=== PATIENT | male | born 1940 | race Caucasian/White ===

== ENCOUNTER → 2017-01-21 | Outpatient (CLI) | payer OTHER ==
[~2017-01-21] MED LIST: ACT15 PO; ALFU10TA30 PO; ASPEC325 PO; GLC500 PO; LOVA40TA4 PO; REPA2TAB13 PO
[2017-01-21 13:24] LABS: BASO % 0.7 %; BASO ABS # 0.06 K/uL (0-0.2); COMPLETE YES; EOS % 6.6 %; HEMATOCRIT 40.4 % (42-52); IG% 0.3 %; LYMPH % 33.2 %; LYMPH ABS # 2.85 K/uL (1.2-3.4); MEAN CELL VOLUME 91.8 fL (80-100); MEAN CORPUSCULAR HEMOGLOBIN 31.6 pg (25-34); MEAN CORPUSCULAR HGB CONC 34.4 g/dl (32-36); MEAN PLATELET VOLUME 9.7 fL (7.4-10.4); MONO % 7.9 %; NEUT % 51.3 %; PLATELET COUNT 218 K/uL (130-400); WHITE BLOOD COUNT 8.59 K/uL (4.8-10.8)
[2017-01-21 13:32] LABS: ALT/SGPT 36 U/L (12-78); AST/SGOT 30 U/L (15-37); BLOOD UREA NITROGEN 28 mg/dl (7-18); BUN/CREATININE RATIO 17.7 (10-20); CALCIUM 8.8 mg/dl (8.5-10.1); CARBON DIOXIDE 28 mmol/L (21-32); CHLORIDE 106 mmol/L (98-107); CHOLESTEROL 141 mg/dl (0-200); GLUCOSE 117 mg/dl (70-99); POTASSIUM 4.4 mmol/L (3.5-5.1); SODIUM 141 mmol/L (136-145); TRIGLYCERIDES 95 mg/dl (0-150); VERY LOW DENSITY LIPOPROT CALC 19 mg/dl
[2017-01-21 13:42] LABS: CHOLESTEROL/HDL RATIO 2.8; HDL CHOLESTEROL 51 mg/dl; LDL CHOLESTEROL CALCULATED 71 mg/dl
[2017-01-21 13:48] LABS: ESTIMATED AVERAGE GLUCOSE 163 mg/dl; HA1C FLAG Normal (Normal)
[2017-01-21 14:06] LABS: RATIO 8.7 mcg/mg (0-30.0)
== END | disposition home or self-care (01) ==
LOC: C.LABMFLN 07:59
PROVIDERS: ATTEND Family Medicine
DX: E78.00 Pure hypercholesterolemia, unspecified (principal); E03.9 Hypothyroidism, unspecified; E11.9 Type 2 diabetes mellitus without complications; E53.8 Deficiency of other specified B group vitamins

== ENCOUNTER → 2017-02-26 | Outpatient (CLI) | payer OTHER ==
[~2017-02-26] MED LIST changes: +ALFU10TA2 PO; -ALFU10TA30 PO; +REPA2TAB12 PO; -REPA2TAB13 PO
--- NOTE | 2017-02-26 15:55 | DIAGNOSTIC IMAGING REPORT ---
ADDENDUM Addendum: There is an error in the original report, as the patient was mistakenly assumed to be a female. The reported 4 cm cystic presacral lesion, is therefore not of ovarian origin. The etiology of this lesion is not known. CT scanning should be considered in follow-up. Electronically signed by: Kevin Roy M.D. 02/27/2017 10:57 AM Dictated Date/Time: 02/27/2017 10:55 AM ORIGINAL REPORT MRI LUMBAR SPINE W/O CONTRAST CLINICAL HISTORY: LUMBAR RADICULOPATHY TECHNIQUE: Sagittal and axial T1, T2 and STIR images were obtained. COMPARISON STUDY: No previous studies for comparison. OBSERVATIONS: The vertebral bodies and posterior elements appear intact. There is no abnormal bony signal present to suggest a marrow replacement process. L1-2: No disc protrusions or extrusions. No evidence of spinal canal or neural foraminal compromise. L2-3: There is a disc bulge and small broad-based central disc protrusion. There is minimal deformity anterior thecal sac. There is no significant foraminal narrowing L3-4: There is an annular fissure. There is a small right paracentral disc protrusion. There is mild spinal stenosis. There is no significant foraminal narrowing L4-5: There is an annular fissure and small central disc protrusion. There is facet joint arthropathy. There is moderate spinal stenosis. There is a minimal grade 1 spondylolisthesis of L4 on L5. L5-S1: There is an annular fissure and small central disc protrusion. There is minimal secondary deformity of thecal sac. There is no significant foraminal narrowing. The conus medullaris and cauda equina appear normal. There is a 4 cm T2 bright presacral lesion, likely cystic. This is slightly to the left of midline. This could be ovarian. Nonemergent pelvic ultrasonography is recommended in follow-up. IMPRESSION: 1. Multilevel spondylitic changes with multilevel disc protrusions. There is moderate spinal stenosis the L4-5 level. 2. 4 cm cystic presacral lesion, possibly ovarian. A nonemergent pelvic ultrasound is recommended in follow-up. Electronically signed by: Kevin Roy M.D. 02/26/2017 3:53 PM Dictated Date/Time: 02/26/2017 3:44 PM
== END | disposition home or self-care (01) ==
LOC: C.MRIBC 14:25
PROVIDERS: ATTEND Pain Medicine Interventional Pain Medicine
DX: M47.817 Spondylosis without myelopathy or radiculopathy, lumbosacral region (principal)

== ENCOUNTER → 2017-03-09 | Outpatient (CLI) | payer OTHER ==
[2017-03-09 13:37] LABS: BLOOD UREA NITROGEN 30 mg/dl (7-18)
== END | disposition home or self-care (01) ==
LOC: C.LABMFLN 08:14
PROVIDERS: ATTEND Family Medicine
DX: E03.9 Hypothyroidism, unspecified (principal)

== ENCOUNTER → 2017-03-11 | Outpatient (CLI) | payer OTHER ==
[~2017-03-11] MED LIST changes: +OPTIRAY 320 IV PRN
--- NOTE | 2017-03-11 10:02 | DIAGNOSTIC IMAGING REPORT ---
CT ABD/PELVIS IV AND ORAL CONT CLINICAL HISTORY: PRE SACRAL MASS COMPARISON STUDY: MRI the lumbar spine dated 02/26/2017 TECHNIQUE: Following the IV administration of 94 mL of Optiray-320, CT scan of the abdomen and pelvis was performed from the lung bases to the proximal femurs. Images are reviewed in the axial, sagittal, and coronal planes. IV contrast was administered without complication. CT DOSE: 365.73 mGy.cm FINDINGS: Lower chest: There are minor dependent atelectatic changes. Liver: The contrast-enhanced liver is normal in size, contour, and attenuation. There is no intrahepatic biliary ductal dilatation. The hepatic veins and portal veins are patent. Gallbladder: Unremarkable. Spleen: Normal in size and attenuation. Pancreas: Unremarkable. Adrenal glands: Unremarkable. Kidneys: There is symmetric renal cortical enhancement. The kidneys are normal in size without hydronephrosis. Bowel: There are no transition zones indicate bowel obstruction. The appendix appears normal. There is no acute diverticulitis. Peritoneum: There is no intraperitoneal free air or abdominal ascites. Vasculature: The abdominal aorta is normal in course and caliber. Adenopathy: None. Pelvic viscera: There is a 4 cm left-sided presacral low-attenuation mass located the S1 level. There are no associated bony destructive or remodeling changes. There are no surrounding inflammatory changes. Skeletal structures: No destructive osseous lesions are seen. IMPRESSION: 4 cm left-sided presacral low-attenuation mass located the S1 level. There are no associated bony destructive or remodeling changes. Likely diagnostic considerations include a developmental cyst, neurogenic tumor, or acquired lesion. If the patient is asymptomatic, surveillance may be appropriate. If surveillance is chosen, a 6 month follow-up MRI study without and with gadolinium would be recommended. Electronically signed by: Kevin Roy M.D. 03/11/2017 10:01 AM Dictated Date/Time: 03/11/2017 9:44 AM
== END | disposition home or self-care (01) ==
LOC: C.CTS 09:07
PROVIDERS: ATTEND Pain Medicine Interventional Pain Medicine
DX: R19.09 Other intra-abdominal and pelvic swelling, mass and lump (principal)

== ENCOUNTER → 2017-03-13 | Outpatient (CLI) | payer OTHER ==
[~2017-03-13] MED LIST changes: -OPTIRAY 320 IV PRN
== END | disposition home or self-care (01) ==
LOC: C.LABMFLN 11:12
PROVIDERS: ATTEND Family Medicine
DX: E11.40 Type 2 diabetes mellitus with diabetic neuropathy, unspecified (principal)

== ENCOUNTER → 2017-07-14 | Outpatient (CLI) | payer OTHER ==
[~2017-07-14] MED LIST changes: -ALFU10TA2 PO; +ALFU10TA30 PO; -REPA2TAB12 PO; +REPA2TAB13 PO
[2017-07-14 13:28] LABS: ESTIMATED AVERAGE GLUCOSE 160 mg/dl; HA1C FLAG Normal (Normal)
[2017-07-14 14:00] LABS: ALT/SGPT 39 U/L (12-78); AST/SGOT 33 U/L (15-37); BLOOD UREA NITROGEN 30 mg/dl (7-18); BUN/CREATININE RATIO 18.7 (10-20); CALCIUM 8.5 mg/dl (8.5-10.1); CARBON DIOXIDE 26 mmol/L (21-32); CHLORIDE 107 mmol/L (98-107); CHOLESTEROL 133 mg/dl (0-200); GLUCOSE 132 mg/dl (70-99); POTASSIUM 4.2 mmol/L (3.5-5.1); SODIUM 141 mmol/L (136-145)
[2017-07-14 14:11] LABS: ALB/GLOB RATIO 1.4 (0.9-2); ALKALINE PHOSPHATASE 104 U/L (45-117); HDL CHOLESTEROL 45 mg/dl; LDL CHOLESTEROL CALCULATED 65 mg/dl; THYROID STIMULATING HORMONE 0.861 uIu/ml (0.300-4.500); TRIGLYCERIDES 117 mg/dl (0-150); VERY LOW DENSITY LIPOPROT CALC 23 mg/dl
== END | disposition home or self-care (01) ==
LOC: C.LABMFLN 08:16
PROVIDERS: ATTEND Family Medicine
DX: E11.40 Type 2 diabetes mellitus with diabetic neuropathy, unspecified (principal); E78.00 Pure hypercholesterolemia, unspecified; E03.9 Hypothyroidism, unspecified

== ENCOUNTER → 2017-10-30 | Outpatient (CLI) | payer OTHER ==
[~2017-10-30] MED LIST changes: +ALFU10TA2 PO; -ALFU10TA30 PO; +REPA2TAB12 PO; -REPA2TAB13 PO
[2017-10-30 13:11] LABS: ESTIMATED AVERAGE GLUCOSE 140 mg/dl; HA1C FLAG Normal (Normal)
[2017-10-30 13:20] LABS: BLOOD UREA NITROGEN 33 mg/dl (7-18); BUN/CREATININE RATIO 22.2 (10-20); CALCIUM 8.4 mg/dl (8.5-10.1); CARBON DIOXIDE 26 mmol/L (21-32); CHLORIDE 109 mmol/L (98-107); CREATININE 1.48 mg/dl (0.60-1.40); GLUCOSE 98 mg/dl (70-99); POTASSIUM 4.2 mmol/L (3.5-5.1); SODIUM 142 mmol/L (136-145)
== END | disposition home or self-care (01) ==
LOC: C.LABMFLN 09:00
PROVIDERS: ATTEND Family Medicine
DX: E11.40 Type 2 diabetes mellitus with diabetic neuropathy, unspecified (principal)

== ENCOUNTER → 2017-11-03 | Outpatient (CLI) | payer OTHER | END | disposition home or self-care (01) | LOC: C.LABMFLN 07:29 | PROVIDERS: ATTEND Family Medicine | DX: R20.0 Anesthesia of skin (principal) ==

== ENCOUNTER → 2018-02-24 | Outpatient (CLI) | payer OTHER ==
[2018-02-24 14:04] LABS: ALBUMIN 3.9 gm/dl (3.4-5.0); ALT/SGPT 30 U/L (12-78); AST/SGOT 24 U/L (15-37); BLOOD UREA NITROGEN 27 mg/dl (7-18); CALCIUM 8.7 mg/dl (8.5-10.1); CARBON DIOXIDE 26 mmol/L (21-32); CHOLESTEROL 95 mg/dl (0-200); CREATININE 1.52 mg/dl (0.60-1.40); GLUCOSE 117 mg/dl (70-99); POTASSIUM 4.2 mmol/L (3.5-5.1); SODIUM 142 mmol/L (136-145)
[2018-02-24 14:14] LABS: ALKALINE PHOSPHATASE 90 U/L (45-117); LDL CHOLESTEROL CALCULATED 33 mg/dl; TOTAL PROTEIN 6.2 gm/dl (6.4-8.2)
[2018-02-25 06:52] LABS: HEMOGLOBIN A1C 6.8 % (4.5-5.6)
== END | disposition home or self-care (01) ==
LOC: C.LABMFLN 07:31
PROVIDERS: ATTEND Family Medicine
DX: E11.40 Type 2 diabetes mellitus with diabetic neuropathy, unspecified (principal); E78.00 Pure hypercholesterolemia, unspecified; E03.9 Hypothyroidism, unspecified; N18.9 Chronic kidney disease, unspecified; G47.33 Obstructive sleep apnea (adult) (pediatric)

== ENCOUNTER → 2018-03-09 | Outpatient (CLI) | payer OTHER ==
[~2018-03-09] MED LIST changes: +GADAVIST IV PRN
--- NOTE | 2018-03-09 10:19 | DIAGNOSTIC IMAGING REPORT ---
PELVIC COMBO CLINICAL HISTORY: 77 years-old Male presenting with PELVIC MASS IN MALE F/U SACRAL LESION, low back pain 1 year. TECHNIQUE: Multisequence, multiplanar MR imaging of the pelvis was performed before and after the administration of intravenous contrast. IV contrast: 8.5 mL of Gadavist. COMPARISON: 09/09/2017. FINDINGS: Localizer images: Unremarkable. Evidence of prostatic enlargement with benign prostatic hyperplasia. Circumferential bladder wall thickening likely indicates chronic bladder outlet obstruction. Redemonstration of the T1 hypointense, T2 hyperintense lesion anterior to the S1 vertebral body. This is mildly complex on T2-weighted imaging. No associated osseous changes or erosion. This appears to be located in the presacral space. No invasion of the mesorectal fat. This demonstrates heterogeneous enhancement on postcontrast imaging. This mass measures 3.6 x 3.6 x 3.5 cm. Previously this mass measured 4.0 x 4.3 x 3.5 cm. This does not grossly involve the neural foramina. No lymphadenopathy. Visualized portion of the bowel within normal limits. No free intraperitoneal fluid. Abnormal signal intensity within the right femoral head is primarily subchondral in distribution along the inferior and medial aspect of the right femoral head. Trace bilateral hip joint effusions. IMPRESSION: 1. Presacral mass is stable to slightly decreased in size from prior. Overall is not significantly changed. 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 2. Prostatomegaly with chronic bladder outlet obstruction. 3. Marrow changes in the right femoral head are not significant changed from prior. This may indicate osteonecrosis or degenerative change. Electronically signed by: Dony Gamez M.D. 03/09/2018 10:18 AM Dictated Date/Time: 03/09/2018 10:08 AM
== END | disposition home or self-care (01) ==
LOC: C.MRI 08:35
PROVIDERS: ATTEND Family Medicine
DX: R19.00 Intra-abdominal and pelvic swelling, mass and lump, unspecified site (principal); N40.1 Benign prostatic hyperplasia with lower urinary tract symptoms; N13.8 Other obstructive and reflux uropathy

== ENCOUNTER → 2018-06-14 | Outpatient (CLI) | payer OTHER ==
[~2018-06-14] MED LIST changes: -GADAVIST IV PRN
== END | disposition home or self-care (01) ==
LOC: C.LABMFLN 15:55
PROVIDERS: ATTEND Family Medicine
DX: E53.8 Deficiency of other specified B group vitamins (principal); M79.1 Myalgia

== ENCOUNTER 2019-08-10 04:53 | Inpatient (IN) ==
--- NOTE | 2019-07-22 10:16 | PAT Medication Instructions ---
Medication Instructions Date of Service July 22, 2019 Home Medications Medication Instructions Recorded blood sugar diagnostic strips #10 ea 05/10/19 rivaroxaban 15 mg tablet 15 mg PO QPM #90 tab 05/10/19 flash glucose scanning reader #1 ea 07/05/19 flash glucose sensor kit #2 ea 07/07/19 Medications blood sugar diagnostic strips #10 ea 05/10/19 [Rx Confirmed 07/20/19] rivaroxaban 15 mg tablet 15 mg PO QPM #90 tab 05/10/19 [Rx Confirmed 07/20/19] flash glucose scanning reader #1 ea 07/05/19 [Rx Confirmed 07/20/19] flash glucose sensor kit #2 ea 07/07/19 [Rx Confirmed 07/20/19] alfuzosin 10 mg PO HS 07/20/19 [History Confirmed 07/20/19] coQ10 (ubiquinol) 200 mg PO BID 07/20/19 [History Confirmed 07/20/19] fexofenadine [Shereen Allergy] 180 mg PO QAM 07/20/19 [History Confirmed 07/20/19] fluticasone propionate [Flonase Allergy Relief] 1 spray INTRANASAL BID 07/20/19 [History Confirmed 07/20/19] insulin glargine [Lantus Solostar U-100 Insulin] 22 units SQ HS 07/20/19 [History Confirmed 07/20/19] insulin lispro [Humalog U-100 Insulin] 13 - 23 unit SUBCUT TID 07/20/19 [History Confirmed 07/20/19] levothyroxine 150 mcg PO QAM 07/20/19 [History Confirmed 07/20/19] magnesium oxide [MagOx] 400 mg PO QAM 07/20/19 [History Confirmed 07/20/19] metoprolol succinate 50 mg PO QAM 07/20/19 [History Confirmed 07/20/19] metronidazole 1 appln TOP QAM 07/20/19 [History Confirmed 07/20/19] vitamin B complex [B-Complex] 1 tab PO Q2D 07/20/19 [History Confirmed 07/20/19] atorvastatin 10 mg tablet 10 mg PO PM tab 07/21/19 [History Confirmed 07/21/19] Take morning of surgery With a small sip of water, OTHERWISE NOTHING TO EAT OR DRINK AFTER MIDNIGHT: Insulin Dependent Diabetic Patients * Test your blood sugar the morning of surgery * If Blood Sugar is GREATER THAN 150, take HALF of your regular dose of: * If Blood Sugar is LESS THAN 150, DO NOT TAKE ANY: Other Notes If you have any questions please call us at [phone] or [phone] or [phone] or [phone]
--- NOTE | 2019-07-22 10:23 | PAT Medication Instructions ---
Medication Instructions Date of Service July 22, 2019 Home Medications Medication Instructions Recorded blood sugar diagnostic strips #10 ea 05/10/19 rivaroxaban 15 mg tablet 15 mg PO QPM #90 tab 05/10/19 flash glucose scanning reader #1 ea 07/05/19 flash glucose sensor kit #2 ea 07/07/19 rivaroxaban 15 mg tablet 15 mg PO QPM alfuzosin 10 mg PO HS coQ10 (ubiquinol) 200 mg PO BID fexofenadine [Shereen Allergy] 180 mg PO QAM fluticasone propionate [Flonase Allergy Relief] 1 spray INTRANASAL BID insulin glargine [Lantus Solostar U-100 Insulin] 22 units SQ HS insulin lispro [Humalog U-100 Insulin] 13 - 23 unit SUBCUT TID levothyroxine 150 mcg PO QAM magnesium oxide [MagOx] 400 mg PO QAM metoprolol succinate 50 mg PO QAM metronidazole 1 appln TOP QAM vitamin B complex [B-Complex] 1 tab PO Q2D atorvastatin 10 mg tablet 10 mg PO PM ASK your prescriber and surgeon rivaroxaban 15 mg tablet 15 mg PO QPM (In order for spinal anesthesia, Rivaroxaban/Xarelto needs to be stopped 3 days/72 hours before surgery. Please check if this is okay with the doctor that prescribes this to you) STOP taking 2 weeks before surgery (or as soon as possible if surgery is within 2 weeks) coQ10 (ubiquinol) 200 mg PO BID STOP taking 24 hours before surgery metronidazole 1 appln TOP QAM DO NOT take the morning of surgery fexofenadine [Shereen Allergy] 180 mg PO QAM insulin lispro [Humalog U-100 Insulin] 13 - 23 unit SUBCUT TID magnesium oxide [MagOx] 400 mg PO QAM vitamin B complex [B-Complex] 1 tab PO Q2D Take morning of surgery With a small sip of water, OTHERWISE NOTHING TO EAT OR DRINK AFTER MIDNIGHT: fluticasone propionate [Flonase Allergy Relief] 1 spray INTRANASAL BID levothyroxine 150 mcg PO QAM metoprolol succinate 50 mg PO QAM Take evening before surgery alfuzosin 10 mg PO HS fluticasone propionate [Flonase Allergy Relief] 1 spray INTRANASAL BID insulin glargine [Lantus Solostar U-100 Insulin] 22 units SQ HS insulin lispro [Humalog U-100 Insulin] 13 - 23 unit SUBCUT TID atorvastatin 10 mg tablet 10 mg PO PM Other Notes If you have any questions please call us at [phone] or [phone] or [phone] or [phone]
--- NOTE | 2019-07-22 10:54 | Anesthesiology Consultation ---
Date of Service July 22, 2019 Assessment & Plan (1) Encounter for pre-operative examination: - Cardiology: 01/20/19: Stress ECHO ordered for evaluation of NAIR. No evidence of ischemia on exercise stress echo 02/10/19. - Check BSG AM DOS - Hx difficult intubation: per patient, he was told he was a difficult intubation with knee surgery 25+ years ago. Has subsequently had right TKA 12/28/09 at [facility] (SAB + PNB per operative report). Chart Review Chart Review: Pending: Refer to Additional Notes / Consult section (pending preop testing (labs, CXR)) and Patient seen in Pre Admission Testing Teaching & Discussion Pre-Anesthesia Teaching/Discussion Notes: Instructed NPO after midnight before surgery,except medications with 15 cc of water. Medication instructions provided according to the PAT guidelines. History Surgery Operation Date: 08/10/19 11:40 Proposed Procedures p Left Total Knee Arthroplasty - Terry Bryan MD Height/Weight Height: 6 ft 3 in Weight: 91.8 kg Allergies Allergy/AdvReac Type Severity Reaction Status Date / Time No Known Allergies Allergy Verified 07/20/19 11:28 Medications Home Medications Medication Instructions Recorded Confirmed Last Taken blood sugar diagnostic strips #10 ea 05/10/19 07/20/19 Unknown rivaroxaban 15 mg tablet 15 mg PO QPM #90 tab 05/10/19 07/20/19 Unknown flash glucose scanning reader #1 ea 07/05/19 07/20/19 Unknown flash glucose sensor kit #2 ea 07/07/19 07/20/19 Unknown alfuzosin 10 mg PO HS 07/20/19 07/20/19 Unknown coQ10 (ubiquinol) 200 mg PO BID 07/20/19 07/20/19 Unknown fexofenadine [Shereen Allergy] 180 mg PO QAM 07/20/19 07/20/19 Unknown fluticasone propionate [Flonase 1 spray INTRANASAL BID 07/20/19 07/20/19 Unknown Allergy Relief] insulin glargine [Lantus Solostar 22 units SQ HS 07/20/19 07/20/19 Unknown U-100 Insulin] insulin lispro [Humalog U-100 13 - 23 unit SUBCUT TID 07/20/19 07/20/19 Unknown Insulin] levothyroxine 150 mcg PO QAM 07/20/19 07/20/19 Unknown magnesium oxide [MagOx] 400 mg PO QAM 07/20/19 07/20/19 Unknown metoprolol succinate 50 mg PO QAM 07/20/19 07/20/19 Unknown metronidazole 1 appln TOP QA 07/20/19 07/20/19 Unknown vitamin B complex [B-Complex] 1 tab PO Q2D 07/20/19 07/20/19 Unknown atorvastatin 10 mg tablet 10 mg PO PM tab 07/21/19 07/21/19 Unknown Past Medical History Medical History Atrial flutter on Xarelto BPH (benign prostatic hyperplasia) CKD (chronic kidney disease) Chronic back pain Diabetes mellitus, type 2 IDDM Hyperlipidemia Hypertension Hypothyroidism Neuropathy BILAT FEET Osteoarthritis Sleep apnea non-compliant CPAP Exercise / Class Metabolic Activity II 4-5 Yardwork/Stairs/Walk up hill Past Family History Family History Father Family hx of colon cancer Colorectal cancer Other Cancer Past Surgical History Surgical History History of arthroscopy RIGHT History of surgery on wrist History of tonsillectomy AGE 6 History of total knee replacement RIGHT Past Anesthesia History Difficult Airway (Per patient, he was told he was a difficult intubation with knee surgery 25+ years ago; no further details) and No Family Hx of Anesthesia Complications History of PONV No Hx of PONV and No Hx of Motion Sickness Social History Smoking Status: Former smoker tobacco type: cigarettes Do You Dip or Chew Tobacco: No Smoking End Date: QUIT 40 YRS AGO Hx Alcohol Use: Yes Alcohol type: beer and hard liquor alcohol intake frequency: a few times a week Hx Substance Use: No Review of Systems Patient denies chest pain, shortness of breath, dyspnea on exertion, reflux, cough, wheezing, palpitations. Physical Exam Vital Signs VITALS BP 117/58 P 58 TEMP 97.5 SP02 99%RA RESP 18 PHYSICAL Mildly decreased cervical extension 2/2 arthritis Full TMJ range of motion. TMD 3 finger breaths Mallampati Score 4 (small oral opening) Dentition: missing side, several caps/implants "all over" Lungs: clear throughout to auscultation Cardiac: regular rate and rhythm, no murmurs noted Spine: normal Carotid arteries: negative bruit Extremities: no edema Testing Electrocardiogram Date: 12/23/18 SR at 72bpm. Echocardiogram Date: 12/16/18 EF 55-60%. No RWMA. Mild MR. Stress Test Date: 02/10/19 Type: exercise Negative exercise stress ECHO/EKG for ischemia at 90% MPHR. 7 METS. EF 60%.
--- NOTE | 2019-07-22 11:45 | XRay Report ---
TWO VIEW CHEST CLINICAL HISTORY: Preoperative examination.. FINDINGS: PA and lateral chest radiographs are compared to study dated 12/17/2009. The heart is top nor mal for projection noting atherosclerotic calcification of the thoracic aorta. Chronic interstitial t hickening is similar to previous. No airspace consolidation or pleural effusion is identified. There is no pneumothorax. The skeletal structures are osteopenic. The bony thorax appears intact. Degenerat peggy change and DISH are noted throughout the thoracic spine. IMPRESSION: No active disease in the chest. Electronically signed by: Jalil Simmons M.D. 07/22/2019 11:44 AM
[2019-07-22 12:31] LABS: Basophils # (auto) 0.03 K/uL (0-0.2); Basophils % (auto) 0.3 %; Eosinophils # (auto) 0.22 K/uL (0-0.5); Eosinophils % (auto) 2.5 %; Hemoglobin 14.9 g/dL (14.0-18.0); Immature Granulocytes # (auto) 0.03 K/uL (0.00-0.02); Immature Granulocytes % (auto) 0.3 %; Lymphocytes # (auto) 2.34 K/uL (1.2-3.4); Lymphocytes % (auto) 27.1 %; Mean Corpuscular Hemoglobin 32.5 pg (25-34); Mean Corpuscular Hgb Conc 34.7 g/dL (32-36); Mean Corpuscular Volume 93.7 fL (80-100); Mean Platelet Volume 10.2 fL (7.4-10.4); Monocytes % (auto) 10.4 %; Neutrophils # (auto) 5.13 K/uL (1.4-6.5); Neutrophils % (auto) 59.4 %; Platelet Count 192 K/uL (130-400); RDW Coefficient of Variation 12.5 % (11.5-14.5); RDW Standard Deviation 42.4 fL (36.4-46.3); Red Blood Count 4.59 M/uL (4.7-6.1); White Blood Count 8.65 K/uL (4.8-10.8)
[2019-07-22 12:45] LABS: Appearance Urine Clear (Clear); Bilirubin Urine Negative (Negative); Blood Urine Negative (Negative); Color Urine Yellow; Glucose Urine UA Negative (Negative); Ketones Urine Negative (Negative); Leukocyte Esterase Urine Negative (Negative); Nitrite Urine Negative (Negative); Protein Urine Negative (Negative); Specific Gravity Urine 1.018 (1.000-1.030); Urobilinogen Urine Negative (Negative)
[2019-07-22 12:49] LABS: Albumin Level 3.9 gm/dl (3.4-5.0); Calcium 8.6 mg/dl (8.5-10.1); Creatinine Clr Calc Pharmacy 40.4 ml/min; Est GFR (African American) 40.9; Est GFR (Non-African American) 35.3; Potassium 4.1 mmol/L (3.5-5.1)
[2019-07-22 12:51] LABS: Partial Thromboplastin Time 26.8 Seconds (21.0-31.0); Prothrombin Time 10.3 Seconds (9.0-12.0)
[2019-07-22 13:08] LABS: Estimated Average Glucose 183 mg/dl
--- NOTE | 2019-08-09 13:57 | History and Physical Report ---
DATE OF ADMISSION: 08/10/2019 CHIEF COMPLAINT: Chronic left knee pain. HISTORY OF PRESENT ILLNESS: This is a 79-year-old male patient of Dr. Bryan'amber complaining of chronic left knee pain, longstanding, now progressively getting worse. The patient has been diagnosed with end-stage osteoarthritis per clinical and radiographic exams. The patient has failed conservative treatment including intra-articular injections, Tylenol and the use of a knee sleeve. The patient has increased pain with weightbearing activities and his pain does interfere with his activities of daily living. PAST MEDICAL HISTORY: Atrial fibrillation, loud snoring with no diagnosis of sleep apnea, peripheral neuropathy, diabetes mellitus with insulin, hypothyroidism, osteoarthritis, TMJ, spine problems. SOCIAL HISTORY: Nonsmoker, 5 drink per week drinker. PAST SURGICAL HISTORY: Right total knee replacement, tonsillectomy, left wrist ganglion cyst removal. FAMILY HISTORY: Noncontributory. REVIEW OF SYSTEMS: Chronic left knee pain and instability. Otherwise, denies any shortness of breath, chest pain, nausea, vomiting or other joint complaints. MEDICATIONS: 1. Synthroid 125 mcg daily. 2. Atorvastatin 10 mg daily. 3. Metronidazole 1% topical gel to affected area daily. 4. Humalog 100 units subQ per scale. 5. Lantus 100 units per mL subQ per scale. 6. Xarelto 10 mg daily. 7. Metoprolol 25 mg daily. 8. Finasteride 5 mg daily. 9. Alfuzosin 10 mg daily. 10. Coenzyme Q10 100 mg daily. ALLERGIES: No known drug allergies. PHYSICAL EXAMINATION: GENERAL: Well-developed, well-nourished 79-year-old male in no acute distress. He is alert and oriented x3 and pleasant. HEENT: Normocephalic, atraumatic. Extraocular motions are intact. Pupils are equal and reactive to light. HEART: Regular rate and rhythm, no murmurs. LUNGS: Clear. ABDOMEN: Soft, nontender, bowel sounds present. EXTREMITIES: Left knee limited range of motion of negative 10-95 degrees. Varus deformity. Medial joint line tenderness with crepitation. 4/5 strength. Neurologically and neurovascularly he is intact in his left lower extremity. DIAGNOSES: Left knee end-stage osteoarthritis, atrial fibrillation, loud snoring with no diagnosis of sleep apnea, peripheral neuropathy, diabetes mellitus with insulin, hypothyroidism, osteoarthritis, TMJ and spine problems. PLAN: The patient was advised of his diagnosis. Indications, risks, benefits, postop course have all been reviewed. The patient wished to proceed with a left total knee arthroplasty. Necessary consent forms, preoperative testing and clearances will be obtained.
[2019-08-10] MEDS ORDERED: FAMOTIDINE 20 MG TAB PO SCH (06:00)
[2019-08-10] MEDS ORDERED: CEFAZOLIN 2000MG 2,000 MG/15 ML SYR IV SCH (06:00)
[2019-08-10] MEDS ORDERED: ACETAMINOPHEN 500 MG TAB PO SCH (06:00)
[2019-08-10] MEDS ORDERED: METOCLOPRAMIDE HCL 10 MG TABLET PO SCH (06:00)
[2019-08-10] MEDS ORDERED: LR 15ML/HR IV SCH (06:00)
[2019-08-10] MEDS ORDERED: ROPIVACAINE 0.5% HCL/PF 150 MG, BUPIVACAINE 0.5% MPF 30 ML, EPINEPHrine 30MG/30ML (OR U... INSTIL SCH (06:00)
[2019-08-10] MEDS ORDERED: GABAPENTIN 300 MG CAP PO SCH (06:00)
[2019-08-10] MEDS ORDERED: CeleBREX 200 MG CAP PO SCH (06:00)
[2019-08-10] MEDS ORDERED: BUPIVACAINE 0.5 % 5 MG/1 ML PF 10ML VIAL ONE (06:17)
[2019-08-10] MEDS ORDERED: ROPIVACAINE 0.5% 5 MG/ML 30 ML VIAL ONE (06:18)
[2019-08-10] MEDS ORDERED: EPINEPHrine INJ 1 MG/ML AMP ONE (06:18)
[2019-08-10] MEDS ORDERED: fentaNYL citrate 100 MCG/2 ML VIAL ONE (06:48)
[2019-08-10] MEDS ORDERED: MIDAZOLAM HCL 1 MG/ML 2ML VIAL ONE (06:48)
[2019-08-10] MEDS ORDERED: PROPOFOL IV EMULSION 10 MG/ML 20 ML VIAL IV ONE (06:48)
[2019-08-10] MEDS ORDERED: LIDOCAINE HCL 2% 2 ML VIAL/AMP(20MG/ML) INFIL ONE (06:48)
--- NOTE | 2019-08-10 06:58 | History & Physical Bridge Note ---
Date of Service August 10, 2019 History & Physical Bridge Note I have examined the patient, reviewed the History & Physical and in the interval since the performance of the History & Physical I have noted the following changes of clinical significance: no changes noted
[2019-08-10] MEDS ORDERED: BACITRACIN INJ 50,000 UNIT VIAL ONE (06:59)
[2019-08-10] MEDS ORDERED: ORTHO JOINT ANESTHETIC ONE (06:59)
[2019-08-10] MEDS ORDERED: ONDANSETRON INJ 2 MG/ML 2 ML VIAL IV PRN ×2 (07:40→10:35)
[2019-08-10] MEDS ORDERED: LABETALOL HCL IV 5 MG/ML 20ML IV PRN (07:40)
[2019-08-10] MEDS ORDERED: ePHEDrine sulfate 50 MG/ML AMP IV PRN (07:40)
[2019-08-10] MEDS ORDERED: fentaNYL citrate 100 MCG/2 ML VIAL IV PRN (07:40)
[2019-08-10] MEDS ORDERED: PHENYLEPHRINE 100MCG/ML 5ML SYR IV PRN (07:40)
[2019-08-10] MEDS ORDERED: HYDROmorphone INJ 1 MG/ML SYRINGE IV PRN (07:40)
[2019-08-10] MEDS ORDERED: ATROPINE SULFATE 0.1 MG/ML 10ML SYR IV PRN (07:40)
[2019-08-10] MEDS ORDERED: MEPERIDINE HCL 25 MG/ML CARP IV PRN (07:40)
[2019-08-10] MEDS ORDERED: ONDANSETRON INJ 2 MG/ML 2 ML VIAL ONE (08:13)
[2019-08-10] MEDS ORDERED: ePHEDrine sulfate 50 MG/ML AMP ONE (08:13)
--- NOTE | 2019-08-10 09:13 | Post Operative Brief Note ---
Immediate Post Op Note v1 Date of Surgery August 10, 2019 Pre & Post Diagnosis Operation Date: 08/10/19 07:15 Pre-Op Diagnosis: LEFT KNEE OSTEOARTHRITIS Post-Op Diagnosis: LEFT KNEE OSTEOARTHRITIS Procedure Operation Date: 08/10/19 07:15 Actual Procedures p Left Total Knee Arthroplasty(Left) - Terry Bryan MD Surgeon Terry Bryan MD Mower Sharpener Dominic GIORDANO Estimated Blood Loss 5 Findings Consistent with Post-Op Diagnosis Specimens Bone cuts Drains Hemovac Drain Anesthesia Type MAC Spinal Regional Complications none Disposition Accompanied Patient To Recovery: No Disposition: Recovery Room Overlapping Procedure I was immediately available: during the entire case.
--- NOTE | 2019-08-10 09:37 | Operative Report ---
Post Operative Report Pre & Post Diagnosis Operation Date: 08/10/19 07:15 Pre-Op Diagnosis: LEFT KNEE OSTEOARTHRITIS Post-Op Diagnosis: LEFT KNEE OSTEOARTHRITIS Procedure Operation Date: 08/10/19 07:15 Actual Procedures p Left Total Knee Arthroplasty(Left) - Terry Bryan MD Surgeon Terry Bryan MD Travel Agent Dominic GIORDANO Estimated Blood Loss 5 Findings Consistent with Post-Op Diagnosis Specimens Bone cuts Drains 2 Hemovac Anesthesia Type MAC Spinal Regional Complications none Disposition Accompanied Patient To Recovery: No Disposition: Recovery Room Indications 71-year-old male with progressive osteoarthritis in his left knee. She has successful right knee replacement in the past. Has had extended conservative management with injections bracing therapy. Radiographs demonstrate [id number] patellofemoral joint and has some moderate tibiofemoral osteoarthritis. Description of Procedure Patient taken to the operating room the size under spinal MAC regional anesthesia. Patient was placed supine on the operating table. A pneumatic tourniquet was placed about the left upper thigh. The left lower extremity was prepped and draped in sterile fashion. Knee exam demonstrated 15 to 20 degree flexion contracture with otherwise good flexion of the knee to at least 130 degrees. No instability. [id number] patellofemoral crepitation. The leg was elevated exsanguinated with an Esmarch bandage and pneumatic tourniquet was raised to 325 millimeters of mercury. Skin incised sharply in longitudinal fashion. Subcutaneous flaps elevated. Incision was made through the medial retinaculum extending up in the mid third of the quadriceps tendon and down to the medial tibial tubercle. Intra-articular findings demonstrated severe patellofemoral DJD [id number] with some bone wear discoloration of bone due to chronic wear and likely hemorrhage. There are grade 4 lesions on the medial lateral femoral condyles and degeneration of the ACL. The [employer] total knee arthroplasty system was used. To expose the knee the infrapatellar fat pad was resected. The meniscal remnants and cruciate ligaments were resected. The anterior fat pad over the femur in the area of the anterior flange of the femoral component was resected. Lateral synovial bands release. The femur was exposed. An intramedullary drill hole was made into the canal. A guide gera was placed. Distal femoral cutting guide was adjusted to resect a 5 degree valgus cut with 10 millimeters distal femur resected. The knee was extended and a subperiosteal peel lateral release was performed around the patella. Patella width was measured and width was reproduced using a freehand cut technique and a 39 x 11 patella component. The 3 drill holes were made and the excess lateral facet was beveled off to prevent any impingement. Attention was taken back to the femur which was exposed with retractors and the femoral sizing guide was pinned in position. The drill holes were placed in 3 of external rotation to match epicondylar axis. Femur sized for an 8 component. The 4-in-1 cutting block was placed and then the anterior posterior and chamfer cuts are made. The tibia was then subluxed. The external tibial cutting guide was just to make a perpendicular cut to the long axis of the tibia below the most deficient bone loss side. A lamina concession manager was used and the flexion extension gaps were balanced. All posterior osteophytes removed. All meniscal remnants were resected. The tibia exposed and the trial tibial component size 7 was externally rotated in line with the tibial tubercle and pinned in position. The punch for stem was used. The notch cutting device was centered appropriately and the femoral notch cut was made. The femoral trial was inserted. Trial tibial inserts were placed and size 9 posterior stabilized gave balanced ligaments through flexion and extension. Patella tracking was asses sed. The patella tracked some very slight liftoff but centered in deep flexion but I felt we should proceed with a limited lateral release which was performed leaving the synovium intact which allowed normal tracking centrally throughout full range of motion. The trial components were then removed and the orthomix anesthetic cocktail was injected per protocol. The knee was then copiously irrigated with pulsatile lavage antibiotic solution. Final components were then cemented with Simplex cement. Final components were [place] left posterior stabilized size 8 femur with fixation pegs, 7 primary tibial baseplate 7 x 9 mm posterior stabilized tibial bearing insert posterior stabilized 39 x 11 patella,. While the cement cured the Betadine soak was used per protocol. After cement cured further pulsatile lavage irrigation performed and 2 Hemovac drains were brought out laterally. The quadriceps tendon and medial retinaculum were closed with figure of 8 #1 Vicryl sutures. The knee was taken through full range of motion and the repair was secure. The subcutaneous tissues were closed with 2-0 Vicryl sutures. Skin was closed with nuvia. Sterile Silverlon dressings were applied. Patient procedure well. Dominic GIORDANO was my physician rehab care assistant who assisted in patient positioning prepping and draping,leg positioning ,soft tissue retraction and instrument management and participated in the closing and will participate in postoperative care of the patient. The patient tolerated the procedure well. I attest to the content of the Intraoperative Record and any orders documented therein. Any exceptions are noted below.
--- NOTE | 2019-08-10 09:57 | Anesthesiology Progress Note ---
Date of Service August 10, 2019 Anesthesia Post Procedure Vital Signs Vital Signs: Temp Pulse Pulse Resp BP Pulse Ox 08/10/19 09:50 37.0 C 63 16 120/62 97 08/10/19 09:40 59 L 16 127/56 L 95 08/10/19 09:30 71 16 127/56 L 98 08/10/19 09:21 36.4 C L 72 16 116/63 97 08/10/19 05:37 36.7 C 55 L 18 129/69 98 Pain Intensity Left Knee: Pain Intensity: 0 Transfer of Care Handoff Completed per policy Notes Mental Status: alert / awake / arousable Patient Amnestic to Procedure: Yes Nausea / Vomiting: adequately controlled Pain: adequately controlled Airway Patency, RR, SpO2: stable & adequate BP & HR: stable & adequate Hydration State: stable & adequate Neuraxial Anesthesia: was administered and sensory block is resolving Anesthetic Complications: no major complications apparent and Pt Satisfied with anesthetic care
--- NOTE | 2019-08-10 10:00 | XRay Report ---
XR knee LT 2V routine CLINICAL HISTORY: 79 years-old Male presenting with Surgical Post Op. TECHNIQUE: Frontal and crosstable lateral views of the left knee were obtained. COMPARISON: None. FINDINGS: Postsurgical changes of total left knee arthroplasty with patellar resurfacing. Expected intra-articu lar and soft tissue emphysema. Overlying skin nuvia. A surgical drain is in place. Surrounding soft tissue swelling. No malalignment or periprosthetic fracture. IMPRESSION: Expected postsurgical appearance status post total left knee arthroplasty with patellar resurfacing. Electronically signed by: Dony Gamez M.D. 08/10/2019 9:59 AM
[2019-08-10] MEDS ORDERED: bisacodyL 10 MG SUPP PR PRN (10:35)
[2019-08-10] MEDS ORDERED: [UNRECOGNIZED DRUG - SUPPLY] SCH (10:35)
[2019-08-10] MEDS ORDERED: NALOXONE HCL 0.4 MG/1 ML VIAL/CARP IV PRN (10:35)
[2019-08-10] MEDS ORDERED: HYDROmorphone INJ 0.5 MG/0.5 ML SYR IV PRN (10:35)
[2019-08-10] MEDS ORDERED: MAGNESIUM HYDROXIDE SUSP 30 ML UDC PO PRN (10:35)
[2019-08-10] MEDS ORDERED: PHARMACY GLYCEMIC MGMT CONSULT PRN (11:23)
[2019-08-10] MEDS ORDERED: CARBOHYDRATES FOR HYPOGLYCEMIA PO PRN (11:30)
[2019-08-10] MEDS ORDERED: GLUCOSE 10 TABS/TUBE PO PRN (11:30)
[2019-08-10] MEDS ORDERED: INSULIN GLARGINE SOLOSTAR 100 UNITS/ML 3 ML PEN SC ONE (11:30)
[2019-08-10] MEDS ORDERED: DEXTROSE 50% 50 ML SYRINGE IV PRN (11:30)
[2019-08-10] MEDS ORDERED: GLUCAGON FOR INJ 1 MG VIAL IM PRN (11:30)
[2019-08-10] MEDS ORDERED: GLUCOSE 40% GEL 15 GM TUBE PO PRN (11:30)
[2019-08-10] MEDS: SODIUM CHLORIDE 0.9% 1000ML 1,000 ML IV SCH ×2 (11:51→21:42)
[2019-08-10] MEDS: VITAMIN B COMPLEX TAB PO SCH (11:51)
--- NOTE | 2019-08-10 12:00 | Pharmacy Report ---
Glycemic Control Consultation - Date of Service August 10, 2019 - Scope Scope: Glycemic Pharmacist consulted for glycemic control and to write orders per [facility] inpatient glycemic control protocol - Objective Weight: 91.852 kg Accuchecks BSG (last 24hrs): 08/10/19 08/10/19 05:38 09:24 POC Glucose 147 H 161 H HbA1c: Hemoglobin A1c 8.0 % (4.5-5.6) H 07/22/19 11:09 - Recent Pertinent Medications Outpatient Anti-diabetic Regimen: * Lantus 22 units SQ HS * Humalog 16 units with BF, 14 units with Lunch, 24 units with Dinner * Humalog SSI per scale * Total daily insulin dose 76+ units/day Risk Factors for Insulin Resistance: * Steroids: DXM topically in ortho mix * Recent Surgery * Diet - Assessment & Plan Assessment & Plan: ASSESSMENT: * 79yo T2DM male with adequate outpatient control per recent A1c. Goal A1c based on age/comorbidities likely ~7.5-8.5% * Pt is maintained on SQ basal bolus insulin regimen as an outpatient. 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; will give half of the half dose that was not given * Pt uses fixed dose rapid acting insulin with meals- will convert to CF/CR so that insulin is only given for CHO consumed as outpatient meals may be different/larger than CHO controlled in house meals * Goal is to maintain BSGs <200 mg/dl (ideally <150 mg/dl) to prevent post op complications PLAN FOR INPATIENT GLYCEMIC CONTROL: * Basal insulin * Lantus 6 units SQ x 1 dose NOW * Lantus 22 units SQ HS {outpatient dosing} * Bolus insulin * NovoLog per scale ACHS or Q6hrs while NPO * Goal Range: Low 110 mg/dL - High 140 mg/dL * Correction Factor: 15 mg/dL/unit * Nutritional / Prandial insulin per carb ratio of 1 unit per 5 grams CHO consumed * Please note that the plan above was derived based on current level of insulin resistance and hospital stress. These recommendations are appropriate for inpatient admission only. Plan of care upon discharge will need to be reassessed to avoid potential outpatient hypo/hyperglycemia. Thank you.
[2019-08-10] MEDS: INSULIN ASPART 100 UNITS/ML 3 ML PEN SC SCH ×3 (12:18→21:04)
[2019-08-10] MEDS: ACETAMINOPHEN 500 MG TAB PO SCH ×2 (13:42→20:56)
[2019-08-10] MEDS: CEFAZOLIN 2000MG 2,000 MG/15 ML SYR IV SCH ×2 (14:20→22:15)
--- NOTE | 2019-08-10 16:45 | Hospitalist Consultation ---
Date of Consultation August 10, 2019 Assessment & Plan (1) Benign prostate hyperplasia: Stable, continue alfuzosin 10 mg p.o. nightly Present on Admission?: Yes (2) Chronic renal insufficiency: Avoid nephrotoxic agents. Continue monitoring blood pressure and keep it to be low 160/90 (3) Controlled diabetes mellitus with diabetic neuropathy: A1c pending, glycemic control per pharmacy. Continue Accu-Cheks before meals and at bedtime Present on Admission?: Yes (4) Hypercholesterolemia: Fasting lipid panel pending. Continue atorvastatin 10 mg p.o. every afternoon. (5) Hypothyroidism: TSH pending. Continue levothyroxine 150 MCG's p.o. every afternoon. Present on Admission?: Yes (6) Paroxysmal atrial flutter: Continue metoprolol succinate 50 mg p.o. every morning. Xarelto 15 mg p.o. every afternoon on hold for now since patient is status post surgery . Restart per Ortho. Present on Admission?: Yes History of Present Illness Reason for Consultation: Medical management Requesting Physician: Dominic Salmeron MD Attending Physician: Terry Bryan MD History of Present Illness Patient is a 79 years old male with past medical history of obstructive sleep apnea, paroxysmal atrial flutter, diabetes mellitus type 2, hypercholesterolemia, CKD stage III who had today left total knee arthroplasty by Dr. Bryan. Patient tolerated procedure well. He was seen status post while he was resting in the bed comfortably. Patient denies fever, chills, chest pain, headache, shortness of breath, frequency, urgency, abdominal pain, hematuria, dysuria, hemoptysis hematemesis or melena. Labs are reviewed: WBC 8.65, hemoglobin 14.9, hematocrit 43, platelets 192, chemistry pending. Blood glucose 147, 161, 160. Pending A1c, pending fasting lipid. Allergies Allergy/AdvReac Type Severity Reaction Status Date / Time No Known Allergies Allergy Verified 08/10/19 05:27 Home Medications Home Medications Medication Instructions Recorded Confirmed Type blood sugar diagnostic strips #10 ea 05/10/19 08/03/19 Rx rivaroxaban 15 mg tablet 15 mg PO QPM #90 tab 05/10/19 08/10/19 Rx flash glucose scanning reader #1 ea 07/05/19 08/03/19 Rx flash glucose sensor kit #2 ea 07/07/19 08/03/19 Rx coQ10 (ubiquinol) 200 mg PO BID 07/20/19 08/10/19 History fexofenadine [Shereen Allergy] 180 mg PO QAM 07/20/19 08/10/19 History fluticasone propionate [Flonase 1 spray INTRANASAL BID 07/20/19 08/10/19 History Allergy Relief] insulin glargine [Lantus Solostar 22 units SQ HS 07/20/19 08/10/19 History U-100 Insulin] levothyroxine 150 mcg PO QAM 07/20/19 08/10/19 History magnesium oxide [MagOx] 400 mg PO QAM 07/20/19 08/10/19 History metronidazole 1 appln TOP QAM 07/20/19 08/10/19 History vitamin B complex [B-Complex] 1 tab PO Q2D 07/20/19 08/10/19 History atorvastatin 10 mg tablet 10 mg PO PM tab 07/21/19 08/10/19 History metoprolol succinate ER 50 mg 50 mg PO QAM #90 tab 07/25/19 08/10/19 Rx tablet,extended release 24 hr alfuzosin ER 10 mg tablet,extended 10 mg PO HS #90 tab 07/27/19 08/10/19 Rx release 24 hr insulin lispro (U- 100) 100 See Rx Instructions .ROUTE .COMPLEX 07/27/19 08/10/19 History unit/mL subcutaneous pen mupirocin 2 % topical ointment 1 appln TOP BID #15 gm 08/03/19 08/10/19 Rx Patient History Medical History Atrial flutter on Xarelto BPH (benign prostatic hyperplasia) CKD (chronic kidney disease) Chronic back pain Diabetes mellitus, type 2 IDDM Hyperlipidemia Hypertension Hypothyroidism Neuropathy BILAT FEET Osteoarthritis Sleep apnea non-compliant CPAP Surgical History History of arthroscopy RIGHT History of surgery on wrist History of tonsillectomy AGE 6 History of total knee replacement RIGHT Family History Father Family hx of colon cancer Colorectal cancer Other Cancer Social History Preferred Language: Kyr[place]z Communication Ability: Effective Visual Impairment: Limited Hearing Ability: Use of Hearing Aid Eyelet Machine Operator Required: No Beliefs That Will Affect Care: None marital status: Current Living Situation: Spouse current occupational status: retired Other Information That Helps Us Care for You: No Feels Safe at Home: Yes Safety Concerns: Feels Safe At This Time Smoking Status: Former smoker Tobacco Type: cigarettes ; Age Started Using Tobacco: 18 ; Age Quit Using Tobacco: 41 ; packs per day: 1 ; Do You Dip or Chew Tobacco: No ; Smoking End Date: QUIT 40 YRS AGO ; Second Hand Exposure: Yes ; Hx Alcohol Use: Yes Alcohol type: beer and hard liquor Alcohol Intake Frequency: Weekly Hx Substance Use: No Childhood Exposure to Second-Hand Smoke: Yes caffeine: Yes (diet pepsi) Dental Care, Regularly: Yes Physical Activity Frequency: 5-6 Times per Week Seatbelt Use: always Sunscreen Use: Yes (occasionally) Do you think of yourself as: straight/heterosexual Review of Systems Review of Systems: All systems reviewed & are unremarkable except as noted in HPI & below Physical Exam Constitutional: WD/WN, vitals as above well developed Eyes: PERRL, conjunctivae normal, anicteric sclerae ENMT: external ear and nose normal, oropharynx normal Neck: trachea midline, no thyromegaly Respiratory: normal respiratory effort, lungs clear to auscultation Cardiovascular: RRR, no murmur, no edema Gastrointestinal (Abdomen): normal bowel sounds, soft, nontender, no hepatosplenomegaly Musculoskeletal: no cyanosis or clubbing, extremities motor strength 5/5 Status post left knee arthroplasty today Skin: no rashes, warm and dry Neurologic: patellar DTR's 2+ bilat, sensation intact Psychiatric: A+Ox3, euthymic affect Genitourinary: no testicular masses, no penis abnormality Lymphatic: no cervical or axillary lymphadenopathy Results & Data Vital Signs (Past 12 Hours) Vital Signs Temp Pulse Pulse Resp BP Pulse Ox 08/10/19 15:01 36.4 C L 51 L 17 97/55 L 99 08/10/19 13:20 56 L 16 123/66 98 08/10/19 12:20 57 L 16 118/68 98 08/10/19 11:15 57 L 18 123/68 100 08/10/19 10:48 58 L 18 114/65 97 10/02/19 10:20 36.4 C L 63 20 120/65 96 08/10/19 10:00 37.0 C 64 16 116/56 L 96 08/10/19 09:50 37.0 C 63 16 120/62 97 08/10/19 09:40 59 L 16 127/56 L 95 08/10/19 09:30 71 16 127/56 L 98 08/10/19 09:21 36.4 C L 72 16 116/63 97 08/10/19 05:37 36.7 C 55 L 18 129/69 98 PG Care Time/CCT Total # of Minutes Spent Total Time Spent with Patient: Total time spent is greater than 50% in coordination of care (as documented) at patient's floor/unit and/or counseling patient:
[2019-08-10] MEDS: RIVAROXABAN 15 MG TAB PO SCH (18:02)
[2019-08-10] MEDS: ALFUZOSIN HCL 10 MG TAB PO SCH (18:02)
[2019-08-10] MEDS: FLUTICASONE PROPIONATE NA SPR 16 GM BTL SCH (20:54)
[2019-08-10] MEDS: MUPIROCIN 2% OINT 22 GM TUBE EXT SCH (20:55)
[2019-08-10] MEDS: SENNA 8.6 MG TAB PO SCH (20:56)
[2019-08-10] MEDS: DOCUSATE SODIUM 100 MG CAP PO SCH (20:56)
[2019-08-10] MEDS: ATORVASTATIN 10 MG TAB PO SCH (20:56)
[2019-08-10] MEDS ORDERED: INSULIN GLARGINE SOLOSTAR 100 UNITS/ML 3 ML PEN SC SCH (21:00)
[2019-08-10] MEDS: OXYCODONE HCL IR 5 MG TAB (IMMEDIATE RELEASE) PO PRN (21:01)
[2019-08-11] MEDS: OXYCODONE HCL IR 5 MG TAB (IMMEDIATE RELEASE) PO PRN ×4 (05:30→21:02)
[2019-08-11] MEDS: LEVOTHYROXINE SODIUM 150 MCG TABLET PO SCH (05:30)
[2019-08-11] MEDS: ACETAMINOPHEN 500 MG TAB PO SCH ×3 (05:30→21:03)
[2019-08-11 05:46] LABS: Basophils # (auto) 0.02 K/uL (0-0.2); Basophils % (auto) 0.2 %; Eosinophils # (auto) 0.12 K/uL (0-0.5); Eosinophils % (auto) 1.4 %; Hematocrit (blood only) 31.8 % (42-52); Hemoglobin 10.5 g/dL (14.0-18.0); Immature Granulocytes # (auto) 0.01 K/uL (0.00-0.02); Immature Granulocytes % (auto) 0.1 %; Lymphocytes # (auto) 1.29 K/uL (1.2-3.4); Lymphocytes % (auto) 14.7 %; Mean Corpuscular Hemoglobin 31.3 pg (25-34); Mean Corpuscular Volume 94.6 fL (80-100); Mean Platelet Volume 9.7 fL (7.4-10.4); Monocytes # (auto) 1.01 K/uL (0.11-0.59); Monocytes % (auto) 11.5 %; Neutrophils % (auto) 72.1 %; Platelet Count 149 K/uL (130-400); RDW Coefficient of Variation 12.6 % (11.5-14.5); Red Blood Count 3.36 M/uL (4.7-6.1); White Blood Count 8.75 K/uL (4.8-10.8)
[2019-08-11 06:01] LABS: Estimated Average Glucose 169 mg/dl; Hemoglobin A1C 7.5 % (4.5-5.6)
[2019-08-11 06:16] LABS: BUN Creatinine Ratio 13.6 (10-20); Calcium 7.9 mg/dl (8.5-10.1); Creatinine Clr Calc Pharmacy 34.5 ml/min; Est GFR (African American) 33.7; Est GFR (Non-African American) 29.1; Potassium 4.9 mmol/L (3.5-5.1)
[2019-08-11 06:27] LABS: Albumin Globulin Ratio 1.4 (0.9-2); Bilirubin,Total 1.5 mg/dl (0.2-1); Globulin 2.2 gm/dl (2.5-4.0); Thyroid Stimulating Hormone 0.382 uIu/ml (0.300-4.500); Total Protein 5.2 gm/dl (6.4-8.2)
--- NOTE | 2019-08-11 08:45 | Anesthesiology Progress Note ---
Date of Service August 11, 2019 Anesthesia Post Procedure Vital Signs Vital Signs: Temp Pulse Pulse Resp BP Pulse Ox 08/11/19 08:00 36.4 C L 68 16 97/59 L 97 08/11/19 03:21 36.5 C 70 16 103/57 L 97 08/10/19 22:49 36.5 C 57 L 16 121/67 98 08/10/19 19:44 36.4 C L 56 L 16 101/58 L 97 08/10/19 15:01 36.4 C L 51 L 17 97/55 L 99 08/10/19 13:20 56 L 16 123/66 98 08/10/19 12:20 57 L 16 118/68 98 08/10/19 11:15 57 L 18 123/68 100 08/10/19 10:48 58 L 18 114/65 97 08/10/19 10:20 36.4 C L 63 20 120/65 96 08/10/19 10:00 37.0 C 64 16 116/56 L 96 08/10/19 09:50 37.0 C 63 16 120/62 97 08/10/19 09:40 59 L 16 127/56 L 95 08/10/19 09:30 71 16 127/56 L 98 08/10/19 09:21 36.4 C L 72 16 116/63 97 Pain Intensity Left Knee: Pain Intensity: 0 Notes Mental Status: alert / awake / arousable and participated in evaluation Patient Amnestic to Procedure: Yes Nausea / Vomiting: adequately controlled Pain: adequately controlled Airway Patency, RR, SpO2: stable & adequate BP & HR: stable & adequate Hydration State: stable & adequate Neuraxial Anesthesia: was administered and sensory block resolved Anesthetic Complications: no major complications apparent and Pt Satisfied with anesthetic care
[2019-08-11] MEDS ORDERED: INSULIN GLARGINE SOLOSTAR 100 UNITS/ML 3 ML PEN SC ONE ×2 (09:00→12:30)
[2019-08-11] MEDS: MAGNESIUM OXIDE 400 MG TAB PO SCH (09:07)
[2019-08-11] MEDS: FEXOFENADINE HCL 180 MG TAB PO SCH (09:07)
[2019-08-11] MEDS: MULTIVITAMIN TAB PO SCH (09:07)
[2019-08-11] MEDS: METOPROLOL SUCC 50MG EXT REL TAB PO SCH (09:07)
[2019-08-11] MEDS: MUPIROCIN 2% OINT 22 GM TUBE EXT SCH ×2 (09:08→21:03)
[2019-08-11] MEDS: FLUTICASONE PROPIONATE NA SPR 16 GM BTL SCH ×2 (09:08→21:03)
[2019-08-11] MEDS: DOCUSATE SODIUM 100 MG CAP PO SCH ×2 (09:08→21:03)
[2019-08-11] MEDS: INSULIN ASPART 100 UNITS/ML 3 ML PEN SC SCH ×4 (09:09→20:38)
--- NOTE | 2019-08-11 11:28 | Pharmacy Report ---
Pharmacy Glycemic Short Note 2 - Date of Service August 11, 2019 - Glycemic Short BSG Results (Last 24 hours): 08/10/19 08/10/19 08/10/19 11:26 17:19 20:23 Glucose POC Glucose 160 H 147 H 148 H 08/11/19 08/11/19 05:16 08:11 Glucose 188 H POC Glucose 243 H OUTPATIENT ANTIDIABETIC REGIMEN: * Lantus 22 units qhs * Humalog 16 units with breakfast, 14 units with lunch, and 24 units with dinner * Total outpatient regimen provides 76 units of insulin * A1c: 7.5% (08/11/19) ASSESSMENT: * ELVIS is a 79 year old male POD #1 s/p left total knee arthroplasty * Patient received orthomix infiltration intraoperatively yesterday * Of note, patient only received 11 units of Lantus night prior to surgery * 6 units of Lantus given yesterday afternoon to make up for some of that missing dose * Patient received 42 units of insulin yesterday (28 of which were basal) * Outpatient regimen provides 76 units of insulin, which based on A1c is inadequate * Will attempt 50/50 split of basal/bolus insulin needs * BSGs ranging 147-248 mg/dL over past 24 hours PLAN FOR INPATIENT GLYCEMIC CONTROL: * Hold outpatient oral diabetes medications * Basal insulin * Lantus 20 units SQ given this morning + additional 10 units given with lunch due to BSG of 248 mg/dL * Lantus scale for this evening * -BSG < 140 mg/dL - 0 units * -BS-200 mg/dL - 10 units * -BSG: > 200 mg/dL - 20 units (this would equal his home total daily insulin requirements with a stress of 2) * Bolus insulin - tighten * NovoLog per scale ACHS or Q6hrs while NPO * Goal Range: Low 110 mg/dL - High 140 mg/dL * Correction Factor: 10 mg/dL/unit * Nutritional / Prandial insulin per carb ratio of 1 unit per 4 grams CHO consumed
--- NOTE | 2019-08-11 11:37 | Family Medicine Progress Note ---
Date of Service August 11, 2019 Assessment & Plan (1) S/P total knee arthroplasty: Jose is a 79-year-old male with past medical history of obstructive sleep apnea, paroxysmal A. fib letter, type 2 diabetes mellitus, hyperlipidemia, chronic kidney disease stage III who is s/p left total knee arthroplasty 08/10/2019 Benign prostate hyperplasia - Alfuzosin 10mg qHS JENAE on CKD3 - Baseline cr 1.6-1.8, acutely elevated to 2.11 - Likely prerenal/postsurgical - BMP daily - Encourage PO Fluids Type 2 diabetes mellitus - Insulin Glargine 22u qHS - Lispro SSI Hyperlipidemia Atorvastatin 10 mg daily Hypothyroidism Continue Synthroid 150 mcg every morning Paroxysmal a flutter Continue metoprolol succinate 50 mg daily Xarelto held, restart per orthopedic recommendations Diet: Regular Code Status: Full Disposition: Likely to home with PT, pending kidney function improvement (2) Controlled diabetes mellitus with diabetic neuropathy: (3) Generalized osteoarthritis of multiple sites: (4) Hypercholesterolemia: (5) Hypomagnesemia: (6) Hypothyroidism: (7) Insulin dependent type 2 diabetes mellitus: (8) SHIRA (obstructive sleep apnea): (9) Paroxysmal atrial flutter: (10) Peripheral neuropathy: (11) Chronic renal insufficiency: (12) Benign prostate hyperplasia: Supervising Physician Co-Signing Physician Notes I personally examined the patient and verified all cotter points of history and exam, discussed case, and agree with decision making with Dr Person. Patient feels fine. Pain under reasonable control. Pain medicine is helping. Getting up well with therapy. No other complaints. Vitals noted, in general he is awake and alert pleasant no distress. HEENT normocephalic atraumatic mucous members moist. Breathing unlabored no accessory muscle use good effort. Skin shows no rashes no pallor or icterus. AK I superimposed on CKDlikely related to acute blood loss from surgeryhold nephrotoxins. Gentle IV fluids. No need for transfusion at this time. Continue to follow. Otherwise as above Subjective Mr. Haskins is seen at the bedside this morning with physical therapy. He reports he feels well, and is in minimal pain since surgery. Denies fever, chills, sweats, shortness of breath, difficulty breathing, chest tightness, numbness, tingling, lightheadedness, dizziness. No questions or concerns at this time. Review of Systems Review of Systems: 10 point RoS Negative except as noted in HPI Physical Exam Physical Exam: General: A&Ox3. NAD. Cooperative. HEENT: Atraumatic, normocephalic. Pulm: CTAB A&P. -wheezes, -rales, -rhonchi. Symmetrical chest rise. No increase work of breathing. No respiratory distress. Cardiac: RRR, -mrg. Radial pulses intact and symmetrical. Ext: Left knee covered with surgical dressing, C/D/I. Extremities with normal sensation and 5/5 strength to dorsi/plantarflexion bilaterally. PT pulses intact bilaterally Results & Data Vital Signs (Past 12 Hours) Vital Signs Temp Pulse Resp BP Pulse Ox 08/11/19 11:23 36.6 C 72 16 104/63 99 08/11/19 09:05 89 114/62 08/11/19 08:00 36.4 C L 68 16 97/59 L 97 08/11/19 03:21 36.5 C 70 16 103/57 L 97 PG Care Time/CCT Total # of Minutes Spent Total Time Spent with Patient: Total time spent is greater than 50% in coordination of care (as documented) at patient's floor/unit and/or counseling patient: Resident Activity Tracking Resident Involvement: Resident Care Provided Care Provided: Adult Hospital Medicine
--- NOTE | 2019-08-11 12:24 | Orthopedic Progress Note ---
Date of Service August 11, 2019 Assessment & Plan (1) S/P total knee arthroplasty: POD #1, Left TKA PT/ OT DVT proph- Xarelto D/C planning- Home w OPPT As per medicine. Subjective POD #1, Doing well, denies SOB, CP, N/V. Pain controlled well. Planning for OPPT. Physical Exam Physical Exam: Left knee dressings c/d/i, drain in tact. NO calf tenderness. Toes/ ankle mobile. A&Ox3, Results & Data Vital Signs (Past 12 Hours) Vital Signs Temp Pulse Resp BP Pulse Ox 08/11/19 11:23 36.6 C 72 16 104/63 99 08/11/19 09:05 89 114/62 08/11/19 08:00 36.4 C L 68 16 97/59 L 97 08/11/19 03:21 36.5 C 70 16 103/57 L 97
[2019-08-11] MEDS: RIVAROXABAN 15 MG TAB PO SCH (18:08)
[2019-08-11] MEDS: ALFUZOSIN HCL 10 MG TAB PO SCH (18:08)
[2019-08-11] MEDS: LACTATED RINGER'S 1,000 ML IV SCH (19:15)
[2019-08-11] MEDS ORDERED: INSULIN GLARGINE SOLOSTAR 100 UNITS/ML 3 ML PEN SC SCH (21:00)
[2019-08-11] MEDS: SENNA 8.6 MG TAB PO SCH (21:03)
[2019-08-11] MEDS: ATORVASTATIN 10 MG TAB PO SCH (21:03)
[2019-08-12] MEDS: OXYCODONE HCL IR 5 MG TAB (IMMEDIATE RELEASE) PO PRN ×2 (01:09→09:15)
[2019-08-12] MEDS: LACTATED RINGER'S 1,000 ML IV SCH (03:01)
[2019-08-12] MEDS: LEVOTHYROXINE SODIUM 150 MCG TABLET PO SCH (05:44)
[2019-08-12] MEDS: ACETAMINOPHEN 500 MG TAB PO SCH (05:44)
[2019-08-12 06:03] LABS: Basophils # (auto) 0.01 K/uL (0-0.2); Basophils % (auto) 0.1 %; Eosinophils # (auto) 0.09 K/uL (0-0.5); Eosinophils % (auto) 1.1 %; Hematocrit (blood only) 27.5 % (42-52); Hemoglobin 9.3 g/dL (14.0-18.0); Immature Granulocytes # (auto) 0.01 K/uL (0.00-0.02); Immature Granulocytes % (auto) 0.1 %; Lymphocytes # (auto) 1.77 K/uL (1.2-3.4); Lymphocytes % (auto) 20.7 %; Mean Corpuscular Hemoglobin 31.8 pg (25-34); Mean Corpuscular Hgb Conc 33.8 g/dL (32-36); Mean Corpuscular Volume 94.2 fL (80-100); Mean Platelet Volume 10.1 fL (7.4-10.4); Monocytes % (auto) 16.4 %; Neutrophils # (auto) 5.26 K/uL (1.4-6.5); Neutrophils % (auto) 61.6 %; Platelet Count 151 K/uL (130-400); RDW Coefficient of Variation 12.6 % (11.5-14.5); RDW Standard Deviation 43.4 fL (36.4-46.3); Red Blood Count 2.92 M/uL (4.7-6.1); White Blood Count 8.54 K/uL (4.8-10.8)
[2019-08-12 06:33] LABS: BUN Creatinine Ratio 15.7 (10-20); Est GFR (African American) 40.3; Est GFR (Non-African American) 34.8; Potassium 4.4 mmol/L (3.5-5.1)
[2019-08-12 08:14] VITALS: TEMP 97.7; O2SAT 100
--- NOTE | 2019-08-12 08:44 | Orthopedic Progress Note ---
Date of Service August 12, 2019 Assessment & Plan (1) S/P total knee arthroplasty: POD #1, Left TKA Acute blood loss anemia - likely due to surgical loss. No transfusion needed at this time. PT/ OT DVT proph- Xarelto D/C planning- Home w OPPT - Plan for discharge to home today. As per medicine. Pt was seen by Dr Bryan this AM. Subjective POD 2 s/p L TKA Pt eating breakfast this AM. No complaints. Pain controlled. Denies SOB,CP, LH. Hoping to go home today. Physical Exam Physical Exam: Silverlon dressing has mild drainage noted in the window. Otherwise, benign. No erythema noted. Calves are soft, NT. NV intact. Toes mobile. Results & Data Vital Signs (Past 12 Hours) Vital Signs Temp Pulse Resp BP Pulse Ox 08/12/19 07:54 36.5 C 68 16 99/62 L 100 08/11/19 23:37 36.8 C 80 16 143/66 H 98 Laboratory Results Laboratory Results WBC 8.54 K/uL (4.8-10.8) 08/12/19 05:02 RBC 2.92 M/uL (4.7-6.1) L 08/12/19 05:02 Hgb 9.3 g/dL (14.0-18.0) L 08/12/19 05:02 Hct 27.5 % (42-52) L 08/12/19 05:02 MCV 94.2 fL (80-100) 08/12/19 05:02 MCH 31.8 pg (25-34) 08/12/19 05:02 MCHC 33.8 g/dL (32-36) 08/12/19 05:02 RDW Std Deviation 43.4 fL (36.4-46.3) 08/12/19 05:02 RDW Coeff of Artur 12.6 % (11.5-14.5) 08/12/19 05:02 Plt Count 151 K/uL (130-400) 08/12/19 05:02 MPV 10.1 fL (7.4-10.4) 08/12/19 05:02 Immature Gran % (Auto) 0.1 % 08/12/19 05:02 Neut % (Auto) 61.6 % 08/12/19 05:02 Lymph % (Auto) 20.7 % 08/12/19 05:02 Day % (Auto) 16.4 % 08/12/19 05:02 Eos % (Auto) 1.1 % 08/12/19 05:02 Baso % (Auto) 0.1 % 08/12/19 05:02 Immature Gran # (Auto) 0.01 K/uL (0.00-0.02) 08/12/19 05:02 Neut # (Auto) 5.26 K/uL (1.4-6.5) 08/12/19 05:02 Lymph # (Auto) 1.77 K/uL (1.2-3.4) 08/12/19 05:02 Day # (Auto) 1.40 K/uL (0.11-0.59) H 08/12/19 05:02 Eos # (Auto) 0.09 K/uL (0-0.5) 08/12/19 05:02 Baso # (Auto) 0.01 K/uL (0-0.2) 08/12/19 05:02 PT 10.3 Seconds (9.0-12.0) 07/22/19 11:09 INR 1.0 (0.9-1.1) 07/22/19 11:09 APTT 26.8 Seconds (21.0-31.0) 07/22/19 11:09 PTT Ratio 1.0 07/22/19 11:09 Sodium 139 mmol/L (136-145) 08/12/19 05:02 Potassium 4.4 mmol/L (3.5-5.1) 08/12/19 05:02 Chloride 107 mmol/L (98-107) 08/12/19 05:02 Carbon Dioxide 25 mmol/L (21-32) 08/12/19 05:02 Anion Gap 6.0 (3-11) 08/12/19 05:02 BUN 29 mg/dl (7-18) H 08/12/19 05:02 Creatinine 1.82 mg/dl (0.6-1.4) H 08/12/19 05:02 Est Cr Clr Drug Dosing 40.0 ml/min 08/12/19 05:02 Est GFR ( Amer) 40.3 08/12/19 05:02 Est GFR (Non-Af Amer) 34.8 08/12/19 05:02 BUN/Creatinine Ratio 15.7 (10-20) 08/12/19 05:02 Glucose 158 mg/dl (70-99) H 08/12/19 05:02 POC Glucose 198 (70-99) H 08/12/19 08:20 Estimat Average Glucose 169 mg/dl 08/11/19 05:16 Hemoglobin A1c 7.5 % (4.5-5.6) H 08/11/19 05:16 Calcium 8.0 mg/dl (8.5-10.1) L 08/12/19 05:02 Total Bilirubin 1.5 mg/dl (0.2-1) H 08/11/19 05:16 AST 14 U/L (15-37) L 08/11/19 05:16 ALT 17 U/L (12-78) 08/11/19 05:16 Alkaline Phosphatase 87 U/L (45-117) 08/11/19 05:16 Total Protein 5.2 gm/dl (6.4-8.2) L 08/11/19 05:16 Albumin 3.0 gm/dl (3.4-5.0) L 08/11/19 05:16 Globulin 2.2 gm/dl (2.5-4.0) L 08/11/19 05:16 Albumin/Globulin Ratio 1.4 (0.9-2) 08/11/19 05:16 Triglycerides 73 mg/dl (0-150) 08/11/19 05:16 Cholesterol 84 mg/dl (0-200) 08/11/19 05:16 LDL Cholesterol, Calc 31 mg/dl 08/11/19 05:16 VLDL Cholesterol, Calc 15 mg/dl 08/11/19 05:16 HDL Cholesterol 38 mg/dl 08/11/19 05:16 Cholesterol/HDL Ratio 2 08/11/19 05:16 TSH 0.382 uIu/ml (0.300-4.500) 08/11/19 05:16 Urine Color Yellow 07/22/19 Unknown Urine Appearance Clear (Clear) 07/22/19 Unknown Urine pH 5.0 (4.5-7.5) 07/22/19 Unknown Ur Specific [place] 1.018 (1.000-1.030) 07/22/19 Unknown Urine Protein Negative (Negative) 07/22/19 Unknown Urine Glucose (UA) Negative (Negative) 07/22/19 Unknown Urine Ketones Negative (Negative) 07/22/19 Unknown Urine Blood Negative (Negative) 07/22/19 Unknown Urine Nitrite Negative (Negative) 07/22/19 Unknown Urine Bilirubin Negative (Negative) 07/22/19 Unknown Urine Urobilinogen Negative (Negative) 07/22/19 Unknown Ur Leukocyte Esterase Negative (Negative) 07/22/19 Unknown Blood Type O Positive 07/22/19 11:09 Antibody Screen NEGATIVE 07/22/19 11:09
[2019-08-12 08:53] VITALS: BP 113/62; PULSE 74
[2019-08-12] MEDS: DOCUSATE SODIUM 100 MG CAP PO SCH (08:53)
[2019-08-12] MEDS: FLUTICASONE PROPIONATE NA SPR 16 GM BTL SCH (08:53)
[2019-08-12] MEDS: FEXOFENADINE HCL 180 MG TAB PO SCH (08:53)
[2019-08-12] MEDS: VITAMIN B COMPLEX TAB PO SCH (08:53)
[2019-08-12] MEDS: MAGNESIUM OXIDE 400 MG TAB PO SCH (08:53)
[2019-08-12] MEDS: MULTIVITAMIN TAB PO SCH (08:53)
[2019-08-12] MEDS: METOPROLOL SUCC 50MG EXT REL TAB PO SCH (08:53)
[2019-08-12] MEDS: MUPIROCIN 2% OINT 22 GM TUBE EXT SCH (08:54)
[2019-08-12] MEDS: INSULIN ASPART 100 UNITS/ML 3 ML PEN SC SCH (08:57)
[2019-08-12] MEDS ORDERED: INSULIN GLARGINE SOLOSTAR 100 UNITS/ML 3 ML PEN SC SCH (09:00)
[2019-08-12] MEDS ORDERED: metroNIDAZOLE 0.75% TOPICAL GEL 45 GM TUBE TOP SCH (09:00)
--- NOTE | 2019-08-12 09:22 | Pharmacy Report ---
Pharmacy Glycemic Short Note 2 - Date of Service August 12, 2019 - Glycemic Short BSG Results (Last 24 hours): 08/11/19 08/11/19 08/11/19 11:59 17:02 20:31 Glucose POC Glucose 248 H 159 H 116 H 08/11/19 08/12/19 08/12/19 23:49 05:02 08:20 Glucose 158 H POC Glucose 153 H 198 H OUTPATIENT ANTIDIABETIC REGIMEN: * Lantus 22 units qhs * Humalog 16 units with breakfast, 14 units with lunch, and 24 units with dinner * Total outpatient regimen provides 76 units of insulin * A1c: 7.5% (08/11/19) ASSESSMENT: 08/12 * Patient is currently receiving an average of 73 units of insulin per day * 30 units of basal insulin * 43 units of prandial/correctional insulin * BSGs ranging 116-198 over the past 24hrs * Risk factors for insulin resistance are decreasing/constant over the past 24hrs * Now POD # 2 s/p surgery * Anticipating insulin regimen will need increased for the next 24hrs d/t : * AM Fasting BSG = 158 therefore Basal insulin needs increased * BSGs trending downwards throughout the day therefore Loosen CF/CR 08/11 * JS is a 79 year old male POD #1 s/p left total knee arthroplasty * Patient received orthomix infiltration intraoperatively yesterday * Of note, patient only received 11 units of Lantus night prior to surgery * 6 units of Lantus given yesterday afternoon to make up for some of that missing dose * Patient received 42 units of insulin yesterday (28 of which were basal) * Outpatient regimen provides 76 units of insulin, which based on A1c is inadequate * Will attempt 50/50 split of basal/bolus insulin needs * BSGs ranging 147-248 mg/dL over past 24 hours PLAN FOR INPATIENT GLYCEMIC CONTROL: * Basal insulin - increase * Lantus 20 units SQ BID * Bolus insulin - loosen * NovoLog per scale ACHS or Q6hrs while NPO * Goal Range: Low 110 mg/dL - High 140 mg/dL * Correction Factor: 20 mg/dL/unit * Nutritional / Prandial insulin per carb ratio of 1 unit per 6 grams CHO consumed Discharge Recommendations: * A1c = 7.5% on 08/11/19 * Goal A1c < 8% based on age/comorbidities * Less stringent A1C goals (such as less than 8%) may be appropriate for patients with a history of severe hypoglycemia, limited life expectancy, advanced microvascular or macrovascular complications, extensive comorbid conditions, or long-standing diabetes in whom the goal is difficult to achieve despite diabetes self-management education, appropriate glucose monitoring, and effective doses of multiple glucose-lowering agents including insulin. * Recommend to continue outpatient Lantus + Humalog on discharge * If aiming for lower A1c goal of < 7%, could consider increasing Lantus to 30 units qHS
--- NOTE | 2019-08-12 11:18 | Family Medicine Progress Note ---
Date of Service August 12, 2019 Assessment & Plan (1) S/P total knee arthroplasty: Jose is a 79-year-old male with past medical history of obstructive sleep apnea, paroxysmal A. fib letter, type 2 diabetes mellitus, hyperlipidemia, chronic kidney disease stage III who is s/p left total knee arthroplasty 08/10/2019 Benign prostate hyperplasia - Alfuzosin 10mg qHS JENAE on CKD3, improved - Baseline cr 1.6-1.8, acutely elevated to 2.11 postsurgically - Cr improved to 1.8 today - Encourage PO fluids - BMP check as outpt in 2-4 days Type 2 diabetes mellitus - Insulin Glargine 22u qHS - Lispro SSI Hyperlipidemia Atorvastatin 10 mg daily Hypothyroidism Continue Synthroid 150 mcg every morning Paroxysmal a flutter Continue metoprolol succinate 50 mg daily Xarelto restarted by primary team Diet: Regular Code Status: Full Disposition: Per ortho, likely to home. Medically stable at this time, recommend discharge when ready per primary team. Medical consult to sign off, please contact if any further questions or concerns. Supervising Physician Co-Signing Physician Notes I personally examined the patient and verified all cotter points of history and exam, discussed case, and agree with decision making with Dr Person. In the chair, pain reasonably well controlled. Anticipating therapy later today. Vitals noted, in general he is awake and alert pleasant no distress. HEENT normocephalic atraumatic mucous members moist. Breathing unlabored no accessory muscle use good effort. Skin shows no rashes no pallor or icterus. AK I superimposed on CKDlikely related to acute blood loss anemiahold ne phrotoxins. Now back to baseline. Otherwise as above Medically appearing quite stable, we will sign off at this time, certainly if we can be of other assistance do not hesitate to call Subjective Jose is seen at the bedside this morning. He reports he feels well, and better than yesterday. He continues to have some pain in his left knee, greatly improved from yesterday. He has been up and ambulating well. He denies chest pressure, chest pain, shortness of breath, dyspnea, cough. He has no abdominal pain, has a good appetite, and is without nausea, vomiting. He has urinated without difficulty, no dysuria. Overall feels he is doing very well. Review of Systems Review of Systems: 10 point RoS negative except as noted in HPI Physical Exam Physical Exam: General: A&Ox3. NAD. Cooperative. HEENT: Atraumatic, normocephalic. Pulm: CTAB A&P. -wheezes, -rales, -rhonchi. Symmetrical chest rise. No increase work of breathing. No respiratory distress. Cardiac: RRR, -mrg. Radial pulses intact and symmetrical. Ext: Left knee covered with surgical dressing, small amoutn of blood visible through window otherwise C/D/I. Extremities with normal sensation and 5/5 strength to dorsi/plantarflexion bilaterally. PT pulses intact bilaterally Results & Data Vital Signs (Past 12 Hours) Vital Signs Temp Pulse Resp BP Pulse Ox 08/12/19 08:52 74 113/62 08/12/19 07:54 36.5 C 68 16 99/62 L 100 08/11/19 23:37 36.8 C 80 16 143/66 H 98 PG Care Time/CCT Total # of Minutes Spent Total Time Spent with Patient: Total time spent is greater than 50% in coordination of care (as documented) at patient's floor/unit and/or counseling patient: Resident Activity Tracking Resident Involvement: Resident Care Provided Care Provided: Adult Hospital Medicine
--- NOTE | 2019-08-24 10:07 | Discharge Summary ---
HISTORY OF PRESENT ILLNESS: This is a 79-year-old male patient of Dr. Bryan'amber complaining of chronic left knee pain, longstanding, now progressively getting worse. The patient failed conservative treatment and elected to proceed with a left total knee arthroplasty. PAST MEDICAL HISTORY: Atrial fibrillation, sleep apnea, peripheral neuropathy, diabetes mellitus, hypothyroidism, osteoarthritis TMJ and spine problems. POSTOPERATIVE COURSE: The patient underwent a left total knee arthroplasty on 08/10/2019. He was followed closely with medical consultation, DVT prophylaxis in the form of Xarelto, physical therapy and pain control. The patient did well postoperatively with an uneventful postoperative course. PHYSICAL EXAMINATION: On discharge, left knee Silverlon dressing was clean, dry and intact. There is no redness or drainage, no calf tenderness. Negative Homans sign. Toes and ankle were mobile. Did well with physical therapy. Neurologically and neurovascularly intact in the left lower extremity. DIAGNOSES: Status post left total knee arthroplasty, atrial fibrillation, sleep apnea, peripheral neuropathy, diabetes mellitus, hypothyroidism, osteoarthritis temporomandibular joint, spine problems. PLAN: The patient was discharged home with outpatient physical therapy. He will continue his preadmission medications with the addition of Xarelto for DVT prophylaxis and pain medications. The patient will follow up as scheduled as an outpatient.
== END 2019-08-12 12:00 | disposition home or self-care (01) | DRG 470 ==
LOC: ASU 04:53 → 3E 09:32

== ENCOUNTER 2020-08-17 08:48 | Inpatient (IN) ==
[2020-08-17] MEDS ORDERED: MoRPHine SULFATE 4 MG/ML 1 ML CARP\\VIAL IV STA ×2 (09:09→10:34)
[2020-08-17] MEDS ORDERED: ONDANSETRON INJ 2 MG/ML 2 ML VIAL IV STA (09:09)
[2020-08-17 10:04] LABS: iSTAT Creatinine 1.7 mg/dl (0.6-1.3); iSTAT Hemoglobin 13.9 g/dl (14.0-18.0); iSTAT Ionized Calcium 1.17 mmol/l (1.12-1.32); iSTAT Potassium 5.5 mmol/L (3.3-5.0)
[2020-08-17 10:09] LABS: Basophils # (auto) 0.02 K/uL (0-0.2); Basophils % (auto) 0.2 %; Eosinophils # (auto) 0.11 K/uL (0-0.5); Eosinophils % (auto) 0.9 %; Hematocrit (blood only) 40.3 % (42-52); Hemoglobin 14.2 g/dL (14.0-18.0); Immature Granulocytes # (auto) 0.05 K/uL (0.00-0.02); Immature Granulocytes % (auto) 0.4 %; Lymphocytes # (auto) 1.44 K/uL (1.2-3.4); Lymphocytes % (auto) 11.7 %; Mean Corpuscular Hemoglobin 33.3 pg (25-34); Mean Corpuscular Hgb Conc 35.2 g/dL (32-36); Mean Corpuscular Volume 94.4 fL (80-100); Mean Platelet Volume 9.6 fL (7.4-10.4); Monocytes # (auto) 0.61 K/uL (0.11-0.59); Monocytes % (auto) 4.9 %; Neutrophils # (auto) 10.12 K/uL (1.4-6.5); Neutrophils % (auto) 81.9 %; Platelet Count 174 K/uL (130-400); RDW Coefficient of Variation 12.1 % (11.5-14.5); RDW Standard Deviation 41.5 fL (36.4-46.3); Red Blood Count 4.27 M/uL (4.7-6.1); White Blood Count 12.35 K/uL (4.8-10.8)
[2020-08-17 10:34] LABS: INR 1.1 (0.9-1.1); Partial Thromboplastin Time 26.6 Seconds (21.0-31.0); Prothrombin Time 11.4 Seconds (9.0-12.0)
--- NOTE | 2020-08-17 10:36 | CT Scan Report ---
CT SCAN OF THE BRAIN WITHOUT IV CONTRAST CLINICAL HISTORY: Trauma. Fall. COMPARISON STUDY: No priors. TECHNIQUE: Unenhanced axial CT scan of the brain is performed from the vertex to the skull base. A do se lowering technique was utilized adhering to the principles of ALARA. FINDINGS: Brain parenchyma: There are age-related involutional changes noting [id number] patchy subcorti christina and periventricular microangiopathic change. There is no hemorrhage, mass effect, or evidence of acute territorial ischemia by CT criteria. 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 G ray-white matter differentiation is preserved. No extra-axial fluid collection is seen. Ventricles, sulci, cisterns: Prominent secondary to involutional change. Intracranial vasculature: There is atherosclerotic calcification of the cavernous carotid and vertebr al arteries. Calvarium: The skeletal structures are osteopenic. No depressed calvarial fracture is identified. Sinuses and mastoids: Mild mucosal thickening is noted in the left sphenoid sinus and the right maxil reena antrum. There is a 1.6 cm retention cyst in the left maxillary sinus. The mastoid air cells are well pneumatized. Orbits: The bony orbits are grossly intact. There are bilateral ocular lens implants. IMPRESSION: There is no hemorrhage, mass effect, or evidence of acute territorial ischemia by CT betsey berg. ACT 112: Negative or not required by law. Electronically signed by: Jalil Simmons M.D. 08/17/2020 10:34 AM
--- NOTE | 2020-08-17 10:45 | CT Scan Report ---
CT SCAN OF THE ABDOMEN AND PELVIS WITHOUT CONTRAST CLINICAL HISTORY: Abdominal pain status post trauma COMPARISON STUDY: March 2017 TECHNIQUE: CT scan of the abdomen and pelvis was performed from the lung bases to the proximal femurs . Images are reviewed in the axial, sagittal, and coronal planes. IV contrast was not administered fo r this examination. A dose lowering technique was utilized adhering to the principles of ALARA. CT DOSE: 2326.75 mGy.cm FINDINGS: Lower chest: There are coronary artery calcifications. The heart is mildly enlarged. There are depend ent atelectatic changes. There is a small hiatal hernia Liver: The unenhanced liver is normal in size, contour, and attenuation. There is no intrahepatic lucas iary ductal dilatation. Gallbladder: Unremarkable. Spleen: Normal in size and attenuation. Pancreas: Unremarkable. Adrenal glands: There is a 12 mm left adrenal adenoma Kidneys: There is mild bilateral perinephric stranding. No renal, ureteral, or bladder calculi are vi sualized. 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 The appendix appears normal. There i s no acute diverticulitis. Peritoneum: There is no intraperitoneal free air or abdominal ascites. There is a fat-containing umbi lical hernia. Vasculature: The abdominal aorta is normal in course and caliber. Adenopathy: None. Pelvic viscera: There is mild prostatomegaly. There is a stable 4 cm low-density 4 cm presacral mass. Given the greater than 3 year stability this is likely benign. Skeletal structures: There is a displaced right there is associated intramuscular hematoma. Proximal femoral fracture with extension to the greater trochanter IMPRESSION: 1. Partially visualized displaced proximal right femoral fracture with extension to the greater troch anter 2. No evidence of acute intra-abdominal or pelvic injury ACT 112: Negative or not required by law. Electronically signed by: Kevin Roy M.D. 08/17/2020 10:44 AM
--- NOTE | 2020-08-17 10:48 | CT Scan Report ---
CT SCAN OF THE CERVICAL SPINE CLINICAL HISTORY: Trauma. Fall. COMPARISON STUDY: CT scan of the neck dated 03/23/2019. TECHNIQUE: CT scan of the cervical spine is performed from the skull base to the upper thoracic spine . Images are reviewed in the axial, sagittal, and coronal planes. IV contrast was not administered fo r this examination. A dose lowering technique was utilized adhering to the principles of ALARA. FINDINGS: Skeletal structures: The skeletal structures are osteopenic. There is no evidence of fracture or subl uxation involving the cervical spine. Vertebral body height is maintained. There is minimal anterolis thesis at C4-C5. Alignment is otherwise preserved. Small anterior osteophytes are seen in the lower c ervical spine. There is straightening of the cervical lordosis. The odontoid process and lateral mass es are intact. The atlantoaxial articulation is preserved noting productive degenerative change. The spinous processes appear intact. There is moderate multilevel cervical spondylosis. Uncovertebral and facet arthropathy contribute to neural foraminal stenosis at several levels. Intervertebral discs: The disc spaces are maintained. Central canal: Posterior disc osteophyte complexes at C3-C4 and C6-C7 may contribute to mild acquired compromise of the central canal. Soft tissues: The prevertebral and paraspinous soft tissues are within normal limits. There is athero sclerotic calcification of the carotid bulbs. A metallic foreign body seen in the subcutaneous soft t issues of the left neck on image #325. Calvarium: The visualized calvarium at the skull base appears intact. Brain parenchyma: Partially visualized brain parenchyma the skull base is within normal limits. Sinuses and mastoids: There is trace mucosal thickening within the maxillary antra with a retention c yst seen on the left. The mastoid air cells are well pneumatized. Lung apices: Clear as visualized. IMPRESSION: 1. There is no evidence of fracture or subluxation involving the cervical spine. 2. Osteopenia and spondylotic change as above. 3. A metallic foreign body is present within the subcutaneous soft tissues of the left neck. ACT 112: Negative or not required by law. Electronically signed by: Jalil Simmons M.D. 08/17/2020 10:47 AM
[2020-08-17 10:49] LABS: BUN Creatinine Ratio 13.5 (10-20); Calcium 8.8 mg/dl (8.5-10.1); Creatinine Clr Calc Pharmacy 38.9 ml/min; Est GFR (African American) 39.5; Est GFR (Non-African American) 34.1; Potassium 5.5 mmol/L (3.5-5.1)
[2020-08-17 11:01] LABS: Beta-Hydroxybutyrate 3.24 mg/dl (0.2-2.81)
[2020-08-17] MEDS ORDERED: CALCIUM GLUCONATE 10% 1,000 MG in SODIUM CHLORIDE 0.9% 50 ML IV STA (11:02)
--- NOTE | 2020-08-17 11:08 | XRay Report ---
SINGLE VIEW PELVIS CLINICAL HISTORY: Fall. FINDINGS: An AP view of the pelvis is correlated with pelvic CT performed the same day 08/17/2020. The skeletal structures are osteopenic. There is a vertically oriented fracture of the right proximal fe mur. This is seen in the greater tuberosity and extends inferiorly into the femoral femoral shaft. No fracture is seen involving the left hip or the bony pelvis. Mild degenerative joint space narrowing is seen in both hips. Degenerative sclerosis is seen in the sacral iliac joints and pubic symphysis. Lumbosacral spondylosis is partially visualized. IMPRESSION: 1. There is a vertically oriented fracture of the right proximal femur as above. 2. No fracture seen involving the left hip or the bony pelvis. Electronically signed by: Jalil Simmons M.D. 08/17/2020 11:07 AM
--- NOTE | 2020-08-17 11:10 | XRay Report ---
RIGHT ELBOW 3 VIEWS CLINICAL HISTORY: Fall with right elbow injury. FINDINGS: 3 views of the right elbow are obtained. There is no hemorrhage, mass effect, or evidence o f acute territorial ischemia by CT criteria. Priors the skeletal structures are osteopenic. There is no radiographic evidence of fracture or dislocation. The joint spaces are preserved. There is no join t effusion. A small enthesophyte is seen at the triceps insertion. Mild soft tissue edema is noted. IMPRESSION: Mild soft tissue swelling with no radiographic evidence of right elbow fracture. Electronically signed by: Jalil Simmons M.D. 08/17/2020 11:08 AM
--- NOTE | 2020-08-17 11:11 | XRay Report ---
XR chest 1V portable CLINICAL HISTORY: Chest pain status post trauma COMPARISON STUDY: 07/22/2019 FINDINGS: The heart is the upper limits of normal in size. There is mild right paratracheal soft tiss ue fullness which may be secondary to the AP portable technique. No pneumothorax is visualized. There is no focal pulmonary consolidation. There is minor left basilar atelectasis.[ IMPRESSION: 1. No evidence of acute parenchymal consolidation 2. No evidence of pneumothorax 3. Nonspecific right paratracheal soft tissue prominence, possibly secondary to the AP portable techn ique. ACT 112: Negative or not required by law. Electronically signed by: Kevin Roy M.D. 08/17/2020 11:09 AM
--- NOTE | 2020-08-17 11:11 | History & Physical Report ---
Date of Service August 17, 2020 Assessment & Plan (1) Femur fracture, right: -Admit to [facility] with telemetry -Orthopedics consulted, Dr. Mayes plans to take the patient to the OR tomorrow morning, n.p.o. after midnight, pain medication, placed in Reyes's traction -Bowel regimen to be ordered, pain control, antiemetics as needed Hooks catheter in place -Adjust insulin sliding scale, reduce Lantus dosing in half -Hip order set completed N.p.o. after midnight COVID test negative Holding Xarelto SCDs for DVT prophylaxis Follow CBC for acute blood loss given significant fracture on Xarelto (2) Paroxysmal atrial flutter: Currently in sinus bradycardia -Takes Xarelto, last dose was on 08/16/2020 -Continue Lopressor 50 mg daily, heart rate is currently in the mid 50s, BP elevated 183/76, likely secondary to pain, sinus bradycardia, monitor (3) Hypercholesterolemia: Continue atorvastatin 10 mg (4) Insulin dependent type 2 diabetes mellitus: -Last A1c was 7.4 on 07/17/2020 no need to recheck -ISS with Accu-Cheks, reduce Lantus to 12 units HS while n.p.o. (5) Hypothyroidism: Continue levothyroxine 150 mcg daily (6) Chronic renal insufficiency: -CKD stage II-III, creatinine baseline of 1.8, currently stable, follow a.m. CMP (7) SHIRA (obstructive sleep apnea): -History of such, has CPAP machine at home however does not use this as it does not fit properly (8) Peripheral neuropathy: -Bilateral lower extremities, soles of feet only, stable (9) Vitamin B12 deficiency: -Continue supplementation (10) DVT prophylaxis: - teds on nonaffected leg, holding Xarelto in anticipation of surgical procedure CODE: Full Dispo: From home, likely to remain in the hospital x 2 days. History of Present Illness Chief Complaint: Hip pain Primary Care Provider: Dr. Caceres This is a 80-year-old male with PMHx of HTN, HLD, DM type II, paroxysmal a- flutter, SHIRA, does not wear CPAP, B12 deficiency, peripheral neuropathy, hypothyroidism, osteoarthritis, and CKD stage III who presents after an acute fall sustained this morning resulting in right femur fracture. The patient was attempting to go fishing carrying his equipment when he tripped over a flower pot in the driveway. He denies any lightheadedness, dizziness or LOC. It was unwitnessed however his was in the house, he called her on his cell phone to call for EMS. Patient rates his pain as an 8/10, localized to the right femur and is slightly improved with getting pain medication in the ER. He takes Xarelto for paroxysmal a flutter, last dose was last evening. He took his other medications this morning as regularly scheduled. Last time patient ate was breakfast. He has not used insulin sliding scale due to the fall, and glucose is elevated at >300 on admission. Patient reports prior to this he was in his normal state of health, very active, without any other acute complaints or concerns. His last bowel movement was yesterday and typically urinates without any issues. Patient lives at home with his . Plan for surgical fixation by Dr. Mayes tomorrow morning, keep n.p.o. after midnight, discussed with orthopedics at bedside. Allergies Allergy/AdvReac Type Severity Reaction Status Date / Time minocycline Allergy Verified 08/17/20 09:15 Home Medications Home Medications Medication Instructions Recorded Confirmed Type blood sugar diagnostic #10 ea 05/10/19 08/17/20 Rx flash glucose scanning reader #1 ea 07/05/19 08/17/20 Rx flash glucose sensor #2 ea 07/07/19 08/17/20 Rx coQ10 (ubiquinol) 200 mg PO BID 07/20/19 08/17/20 History magnesium oxide [MagOx] 400 mg PO QAM 07/20/19 08/17/20 History metronidazole 1 appln TOP QAM 07/20/19 08/17/20 History vitamin B complex [B-Complex] 1 tab PO Q2D 07/20/19 08/17/20 History alfuzosin 10 mg tablet,extended 10 mg PO HS #90 tab 07/27/19 08/17/20 Rx release 24 hr rivaroxaban 15 mg tablet 15 mg PO QPM 08/25/19 08/17/20 History atorvastatin 10 mg tablet 10 mg PO PM #90 tab 03/19/20 08/17/20 Rx metoprolol succinate 50 mg 75 mg PO QAM #135 tab 03/22/20 08/17/20 Rx tablet,extended release 24 hr pen needle, diabetic 32 gauge x #300 ea 03/28/20 08/17/20 Rx 5/32" levothyroxine 150 mcg tablet 150 mcg PO QAM #90 tab 04/23/20 08/17/20 Rx insulin glargine 100 unit/mL (3 24 units SQ HS #15 ml 05/18/20 08/17/20 Rx mL) subcutaneous pen sennosides [Senokot] 17.2 mg PO BID PRN 06/01/20 08/17/20 History cholecalciferol (vitamin D3) 25 1,000 unit PO DAILY #30 cap 07/23/20 08/17/20 Rx mcg (1,000 unit) capsule diclofenac sodium 1 % topical gel 4 g TOPICAL QID PRN #200 g 07/23/20 08/17/20 Rx mecobalamin (vitamin B12) 1,000 2,000 mcg PO DAILY #30 tab 07/23/20 08/17/20 Rx mcg chewable tablet insulin lispro 0 units SQ TID 08/17/20 08/17/20 History Past Med/Surg History Medical History (Updated 08/17/20 @ 17:01 by Darrius Wilkerson MD) Atrial flutter on Xarelto BPH (benign prostatic hyperplasia) Chronic back pain CKD (chronic kidney disease) Diabetes mellitus, type 2 IDDM Hyperlipidemia Hypertension Hypothyroidism Neuropathy BILAT FEET Osteoarthritis Peripheral neuropathy Sleep apnea non-compliant CPAP Surgical History H/O right cataract extraction History of left cataract surgery History of surgery on wrist right History of tonsillectomy AGE 6 History of total knee replacement RIGHT 2008 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 Terry Bryan Family History Father Family hx of colon cancer Colorectal cancer Other Cancer Denies family history of Ovarian cancer Prostate cancer Myocardial infarction Breast cancer Social History Smoking Status: Former smoker Tobacco Type: Cigarettes Age Started Using Tobacco: 18; Age Quit Using Tobacco: 41; packs per day: 1; Second Hand Exposure: No; Do You Dip or Chew Tobacco: Yes (no current use); Hx Alcohol Use: Yes Alcohol type: beer Hx Substance Use: No Preferred Language: Malian Communication Ability: Effective Visual Impairment: Limited Hearing Ability: Use of Hearing Aid Rn Staff Required: No Beliefs That Will Affect Care: None marital status: Current Living Situation: Spouse Current Living Situation Comment: Lives with current occupational status: retired Other Information That Helps Us Care for You: No Feels Safe at Home: Yes Childhood Exposure to Second-Hand Smoke: Yes caffeine: Yes (diet pepsi) Dental Care, Regularly: Yes Physical Activity Frequency: 5-6 Times per Week Seatbelt Use: always Sunscreen Use: Yes (occasionally) Do you think of yourself as: straight/heterosexual Assistive Devices: Glasses and Hearing Aid - Bilateral Review of Systems Review of Systems: Constitutional: No fever, sweats or chills Eyes: No diplopia, no worsening or blurred vision ENT: normal hearing, no trouble swallowing Respiratory: No cough, sputum, dyspnea at rest or on exertion Cardiovascular: No chest pain, tightness or palpitations Abdomen: No pain, nausea, vomiting, diarrhea or constipation Musculoskeletal: + As per HPI, no joint pain, calf pain, swelling Neurologic: No weakness, + neuropathy bilateral soles of feet, otherwise no balance problems Psychiatric: No anxiety or depression Skin: No rash or itch Physical Exam Physical Exam: General: awake, alert, no apparent distress Head: Normocephalic, atraumatic ENT: PERRL, EOMI, no pharyngeal exudate, mucous membranes slightly dry Chest: Clear to auscultation, on room air with O2 sats =95%, no adventitious breath sounds Cardiac: + Sinus bradycardia, HR = 53, no murmur, no JVD, normal peripheral pulses, good capillary refill Abdominal: NABS x 4 quadrants, soft, nondistended, nontender to palpation, no rebound or guarding Extremities: + Right femur externally rotated, shortened, painful with minimal movement or localized touch, otherwise normal inspection, no peripheral edema or erythema, calfs nontender to palpation Psych: Normal mood and affect Neuro: AAO x 3, no gross motor deficits, speech is clear, no peripheral sensory deficits Results & Data Results & Data ([facility]) Vital Signs (Past 12 Hours) Vital Signs Temp Pulse Pulse Resp BP BP Pulse Ox 08/17/20 10:39 53 L 18 142/66 H 98 08/17/20 09:17 98 08/17/20 08:54 36.5 C 57 L 20 169/85 H 98 ECG Additional Comments: 17-AUG-2020 09:12:47 [facility]-EDSTAT ROUTINE RETRIEVAL Sinus bradycardia Otherwise normal ECG When compared with ECG of 17-DEC-2009 15:02, No significant change was found 25mm/s 10mm/mV 150Hz 9.0.9 12SL 241 LAURI: 11 Referred by: REFERRED SELF Unconfirmed Vent. rate 49 BPM MN interval 178 ms QRS duration 84 ms QT/QTc 430/388 ms P-R-T axes 63 24 50 Code Status & VTE Plan Code Status Full code-discussed with the patient at bedside Supervising Physician Co-Signing Physician Notes PA Supervision Note: I personally saw and examined the patient. I verified all cotter points and agree with GIULIANA Bowden with the following exceptions and/or additions: This patient is a 80-year-old male with history of paroxysmal atrial flutter, DM 2, CKD stage III, SHIRA not on CPAP, hypothyroidism, hyperlipidemia, BPH, who presents with a mechanical fall resulting in significant proximal right femur fracture with angulation. He denies any chest pains or shortness of breath now or prior to the fall. He can easily go up and down a flight of stairs typically without any angina. He had an exercise stress test in 02/2018 which was normal. He has a normal ejection fraction on echocardiogram from 2018. History and ROS reviewed as above Vitals reviewed Gen: AAOx3, NAD HEENT: Anicteric sclerae, EOMI CV: RRR no mgr nl S1S2 Pulm: CTAB no wcr Abd: +BS soft NT ND no masses or hernias Ext: Right lower extremity flexed at the knee with deformity palpable in the right proximal thigh, in Reyes's traction, can wiggle right toes, neurovascularly intact distal to the fracture, 2+ DP pulses Skin: No rashes, warm/dry Neuro: Full strength throughout except not moving right lower extremity secondary to pain Laboratory values reviewed-notable for elevated creatinine but around baseline, and with hyperkalemia at 5.5 Glucose greater than 300 X-ray images personally reviewed and shows significantly angulated right proximal femur fracture Other imaging studies also reviewed 80-year-old male with history of paroxysmal atrial flutter history otherwise as above, here with mechanical fall and right proximal femur fracture. Also with hyperkalemia, creatinine at baseline. Will increase insulin amount and recheck BMP and CBC stat-at risk for acute blood loss anemia being on Xarelto with large fracture If potassium remains high, will give insulin with D50 N.p.o. after midnight PG Care Time/CCT Total # of Minutes Spent Total Time Spent with Patient: Total time spent is greater than 50% in coordination of care (as documented) at patient's floor/unit and/or counseling patient: Coding Level of Care Code 68194 Initial Inpt Care Lvl 3 Diagnoses Femur fracture, right S72.91XA Encounter type: initial encounter Femur location: unspecified portion of femur Fracture type: closed Paroxysmal atrial flutter I48.92 Hypercholesterolemia E78.00 Insulin dependent type 2 diabetes mellitus E11.9; Z79.4 Hypothyroidism E03.9 Chronic renal insufficiency N18.9 SHIRA (obstructive sleep apnea) G47.33 Peripheral neuropathy G62.9 Vitamin B12 deficiency E53.8 DVT prophylaxis Z29.9 (1) Femur fracture, right Encounter type: initial encounter Femur location: unspecified portion of femur Fracture type: closed
--- NOTE | 2020-08-17 11:30 | Emergency Department Note ---
History of Present Illness General Chief complaint: Fall Stated complaint: FALL Time Seen by Provider: 08/17/20 09:02 History of Present Illness Provider complaint: Fall right-sided hip pain Onset (ago): hour(s) 1 Location: lower extremity and right Radiation: non-radiation Severity: moderate Maximum Pain Intensity: 8 Current Pain Intensity: 7 Quality: + sharp Relieved By: + immobilization Exacerbated By: + movement Associated symptoms: + denies other symptoms 7 10-year-old male presents emergency department status post fall. Patient states approximately an hour ago he was walking on his driveway tripped over umbrella and landed in a flower pot. Patient is reporting pain in his right hip. He denies hitting his head. Patient is on Xarelto. Home Medications Home Medications Medication Instructions Recorded Confirmed Type blood sugar diagnostic #10 ea 05/10/19 08/17/20 Rx flash glucose scanning reader #1 ea 07/05/19 08/17/20 Rx flash glucose sensor #2 ea 07/07/19 08/17/20 Rx coQ10 (ubiquinol) 200 mg PO BID 07/20/19 08/17/20 History magnesium oxide [MagOx] 400 mg PO QAM 07/20/19 08/17/20 History metronidazole 1 appln TOP QAM 07/20/19 08/17/20 History vitamin B complex [B-Complex] 1 tab PO Q2D 07/20/19 08/17/20 History alfuzosin 10 mg tablet,extended 10 mg PO HS #90 tab 07/27/19 08/17/20 Rx release 24 hr rivaroxaban 15 mg tablet 15 mg PO QPM 08/25/19 08/17/20 History atorvastatin 10 mg tablet 10 mg PO PM #90 tab 03/19/20 08/17/20 Rx metoprolol succinate 50 mg 75 mg PO QAM #135 tab 03/22/20 08/17/20 Rx tablet,extended release 24 hr pen needle, diabetic 32 gauge x #300 ea 03/28/20 08/17/20 Rx 5/32" levothyroxine 150 mcg tablet 150 mcg PO QAM #90 tab 04/23/20 08/17/20 Rx insulin glargine 100 unit/mL (3 24 units SQ HS #15 ml 05/18/20 08/17/20 Rx mL) subcutaneous pen sennosides [Senokot] 17.2 mg PO BID PRN 06/01/20 08/17/20 History cholecalciferol (vitamin D3) 25 1,000 unit PO DAILY #30 cap 07/23/20 08/17/20 Rx mcg (1,000 unit) capsule diclofenac sodium 1 % topical gel 4 g TOPICAL QID PRN #200 g 07/23/20 08/17/20 Rx mecobalamin (vitamin B12) 1,000 2,000 mcg PO DAILY #30 tab 07/23/20 08/17/20 Rx mcg chewable tablet insulin lispro 0 units SQ TID 08/17/20 08/17/20 History Allergies Allergy/AdvReac Type Severity Reaction Status Date / Time minocycline Allergy Verified 08/17/20 09:15 Past Med/Surg History Medical History Atrial flutter on Xarelto BPH (benign prostatic hyperplasia) Chronic back pain CKD (chronic kidney disease) Diabetes mellitus, type 2 IDDM Hyperlipidemia Hypertension Hypothyroidism Neuropathy BILAT FEET Osteoarthritis Sleep apnea non-compliant CPAP Surgical History H/O right cataract extraction History of left cataract surgery History of surgery on wrist right History of tonsillectomy AGE 6 History of total knee replacement RIGHT 2008 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 Terry Bryan Family History Father Family hx of colon cancer Colorectal cancer Other Cancer Denies family history of Ovarian cancer Prostate cancer Myocardial infarction Breast cancer Social History Smoking Status: Former smoker Tobacco Type: Cigarettes Age Started Using Tobacco: 18; Age Quit Using Tobacco: 41; packs per day: 1; Second Hand Exposure: No; Hx Alcohol Use: Yes Alcohol type: beer Hx Substance Use: No Preferred Language: Irish Communication Ability: Effective Visual Impairment: Limited Hearing Ability: Use of Hearing Aid Propagation Worker Required: No Beliefs That Will Affect Care: None marital status: Current Living Situation: Spouse Current Living Situation Comment: Lives with current occupational status: retired Feels Safe at Home: Yes Childhood Exposure to Second-Hand Smoke: Yes caffeine: Yes (diet pepsi) Dental Care, Regularly: Yes Physical Activity Frequency: 5-6 Times per Week Seatbelt Use: always Sunscreen Use: Yes (occasionally) Do you think of yourself as: straight/heterosexual Assistive Devices: Glasses and Hearing Aid - Bilateral Review of Systems A total of 10 systems reviewed and were otherwise negative Physical Exam Vital Signs Vital Signs - 24 hr 08/17/20 08:54 08/17/20 09:17 08/17/20 10:39 Temperature 36.5 C Temperature Source Oral Pulse Rate 57 L Pulse Rate [Right Finger] 53 L Respiratory Rate 20 18 Respiratory Effort / Characteristics Non-Labored Spontaneous Non-Labored Spontaneous Respiratory Depth Normal Normal Respiratory Pattern Regular Regular Blood Pressure 169/85 H Blood Pressure [Right Arm] 142/66 H Blood Pressure Mean 113 Blood Pressure Mean [Right Arm] 91 Blood Pressure Position Lying Blood Pressure Position [Right Arm] Lying Pulse Oximetry 98 98 98 Oxygen Delivery Method Room Air Room Air Room Air Sepsis Recent Fever Within 48 Hours No Sepsis New/Unexplained Change in Mental Status N/A Sepsis Action Taken by Nursing No Action Required Physical Exam GENERAL: He is oriented to person, place, and time. He appears well-developed and well-nourished. He does not appear distressed. HENT: Exam performed. - Head: Normocephalic and atraumatic. - Right Ear: External ear normal. No mastoid tenderness. - Left Ear: External ear normal. No mastoid tenderness. - Mouth/Throat: The oropharynx is clear and moist. No trismus in the jaw. No dental abscesses or uvula swelling. No oropharyngeal exudate or tonsillar abscesses. EYES: Conjunctivae and EOM are normal. Pupils are equal, round, and reactive to light. Right eye exhibits no discharge. Left eye exhibits no discharge. No scle ral icterus. NECK: C-collar in place. CV: Normal rate, regular rhythm, normal heart sounds and intact distal pulses. There is no peripheral edema. Palpable radial pulses bue. PULM/CHEST: Effort normal and breath sounds normal. No respiratory distress. No stridor. He has no wheezes. He has no rales. - Chest Wall: He exhibits no tenderness. ABD: The abdomen is soft. Bowel sounds are normal. He has no distension. No mass is present. There is no tenderness. There is no rebound, no guarding, no Mendenhall's sign and no tenderness at McBurney's point. Rovsig negative. MUSC/SKEL: Pain on palpation of the right hip and right proximal femur. Right lower extremity shortened and externally rotated. LYMPH: No cervical adenopathy. NEURO: He is alert and oriented to person, place, and time. He has normal strength. No cranial nerve deficit or sensory deficit. Coordination and gait normal. GCS eye subscore is 4. GCS verbal subscore is 5. GCS motor subscore is 6. Cerebellar tests wnl. SKIN: Skin is warm and dry. He is not diaphoretic. PSYCH: He has a normal mood and affect. Behavior is normal. Judgment and thought content normal. Course Course 09: The patient was evaluated in room C4. A complete history and physical exam was performed. Cardiac monitoring: An order was placed for continuous cardiac monitoring. The monitor shows a rate of 50 with atrial flutter rhythm 1110: Vital signs stable. Creatinine at baseline. Imaging shows right-sided femoral neck fracture. Patient will be admitted to medicine with orthopedics on consult. Patient is asking the [facility] be on consult as he has a family member who works for [facility]. Spoke with Allan from [facility] who asked that a right-sided femur fracture also be ordered. Administered Medications Discontinued Medications Calcium Gluconate 1,000 mg/ (Sodium Chloride) 60 mls @ 240 mls/hr IV NOW STA Stop: 08/17/20 11:16 Last Admin: 08/17/20 11:11 Dose: 240 mls/hr Documented by: [id number] Morphine Sulfate (Morphine Sulfate 4 Mg/Ml 1 Ml Carp\\Vial) 4 mg IV NOW STA Stop: 08/17/20 09:10 Last Admin: 08/17/20 09:21 Dose: 4 mg Documented by: [id number] Morphine Sulfate (Morphine Sulfate 4 Mg/Ml 1 Ml Carp\\Vial) 4 mg IV NOW STA Stop: 08/17/20 10:35 Last Admin: 08/17/20 10:39 Dose: 4 mg Documented by: [id number] Ondansetron HCl (Ondansetron Inj 2 Mg/Ml 2 Ml Vial) 4 mg IV NOW STA Stop: 08/17/20 09:10 Last Admin: 08/17/20 09:21 Dose: 4 mg Documented by: [id number] Medical Decision Making Laboratory Data Result diagrams: 08/17/20 09:50 08/17/20 09:50 Lab Results 08/17/20 08/17/20 08/17/20 Range/Units 09:41 09:50 09:50 WBC 12.35 H (4.8-10.8) K/uL RBC 4.27 L (4.7-6.1) M/uL Hgb 14.2 (14.0-18.0) g/dL POC Hgb (14.0-18.0) g/dl Hct 40.3 L (42-52) % POC Hct (42-52) % MCV 94.4 (80-100) fL MCH 33.3 (25-34) pg MCHC 35.2 (32-36) g/dL RDW Std Deviation 41.5 (36.4-46.3) fL RDW Coeff of Artur 12.1 (11.5-14.5) % Plt Count 174 (130-400) K/uL MPV 9.6 (7.4-10.4) fL Immature Gran % (Auto) 0.4 % Neut % (Auto) 81.9 % Lymph % (Auto) 11.7 % [place] % (Auto) 4.9 % Eos % (Auto) 0.9 % Baso % (Auto) 0.2 % Neut # (Auto) 10.12 H (1.4-6.5) K/uL Lymph # (Auto) 1.44 (1.2-3.4) K/uL [place] # (Auto) 0.61 H (0.11-0.59) K/uL Eos # (Auto) 0.11 (0-0.5) K/uL Baso # (Auto) 0.02 (0-0.2) K/uL Immature Gran # (Auto) 0.05 H (0.00-0.02) K/uL PT (9.0-12.0) Seconds INR (0.9-1.1) APTT (21.0-31.0) Seconds PTT Ratio POC Sodium (135-144) mmol/L Sodium (136-145) mmol/L POC Potassium (3.3-5.0) mmol/L Potassium (3.5-5.1) mmol/L POC Chloride (101-112) mmol/L Chloride (98-107) mmol/L Carbon Dioxide (21-32) mmol/L POC Total CO2 (24-31) mmol/L Anion Gap (3-11) POC Anion Gap (16-25) mmol/L POC BUN (7-18) mg/dl BUN (7-18) mg/dl Creatinine (0.6-1.4) mg/dl POC Creatinine (0.6-1.3) mg/dl Est Cr Clr Drug Dosing ml/min Est GFR ( Amer) Est GFR (Non-Af Amer) BUN/Creatinine Ratio (10-20) Glucose (70-99) mg/dl POC Glucose (other) (70-99) mg/dl POC Lactic Acid Bill 2.01 H (0.90-1.70) mmol/L Calcium (8.5-10.1) mg/dl POC Ioniz Calcium Carline (1.12-1.32) mmol/l Beta-Hydroxybutyric Acd (0.2-2.81) mg/dl Blood Type O Positive Antibody Screen NEGATIVE 08/17/20 08/17/20 08/17/20 Range/Units 09:50 09:50 09:52 WBC (4.8-10.8) K/uL RBC (4.7-6.1) M/uL Hgb (14.0-18.0) g/dL POC Hgb 13.9 L (14.0-18.0) g/dl Hct (42-52) % POC Hct 41 L (42-52) % MCV (80-100) fL MCH (25-34) pg MCHC (32-36) g/dL RDW Std Deviation (36.4-46.3) fL RDW Coeff of Artur (11.5-14.5) % Plt Count (130-400) K/uL MPV (7.4-10.4) fL Immature Gran % (Auto) % Neut % (Auto) % Lymph % (Auto) % [place] % (Auto) % Eos % (Auto) % Baso % (Auto) % Neut # (Auto) (1.4-6.5) K/uL Lymph # (Auto) (1.2-3.4) K/uL [place] # (Auto) (0.11-0.59) K/uL Eos # (Auto) (0-0.5) K/uL Baso # (Auto) (0-0.2) K/uL Immature Gran # (Auto) (0.00-0.02) K/uL PT 11.4 (9.0-12.0) Seconds INR 1.1 (0.9-1.1) APTT 26.6 (21.0-31.0) Seconds PTT Ratio 1.0 POC Sodium 138 (135-144) mmol/L Sodium 139 (136-145) mmol/L POC Potassium 5.5 H (3.3-5.0) mmol/L Potassium 5.5 H (3.5-5.1) mmol/L POC Chloride 103 (101-112) mmol/L Chloride 107 (98-107) mmol/L Carbon Dioxide 27 (21-32) mmol/L POC Total CO2 25 (24-31) mmol/L Anion Gap 5.0 (3-11) POC Anion Gap 17.0 (16-25) mmol/L POC BUN 25 H (7-18) mg/dl BUN 25 H (7-18) mg/dl Creatinine 1.84 H (0.6-1.4) mg/dl POC Creatinine 1.7 H (0.6-1.3) mg/dl Est Cr Clr Drug Dosing 38.9 ml/min Est GFR ( Amer) 39.5 Est GFR (Non-Af Amer) 34.1 BUN/Creatinine Ratio 13.5 (10-20) Glucose 305 H* (70-99) mg/dl POC Glucose (other) 308 H (70-99) mg/dl POC Lactic Acid Bill (0.90-1.70) mmol/L Calcium 8.8 (8.5-10.1) mg/dl POC Ioniz Calcium Carline 1.17 (1.12-1.32) mmol/l Beta-Hydroxybutyric Acd 3.24 H (0.2-2.81) mg/dl Blood Type Antibody Screen Imaging Data Radiologist's Impression: CT SCAN OF THE ABDOMEN AND PELVIS WITHOUT CONTRAST CLINICAL HISTORY: Abdominal pain status post trauma COMPARISON STUDY: March 2017 TECHNIQUE: CT scan of the abdomen and pelvis was performed from the lung bases to the proximal femurs. Images are reviewed in the axial, sagittal, and coronal planes. IV contrast was not administered for this examination. A dose lowering technique was utilized adhering to the principles of ALARA. CT DOSE: 2326.75 mGy.cm FINDINGS: Lower chest: There are coronary artery calcifications. The heart is mildly enlarged. There are dependent atelectatic changes. There is a small hiatal hernia Liver: The unenhanced liver is normal in size, contour, and attenuation. There is no intrahepatic biliary ductal dilatation. Gallbladder: Unremarkable. Spleen: Normal in size and attenuation. Pancreas: Unremarkable. Adrenal glands: There is a 12 mm left adrenal adenoma Kidneys: There is mild bilateral perinephric stranding. No renal, ureteral, or bladder calculi are visualized. 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 The appendix appears normal. There is no acute diverticulitis. Peritoneum: There is no intraperitoneal free air or abdominal ascites. There is a fat-containing umbilical hernia. Vasculature: The abdominal aorta is normal in course and caliber. Adenopathy: None. Pelvic viscera: There is mild prostatomegaly. There is a stable 4 cm low-density 4 cm presacral mass. Given the greater than 3 year stability this is likely benign. Skeletal structures: There is a displaced right there is associated intramuscular hematoma. Proximal femoral fracture with extension to the greater trochanter IMPRESSION: 1. Partially visualized displaced proximal right femoral fracture with extension to the greater trochanter 2. No evidence of acute intra-abdominal or pelvic injury ACT 112: Negative or not required by law. Electronically signed by: Kevin Roy M.D. 08/17/2020 10:44 AM Dictated: 08/17/20 1036 Transcribed: 08/17/20 1036 SINGLE VIEW PELVIS CLINICAL HISTORY: Fall. FINDINGS: An AP view of the pelvis is correlated with pelvic CT performed the same day 08/17/2020. The skeletal structures are osteopenic. There is a vertically oriented fracture of the right proximal femur. This is seen in the greater tuberosity and extends inferiorly into the femoral femoral shaft. No fracture is seen involving the left hip or the bony pelvis. Mild degenerative joint space narrowing is seen in both hips. Degenerative sclerosis is seen in the sacral iliac joints and pubic symphysis. Lumbosacral spondylosis is partially visualized. IMPRESSION: 1. There is a vertically oriented fracture of the right proximal femur as above. 2. No fracture seen involving the left hip or the bony pelvis. Electronically signed by: Jalil Simmons M.D. 08/17/2020 11:07 AM Dictated: 08/17/20 1104 Transcribed: 08/17/201103 RIGHT ELBOW 3 VIEWS CLINICAL HISTORY: Fall with right elbow injury. FINDINGS: 3 views of the right elbow are obtained. There is no hemorrhage, mass effect, or evidence of acute territorial ischemia by CT criteria. Priors the skeletal structures are osteopenic. There is no radiographic evidence of fracture or dislocation. The joint spaces are preserved. There is no joint effusion. A small enthesophyte is seen at the triceps insertion. Mild soft tissue edema is noted. IMPRESSION: Mild soft tissue swelling with no radiographic evidence of right elbow fracture. Electronically signed by: Jalil Simmons M.D. 08/17/2020 11:08 AM Dictated: 08/17/201106 Transcribed: 08/17/201106 XR chest 1V portable CLINICAL HISTORY: Chest pain status post trauma COMPARISON STUDY: 07/22/2019 FINDINGS: The heart is the upper limits of normal in size. There is mild right paratracheal soft tissue fullness which may be secondary to the AP portable technique. No pneumothorax is visualized. There is no focal pulmonary consolidation. There is minor left basilar atelectasis.[ IMPRESSION: 1. No evidence of acute parenchymal consolidation 2. No evidence of pneumothorax 3. Nonspecific right paratracheal soft tissue prominence, possibly secondary to the AP portable technique. ACT 112: Negative or not required by law. Electronically signed by: Kevin Roy M.D. 08/17/2020 11:09 AM Dictated: 08/17/201106 Transcribed: 08/17/201106 CT SCAN OF THE BRAIN WITHOUT IV CONTRAST CLINICAL HISTORY: Trauma. Fall. COMPARISON STUDY: No priors. TECHNIQUE: Unenhanced axial CT scan of the brain is performed from the vertex to the skull base. A dose lowering technique was utilized adhering to the principles of ALARA. FINDINGS: Brain parenchyma: There are age-related involutional changes noting ghic-in-puovdhwk patchy subcortical and periventricular microangiopathic change. There is no hemorrhage, mass effect, or evidence of acute territorial ischemia by CT criteria. 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 Mckinley- white matter differentiation is preserved. No extra-axial fluid collection is seen. Ventricles, sulci, cisterns: Prominent secondary to involutional change. Intracranial vasculature: There is atherosclerotic calcification of the cavernous carotid and vertebral arteries. Calvarium: The skeletal structures are osteopenic. No depressed calvarial fracture is identified. Sinuses and mastoids: Mild mucosal thickening is noted in the left sphenoid sinus and the right maxillary antrum. There is a 1.6 cm retention cyst in the left maxillary sinus. The mastoid air cells are well pneumatized. Orbits: The bony orbits are grossly intact. There are bilateral ocular lens implants. IMPRESSION: There is no hemorrhage, mass effect, or evidence of acute territorial ischemia by CT criteria. ACT 112: Negative or not required by law. Electronically signed by: Jalil Simmons M.D. 08/17/2020 10:34 AM Dictated: 08/17/20 1031 Transcribed: 08/17/[address] SCAN OF THE CERVICAL SPINE CLINICAL HISTORY: Trauma. Fall. COMPARISON STUDY: CT scan of the neck dated 03/23/2019. TECHNIQUE: CT scan of the cervical spine is performed from the skull base to the upper thoracic spine. Images are reviewed in the axial, sagittal, and coronal planes. IV contrast was not administered for this examination. A dose lowering technique was utilized adhering to the principles of ALARA. FINDINGS: Skeletal structures: The skeletal structures are osteopenic. There is no evidence of fracture or subluxation involving the cervical spine. Vertebral body height is maintained. There is minimal anterolisthesis at C4-C5. Alignment is otherwise preserved. Small anterior osteophytes are seen in the lower cervical spine. There is straightening of the cervical lordosis. The odontoid process and lateral masses are intact. The atlantoaxial articulation is preserved noting productive degenerative change. The spinous processes appear intact. There is moderate multilevel cervical spondylosis. Uncovertebral and facet arthropathy contribute to neural foraminal stenosis at several levels. Intervertebral discs: The disc spaces are maintained. Central canal: Posterior disc osteophyte complexes at C3-C4 and C6-C7 may contribute to mild acquired compromise of the central canal. Soft tissues: The prevertebral and paraspinous soft tissues are within normal limits. There is atherosclerotic calcification of the carotid bulbs. A metallic foreign body seen in the subcutaneous soft tissues of the left neck on image #325. Calvarium: The visualized calvarium at the skull base appears intact. Brain parenchyma: Partially visualized brain parenchyma the skull base is within normal limits. Sinuses and mastoids: There is trace mucosal thickening within the maxillary antra with a retention cyst seen on the left. The mastoid air cells are well pneumatized. Lung apices: Clear as visualized. IMPRESSION: 1. There is no evidence of fracture or subluxation involving the cervical spine. 2. Osteopenia and spondylotic change as above. 3. A metallic foreign body is present within the subcutaneous soft tissues of the left neck. ACT 112: Negative or not required by law. Electronically signed by: Jalil Simmons M.D. 08/17/2020 10:47 AM Dictated: 08/17/20 1034 Transcribed: 08/17/20 1034 ECG Data Indication: + other (Trauma) Rate (beats per minute): 50 Rhythm: + atrial flutter ECG Intervals/blocks: + Normal QRS and + Normal QT-c ECG ST segments: + Normal ST segments MDM Narrative 02: The patient was evaluated in room C4. A complete history and physical exam was performed. Cardiac monitoring: An order was placed for continuous cardiac monitoring. The monitor shows a rate of 50 with atrial flutter rhythm 1110: Vital signs stable. Creatinine at baseline. Imaging shows right-sided femoral neck fracture. Patient will be admitted to medicine with orthopedics on consult. Patient is asking the [facility] be on consult as he has a family member who works for [employer] orthopedics. Spoke with Allan from [facility] who asked that a right-sided femur fracture also be ordered. Impression & Plan Femur fracture, right Discharge Plan Visit Data Chief Complaint: Fall Stated Complaint: FALL ED Provider: Addy Madera Discharge Problem: Femur fracture, right Patient Disposition: Admitted As Inpatient Forms Stand Alone Forms: [facility] [employer] Prescriptions Prescriptions: No Action (DME) OneTouch Ultra Blue Test Strip strip See Dose Instructions .ROUTE .MEDSUPPLY Qty: 10 RF: 0 (DME) FreeStyle Martin 14 Day [place] misc See Dose Instructions .ROUTE .MEDSUPPLY Qty: 1 RF: 0 (DME) FreeStyle Martin 14 Day Sensor kit See Dose Instructions .ROUTE .MEDSUPPLY Qty: 2 RF: 11 atorvastatin 10 mg tablet 10 mg PO PM Qty: 90 RF: 3 (DME) pen needle, diabetic [BD Ultra-Fine Reina Pen Needle] 32 gauge x 5/32" needle See Rx Instructions .ROUTE .MEDSUPPLY Qty: 300 RF: 3 levothyroxine 150 mcg tablet 150 mcg PO QAM Qty: 90 RF: 3 Lantus Solostar U-100 Insulin 100 unit/mL (3 mL) insulin pen 24 units SQ HS Qty: 15 RF: 3 alfuzosin 10 mg tablet extended release 24 hr 10 mg PO HS Qty: 90 RF: 3 Xarelto 15 mg tablet 15 mg PO QPM RF: 0 metoprolol succinate 50 mg tablet extended release 24 hr 75 mg PO QAM Qty: 135 RF: 3 mecobalamin (vitamin B12) 1,000 mcg tablet,chewable 2,000 mcg PO DAILY Qty: 30 RF: 0 cholecalciferol (vitamin D3) [Vitamin D3] 25 mcg (1,000 unit) capsule 1,000 unit PO DAILY Qty: 30 RF: 5 diclofenac sodium 1 % gel 4 g topical QID PRN (Reason: knee pain) Qty: 200 RF: 5 coQ10 (ubiquinol) 200 mg Capsule 200 mg PO BID RF: 0 magnesium oxide [MagOx] 400 mg (241.3 mg magnesium) tablet 400 mg PO QAM RF: 0 vitamin B complex [B-Complex] tablet 1 tab PO Q2D RF: 0 metronidazole 0.75 % cream 1 appln TOP QAM RF: 0 sennosides [Senokot] 8.6 mg tablet 17.2 mg PO BID PRN (Reason: constipation) RF: 0 insulin lispro 100 unit/mL insulin pen 0 units SQ TID RF: 0 Referrals Referrals: Alexandra Shay MD [Primary Care Provider] - Discharge Problem: Femur fracture, right Qualifiers: Encounter type: initial encounter Femur location: unspecified portion of femur Fracture type: closed
[2020-08-17] MEDS ORDERED: HYDROmorphone INJ 0.5 MG/0.5 ML SYR IV PRN (11:58)
[2020-08-17] MEDS ORDERED: oxyCODONE HCL IR 5 MG TAB (IMMEDIATE RELEASE) PO PRN (11:58)
--- NOTE | 2020-08-17 12:01 | XRay Report ---
XR femur RT 2V routine CLINICAL HISTORY: Fracture. COMPARISON: CT of the abdomen and pelvis August 17, 2020. FINDINGS: Note is made of a moderately displaced angulated subtrochanteric fracture of the right fem ur. This fracture extends to the intertrochanteric region. A bone fragment is present. Right knee art hroplasty is noted. There is no distal right femoral fracture. Arthroplasty hardware is intact. Align ment of the right hip is anatomic. There is no acute fracture within visualized portions of the pelvi s IMPRESSION: Acute moderately displaced angulated subtrochanteric fracture of the right femur. ACT 112: Negative or not required by law. Electronically signed by: Laureano Murdock M.D. 08/17/2020 12:00 PM
--- NOTE | 2020-08-17 12:13 | Orthopedic Consultation ---
Date of Consultation August 17, 2020 Assessment & Plan (1) Femur fracture, right: I have discussed the case with Dr. Mayes. Patient is currently on Xarelto and his last dose was yesterday p.m. He will need to be at least 24-48 off the Xarelto to perform surgery. Patient will require a long right TFN. At this point in time, planning for the OR tomorrow. Orders for traction have been placed once the patient gets to the regular floor. Pain medications ordered. N.p.o. after midnight. Supervising Physician Co-Signing Physician Notes Patient seen in preoperative holding, comfortable, no acute issues, medically optimized for surgery. Right lower extremity is neurovascular and sensory intact grossly, compartments soft and compressible, skin is clean dry and intact over right hip, obvious deformity and shortened externally rotated right lower extremity I have indicated the patient for open reduction internal fixation of right femur with long cephalo-medullary nail. I explained the risk, benefits, complications and alternatives to surgery to the patient in detail which include however not limited to infections, blood clots, acute blood loss, injury to surrounding nerves, bone, vessels, soft tissues, chronic pain, compartment syndrome, malunion, nonunion, failure of the components, need for additional surgery, loss of limb and loss of life. Alternatives to surgery include no surgery which wou ld result in worsening symptoms and clinical course, the patient wished to proceed with surgery at this time informed consent was obtained. History of Present Illness Requesting Physician: Right proximal femur fracture History of Present Illness Patient is a 80-year-old white male who states that he was planning on going fishing today. He was walking out onto their porch and as he was turning the corner he tripped over an umbrella that was laying on the ground and fell onto his right side into some flowerpots. He was unable to get up and ambulate and had moderate pain in his right thigh. He called his on his cell phone and she came out to help him. An ambulance was called and he was transported to [facility] ED. He was seen by the staff and x-rays were taken. It was found that he had a right proximal femur fracture and is now being admitted [facility]. We have been asked to see him for his femur fracture. Currently the patient is awake and alert and oriented. He is having moderate pain in the right lower extremity. He states that he did not hit his head when he had fallen. There was no loss of consciousness. Denies any lightheadedness, shortness of breath, chest pain prior to or after the fall. Allergies Allergy/AdvReac Type Severity Reaction Status Date / Time minocycline Allergy Unknown Unknown Verified 08/18/20 07:49 Home Medications Home Medications Medication Instructions Recorded Confirmed Type blood sugar diagnostic #10 ea 05/10/19 08/17/20 Rx flash glucose scanning reader #1 ea 07/05/19 08/17/20 Rx flash glucose sensor #2 ea 07/07/19 08/17/20 Rx coQ10 (ubiquinol) 200 mg PO BID 07/20/19 08/17/20 History magnesium oxide [MagOx] 400 mg PO QAM 07/20/19 08/17/20 History metronidazole 1 appln TOP QAM 07/20/19 08/17/20 History vitamin B complex [B-Complex] 1 tab PO Q2D 07/20/19 08/17/20 History alfuzosin 10 mg tablet,extended 10 mg PO HS #90 tab 07/27/19 08/17/20 Rx release 24 hr rivaroxaban 15 mg tablet 15 mg PO QPM 08/25/19 08/17/20 History atorvastatin 10 mg tablet 10 mg PO PM #90 tab 03/19/20 08/17/20 Rx metoprolol succinate 50 mg 75 mg PO QAM #135 tab 03/22/20 08/17/20 Rx tablet,extended release 24 hr pen needle, diabetic 32 gauge x #300 ea 03/28/20 08/17/20 Rx 5/32" levothyroxine 150 mcg tablet 150 mcg PO QAM #90 tab 04/23/20 08/17/20 Rx insulin glargine 100 unit/mL (3 24 units SQ HS #15 ml 05/18/20 08/17/20 Rx mL) subcutaneous pen sennosides [Senokot] 17.2 mg PO BID PRN 06/01/20 08/17/20 History cholecalciferol (vitamin D3) 25 1,000 unit PO DAILY #30 cap 07/23/20 08/17/20 Rx mcg (1,000 unit) capsule diclofenac sodium 1 % topical gel 4 g TOPICAL QID PRN #200 g 07/23/20 08/17/20 Rx mecobalamin (vitamin B12) 1,000 2,000 mcg PO DAILY #30 tab 07/23/20 08/17/20 Rx mcg chewable tablet insulin lispro 0 units SQ TID 08/17/20 08/17/20 History Patient History Medical History (Updated 08/18/20 @ 12:15 by Sonal Curry MD) Atrial flutter on Xarelto BPH (benign prostatic hyperplasia) Chronic back pain CKD (chronic kidney disease) Diabetes mellitus, type 2 IDDM Hyperlipidemia Hypertension Hypothyroidism Neuropathy BILAT FEET Osteoarthritis Peripheral neuropathy Sleep apnea non-compliant CPAP Surgical History H/O right cataract extraction History of left cataract surgery History of surgery on wrist right History of tonsillectomy AGE 6 History of total knee replacement RIGHT 2008 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: No Beliefs That Will Affect Care: None marital status: Current Living Situation: Spouse Current Living Situation Comment: Lives with current occupational status: retired Other Information That Helps Us Care for You: No Feels Safe at Home: Yes Childhood Exposure to Second-Hand Smoke: Yes caffeine: Yes (diet pepsi) Dental Care, Regularly: Yes Physical Activity Frequency: 5-6 Times per Week Seatbelt Use: always Sunscreen Use: Yes (occasionally) Do you think of yourself as: straight/heterosexual Assistive Devices: Glasses and Hearing Aid - Bilateral Review of Systems Review of Systems: All systems reviewed & are unremarkable except as noted in HPI & below Physical Exam Physical Exam: Patient is a 80-year-old white male who appears his stated age. He is awake and alert and oriented to person and place. Complains of right lower extremity pain greatest at the mid thigh. Focusing the exam on the right lower extremity, it is shortened and externally rotated compared to the left. Any attempts to try and move the right hip or knee through range of motion causes some moderate pain and examination is limited at this time due to fracture. A well-healed scar is noted over the right knee from previous TKA. He has good range of motion of his right ankle and toes and has a history of neuropathy. There has been no worsening of sensation in the right lower extre mity compared to the left. Left lower extremity is unaffected and is nontender at the hip knee and ankle. Distal pulses of the lower extremities are equal bilaterally. Upper extremities are essentially unaffected. He is nontender at the shoulders elbows and wrists. He initially had some right elbow discomfort however he states that this is much better now. Distal pulses of the upper extremities are equal bilaterally. He denies any cervical, thoracic, low back pain at this time. There is no gross motor or sensory loss seen at this time. Results & Data ([facility]) Vital Signs (Past 12 Hours) Vital Signs Temp Pulse Pulse Resp BP BP Pulse Ox 08/17/20 10:39 53 L 18 142/66 H 98 08/17/20 09:17 98 08/17/20 08:54 36.5 C 57 L 20 169/85 H 98 (1) Femur fracture, right Encounter type: initial encounter Femur location: unspecified portion of femur Fracture type: closed
[2020-08-17 12:21] LABS: Appearance Urine Clear (Clear); Bilirubin Urine Negative (Negative); Blood Urine Negative (Negative); Color Urine Yellow; Glucose Urine UA 2+ (Negative); Ketones Urine Negative (Negative); Leukocyte Esterase Urine Negative (Negative); Nitrite Urine Negative (Negative); Protein Urine Negative (Negative); Specific Gravity Urine 1.016 (1.000-1.030); Urobilinogen Urine Negative (Negative)
--- NOTE | 2020-08-17 12:47 | Electrocardiogram Report ---
Test Reason : Blood Pressure : / mmHG Vent. Rate : 049 BPM Atrial Rate : 049 BPM P-R Int : 178 ms QRS Dur : 084 ms QT Int : 430 ms P-R-T Axes : 063 024 050 degrees QTc Int : 388 ms Sinus bradycardia Otherwise normal ECG When compared with ECG of 17-DEC-2009 15:02, No significant change was found Confirmed by Ronan Bernal ([id number]) on 08/17/2020 12:46:52 PM Referred By: REFERRED SELF Confirmed By:Homero Bernal
[2020-08-17] MEDS ORDERED: GLUCOSE 10 TABS/TUBE PO PRN (15:57)
[2020-08-17] MEDS ORDERED: GLUCOSE 40% GEL 15 GM TUBE PO PRN (15:57)
[2020-08-17] MEDS ORDERED: GLUCAGON FOR INJ 1 MG VIAL SQ PRN (15:57)
[2020-08-17] MEDS ORDERED: ONDANSETRON INJ 2 MG/ML 2 ML VIAL IV PRN (15:57)
[2020-08-17] MEDS ORDERED: MoRPHine SULFATE 4 MG/ML 1 ML CARP\\VIAL IV PRN (15:57)
[2020-08-17] MEDS ORDERED: ACETAMINOPHEN 325 MG TAB PO PRN ×2 (15:57)
[2020-08-17] MEDS ORDERED: MoRPHine SULFATE 2 MG/ML CARP IV PRN (15:57)
[2020-08-17] MEDS ORDERED: NALOXONE HCL 0.4 MG/1 ML VIAL/CARP IV PRN (15:57)
[2020-08-17] MEDS ORDERED: DEXTROSE 50% 50 ML SYRINGE IV PRN (15:57)
[2020-08-17] MEDS ORDERED: bisacodyL 10 MG SUPP PR PRN (15:57)
[2020-08-17] MEDS ORDERED: CARBOHYDRATES FOR HYPOGLYCEMIA PO PRN (15:57)
[2020-08-17] MEDS ORDERED: DICLOFENAC SOD 1% GEL 100 GM TUBE EXT PRN (15:57)
[2020-08-17] MEDS ORDERED: MAGNESIUM HYDROXIDE SUSP 30 ML UDC PO PRN (15:57)
[2020-08-17] MEDS ORDERED: PNEUMOCOCCAL POLYSACCHARIDES 25 MCG/0.5 ML VIAL/SYR IM ONE (16:26)
[2020-08-17] MEDS ORDERED: PNEUMOCOCCAL ADMINISTRATION CHARGE ONE (16:26)
[2020-08-17] MEDS: oxyCODONE HCL IR 5 MG TAB (IMMEDIATE RELEASE) PO PRN (16:40)
--- NOTE | 2020-08-17 17:06 | Anesthesiology Consultation ---
Date of Service August 17, 2020 Assessment & Plan Chart Review Chart Review: Acceptable Risk for Surgery and Patient NOT seen in Pre Admission Testing Will need to recheck potassium in AM as current K is 5.5. Blood sugar is elevated but with correction with insulin both blood sugars and potassium should improve. Covid prescreen test ordered. Patient last took Xarelto 08/16/2020 per report so will likely require GETA as current guidelines dictated 72 hours off of this medication for SAB. Consults Requested none History Surgery Operation Date: 08/18/20 07:30 Proposed Procedures p Right Long Troch Nail - Kevin Mayes, Height/Weight Height: 6 ft 3 in Weight: 92.8 kg Allergies Allergy/AdvReac Type Severity Reaction Status Date / Time minocycline Allergy Verified 08/17/20 09:15 Medications Home Medications Medication Instructions Recorded Confirmed Last Taken blood sugar diagnostic #10 ea 05/10/19 08/17/20 Unknown flash glucose scanning reader #1 ea 07/05/19 08/17/20 Unknown flash glucose sensor #2 ea 07/07/19 08/17/20 Unknown coQ10 (ubiquinol) 200 mg PO BID 07/20/19 08/17/20 08/17/20 magnesium oxide [MagOx] 400 mg PO QAM 07/20/19 08/17/20 08/17/20 metronidazole 1 appln TOP QAM 07/20/19 08/17/20 06/26/20 vitamin B complex [B-Complex] 1 tab PO Q2D 07/20/19 08/17/20 06/26/20 alfuzosin 10 mg tablet,extended 10 mg PO HS #90 tab 07/27/19 08/17/20 06/26/20 release 24 hr rivaroxaban 15 mg tablet 15 mg PO QPM 08/25/19 08/17/20 08/16/20 atorvastatin 10 mg tablet 10 mg PO PM #90 tab 03/19/20 08/17/20 06/27/20 06:30 metoprolol succinate 50 mg 75 mg PO QAM #135 tab 03/22/20 08/17/20 08/17/20 tablet,extended release 24 hr pen needle, diabetic 32 gauge x #300 ea 03/28/20 08/17/20 Unknown 32" levothyroxine 150 mcg tablet 150 mcg PO QAM #90 tab 04/23/20 08/17/2008/17/20 insulin glargine 100 unit/mL (3 24 units SQ HS #15 ml 05/18/20 08/17/20 06/26/20 mL) subcutaneous pen sennosides [Senokot] 17.2 mg PO BID PRN 06/01/20 08/17/20 06/26/20 cholecalciferol (vitamin D3) 25 1,000 unit PO DAILY #30 cap 07/23/20 08/17/20 08/17/20 mcg (1,000 unit) capsule diclofenac sodium 1 % topical gel 4 g TOPICAL QID PRN #200 g 07/23/20 08/17/20 Unknown mecobalamin (vitamin B12) 1,000 2,000 mcg PO DAILY #30 tab 07/23/20 08/17/20 08/17/20 mcg chewable tablet insulin lispro 0 units SQ TID 08/17/20 08/17/20 Unknown Active Medications Generic Name Dose Route Start Last Admin Trade Name Freq PRN Reason Stop Dose Admin Oxycodone HCl 5 - 10 mg 08/17/20 16:05 08/17/20 16:40 Oxycodone Hcl Ir 5 Mg Tab (Immediate Release) PO 08/31/20 16:04 10 mg Q4H PRN Administration Pain Past Medical History Medical History (Updated 08/17/20 @ 17:01 by Darrius Wilkerson MD) Atrial flutter on Xarelto BPH (benign prostatic hyperplasia) Chronic back pain CKD (chronic kidney disease) Diabetes mellitus, type 2 IDDM Hyperlipidemia Hypertension Hypothyroidism Neuropathy BILAT FEET Osteoarthritis Peripheral neuropathy Sleep apnea non-compliant CPAP hyperkalemia Past Family History Family History Father Family hx of colon cancer Colorectal cancer Other Cancer Denies family history of Ovarian cancer Prostate cancer Myocardial infarction Breast cancer Past Surgical History Surgical History H/O right cataract extraction History of left cataract surgery History of surgery on wrist right History of tonsillectomy AGE 6 History of total knee replacement RIGHT 2008 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 Terry Bryan Social History Smoking Status: Former smoker tobacco type: cigarettes Do You Dip or Chew Tobacco: Yes (no current use) Hx Alcohol Use: Yes Alcohol type: beer alcohol intake frequency: a few times a week Hx Substance Use: No Physical Exam Vital Signs Last Vital Signs Temp 36.4 C L 08/17/20 15:58 Pulse 53 L 08/17/20 15:58 Resp 18 08/17/20 15:58 BP 157/79 H 08/17/20 15:58 Pulse Ox 96 08/17/20 15:58 Testing Laboratory Results 08/17/20 09:50 08/17/20 09:50 PT 11.4 Seconds (9.0-12.0) 08/17/20 09:50 INR 1.1 (0.9-1.1) 08/17/20 09:50 APTT 26.6 Seconds (21.0-31.0) 08/17/20 09:50 Urine Color Yellow 08/17/20 Unknown Urine Appearance Clear (Clear) 08/17/20 Unknown Urine pH 5.0 (4.5-7.5) 08/17/20 Unknown Ur Specific [place] 1.016 (1.000-1.030) 08/17/20 Unknown Urine Protein Negative (Negative) 08/17/20 Unknown Urine Glucose (UA) 2+ (Negative) H 08/17/20 Unknown Urine Ketones Negative (Negative) 08/17/20 Unknown Urine Nitrite Negative (Negative) 08/17/20 Unknown Ur Leukocyte Esterase Negative (Negative) 08/17/20 Unknown Blood Type O Positive 08/17/20 09:50 Antibody Screen NEGATIVE 08/17/20 09:50 08/17/20 08/17/20 15:50 09:52 POC Glucose 289 H POC Glucose (other) 308 H Electrocardiogram Date: 08/17/20 Findings: + SB @ (49) Sinus bradycardia Otherwise normal ECG When compared with ECG of 17-DEC-2009 15:02, No significant change was found Confirmed by Ronan Bernal ([id number]) on 08/17/2020 12:46:52 PM Chest X-Ray Date: 08/17/20 XR chest 1V portable CLINICAL HISTORY: Chest pain status post trauma COMPARISON STUDY: 07/22/2019 FINDINGS: The heart is the upper limits of normal in size. There is mild right paratracheal soft tissue fullness which may be secondary to the AP portable technique. No pneumothorax is visualized. There is no focal pulmonary consolidation. There is minor left basilar atelectasis.[ IMPRESSION: 1. No evidence of acute parenchymal consolidation 2. No evidence of pneumothorax 3. Nonspecific right paratracheal soft tissue prominence, possibly secondary to the AP portable technique. Echocardiogram Date: 12/16/18 Normal LV size and function. EF 55-0%. Grade 1 DD. No RWMA. No .
[2020-08-17] MEDS: INSULIN ASPART 100 UNITS/ML 3 ML PEN SC SCH ×2 (18:13→20:43)
[2020-08-17 18:28] LABS: Hematocrit (blood only) 38.9 % (42-52); Hemoglobin 13.6 g/dL (14.0-18.0); Mean Corpuscular Hemoglobin 32.7 pg (25-34); Mean Corpuscular Volume 93.5 fL (80-100); Mean Platelet Volume 9.4 fL (7.4-10.4); Platelet Count 159 K/uL (130-400); RDW Standard Deviation 40.8 fL (36.4-46.3); Red Blood Count 4.16 M/uL (4.7-6.1); White Blood Count 11.67 K/uL (4.8-10.8)
[2020-08-17 18:57] LABS: BUN Creatinine Ratio 14.9 (10-20); Calcium 8.7 mg/dl (8.5-10.1); Creatinine Clr Calc Pharmacy 39.3 ml/min; Est GFR (Non-African American) 34.6; Potassium 4.9 mmol/L (3.5-5.1)
[2020-08-17 19:10] LABS: Beta-Hydroxybutyrate 12.55 mg/dl (0.2-2.81)
[2020-08-17] MEDS ORDERED: INSULIN ASPART 100 UNITS/ML 3 ML PEN SC ONE (19:31)
[2020-08-17] MEDS: ATORVASTATIN 10 MG TAB PO SCH (20:08)
[2020-08-17] MEDS: SENNA 8.6 MG TAB PO PRN (20:09)
[2020-08-17] MEDS: ALFUZOSIN HCL 10 MG TAB PO SCH (20:09)
[2020-08-17] MEDS: DOCUSATE SODIUM/SENNA 50/8.6MG TAB PO SCH (20:10)
[2020-08-17] MEDS: INSULIN GLARGINE SOLOSTAR 100 UNITS/ML 3 ML PEN SQ SCH (20:41)
[2020-08-17] MEDS ORDERED: NON-FORMULARY MEDICATION (Coq10 (Ubiquinol) 200 MG) PO SCH (21:00)
[2020-08-18] MEDS ORDERED: ceFAZolin 2000MG 2,000 MG/15 ML SYR IV SCH (06:00)
[2020-08-18 06:28] LABS: Hematocrit (blood only) 34.9 % (42-52); Hemoglobin 12.1 g/dL (14.0-18.0); Mean Corpuscular Hemoglobin 32.4 pg (25-34); Mean Corpuscular Hgb Conc 34.7 g/dL (32-36); Mean Corpuscular Volume 93.6 fL (80-100); Mean Platelet Volume 9.5 fL (7.4-10.4); Platelet Count 158 K/uL (130-400); RDW Coefficient of Variation 12.2 % (11.5-14.5); RDW Standard Deviation 41.3 fL (36.4-46.3); Red Blood Count 3.73 M/uL (4.7-6.1)
[2020-08-18] MEDS ORDERED: MIDAZOLAM HCL 1 MG/ML 2ML VIAL ONE ×2 (07:09→12:37)
[2020-08-18] MEDS ORDERED: fentaNYL citrate 100 MCG/2 ML VIAL ONE ×2 (07:10→12:38)
[2020-08-18 07:13] LABS: Albumin Globulin Ratio 1.3 (0.9-2); Albumin Level 3.3 gm/dl (3.4-5.0); BUN Creatinine Ratio 18.4 (10-20); Bilirubin,Total 2.2 mg/dl (0.2-1); Calcium 8.1 mg/dl (8.5-10.1); Creatinine Clr Calc Pharmacy 36.7 ml/min; Est GFR (African American) 36.8; Est GFR (Non-African American) 31.8; Globulin 2.6 gm/dl (2.5-4.0); Potassium 4.4 mmol/L (3.5-5.1); Total Protein 5.9 gm/dl (6.4-8.2)
[2020-08-18] MEDS ORDERED: PHARMACY GLYCEMIC MGMT CONSULT PRN (07:15)
[2020-08-18 07:29] LABS: Beta-Hydroxybutyrate 1.76 mg/dl (0.2-2.81)
[2020-08-18] MEDS ORDERED: INSULIN HUMAN REGULAR PER UNIT 10 UNITS in SYRINGE 9.9 ML IV ONE ×2 (07:45→09:30)
[2020-08-18] MEDS ORDERED: INSULIN GLARGINE SOLOSTAR 100 UNITS/ML 3 ML PEN SC ONE (07:45)
[2020-08-18] MEDS ORDERED: SODIUM CHLORIDE 0.9% 1000ML 1,000 ML IV SCH ×2 (08:09→23:55)
[2020-08-18] MEDS: INSULIN ASPART 100 UNITS/ML 3 ML PEN SC SCH ×5 (08:13→21:01)
[2020-08-18] MEDS ORDERED: METOPROLOL SUCC 25MG EXT REL TAB PO SCH (09:00)
[2020-08-18] MEDS: SODIUM CHLORIDE 0.9% 1000ML 1,000 ML IV SCH ×3 (09:31→23:20)
--- NOTE | 2020-08-18 11:58 | Hospitalist Progress Note ---
Date of Service August 18, 2020 Assessment & Plan (1) Femur fracture, right: Status post mechanical fall at home resulting in right proximal angulated and displaced femur fracture -Orthopedics consulted, Dr. Mayes plans to take the patient to the OR today He is medically optimized for surgery and is at average perioperative cardiovascular risk. He can easily achieve at least 4 METS and has no ongoing angina or EKG changes. He is on insulin for diabetes and this was managed this morning as below for hyperglycemia. Does have chronic kidney disease which is stable from previous and electrolytes are normal. -Continue bowel regimen, pain control, antiemetics as needed -Hooks catheter in place COVID test negative Holding Xarelto SCDs for DVT prophylaxis Follow CBC for acute blood loss given significant fracture on Xarelto-hemoglobin only with slight drop today to 12.1 (2) Paroxysmal atrial flutter: Remains in sinus bradycardia to normal sinus rhythm -Takes Xarelto, last dose was on 08/16/2020 -Continue Toprol XL 75 mg p.o. daily (3) Hypercholesterolemia: Continue atorvastatin 10 mg (4) Insulin dependent type 2 diabetes mellitus: -Last A1c was 7.4 on 07/17/2020 no need to recheck With severe hyperglycemia today with blood sugars in the 300s-400s early this morning Received a total of 20 units regular insulin IV +12 units of Lantus +17 units of NovoLog and blood sugar eventually came down through the morning to 137 Follow blood sugars closely Patient reports that he typically runs no lower than 180 at home Appreciate glycemic pharmacy consult -Continue normal saline 125 mL's per hour for hyperglycemia to avoid dehydration in the setting of CKD (5) Hypothyroidism: Continue levothyroxine 150 mcg daily TSH not checked in 1 year but was normal at that time (6) Chronic renal insufficiency: -CKD stage III, creatinine baseline of 1.8, currently stable at 1.9 --Avoid nephrotoxins -renally dose meds when appropriate -follow BMP (7) SHIRA (obstructive sleep apnea): -History of such, has CPAP machine at home however does not use this as it does not fit properly (8) Peripheral neuropathy: -Bilateral lower extremities, soles of feet only, stable (9) Vitamin B12 deficiency: -Continue supplementation (10) Hyperkalemia: Had hyperkalemia upon admission with potassium 5.5. Was given calcium gluconate in the ER This is in the setting of chronic kidney disease Was given copious insulin Potassium is now normalized Follow BMP daily (11) Hyperbilirubinemia: Bilirubin elevated mildly at 2.2. Other LFTs are normal Could be Gilbert's disease Follow LFTs in the morning (12) DVT prophylaxis: - teds on nonaffected leg, holding Xarelto in anticipation of surgical procedure CODE: Full Dispo: From home, continued stay Admission and Anticipated Discharge Date Admission Date: August 17, 2020 Subjective Patient had severe hyperglycemia overnight and IV fluids were not started due to to been ordered at the wrong time. He received large amounts of insulin this morning and blood sugars down 130s. He feels well. Pain is controlled. He is ready for surgery. Denies chest pain or shortness of breath. Denies nausea or abdominal pain. Telemetry with normal sinus rhythm, rate 70s to 80s. I discussed case with orthopedic surgery and glycemic control pharmacist Review of Systems Review of Systems: All systems reviewed & are unremarkable except as noted in HPI & below Physical Exam Constitutional: WD/WN, vitals as above Eyes: + anicteric sclerae Neck: trachea midline, no thyromegaly Respiratory: normal respiratory effort, lungs clear to auscultation Cardiovascular: RRR, no murmur, no edema Vessels: dorsalis pedis pulses present Chest (Breasts): Chest: normal inspection of chest Gastrointestinal (Abdomen): normal bowel sounds, soft, nontender, no hepatosplenomegaly Musculoskeletal: Extremities: + extremities abnormal to inspection (Right leg in Reyes's traction, flexed at the knee and inability to straighten, with obvious deformity of the right mid to proximal thigh, no ecchymosis, positive edema, 2+ dorsalis pedis pulses bilaterally and neurovascularly intact distally), no cyanosis and no clubbing Skin: no rashes, warm and dry Neurologic: moves all extremities and awake; no focal motor deficits Psychiatric: A+Ox3, euthymic affect Genitourinary: Hooks catheter in place draining clear yellow urine Lymphatic: no lymphedema Results & Data Results & Data ([facility]) Vital Signs (Past 12 Hours) Vital Signs Temp Pulse Pulse Resp BP BP Pulse Ox 08/18/20 07:45 36.6 C 82 18 123/69 95 08/18/20 07:30 81 08/18/20 04:03 36.6 C 91 H 18 151/73 H 97 08/18/20 01:21 79 Laboratory Results 08/18/20 08/18/20 08/18/20 Range/Units 11:33 10:23 09:05 WBC (4.8-10.8) K/uL RBC (4.7-6.1) M/uL Hgb (14.0-18.0) g/dL Hct (42-52) % MCV (80-100) fL MCH (25-34) pg MCHC (32-36) g/dL RDW Std Deviation (36.4-46.3) fL RDW Coeff of Artur (11.5-14.5) % Plt Count (130-400) K/uL MPV (7.4-10.4) fL Sodium (136-145) mmol/L Potassium (3.5-5.1) mmol/L Chloride (98-107) mmol/L Carbon Dioxide (21-32) mmol/L Anion Gap (3-11) BUN (7-18) mg/dl Creatinine (0.6-1.4) mg/dl Est Cr Clr Drug Dosing ml/min Est GFR ( Amer) Est GFR (Non-Af Amer) BUN/Creatinine Ratio (-20) Glucose (70-99) mg/dl POC Glucose 137 H 237 H 326 H* (70-99) mg/dl Calcium (8.5-10.1) mg/dl Total Bilirubin (0.2-1) mg/dl AST (15-37) U/L ALT (12-78) U/L Alkaline Phosphatase (45-117) U/L Total Protein (6.4-8.2) gm/dl Albumin (3.4-5.0) gm/dl Globulin (2.5-4.0) gm/dl Albumin/Globulin Ratio (0.9-2) Beta-Hydroxybutyric Acd (0.2-2.81) mg/dl Urine Color Urine Appearance (Clear) Urine pH (4.5-7.5) Ur Specific Pearson (1.000-1.030) Urine Protein (Negative) Urine Glucose (UA) (Negative) Urine Ketones (Negative) Urine Blood (Negative) Urine Nitrite (Negative) Urine Bilirubin (Negative) Urine Urobilinogen (Negative) Ur Leukocyte Esterase (Negative) SARS-CoV-2, RNA, NAAT (NEGATIVE) 08/18/20 08/18/20 08/18/20 Range/Units 09:04 06:09 06:09 WBC 12.00 H (4.8-10.8) K/uL RBC 3.73 L (4.7-6.1) M/uL Hgb 12.1 L (14.0-18.0) g/dL Hct 34.9 L (42-52) % MCV 93.6 (80-100) fL MCH 32.4 (25-34) pg MCHC 34.7 (32-36) g/dL RDW Std Deviation 41.3 (36.4-46.3) fL RDW Coeff of Artur 12.2 (11.5-14.5) % Plt Count 158 (130-400) K/uL MPV 9.5 (7.4-10.4) fL Sodium 137 (136-145) mmol/L Potassium 4.4 (3.5-5.1) mmol/L Chloride 105 (98-107) mmol/L Carbon Dioxide 25 (21-32) mmol/L Anion Gap 7.0 (3-11) BUN 36 H (7-18) mg/dl Creatinine 1.95 H (0.6-1.4) mg/dl Est Cr Clr Drug Dosing 36.7 ml/min Est GFR ( Amer) 36.8 Est GFR (Non-Af Amer) 31.8 BUN/Creatinine Ratio 18.4 (10-20) Glucose 395 H* (70-99) mg/dl POC Glucose 342 H* (70-99) mg/dl Calcium 8.1 L (8.5-10.1) mg/dl Total Bilirubin 2.2 H (0.2-1) mg/dl AST 15 (15-37) U/L ALT 24 (12-78) U/L Alkaline Phosphatase 98 (45-117) U/L Total Protein 5.9 L (6.4-8.2) gm/dl Albumin 3.3 L (3.4-5.0) gm/dl Globulin 2.6 (2.5-4.0) gm/dl Albumin/Globulin Ratio 1.3 (0.9-2) Beta-Hydroxybutyric Acd 1.76 (0.2-2.81) mg/dl Urine Color Urine Appearance (Clear) Urine pH (4.5-7.5) Ur Specific Pearson (1.000-1.030) Urine Protein (Negative) Urine Glucose (UA) (Negative) Urine Ketones (Negative) Urine Blood (Negative) Urine Nitrite (Negative) Urine Bilirubin (Negative) Urine Urobilinogen (Negative) Ur Leukocyte Esterase (Negative) SARS-CoV-2, RNA, NAAT (NEGATIVE) 08/18/20 08/18/20 08/17/20 Range/Units 05:59 05:55 Unknown WBC (4.8-10.8) K/uL RBC (4.7-6.1) M/uL Hgb (14.0-18.0) g/dL Hct (42-52) % MCV (80-100) fL MCH (25-34) pg MCHC (32-36) g/dL RDW Std Deviation (36.4-46.3) fL RDW Coeff of Artur (11.5-14.5) % Plt Count (130-400) K/uL MPV (7.4-10.4) fL Sodium (136-145) mmol/L Potassium (3.5-5.1) mmol/L Chloride (98-107) mmol/L Carbon Dioxide (21-32) mmol/L Anion Gap (3-11) BUN (7-18) mg/dl Creatinine (0.6-1.4) mg/dl Est Cr Clr Drug Dosing ml/min Est GFR ( Amer) Est GFR (Non-Af Amer) BUN/Creatinine Ratio (10-20) Glucose (70-99) mg/dl POC Glucose 406 H* 419 H* (70-99) mg/dl Calcium (8.5-10.1) mg/dl Total Bilirubin (0.2-1) mg/dl AST (15-37) U/L ALT (12-78) U/L Alkaline Phosphatase (45-117) U/L Total Protein (6.4-8.2) gm/dl Albumin (3.4-5.0) gm/dl Globulin (2.5-4.0) gm/dl Albumin/Globulin Ratio (0.9-2) Beta-Hydroxybutyric Acd (0.2-2.81) mg/dl Urine Color Yellow Urine Appearance Clear (Clear) Urine pH 5.0 (4.5-7.5) Ur Specific Pearson 1.016 (1.000-1.030) Urine Protein Negative (Negative) Urine Glucose (UA) 2+ H (Negative) Urine Ketones Negative (Negative) Urine Blood Negative (Negative) Urine Nitrite Negative (Negative) Urine Bilirubin Negative (Negative) Urine Urobilinogen Negative (Negative) Ur Leukocyte Esterase Negative (Negative) SARS-CoV-2, RNA, NAAT (NEGATIVE) 08/17/20 08/17/20 08/17/20 Range/Units 20:32 19:12 19:11 WBC (4.8-10.8) K/uL RBC (4.7-6.1) M/uL Hgb (14.0-18.0) g/dL Hct (42-52) % MCV (80-100) fL MCH (25-34) pg MCHC (32-36) g/dL RDW Std Deviation (36.4-46.3) fL RDW Coeff of Artur (11.5-14.5) % Plt Count (130-400) K/uL MPV (7.4-10.4) fL Sodium (136-145) mmol/L Potassium (3.5-5.1) mmol/L Chloride (98-107) mmol/L Carbon Dioxide (21-32) mmol/L Anion Gap (3-11) BUN (7-18) mg/dl Creatinine (0.6-1.4) mg/dl Est Cr Clr Drug Dosing ml/min Est GFR ( Amer) Est GFR (Non-Af Amer) BUN/Creatinine Ratio (10-20) Glucose (70-99) mg/dl POC Glucose 293 H 293 H 330 H* (70-99) mg/dl Calcium (8.5-10.1) mg/dl Total Bilirubin (0.2-1) mg/dl AST (15-37) U/L ALT (12-78) U/L Alkaline Phosphatase (45-117) U/L Total Protein (6.4-8.2) gm/dl Albumin (3.4-5.0) gm/dl Globulin (2.5-4.0) gm/dl Albumin/Globulin Ratio (0.9-2) Beta-Hydroxybutyric Acd (0.2-2.81) mg/dl Urine Color Urine Appearance (Clear) Urine pH (4.5-7.5) Ur Specific Pearson (1.000-1.030) Urine Protein (Negative) Urine Glucose (UA) (Negative) Urine Ketones (Negative) Urine Blood (Negative) Urine Nitrite (Negative) Urine Bilirubin (Negative) Urine Urobilinogen (Negative) Ur Leukocyte Esterase (Negative) SARS-CoV-2, RNA, NAAT (NEGATIVE) 08/17/20 08/17/20 08/17/20 Range/Units 18:11 18:11 15:50 WBC 11.67 H (4.8-10.8) K/uL RBC 4.16 L (4.7-6.1) M/uL Hgb 13.6 L (14.0-18.0) g/dL Hct 38.9 L (42-52) % MCV 93.5 (80-100) fL MCH 32.7 (25-34) pg MCHC 35.0 (32-36) g/dL RDW Std Deviation 40.8 (36.4-46.3) fL RDW Coeff of Artur 12.0 (11.5-14.5) % Plt Count 159 (130-400) K/uL MPV 9.4 (7.4-10.4) fL Sodium 138 (136-145) mmol/L Potassium 4.9 (3.5-5.1) mmol/L Chloride 106 (98-107) mmol/L Carbon Dioxide 25 (21-32) mmol/L Anion Gap 7.0 (3-11) BUN 27 H (7-18) mg/dl Creatinine 1.82 H (0.6-1.4) mg/dl Est Cr Clr Drug Dosing 39.3 ml/min Est GFR ( Amer) 40.0 Est GFR (Non-Af Amer) 34.6 BUN/Creatinine Ratio 14.9 (10-20) Glucose 308 H* (70-99) mg/dl POC Glucose 289 H (70-99) mg/dl Calcium 8.7 (8.5-10.1) mg/dl Total Bilirubin (0.2-1) mg/dl AST (15-37) U/L ALT (12-78) U/L Alkaline Phosphatase (45-117) U/L Total Protein (6.4-8.2) gm/dl Albumin (3.4-5.0) gm/dl Globulin (2.5-4.0) gm/dl Albumin/Globulin Ratio (0.9-2) Beta-Hydroxybutyric Acd 12.55 H (0.2-2.81) mg/dl Urine Color Urine Appearance (Clear) Urine pH (4.5-7.5) Ur Specific Pearson (1.000-1.030) Urine Protein (Negative) Urine Glucose (UA) (Negative) Urine Ketones (Negative) Urine Blood (Negative) Urine Nitrite (Negative) Urine Bilirubin (Negative) Urine Urobilinogen (Negative) Ur Leukocyte Esterase (Negative) SARS-CoV-2, RNA, NAAT (NEGATIVE) 08/17/20 Range/Units 11:43 WBC (4.8-10.8) K/uL RBC (4.7-6.1) M/uL Hgb (14.0-18.0) g/dL Hct (42-52) % MCV (80-100) fL MCH (25-34) pg MCHC (32-36) g/dL RDW Std Deviation (36.4-46.3) fL RDW Coeff of Artur (11.5-14.5) % Plt Count (130-400) K/uL MPV (7.4-10.4) fL Sodium (136-145) mmol/L Potassium (3.5-5.1) mmol/L Chloride (98-107) mmol/L Carbon Dioxide (21-32) mmol/L Anion Gap (3-11) BUN (7-18) mg/dl Creatinine (0.6-1.4) mg/dl Est Cr Clr Drug Dosing ml/min Est GFR ( Amer) Est GFR (Non-Af Amer) BUN/Creatinine Ratio (10-20) Glucose (70-99) mg/dl POC Glucose (70-99) mg/dl Calcium (8.5-10.1) mg/dl Total Bilirubin (0.2-1) mg/dl AST (15-37) U/L ALT (12-78) U/L Alkaline Phosphatase (45-117) U/L Total Protein (6.4-8.2) gm/dl Albumin (3.4-5.0) gm/dl Globulin (2.5-4.0) gm/dl Albumin/Globulin Ratio (0.9-2) Beta-Hydroxybutyric Acd (0.2-2.81) mg/dl Urine Color Urine Appearance (Clear) Urine pH (4.5-7.5) Ur Specific Pearson (1.000-1.030) Urine Protein (Negative) Urine Glucose (UA) (Negative) Urine Ketones (Negative) Urine Blood (Negative) Urine Nitrite (Negative) Urine Bilirubin (Negative) Urine Urobilinogen (Negative) Ur Leukocyte Esterase (Negative) SARS-CoV-2, RNA, NAAT NEGATIVE (NEGATIVE) PG Care Time/CCT Total # of Minutes Spent Total Time Spent with Patient: Total time spent is greater than 50% in coordination of care (as documented) at patient's floor/unit and/or counseling patient: Coding Level of Care Code 96546 Subseq Hosp Care Lvl 3 Diagnoses Femur fracture, right S72.91XA Encounter type: initial encounter Femur location: unspecified portion of femur Fracture type: closed Paroxysmal atrial flutter I48.92 Hypercholesterolemia E78.00 Insulin dependent type 2 diabetes mellitus E11.9; Z79.4 Hypothyroidism E03.9 Chronic renal insufficiency N18.9 SHIRA (obstructive sleep apnea) G47.33 Peripheral neuropathy G62.9 Vitamin B12 deficiency E53.8 Hyperkalemia E87.5 Hyperbilirubinemia E80.6 DVT prophylaxis Z29.9 (1) Femur fracture, right Encounter type: initial encounter Femur location: unspecified portion of femur Fracture type: closed
--- NOTE | 2020-08-18 12:33 | History & Physical Bridge Note ---
Date of Service August 18, 2020 History & Physical Bridge Note I have examined the patient, reviewed the History & Physical and in the interval since the performance of the History & Physical I have noted the following changes of clinical significance: no changes noted
[2020-08-18] MEDS ORDERED: ONDANSETRON INJ 2 MG/ML 2 ML VIAL ONE (12:42)
[2020-08-18] MEDS ORDERED: LIDOCAINE HCL 2% 2 ML VIAL/AMP(20MG/ML) INFIL ONE (12:42)
[2020-08-18] MEDS ORDERED: SUCCINYLCHOLINE CHLORIDE 20 MG/ML 10 ML VIAL IV ONE (12:42)
[2020-08-18] MEDS ORDERED: ROCURONIUM BROMIDE 10 MG/ML 5 ML VIAL IV ONE (12:42)
[2020-08-18] MEDS ORDERED: PROPOFOL IV EMULSION 10 MG/ML 20 ML VIAL IV ONE (12:42)
[2020-08-18] MEDS ORDERED: BUPIVACAINE 0.5 % 5 MG/1 ML MPF 30ML VIAL ONE (13:34)
[2020-08-18] MEDS ORDERED: EPINEPHrine INJ 1 MG/ML AMP ONE (13:34)
[2020-08-18] MEDS ORDERED: METOCLOPRAMIDE HCL INJ 5 MG/ML 2 ML VIAL ONE (13:47)
[2020-08-18] MEDS ORDERED: ePHEDrine sulfate 50 MG/ML SYR ONE ×2 (13:47→14:17)
[2020-08-18] MEDS ORDERED: PHENYLEPHRINE 100MCG/ML 5ML SYR ONE ×2 (13:47→14:17)
[2020-08-18] MEDS ORDERED: GLYCOPYRROLATE 0.2 MG/ML VIAL ONE (14:31)
[2020-08-18] MEDS ORDERED: NEOSTIGMINE METHYLSULFATE 5 MG/5 ML SYR ONE (14:31)
--- NOTE | 2020-08-18 14:39 | Post Operative Brief Note ---
Immediate Post Op Note v1 Date of Surgery August 18, 2020 Pre & Post Diagnosis Operation Date: 08/18/20 07:30 Pre-Op Diagnosis: Right Hip Fracture Post-Op Diagnosis: Right Hip Fracture I identified the patient and participated in the time-out.: Yes Procedure Operation Date: 08/18/20 07:30 Actual Procedures p Right Long Trochanteric Nail - Kevin Mayes DO Surgeon Kevin Mayes DO Development Analyst Dominic Conroy Estimated Blood Loss 50 Findings Consistent with Post-Op Diagnosis Specimens none Anesthesia Type General Complications none Disposition Disposition: Recovery Room Overlapping Procedure I was present for: the critical portions of procedure. I was immediately available: during the entire case. Back up surgeon: was not required during procedure.
--- NOTE | 2020-08-18 14:42 | Operative Report ---
Post Operative Report Pre & Post Diagnosis Operation Date: 08/18/20 07:30 Pre-Op Diagnosis: Right Hip Fracture Post-Op Diagnosis: Right Hip Fracture I identified the patient and participated in the time-out.: Yes Procedure Operation Date: 08/18/20 07:30 Actual Procedures p Right Long Trochanteric Nail - Kevin Mayes DO Surgeon Kevin Mayes DO Recreation Attendant Supervisor Dominic Conroy Estimated Blood Loss 50 Findings Consistent with Post-Op Diagnosis Specimens none Anesthesia Type General Complications none Disposition Disposition: Recovery Room Indications The patient is a 80yo male with displaced right comminuted subtrochanteric hip fracture sustained after a fall from standing height. The patient was medically stabilized on 08/18/2020. I indicated the patient for right hip cephalomedullary nail. The patient was informed of the risks and benefits of surgery, which include but not limited to infection, bleeding, blood clots, damage to nerves, vessels, bone and soft tissue, dislocation, leg length discrepancy, malunion, nonunion, failure of the implants, need for additional surgery and . The patient chose to proceed with surgical intervention and informed consent was obtained. Description of Procedure Following induction of adequate general anesthesia, the patient was placed on the fracture table. The left leg was placed in the well leg black and the right leg in the traction leg black. All bony prominences were protected. Utilizing c-arm fluoroscopy closed reduction of the fracture was performed utilizing tension and internal/external rotation. Once satisfied with fracture reduction the right hip and thigh was prepped and draped in the usual sterile manner. A time out was performed, the patient identified, site dominic confirmed and appropriate antibiotics given. The incision was made from the tip of the greater trochanter proximally. Subcutaneous tissue was sharply dissected to the tip of the greater trochanter, electrocautery used for hemostasis. Under fluoroscopic guidance the drill tipped guidewire was inserted at the tip of the greater trochanter and advanced into the intramedullary canal. Utilizing the intramedullary drill the guidewire was overdrilled with tissue protector attached. All instruments were removed. Next a long ball-tipped guidewire was passed through the proximal opening intramedullary beyond the fracture site to the proximal pole of the patella. Guidewire position was confirmed utilizing C- arm fluoroscopy. Guidewire was measured at this time to determine length of the nail at 440 mm. An x-ray approximately was performed to verify ruler was found to bone. Next utilizing flexible reamers sequential reaming was performed in .5mm increments, a final 12.5 mm reamer was passed the length of the canal. Care was taken to protect soft tissue proximally. A 11 by 440 mm long Synthes TFN was inserted and impacted into position and confirmed by c-arm fluoroscopy. Next the aiming arm was attached to the insertion handle. A incision was made and carried down through subcutaneous tissues to bone. The blade guide sleeve was inserted and secured down to bone. The guide wire was passed across the fr acture site to the tip of the femoral head, position was confirmed in the AP and lateral planes utilizing c-arm fluoroscopy. The guide pin was measured and the 11.0mm drill bit passed over the guide pin to open lateral cortex followed by a 6.0mm/10.0mm cannulated reamer to a depth of 110 mm. Next the helical blade was inserted and locked proximally. Next position the C arm in anticipation for perfect [place] technique, care was taken to insure sterilility was maintained. Distally a stab incision was made in the skin and carried down to bone. Utilizing the radiolucent drill with a 4.0mm drill bit, both cortices were drilled through the proximal static hole. The nail was locked distally using a single 4.9mm x 46 mm locking bolt. Next utilizing perfect [place] technique a distal stab incision was made overlying the dynamic hole. Blunt dissection was carried down to bone. Utilizing the radiolucent drill with a 4.0 mm drill bit both cortices were drilled through the distal aspect of the dynamic hole. A single 4.9 mm x 52 mm locking bolt was placed through the dynamic hole. The aiming guide was removed at this time and final radiographs were obtained utilizing c-arm fluoroscopy to confirm overall position and fracture reduction. Incisions were irrigated with copious amounts of sterile saline solution. Subcutaneous tissue were injected utilizing half percent Marcaine with epi. Deep closure was performed using 0 Vicryl followed by 2-0 Vicryl for subcutaneous tissues and unvia in the skin. Sterile dressings were applied which included Xeroform, 4 x 4's and Tegaderm. The patient tolerated the procedure well, extubated in OR and was transported to the PACU in stable condition. Due to the complex nature of the procedure, the entire surgery was performed with the operational assistance of Domiinc Conroy PA-C. The insurance account assistant, under direct supervision, was involved in the actual performance of all aspects of the surgical procedure including patient positioning, hemostasis, tissue retraction, instrument management and wound closure. I attest to the content of the Intraoperative Record and any orders documented therein. Any exceptions are noted below.
--- NOTE | 2020-08-18 14:50 | Pharmacy Report ---
Glycemic Control Consultation - Date of Service August 18, 2020 - Scope Scope: Glycemic Pharmacist consulted for glycemic control and to write orders per [facility] inpatient glycemic control protocol. - Objective Weight: 92.8 kg Accuchecks BSG (last 24hrs): 08/17/20 08/17/20 08/17/20 15:50 18:11 19:11 Glucose 308 H* POC Glucose 289 H 330 H* 08/17/20 08/17/20 08/18/20 19:12 20:32 05:55 Glucose POC Glucose 293 H 293 H 419 H* 08/18/20 08/18/20 08/18/20 05:59 06:09 09:04 Glucose 395 H* POC Glucose 406 H* 342 H* 08/18/20 08/18/20 08/18/20 09:05 10:23 11:33 Glucose POC Glucose 326 H* 237 H 137 H 08/18/20 12:46 Glucose POC Glucose 131 H Laboratory Data (last 24hrs): 08/17/20 08/18/20 18:11 06:09 Potassium 4.9 4.4 Carbon Dioxide 25 25 Anion Gap 7.0 7.0 Creatinine 1.82 H 1.95 H Est Cr Clr Drug Dosing 39.3 36.7 Beta-Hydroxybutyric Acd 12.55 H 1.76 - Recent Pertinent Medications Outpatient Anti-diabetic Regimen: * Lantus 24 units HS * A1c = 7.4 % 07/17/20 The patient is currently receiving: * Basal insulin: Lantus 12 units every 24 hours * Correctional Insulin: Novolog Correction per scale ACHS Goal Range: Low 100 mg/dL - High 140 mg/dL Correction Factor: 15 mg/dL/unit * Prandial insulin: Per carb ratio of 1 unit per 10 grams CHO consumed Risk Factors for Insulin Resistance: * Recent Surgery: pending surgery 08/18/20 for R hip fracture * Diet: NPO - Assessment & Plan Assessment & Plan: ASSESSMENT: * Mr Haskins is a 80 y/o M with a PMH of T2DM who presents with R hip fracture. BSG on presentation was around 308 mg/L. Patient received 12 units of Lantus yesterday and 15 units of Novolog. * Fasting today was 395 mg/dL. Pharmacy was consulted by orthopedic surgery as patient was scheduled for surgery today. * Provided patient with Lantus 12 units (to make home dose of 24 units) plus weight-based stress of 3 Novolog. 10 unit IV bolus also ordered. * Approximately 2 hours after IV insulin bolus given, BSG was 326 mg/L --> however this was only 1 hour after Novolog given. * After discussion with hospitalist, opted to give additional 10 unit IV bolus and recheck in about 1-2 hours when Novolog was peaking. Subsequent BSG checks were 237 mg/dL and 137 mg/dL by lunchtime (also time of surgery). * For Lantus, will give additional 12 units tonight then transition back to once daily dosing tomorrow with a dinner dose of Lantus. * For Novolog, will loosen CF/CR since patient is now post-op and severe hyperglycemia has passed. PLAN FOR INPATIENT GLYCEMIC CONTROL: * Basal insulin * Lantus 12 units SQ BID then start Lantus at dinnertime tomorrow for once daily dosing * Bolus insulin * NovoLog per scale ACHS or Q6hrs while NPO * Goal Range: Low 110 mg/dL - High 140 mg/dL * Correction Factor: 20 mg/dL/unit * Nutritional / Prandial insulin per carb ratio of 1 unit per 7 grams CHO consumed * Please note that the plan above was derived based on current level of insulin resistance and hospital stress. These recommendations are appropriate for inpatient admission only. Plan of care upon discharge will need to be reassessed to avoid potential outpatient hypo/hyperglycemia. Thank you.
--- NOTE | 2020-08-18 15:13 | Orthopedic Progress Note ---
Date of Service August 18, 2020 Assessment & Plan (1) Femur fracture, right: Status post right hip long cephalo-medullary nail -Ancef x24 -DVT prophylaxis: SCDs, teds, Xarelto daily -Toe-touch nonweightbearing right lower extremity -PT/OT -Postoperative x-ray pending -A.m. labs Admission and Anticipated Discharge Date Admission Date: August 17, 2020 Subjective Post Operative Progress Note Patient seen in recovery, comfortable, limited HPI, still waking up from general anesthesia. Review of Systems Review of Systems: All systems reviewed & are unremarkable except as noted in HPI & below Constitutional: as per Subjective / HPI Physical Exam Physical Exam: Right lower extremity physical exam limited secondary to patient still waking up from general anesthesia, +2 dorsalis pedis pulse, compartment soft nontender, dressings clean dry and intact. Constitutional: WD/WN, vitals as above Results & Data ([place]) Vital Signs (Past 12 Hours) Vital Signs Temp Pulse Pulse Resp BP BP Pulse Ox 08/18/20 12:05 36.5 C 84 18 118/71 98 08/18/20 07:45 36.6 C 82 18 123/69 95 08/18/20 07:30 81 08/18/20 04:03 36.6 C 91 H 18 151/73 H 97 (1) Femur fracture, right Encounter type: initial encounter Femur location: unspecified portion of femur Fracture type: closed
--- NOTE | 2020-08-18 15:16 | Fluoroscopy Report ---
FL hip RT 2-3V CLINICAL HISTORY: RT LONG TROCH NAIL COMPARISON STUDY: Right femur radiographs August 17, 2020. FLUOROSCOPY TIME: 3 minutes and 45 seconds. FLUOROSCOPIC IMAGES: 6 FINDINGS: Fluoroscopy was provided during internal fixation of the right femoral subtrochanteric frac ture with trochanteric nail. Distal screws are noted. Hardware is intact. Fracture alignment has anne edly improved. Right knee arthroplasty is partially imaged. There are no unexpected radiopaque foreig n bodies. IMPRESSION: Fluoroscopy provided during internal fixation of the right femoral fracture. ACT 112: Negative or not required by law. Electronically signed by: Laureano Murdock M.D. 08/18/2020 3:15 PM
[2020-08-18] MEDS ORDERED: NALOXONE HCL 0.4 MG/1 ML VIAL/CARP IV PRN ×2 (15:23→18:01)
[2020-08-18] MEDS ORDERED: ATROPINE SULFATE 0.1 MG/ML 10ML SYR IV PRN (15:23)
[2020-08-18] MEDS ORDERED: ePHEDrine sulfate 50 MG/ML AMP IV PRN (15:23)
[2020-08-18] MEDS ORDERED: fentaNYL citrate 100 MCG/2 ML VIAL IV PRN (15:23)
[2020-08-18] MEDS ORDERED: ONDANSETRON INJ 2 MG/ML 2 ML VIAL IV PRN (15:23)
[2020-08-18] MEDS ORDERED: FLUMAZENIL 0.1 MG/1 ML 10 ML VIAL IV PRN (15:23)
[2020-08-18] MEDS ORDERED: LABETALOL HCL IV 5 MG/ML 20ML IV PRN (15:23)
[2020-08-18] MEDS ORDERED: PROMETHAZINE HCL 12.5 MG in SODIUM CHLORIDE 0.9% 50 ML IV PRN (15:23)
--- NOTE | 2020-08-18 15:53 | XRay Report ---
XR femur RT 2V routine CLINICAL HISTORY: post op, in PACU, long troch nail COMPARISON: Right femur radiographs August 17, 2020. FINDINGS: Internal fixation of the subtrochanteric fracture of the right femur with trochanteric maverick l is noted. The hardware is intact. Fracture alignment has markedly improved. Distal screws are noted . Right knee arthroplasty is noted. There are no unexpected radiopaque foreign bodies. Skin nuvia a re present. IMPRESSION: Expected findings following internal fixation of the subtrochanteric fracture of the righ t femur. ACT 112: Negative or not required by law. Electronically signed by: Laureano Murdock M.D. 08/18/2020 3:52 PM
[2020-08-18] MEDS ORDERED: METOPROLOL TARTRATE 1 MG/ML VIAL IV ONE (15:55)
[2020-08-18] MEDS ORDERED: METOPROLOL TARTRATE 1 MG/ML VIAL IV PRN (15:57)
[2020-08-18 16:10] LABS: Hematocrit (blood only) 33.8 % (42-52); Hemoglobin 11.4 g/dL (14.0-18.0)
[2020-08-18] MEDS ORDERED: DIGOXIN 500 MCG/2 ML AMP IV ONE (16:40)
--- NOTE | 2020-08-18 16:50 | Anesthesiology Progress Note ---
Date of Service August 18, 2020 Anesthesia Post Procedure Vital Signs Vital Signs: Temp Pulse Pulse Pulse Resp BP BP 08/18/20 16:36 36.4 C L 156 H 18 08/18/20 16:25 151 H 20 08/18/20 16:15 145 H 20 08/18/20 16:05 121 H 20 08/18/20 15:58 172 H 153/85 H 08/18/20 15:55 136 H 15 08/18/20 15:45 121 H 18 08/18/20 15:35 111 H 18 08/18/20 15:25 125 H 19 08/18/20 15:15 86 13 08/18/20 15:06 36.4 C L 92 H 13 08/18/20 12:05 36.5 C 84 18 118/71 08/18/20 07:45 36.6 C 82 18 123/69 08/18/20 07:30 81 08/18/20 04:03 36.6 C 91 H 18 08/18/20 01:21 79 08/17/20 23:00 36.7 C 84 19 08/17/20 19:00 36.6 C 78 16 BP Pulse Ox 08/18/20 16:36 109/65 97 08/18/20 16:25 128/84 94 08/18/20 16:15 116/49 L 94 08/18/20 16:05 116/37 L 94 08/18/20 15:58 08/18/20 15:55 153/86 H 94 08/18/20 15:45 176/87 H 94 08/18/20 15:35 149/70 H 100 08/18/20 15:25 171/89 H 100 08/18/20 15:15 149/47 H 100 08/18/20 15:06 149/47 H 99 08/18/20 12:05 98 08/18/20 07:45 95 08/18/20 07:30 08/18/20 04:03 151/73 H 97 08/18/20 01:21 08/17/20 23:00 129/65 95 08/17/20 19:00 137/74 97 Pain Intensity Right Hip: Pain Intensity: 9 Transfer of Care Handoff Completed per policy Notes Mental Status: alert / awake / arousable and participated in evaluation Nausea / Vomiting: adequately controlled Pain: adequately controlled Airway Patency, RR, SpO2: stable & adequate BP & HR: see Notes below (pt rhythm now AFIB/AFlutter w/RVR) Hydration State: stable & adequate Anesthetic Complications: no major complications apparent Notes: DR Curry notified and has seen pt and pt care turned over to her.Dr Curry is in communication w/ Dr Fontaine,cardiology
[2020-08-18] MEDS ORDERED: METOPROLOL TARTRATE 1 MG/ML VIAL IV STA ×2 (17:00→18:03)
[2020-08-18] MEDS ORDERED: DIGOXIN 250 MCG in SYRINGE 9 ML IV ONE (17:00)
[2020-08-18] MEDS ORDERED: SODIUM CHLORIDE 0.9% 1000ML 250 ML IV ONE (17:00)
[2020-08-18] MEDS: CYANOCOBALAMIN 500 MCG TABLET (VITAMIN B-12) PO SCH (17:26)
[2020-08-18] MEDS: LEVOTHYROXINE SODIUM 150 MCG TABLET PO SCH (17:26)
[2020-08-18] MEDS: metroNIDAZOLE 0.75% TOPICAL GEL 45 GM TUBE TOP SCH (17:26)
[2020-08-18] MEDS: CHOLECALCIFEROL 1,000 UNITS 25 MCG TAB PO SCH (17:26)
[2020-08-18] MEDS: MAGNESIUM OXIDE 400 MG TAB PO SCH (17:26)
[2020-08-18] MEDS ORDERED: 0.2 MICRON FILTER SET 1 EA IV ONE (18:00)
[2020-08-18] MEDS: AMIODARONE / D5W 360 MG/200 ML BAG IV ONE ×2 (18:15→18:24)
[2020-08-18 18:41] LABS: Basophils # (auto) 0.01 K/uL (0-0.2); Basophils % (auto) 0.1 %; Eosinophils # (auto) 0.01 K/uL (0-0.5); Eosinophils % (auto) 0.1 %; Hematocrit (blood only) 34.9 % (42-52); Hemoglobin 11.8 g/dL (14.0-18.0); Immature Granulocytes # (auto) 0.04 K/uL (0.00-0.02); Immature Granulocytes % (auto) 0.3 %; Lymphocytes # (auto) 1.43 K/uL (1.2-3.4); Lymphocytes % (auto) 9.6 %; Mean Corpuscular Hemoglobin 32.3 pg (25-34); Mean Corpuscular Hgb Conc 33.8 g/dL (32-36); Mean Corpuscular Volume 95.6 fL (80-100); Mean Platelet Volume 9.2 fL (7.4-10.4); Monocytes # (auto) 1.52 K/uL (0.11-0.59); Monocytes % (auto) 10.2 %; Neutrophils # (auto) 11.88 K/uL (1.4-6.5); Neutrophils % (auto) 79.7 %; Platelet Count 150 K/uL (130-400); RDW Coefficient of Variation 12.3 % (11.5-14.5); RDW Standard Deviation 42.8 fL (36.4-46.3); Red Blood Count 3.65 M/uL (4.7-6.1); White Blood Count 14.89 K/uL (4.8-10.8)
[2020-08-18 18:58] LABS: BUN Creatinine Ratio 17.2 (10-20); Creatinine Clr Calc Pharmacy 36.7 ml/min; Est GFR (African American) 36.8; Est GFR (Non-African American) 31.8; Magnesium 1.8 mg/dl (1.8-2.4); Potassium 4.4 mmol/L (3.5-5.1)
[2020-08-18] MEDS: METOPROLOL TARTRATE 25 MG TAB PO SCH (19:23)
[2020-08-18] MEDS ORDERED: COUGH DROP (SUGAR FREE) LOZ 24 LOZ/1 BOX BUCCAL ONE (19:26)
[2020-08-18] MEDS: ceFAZolin 2000MG 2,000 MG/15 ML SYR IV SCH (21:00)
[2020-08-18] MEDS: INSULIN GLARGINE SOLOSTAR 100 UNITS/ML 3 ML PEN SQ SCH (21:02)
[2020-08-18] MEDS: ALFUZOSIN HCL 10 MG TAB PO SCH (21:03)
[2020-08-18] MEDS: DOCUSATE SODIUM/SENNA 50/8.6MG TAB PO SCH (21:03)
[2020-08-18] MEDS: ATORVASTATIN 10 MG TAB PO SCH (21:04)
[2020-08-18] MEDS ORDERED: MAGNESIUM SULFATE / D5W 1 GM/100 ML BAG IV ONE (22:07)
--- NOTE | 2020-08-18 22:23 | Billing Data ---
Date of Service August 18, 2020 Coding Level of Care Code Critical Care 1st 30-74 mins Time Spent (min) 60
[2020-08-19] MEDS: AMIODARONE / D5W 360 MG/200 ML BAG IV SCH ×2 (00:16→08:11)
[2020-08-19] MEDS: INSULIN ASPART 100 UNITS/ML 3 ML PEN SC SCH ×6 (00:22→20:29)
[2020-08-19] MEDS: ceFAZolin 2000MG 2,000 MG/15 ML SYR IV SCH (04:27)
[2020-08-19] MEDS: LEVOTHYROXINE SODIUM 150 MCG TABLET PO SCH (06:16)
[2020-08-19] MEDS: SODIUM CHLORIDE 0.9% 1000ML 1,000 ML IV SCH (06:17)
--- NOTE | 2020-08-19 06:51 | Orthopedic Progress Note ---
Date of Service August 19, 2020 Assessment & Plan (1) Femur fracture, right: POD#1 s/p right hip long cephalo-medullary nail -Ancef x24 -DVT prophylaxis: SCDs, teds, Xarelto daily -Toe-touch nonweightbearing right lower extremity -PT/OT -post op X-ray demonstrates internal fixation right femur with long troch nail, fracture alignment improved. Admission and Anticipated Discharge Date Admission Date: August 17, 2020 Subjective POD#1 patient resting comfortably, denies CP/SOB, denies fever or chills. denies numbness or tingling in his right leg. pain currently 11/18 Physical Exam Physical Exam: Vital Signs Temp 36.4 C L 08/19/20 03:28 Pulse 88 08/19/20 03:28 Resp 18 08/19/20 03:28 BP 132/60 08/19/20 03:28 Pulse Ox 98 08/19/20 03:28 Intake & Output 08/18/20 08/18/20 08/19/20 06:59 18:59 06:59 Intake Total 350 / 410 2818.315 / 4999.52 7 2181.212 / 4999.52 7 Output Total 1450 / 1450 50 / 1400 1350 / 1400 Balance -1100 / -1040 2768.315 / 3599.52 7 831.212 / 3599.527 Weight 92.8 kg 95 kg Intake: IV 2018.315 / 3799.52 7 1781.212 / 3799.52 7 NEXTERONE / D5 W 360 mg In 200 18.315 / 195.360 177.045 / 195.360 ml @ 1 MG/MIN 33.333 mls/hr IV ONE ONE Rx#:[id number] MAGNESIUM SULF ATE / D5W 1 gm In 100 / 100 100 ml @ 50 ml s/hr IV ONE ONE Rx#:[id number] Nss 1000ML 1,0 00 ml @ 125 mls/ 2000 / 3504.167 1504.167 / 3504.16 7 hr IV .Q8H [facility] Rx#:[id number] IV Perioperative 800 / 800 Oral 350 / 350 400 / 400 Output: Estimated Blood Loss 50 / 50 Urine Amount (Ca theter) 1450 / 1450 1350 / 1350 Hooks/Indwelli ng 1450 / 1450 1350 / 1350 Other: Other Intake Mali rce NPO Weight Measureme nt Method Built in [facility] Constitutional: WD/WN, vitals as above no acute distress Musculoskeletal: right leg: thigh soft, mild tenderness around proximal lateral hip, otherwise dressings are clean and dry, no drainage noted. calf soft, non-tender, DP +2. able to wiggle toes, ankle plantar/dorsiflexion without discomfort. Results & Data ([facility]) Vital Signs (Past 12 Hours) Vital Signs Temp Pulse Pulse Resp BP Pulse Ox 08/19/20 03:28 36.4 C L 88 18 132/60 98 08/18/20 23:27 36.7 C 87 18 118/63 97 08/18/20 22:30 86 08/18/20 19:54 37.0 C 91 H 18 107/66 96 Laboratory Results Laboratory Results WBC 14.89 K/uL (4.8-10.8) H 08/18/20 18:29 RBC 3.65 M/uL (4.7-6.1) L 08/18/20 18:29 Hgb 11.8 g/dL (14.0-18.0) L 08/18/20 18: POC Hgb 13.9 g/dl (14.0-18.0) L 08/17/20 09:52 Hct 34.9 % (42-52) L 08/18/20 18: POC Hct 41 % (42-52) L 08/17/20 09:52 MCV 95.6 fL (80-100) 08/18/20 18:29 MCH 32.3 pg (25-34) 08/18/20 18: MCHC 33.8 g/dL (32-36) 08/18/20 18:29 RDW Std Deviation 42.8 fL (36.4-46.3) 08/18/20 18: RDW Coeff of Artur 12.3 % (11.5-14.5) 08/18/20 18: Plt Count 150 K/uL (130-400) 08/18/20 18:29 MPV 9.2 fL (7.4-10.4) 08/18/20 18:29 Immature Gran % (Auto) 0.3 % 08/18/20 18: Neut % (Auto) 79.7 % 08/18/20 18:29 Lymph % (Auto) 9.6 % 08/18/20 18:29 [place] % (Auto) 10.2 % 08/18/20 18:29 Eos % (Auto) 0.1 % 08/18/20 18:29 Baso % (Auto) 0.1 % 08/18/20 18:29 Neut # (Auto) 11.88 K/uL (1.4-6.5) H 08/18/20 18:29 Lymph # (Auto) 1.43 K/uL (1.2-3.4) 08/18/20 18:29 [place] # (Auto) 1.52 K/uL (0.11-0.59) H 08/18/20 18:29 Eos # (Auto) 0.01 K/uL (0-0.5) 08/18/20 18:29 Baso # (Auto) 0.01 K/uL (0-0.2) 08/18/20 18:29 Immature Gran # (Auto) 0.04 K/uL (0.00-0.02) H 08/18/20 18:29 PT 11.4 Seconds (9.0-12.0) 08/17/20 09:50 INR 1.1 (0.9-1.1) 08/17/20 09:50 APTT 26.6 Seconds (21.0-31.0) 08/17/20 09:50 PTT Ratio 1.0 08/17/20 09:50 POC Sodium 138 mmol/L (135-144) 08/17/20 09:52 Sodium 142 mmol/L (136-145) 08/18/20 18:29 POC Potassium 5.5 mmol/L (3.3-5.0) H 08/17/20 09:52 Potassium 4.4 mmol/L (3.5-5.1) 08/18/20 18:29 POC Chloride 103 mmol/L (101-112) 08/17/20 09:52 Chloride 111 mmol/L (98-107) H 08/18/20 18:29 Carbon Dioxide 23 mmol/L (21-32) 08/18/20 18:29 POC Total CO2 25 mmol/L (24-31) 08/17/20 09:52 Anion Gap 8.0 (3-11) 08/18/20 18:29 POC Anion Gap 17.0 mmol/L (16-25) 08/17/20 09:52 POC BUN 25 mg/dl (7-18) H 08/17/20 09:52 BUN 34 mg/dl (7-18) H 08/18/20 18:29 Creatinine 1.95 mg/dl (0.6-1.4) H 08/18/20 18:29 POC Creatinine 1.7 mg/dl (0.6-1.3) H 08/17/20 09:52 Est Cr Clr Drug Dosing 36.7 ml/min 08/18/20 18:29 Est GFR ( Amer) 36.8 08/18/20 18:29 Est GFR (Non-Af Amer) 31.8 08/18/20 18:29 BUN/Creatinine Ratio 17.2 (-20) 08/18/20 18:29 Glucose 232 mg/dl (70-99) H 08/18/20 18:29 POC Glucose 294 mg/dl (70-99) H 08/19/20 04:09 POC Glucose (other) 308 mg/dl (70-99) H 08/17/20 09:52 POC Lactic Acid Bill 2.01 mmol/L (0.90-1.70) H 08/17/20 09:41 Calcium 8.0 mg/dl (8.5-10.1) L 08/18/20 18:29 POC Ioniz Calcium Carline 1.17 mmol/l (1.12-1.32) 08/17/20 09:52 Magnesium 1.8 mg/dl (1.8-2.4) 08/18/20 18:29 Total Bilirubin 2.2 mg/dl (0.2-1) H 08/18/20 06:09 AST 15 U/L (15-37) 08/18/20 06:09 ALT 24 U/L (12-78) 08/18/20 06:09 Alkaline Phosphatase 98 U/L (45-117) 08/18/20 06:09 Total Protein 5.9 gm/dl (6.4-8.2) L 08/18/20 06:09 Albumin 3.3 gm/dl (3.4-5.0) L 08/18/20 06:09 Globulin 2.6 gm/dl (2.5-4.0) 08/18/20 06:09 Albumin/Globulin Ratio 1.3 (0.9-2) 08/18/20 06:09 Beta-Hydroxybutyric Acd 1.76 mg/dl (0.2-2.81) 08/18/20 06:09 Urine Color Yellow 08/17/20 Unknown Urine Appearance Clear (Clear) 08/17/20 Unknown Urine pH 5.0 (4.5-7.5) 08/17/20 Unknown Ur Specific [place] 1.016 (1.000-1.030) 08/17/20 Unknown Urine Protein Negative (Negative) 08/17/20 Unknown Urine Glucose (UA) 2+ (Negative) H 08/17/20 Unknown Urine Ketones Negative (Negative) 08/17/20 Unknown Urine Blood Negative (Negative) 08/17/20 Unknown Urine Nitrite Negative (Negative) 08/17/20 Unknown Urine Bilirubin Negative (Negative) 08/17/20 Unknown Urine Urobilinogen Negative (Negative) 08/17/20 Unknown Ur Leukocyte Esterase Negative (Negative) 08/17/20 Unknown COVID-19 Eval Order Covid19 IDNow [facility] 08/17/20 11:43 SARS-CoV-2, RNA, NAAT NEGATIVE (NEGATIVE) 08/17/20 11:43 Blood Type O Positive 08/17/20 09:50 Antibody Screen NEGATIVE 08/17/20 09:50 Diagnostic Findings XR femur RT 2V routine CLINICAL HISTORY: post op, in PACU, long troch nail COMPARISON: Right femur radiographs August 17, 2020. FINDINGS: Internal fixation of the subtrochanteric fracture of the right femur with trochanteric nail is noted. The hardware is intact. Fracture alignment has markedly improved. Distal screws are noted. Right knee arthroplasty is noted. There are no unexpected radiopaque foreign bodies. Skin nuvia are present. IMPRESSION: Expected findings following internal fixation of the subtrochanteric fracture of the right femur. (1) Femur fracture, right Encounter type: initial encounter Femur location: unspecified portion of femur Fracture type: closed
[2020-08-19 07:29] LABS: Basophils # (auto) 0.01 K/uL (0-0.2); Basophils % (auto) 0.1 %; Eosinophils # (auto) 0.01 K/uL (0-0.5); Eosinophils % (auto) 0.1 %; Hematocrit (blood only) 29.3 % (42-52); Hemoglobin 9.9 g/dL (14.0-18.0); Immature Granulocytes # (auto) 0.02 K/uL (0.00-0.02); Immature Granulocytes % (auto) 0.2 %; Lymphocytes # (auto) 1.21 K/uL (1.2-3.4); Lymphocytes % (auto) 10.5 %; Mean Corpuscular Hgb Conc 33.8 g/dL (32-36); Mean Corpuscular Volume 94.8 fL (80-100); Mean Platelet Volume 9.4 fL (7.4-10.4); Monocytes # (auto) 1.37 K/uL (0.11-0.59); Monocytes % (auto) 11.9 %; Neutrophils # (auto) 8.86 K/uL (1.4-6.5); Neutrophils % (auto) 77.2 %; Platelet Count 135 K/uL (130-400); RDW Coefficient of Variation 12.5 % (11.5-14.5); RDW Standard Deviation 43.1 fL (36.4-46.3); Red Blood Count 3.09 M/uL (4.7-6.1); White Blood Count 11.48 K/uL (4.8-10.8)
[2020-08-19 08:03] LABS: Albumin Level 2.7 gm/dl (3.4-5.0); BUN Creatinine Ratio 16.3 (10-20); Calcium 7.6 mg/dl (8.5-10.1); Creatinine Clr Calc Pharmacy 41.6 ml/min; Est GFR (African American) 42.9
[2020-08-19] MEDS: RIVAROXABAN 15 MG TAB PO SCH (08:11)
[2020-08-19] MEDS: CHOLECALCIFEROL 1,000 UNITS 25 MCG TAB PO SCH (08:11)
[2020-08-19] MEDS: MAGNESIUM OXIDE 400 MG TAB PO SCH (08:11)
[2020-08-19] MEDS: CYANOCOBALAMIN 500 MCG TABLET (VITAMIN B-12) PO SCH (08:12)
[2020-08-19] MEDS: VITAMIN B COMPLEX TAB PO SCH (08:12)
[2020-08-19] MEDS: METOPROLOL TARTRATE 25 MG TAB PO SCH (08:12)
[2020-08-19] MEDS: metroNIDAZOLE 0.75% TOPICAL GEL 45 GM TUBE TOP SCH (08:15)
[2020-08-19 08:27] LABS: Albumin Globulin Ratio 1.1 (0.9-2); Globulin 2.5 gm/dl (2.5-4.0); Thyroid Stimulating Hormone 0.586 uIu/ml (0.300-4.500); Total Protein 5.2 gm/dl (6.4-8.2)
[2020-08-19] MEDS ORDERED: INSULIN GLARGINE SOLOSTAR 100 UNITS/ML 3 ML PEN SC ONE ×2 (09:00→12:00)
[2020-08-19] MEDS: oxyCODONE HCL IR 5 MG TAB (IMMEDIATE RELEASE) PO PRN ×2 (10:24→15:16)
[2020-08-19] MEDS ORDERED: METOPROLOL TARTRATE 1 MG/ML VIAL IV PRN (10:38)
--- NOTE | 2020-08-19 10:38 | Hospitalist Progress Note ---
Date of Service August 19, 2020 Assessment & Plan (1) Femur fracture, right: Status post mechanical fall at home resulting in right proximal angulated and displaced femur fracture -Orthopedics consulted, Dr. Mayes performed right hip repair with right long trochanteric nail on 08/18-appreciate orthopedic management Doing well postoperatively -Continue bowel regimen, pain control, antiemetics as needed -Hooks catheter in place-can likely remove today -Restart Xarelto for atrial fibrillation and DVT prophylaxis Hemoglobin with drop down to 9.9 from 12.2 from acute blood loss anemia from being on Xarelto with fracture and surgery PT/OT consultations (2) PAF (paroxysmal atrial fibrillation): Went into rapid atrial fibrillation with rates as high as the 170s and had a low blood pressure with systolics in the 80s to 90s in the immediate p ostoperative period for about 2-1/2 hours He was given IV Lopressor x3 and IV digoxin to 50 mcg x 1 and then spontaneously converted He was started on amiodarone drip x24 hours and we will now convert amiodarone to 100 mg p.o. twice daily Appreciate cardiology consultation Convert metoprolol tartrate p.o. back to home Toprol-XL 75 mg once daily--->already received tartrate 25 today-we will add Toprol-XL 50 mg x 1 this afternoon -Continue to monitor on telemetry -Replace electrolytes to keep potassium above 4 and magnesium greater than 2 (3) Insulin dependent type 2 diabetes mellitus: -Last A1c was 7.4 on 07/17/2020 no need to recheck With severe hyperglycemia here with blood sugars in the 300s-400s in the first 24 hours of admission Received a total of 20 units regular insulin IV +12 units of Lantus +17 units of NovoLog and blood sugar eventually came down through the morning to 137 prior to surgery Blood sugars continue to be in the 200s today-discussed care with pharmacy who is consulted for glycemic control and giving extra Lantus Follow blood sugars closely Patient reports that he typically runs no lower than 180 at home Appreciate glycemic pharmacy consult -Can DC IV fluids (4) Hypothyroidism: Continue levothyroxine 150 mcg daily TSH normal at 0.586 (5) Chronic renal insufficiency: -CKD stage III, creatinine baseline of 1.8, currently stable at 1.72 --Avoid nephrotoxins -renally dose meds when appropriate -follow BMP (6) SHIRA (obstructive sleep apnea): -History of such, has CPAP machine at home however does not use this as it does not fit properly (7) Peripheral neuropathy: -Bilateral lower extremities, likely secondary to diabetes Is not on medication for this (8) Vitamin B12 deficiency: -Continue supplementation (9) Hyperkalemia: Had hyperkalemia upon admission with potassium 5.5. Was given calcium gluconate in the ER This is in the setting of chronic kidney disease Was given copious insulin in the last 24 hours as well as IV fluids Potassium is now normalized Follow BMP daily (10) Hyperbilirubinemia: Bilirubin elevated mildly at 2.2 but is now back to normal Other LFTs are normal Could be Gilbert's disease (11) Acute blood loss anemia: Hemoglobin dropped to 9.9 from 12.2 yesterday secondary to bleeding from femur fracture in the setting of anticoagulation with Xarelto plus some blood loss from surgery Hemodynamically stable -Follow CBC in the morning Transfuse if hemoglobin less than 8 or hemodynamically unstable (12) Hypomagnesemia: Replace with IV magnesium to keep magnesium level greater than 2 in the se tting of paroxysmal atrial fibrillation Follow magnesium level in the morning (13) Hypercholesterolemia: Continue atorvastatin 10 mg (14) Benign prostate hyperplasia: No acute issues, Hooks catheter in place Continue alfuzosin (15) DVT prophylaxis: -Xarelto restarted, GENARO huitron, SCDs CODE: Full Dispo: From home, continued stay on PCU for further telemetry monitoring PT/OT consultations Admission and Anticipated Discharge Date Admission Date: August 17, 2020 Subjective Patient out of bed to chair this morning. Reports pain in his hip is much impr shadia since the surgery. Denies chest pain or shortness of breath. Has remained in sinus rhythm throughout the night except for a brief run of atrial fibrillation. Discussed his care with cardiology. Review of Systems Review of Systems: All systems reviewed & are unremarkable except as noted in HPI & below Physical Exam Constitutional: WD/WN, vitals as above Eyes: + anicteric sclerae Neck: trachea midline, no thyromegaly Respiratory: normal respiratory effort, lungs clear to auscultation Cardiovascular: RRR, no murmur, no edema Gastrointestinal (Abdomen): normal bowel sounds, soft, nontender, no hepatosplenomegaly Musculoskeletal: Extremities: + extremities abnormal to inspection (Right lateral hip with [address] clean dry intact, mild edema of the right thigh), no cyanosis and no clubbing Skin: no rashes, warm and dry Neurologic: moves all extremities and awake; no focal motor deficits Psychiatric: A+Ox3, euthymic affect Genitourinary: Hooks catheter in place draining clear yellow urine Lymphatic: no lymphedema Results & Data Results & Data ([facility]) Vital Signs (Past 12 Hours) Vital Signs Temp Pulse Pulse Resp BP Pulse Ox 08/19/20 08:00 72 08/19/20 07:48 36.4 C L 77 18 123/64 98 08/19/20 03:28 36.4 C L 88 18 132/60 98 08/18/20 23:27 36.7 C 87 18 118/63 97 Laboratory Results 08/19/20 08/19/20 08/19/20 Range/Units 20:03 16:25 11:37 WBC (4.8-10.8) K/uL RBC (4.7-6.1) M/uL Hgb (14.0-18.0) g/dL Hct (42-52) % MCV (80-100) fL MCH (25-34) pg MCHC (32-36) g/dL RDW Std Deviation (36.4-46.3) fL RDW Coeff of Artur (11.5-14.5) % Plt Count (130-400) K/uL MPV (7.4-10.4) fL Immature Gran % (Auto) % Neut % (Auto) % Lymph % (Auto) % Daniels % (Auto) % Eos % (Auto) % Baso % (Auto) % Neut # (Auto) (1.4-6.5) K/uL Lymph # (Auto) (1.2-3.4) K/uL Daniels # (Auto) (0.11-0.59) K/uL Eos # (Auto) (0-0.5) K/uL Baso # (Auto) (0-0.2) K/uL Immature Gran # (Auto) (0.00-0.02) K/uL Sodium (136-145) mmol/L Potassium (3.5-5.1) mmol/L Chloride (98-107) mmol/L Carbon Dioxide (21-32) mmol/L Anion Gap (3-11) BUN (7-18) mg/dl Creatinine (0.6-1.4) mg/dl Est Cr Clr Drug Dosing ml/min Est GFR ( Amer) Est GFR (Non-Af Amer) BUN/Creatinine Ratio (10-20) Glucose (70-99) mg/dl POC Glucose 94 185 H 273 H (70-99) mg/dl Calcium (8.5-10.1) mg/dl Total Bilirubin (0.2-1) mg/dl AST (15-37) U/L ALT (12-78) U/L Alkaline Phosphatase (45-117) U/L Total Protein (6.4-8.2) gm/dl Albumin (3.4-5.0) gm/dl Globulin (2.5-4.0) gm/dl Albumin/Globulin Ratio (0.9-2) TSH (0.300-4.500) uIu/ml 08/19/20 08/19/20 08/19/20 Range/Units 07:18 07:05 07:05 WBC 11.48 H (4.8-10.8) K/uL RBC 3.09 L (4.7-6.1) M/uL Hgb 9.9 L (14.0-18.0) g/dL Hct 29.3 L (42-52) % MCV 94.8 (80-100) fL MCH 32.0 (25-34) pg MCHC 33.8 (32-36) g/dL RDW Std Deviation 43.1 (36.4-46.3) fL RDW Coeff of Artur 12.5 (11.5-14.5) % Plt Count 135 (130-400) K/uL MPV 9.4 (7.4-10.4) fL Immature Gran % (Auto) 0.2 % Neut % (Auto) 77.2 % Lymph % (Auto) 10.5 % Daniels % (Auto) 11.9 % Eos % (Auto) 0.1 % Baso % (Auto) 0.1 % Neut # (Auto) 8.86 H (1.4-6.5) K/uL Lymph # (Auto) 1.21 (1.2-3.4) K/uL Daniels # (Auto) 1.37 H (0.11-0.59) K/uL Eos # (Auto) 0.01 (0-0.5) K/uL Baso # (Auto) 0.01 (0-0.2) K/uL Immature Gran # (Auto) 0.02 (0.00-0.02) K/uL Sodium 142 (136-145) mmol/L Potassium 4.0 (3.5-5.1) mmol/L Chloride 111 H (98-107) mmol/L Carbon Dioxide 22 (21-32) mmol/L Anion Gap 8.0 (3-11) BUN 28 H (7-18) mg/dl Creatinine 1.72 H (0.6-1.4) mg/dl Est Cr Clr Drug Dosing 41.6 ml/min Est GFR ( Amer) 42.9 Est GFR (Non-Af Amer) 37.0 BUN/Creatinine Ratio 16.3 (10-20) Glucose 241 H (70-99) mg/dl POC Glucose 271 H (70-99) mg/dl Calcium 7.6 L (8.5-10.1) mg/dl Total Bilirubin 1.0 D (0.2-1) mg/dl AST 23 (15-37) U/L ALT 17 (12-78) U/L Alkaline Phosphatase 73 (45-117) U/L Total Protein 5.2 L (6.4-8.2) gm/dl Albumin 2.7 L (3.4-5.0) gm/dl Globulin 2.5 (2.5-4.0) gm/dl Albumin/Globulin Ratio 1.1 (0.9-2) TSH 0.586 (0.300-4.500) uIu/ml 08/19/20 08/19/20 Range/Units 04:09 00:22 WBC (4.8-10.8) K/uL RBC (4.7-6.1) M/uL Hgb (14.0-18.0) g/dL Hct (42-52) % MCV (80-100) fL MCH (25-34) pg MCHC (32-36) g/dL RDW Std Deviation (36.4-46.3) fL RDW Coeff of Artur (11.5-14.5) % Plt Count (130-400) K/uL MPV (7.4-10.4) fL Immature Gran % (Auto) % Neut % (Auto) % Lymph % (Auto) % Daniels % (Auto) % Eos % (Auto) % Baso % (Auto) % Neut # (Auto) (1.4-6.5) K/uL Lymph # (Auto) (1.2-3.4) K/uL Daniels # (Auto) (0.11-0.59) K/uL Eos # (Auto) (0-0.5) K/uL Baso # (Auto) (0-0.2) K/uL Immature Gran # (Auto) (0.00-0.02) K/uL Sodium (136-145) mmol/L Potassium (3.5-5.1) mmol/L Chloride (98-107) mmol/L Carbon Dioxide (21-32) mmol/L Anion Gap (3-11) BUN (7-18) mg/dl Creatinine (0.6-1.4) mg/dl Est Cr Clr Drug Dosing ml/min Est GFR ( Amer) Est GFR (Non-Af Amer) BUN/Creatinine Ratio (10-20) Glucose (70-99) mg/dl POC Glucose 294 H 275 H (70-99) mg/dl Calcium (8.5-10.1) mg/dl Total Bilirubin (0.2-1) mg/dl AST (15-37) U/L ALT (12-78) U/L Alkaline Phosphatase (45-117) U/L Total Protein (6.4-8.2) gm/dl Albumin (3.4-5.0) gm/dl Globulin (2.5-4.0) gm/dl Albumin/Globulin Ratio (0.9-2) TSH (0.300-4.500) uIu/ml PG Care Time/CCT Total # of Minutes Spent Total Time Spent with Patient: Total time spent is greater than 50% in coordination of care (as documented) at patient's floor/unit and/or counseling patient: Coding Level of Care Code 64776 Subseq Hosp Care Lvl 3 Diagnoses Femur fracture, right S72.91XA Encounter type: initial encounter Femur location: unspecified portion of femur Fracture type: closed PAF (paroxysmal atrial fibrillation) I48.0 Insulin dependent type 2 diabetes mellitus E11.9; Z79.4 Hypothyroidism E03.9 Chronic renal insufficiency N18.9 SHIRA (obstructive sleep apnea) G47.33 Peripheral neuropathy G62.9 Vitamin B12 deficiency E53.8 Hyperkalemia E87.5 Hyperbilirubinemia E80.6 Acute blood loss anemia D62 Hypomagnesemia E83.42 Hypercholesterolemia E78.00 Benign prostate hyperplasia N40.0 DVT prophylaxis Z29.9 (1) Femur fracture, right Encounter type: initial encounter Femur location: unspecified portion of femur Fracture type: closed
[2020-08-19] MEDS: AMIODARONE 200 MG TAB PO SCH ×2 (11:10→17:37)
--- NOTE | 2020-08-19 11:49 | Cardiology Consultation ---
Date of Consultation August 19, 2020 Assessment & Plan (1) PAF (paroxysmal atrial fibrillation): -converted to sinus rhythm with intravenous medications -would convert from intravenous to oral amiodarone at 200 mg p.o. b.i.d.. -continue renally adjusted Xarelto. (2) Hypertension: -adequate control metoprolol tartrate 25 mg b.i.d.. (3) Hypercholesterolemia: -continue atorvastatin. History of Present Illness Attending Physician: Sonal Curry MD History of Present Illness Mr. Haskins is a 80-year-old male admitted on August 17 after a fall which resulted in a right femur fracture. The patient developed atrial fibrillation with rapid ventricular response following surgery. Of note, patient typically follows with Dr. Dupont in the outpatient setting. The patient was in his usual state of health until the day of presentation when he tripped over a flower pot in his driveway. The patient had immediate pain in his right thigh and was brought to the emergency room for further care. He was found to have a fractured femur and underwent an ORIF on August 18. Soon after surgery, patient developed atrial fibrillation with a rapid ventricular response and relative hypotension. I was contacted by Dr. Curry and we discussed options and therapy. The patient received intravenous digoxin followed by intravenous metoprolol. He was started on amiodarone drip and converted to sinus rhythm. While the patient was in rapid atrial fibrillation, he denied symptoms of palpitations and lightheadedness. Previously, the patient's atrial dysrhythmia was known to be asymptomatic. The patient has tolerated rate control and long-term anticoagulation for his paroxysmal atrial fibrillation without difficulty. Currently, patient is resting comfortably in the bedside chair without complaints. Past medical and surgical history 1. Paroxysmal atrial fibrillation/flutter 2. Hypertension 3. Hypercholesterolemia 4. Hypothyroidism 5. Chronic renal failure 6. Obstructive sleep apnea 7. Peripheral neuropathy 8. DJD 9. Chronic low back pain 10. BPH 11. Colonic polyps 12. Vitamin B deficiency 13. Bilateral intra-ocular lens implants 14. 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 Left TKR-August 2019 Social history and lives with his Quit tobacco use at 41 years of age. Twenty pack year history. Social use of alcohol. Family history No early coronary artery disease Review of systems A 10 review of systems was negative except for that described above. Allergies Allergy/AdvReac Type Severity Reaction Status Date / Time minocycline Allergy Unknown Unknown Verified 08/18/20 07:49 Home Medications Home Medications Medication Instructions Recorded Confirmed Type blood sugar diagnostic #10 ea 05/10/19 08/17/20 Rx flash glucose scanning reader #1 ea 07/05/19 08/17/20 Rx flash glucose sensor #2 ea 07/07/19 08/17/20 Rx coQ10 (ubiquinol) 200 mg PO BID 07/20/19 08/17/20 History magnesium oxide [MagOx] 400 mg PO QAM 07/20/19 08/17/20 History metronidazole 1 appln TOP QAM 07/20/19 08/17/20 History vitamin B complex [B-Complex] 1 tab PO Q2D 07/20/19 08/17/20 History alfuzosin 10 mg tablet,extended 10 mg PO HS #90 tab 07/27/19 08/17/20 Rx release 24 hr rivaroxaban 15 mg tablet 15 mg PO QPM 08/25/19 08/17/20 History atorvastatin 10 mg tablet 10 mg PO PM #90 tab 03/19/20 08/17/20 Rx metoprolol succinate 50 mg 75 mg PO QAM #135 tab 03/22/20 08/17/20 Rx tablet,extended release 24 hr pen needle, diabetic 32 gauge x #300 ea 03/28/20 08/17/20 Rx 5/32" levothyroxine 150 mcg tablet 150 mcg PO QAM #90 tab 04/23/20 08/17/20 Rx insulin glargine 100 unit/mL (3 24 units SQ HS #15 ml 05/18/20 08/17/20 Rx mL) subcutaneous pen sennosides [Senokot] 17.2 mg PO BID PRN 06/01/20 08/17/20 History cholecalciferol (vitamin D3) 25 1,000 unit PO DAILY #30 cap 07/23/20 08/17/20 Rx mcg (1,000 unit) capsule diclofenac sodium 1 % topical gel 4 g TOPICAL QID PRN #200 g 07/23/20 08/17/20 Rx mecobalamin (vitamin B12) 1,000 2,000 mcg PO DAILY #30 tab 07/23/20 08/17/20 Rx mcg chewable tablet insulin lispro 0 units SQ TID 08/17/20 08/17/20 History Patient History Medical History (Updated 08/19/20 @ 11:46 by Dimitri Fontaine MD) Atrial flutter on Xarelto BPH (benign prostatic hyperplasia) Chronic back pain CKD (chronic kidney disease) Diabetes mellitus, type 2 IDDM Hyperlipidemia Hypertension Hypothyroidism Neuropathy BILAT FEET Osteoarthritis Peripheral neuropathy Sleep apnea non-compliant CPAP Surgical History H/O right cataract extraction History of left cataract surgery History of surgery on wrist right History of tonsillectomy AGE 6 History of total knee replacement RIGHT 2009 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 Terry Bryan Family History Father Family hx of colon cancer Colorectal cancer Other Cancer Denies family history of Ovarian cancer Prostate cancer Myocardial infarction Breast cancer Social History Smoking Status: Former smoker Tobacco Type: Cigarettes Age Started Using Tobacco: 18; Age Quit Using Tobacco: 41; packs per day: 1; Second Hand Exposure: No; Do You Dip or Chew Tobacco: Yes (no current use); Hx Alcohol Use: Yes Alcohol type: beer Hx Substance Use: No Preferred Language: Maori Communication Ability: Effective Visual Impairment: Limited Hearing Ability: Use of Hearing Aid Banking Teacher Required: No Beliefs That Will Affect Care: None marital status: Current Living Situation: Spouse Current Living Situation Comment: Lives with current occupational status: retired Other Information That Helps Us Care for You: No Feels Safe at Home: Yes Childhood Exposure to Second-Hand Smoke: Yes caffeine: Yes (diet pepsi) Dental Care, Regularly: Yes Physical Activity Frequency: 5-6 Times per Week Seatbelt Use: always Sunscreen Use: Yes (occasionally) Do you think of yourself as: straight/heterosexual Assistive Devices: Glasses Physical Exam Physical Exam: Internal is well-developed well-nourished white male no acute distress. HEENT exam is negative. Neck is supple with full carotid upstrokes. No carotid bruits. Jugular is pressure is flat at 90. No thyromegaly. Cardiovascular exam reveals a regular rhythm with normal S1-S2. Heart sounds are distant. No obvious murmurs. Lungs are clear without rales, rhonchi or wheeze. Abdomen is soft without bruits. Extremities reveal intact radial artery pulses bilaterally. There is no peripheral edema. Right thigh is dressed. Results & Data ([facility]) Vital Signs (Past 12 Hours) Vital Signs Temp Pulse Pulse Resp BP Pulse Ox 08/19/20 08:00 72 08/19/20 07:48 36.4 C L 77 18 123/64 98 08/19/20 03:28 36.4 C L 88 18 132/60 98 Laboratory Results CBC notes hemoglobin 9.9, crit 29.3, white count 11.48, platelet count 135 1000. Electrolytes note a sodium of 142, potassium 4.0, chloride 111, bicarb 22, BUN 20, creatinine 1.72, and glucose of 241. TSH level is normal at 0.586. Diagnostic Findings Admitting EKG noted normal sinus rhythm with nonspecific ST abnormality. Tracing done yesterday noted atrial fibrillation with a rapid ventricular response and nonspecific ST and T-wave abnormality. shelter monitor noted 1 brief episode of atrial fibrillation at approximately 0200 this morning. PG Care Time/CCT Total # of Minutes Spent Total Time Spent with Patient: Total time spent is greater than 50% in coordination of care (as documented) at patient's floor/unit and/or counseling patient: Coding Level of Care Code 62104 Initial Inpt Care Lvl 3 Diagnoses PAF (paroxysmal atrial fibrillation) I48.0 Hypertension I10 Hypercholesterolemia E78.00
--- NOTE | 2020-08-19 12:17 | Electrocardiogram Report ---
Test Reason : Blood Pressure : / mmHG Vent. Rate : 083 BPM Atrial Rate : 083 BPM P-R Int : 144 ms QRS Dur : 082 ms QT Int : 392 ms P-R-T Axes : 055 034 035 degrees QTc Int : 460 ms Poor data quality, interpretation may be adversely affected Normal sinus rhythm Nonspecific ST abnormality Abnormal ECG When compared with ECG of 18-AUG-2020 17:51, (unconfirmed) Sinus rhythm has replaced Atrial fibrillation Vent. rate has decreased BY 67 BPM T wave inversion no longer evident in Inferior leads Nonspecific T wave abnormality no longer evident in Lateral leads Confirmed by Dimitri Fontaine ([id number]) on 08/19/2020 12:17:23 PM Referred By: REFERRED SELF Confirmed By:Dimitri Fontaine
--- NOTE | 2020-08-19 12:17 | Electrocardiogram Report ---
Test Reason : Blood Pressure : / mmHG Vent. Rate : 150 BPM Atrial Rate : 170 BPM P-R Int : 000 ms QRS Dur : 088 ms QT Int : 310 ms P-R-T Axes : 000 043 258 degrees QTc Int : 489 ms Atrial fibrillation with rapid ventricular response Diffuse ST abnormality Abnormal ECG When compared with ECG of 17-AUG-2020 09:12, Significant changes have occurred Confirmed by Dimitri Fontaine ([id number]) on 08/19/2020 12:16:54 PM Referred By: REFERRED SELF Confirmed By:Dimitri Fontaine
[2020-08-19] MEDS ORDERED: METOPROLOL SUCC 50MG EXT REL TAB PO ONE (14:00)
--- NOTE | 2020-08-19 14:25 | Pharmacy Report ---
Glycemic Control Progress Note - Date of Service August 19, 2020 - Scope Glycemic Pharmacist consulted for glycemic control to write orders per [facility] inpatient glycemic control protocol. - Objective Accuchecks BSG(last 24 hours):: 08/18/20 08/18/20 08/18/20 15:19 18:19 18:29 Glucose 232 H POC Glucose 141 H 202 H 08/18/20 08/19/20 08/19/20 20:20 00:22 04:09 Glucose POC Glucose 255 H 275 H 294 H 08/19/20 08/19/20 08/19/20 07:05 07:18 11:37 Glucose 241 H POC Glucose 271 H 273 H - Recent Pertinent Medications The patient is currently receiving: * Basal insulin: Lantus 12 units every 12 hours * Correctional Insulin: Novolog Correction per scale ACHS Goal Range: Low 110 mg/dL - High 140 mg/dL Correction Factor: 20 mg/dL/unit * Prandial insulin: Per carb ratio of 1 unit per 6 grams CHO consumed - Outpatient Anti-Diabetic Meds Lantus 24 units HS - Assessment & Plan ASSESSMENT: * See progress note from 08/18/2020 for more background info, in short: * Pt receiving SQ basal bolus insulin regimen for hyperglycemia secondary to baseline DM (outpatient regimen on hold). Patient is POD 1 for hip surgery. * Patient is currently receiving an average of 53 units of insulin per day * 24 units of basal insulin * 29 units of prandial/correctional insulin * BSGs ranging 137 - 406 mg/dl over the past 24hrs * Changes needed to insulin regimen: * AM Fasting BSG = 271 mg/dl. This is above goal range for patient based on inpatient targets and co-morbidities. The patient received an additional 15 units overnight. There are two issues at hand today. First, want to push for HS dosing of Lantus to mimic home dosing. So gave extra 5 units this morning with more planned for dinner dose. Second, Dr Curry reported that the patient stated he is hardly ever below 200 mg/dL at home. This does not correlate to HbA1C --> patient is a low glycolation so therefore, feel more comfortable pushing forward on basal dosing. Planned for full 24 units at lunchtime for total of 29 units today (20% increase compared to yesterday). Plan for either 30 or 35 units (if BSG > 180 mg/dL) tomorrow at dinner for full transition to HS on 08/21/20. * Post-prandial BSGs were elevated. Tightened CF/CR. * Total daily dose = ~70 units. Increased insulin appropriately. PLAN FOR INPATIENT GLYCEMIC CONTROL: * INCREASING Lantus to 24 units SQ x 1 then 30 units (35 units if BSG > 180 mg/dL) tomorrow at dinner. * TIGHTENING correction factor to 15 mg/dl/unit * TIGHTENING carb ratio to 1 unit per 5 grams CHO consumed * CONTINUING goal range of Low 110 mg/dL - High 140 mg/dL * Please note that the plan above was derived based on current level of insulin resistance and hospital stress. These recommendations are appropriate for inpatient admission only. Plan of care upon discharge will need to be reassessed to avoid potential outpatient hypo/hyperglycemia. Thank you.
[2020-08-19] MEDS: ALFUZOSIN HCL 10 MG TAB PO SCH (20:30)
[2020-08-19] MEDS: ATORVASTATIN 10 MG TAB PO SCH (20:30)
[2020-08-19] MEDS: DOCUSATE SODIUM/SENNA 50/8.6MG TAB PO SCH ×2 (20:31→21:54)
[2020-08-20] MEDS: INSULIN ASPART 100 UNITS/ML 3 ML PEN SC SCH ×6 (03:58→21:01)
[2020-08-20] MEDS: LEVOTHYROXINE SODIUM 150 MCG TABLET PO SCH (06:20)
[2020-08-20] MEDS: MAGNESIUM OXIDE 400 MG TAB PO SCH (08:19)
[2020-08-20] MEDS: oxyCODONE HCL IR 5 MG TAB (IMMEDIATE RELEASE) PO PRN (08:19)
[2020-08-20] MEDS: CYANOCOBALAMIN 500 MCG TABLET (VITAMIN B-12) PO SCH (08:19)
[2020-08-20] MEDS: RIVAROXABAN 15 MG TAB PO SCH (08:20)
[2020-08-20] MEDS: METOPROLOL SUCC 25MG EXT REL TAB PO SCH (08:20)
[2020-08-20] MEDS: AMIODARONE 200 MG TAB PO SCH ×2 (08:20→16:07)
[2020-08-20] MEDS: metroNIDAZOLE 0.75% TOPICAL GEL 45 GM TUBE TOP SCH (08:20)
[2020-08-20] MEDS: CHOLECALCIFEROL 1,000 UNITS 25 MCG TAB PO SCH ×2 (08:20→10:25)
[2020-08-20 08:22] LABS: Basophils # (auto) 0.01 K/uL (0-0.2); Basophils % (auto) 0.1 %; Eosinophils # (auto) 0.05 K/uL (0-0.5); Eosinophils % (auto) 0.6 %; Hematocrit (blood only) 26.2 % (42-52); Immature Granulocytes # (auto) 0.02 K/uL (0.00-0.02); Immature Granulocytes % (auto) 0.2 %; Lymphocytes # (auto) 1.53 K/uL (1.2-3.4); Lymphocytes % (auto) 16.9 %; Mean Corpuscular Hgb Conc 34.4 g/dL (32-36); Mean Corpuscular Volume 93.2 fL (80-100); Mean Platelet Volume 9.5 fL (7.4-10.4); Monocytes # (auto) 1.15 K/uL (0.11-0.59); Monocytes % (auto) 12.7 %; Neutrophils # (auto) 6.27 K/uL (1.4-6.5); Neutrophils % (auto) 69.5 %; Platelet Count 133 K/uL (130-400); RDW Coefficient of Variation 12.2 % (11.5-14.5); RDW Standard Deviation 41.6 fL (36.4-46.3); Red Blood Count 2.81 M/uL (4.7-6.1); White Blood Count 9.03 K/uL (4.8-10.8)
[2020-08-20 08:51] LABS: BUN Creatinine Ratio 15.7 (10-20); Creatinine Clr Calc Pharmacy 46.5 ml/min; Est GFR (Non-African American) 42.3; Potassium 3.8 mmol/L (3.5-5.1)
--- NOTE | 2020-08-20 09:22 | Orthopedic Progress Note ---
Date of Service August 20, 2020 Assessment & Plan (1) Femur fracture, right: s/p right hip long cephalo-medullary nail POD#2 -Ancef x24 -DVT prophylaxis: SCDs, teds, Xarelto daily -Toe-touch nonweightbearing right lower extremity -PT/OT -am labs, as above, hgb 9.0 -post op X-ray demonstrates internal fixation right femur with long troch nail, fracture alignment improved. Admission and Anticipated Discharge Date Admission Date: August 17, 2020 Subjective Post Operative Progress Note Patient seen sitting up in bed, comfortable, denies complaints, pain well c ontrolled, no acute issues. Denies F/C/N/V/SOB/CP. Review of Systems Review of Systems: All systems reviewed & are unremarkable except as noted in HPI & below Constitutional: as per Subjective / HPI Physical Exam Physical Exam: RLE NVSI +EHL/FHL/TA/GS SILT grossly, +2 DP pulse, compartments soft NT, dressing cdi. Constitutional: WD/WN, vitals as above Results & Data ([facility]) Vital Signs (Past 12 Hours) Vital Signs Temp Pulse Pulse Resp BP Pulse Ox 08/20/20 07:00 37.0 C 87 16 136/67 97 08/20/20 03:00 36.9 C 82 16 133/69 97 08/20/20 00:00 81 08/19/20 23:00 36.6 C 85 16 133/69 98 Laboratory Results 08/20/20 08/20/20 08/20/20 Range/Units 07:51 07:51 07:26 WBC 9.03 (4.8-10.8) K/uL RBC 2.81 L (4.7-6.1) M/uL Hgb 9.0 L (14.0-18.0) g/dL Hct 26.2 L (42-52) % MCV 93.2 (80-100) fL MCH 32.0 (25-34) pg MCHC 34.4 (32-36) g/dL RDW Std Deviation 41.6 (36.4-46.3) fL RDW Coeff of Artur 12.2 (11.5-14.5) % Plt Count 133 (130-400) K/uL MPV 9.5 (7.4-10.4) fL Immature Gran % (Auto) 0.2 % Neut % (Auto) 69.5 % Lymph % (Auto) 16.9 % Island % (Auto) 12.7 % Eos % (Auto) 0.6 % Baso % (Auto) 0.1 % Neut # (Auto) 6.27 (1.4-6.5) K/uL Lymph # (Auto) 1.53 (1.2-3.4) K/uL Island # (Auto) 1.15 H (0.11-0.59) K/uL Eos # (Auto) 0.05 (0-0.5) K/uL Baso # (Auto) 0.01 (0-0.2) K/uL Immature Gran # (Auto) 0.02 (0.00-0.02) K/uL Sodium 140 (136-145) mmol/L Potassium 3.8 (3.5-5.1) mmol/L Chloride 108 H (98-107) mmol/L Carbon Dioxide 23 (21-32) mmol/L Anion Gap 8.0 (3-11) BUN 24 H (7-18) mg/dl Creatinine 1.54 H (0.6-1.4) mg/dl Est Cr Clr Drug Dosing 46.5 ml/min Est GFR ( Amer) 49.0 Est GFR (Non-Af Amer) 42.3 BUN/Creatinine Ratio 15.7 (10-20) Glucose 168 H (70-99) mg/dl POC Glucose 190 H (70-99) mg/dl Calcium 8.0 L (8.5-10.1) mg/dl 08/20/20 08/19/20 08/19/20 Range/Units 03:55 23:44 20:03 WBC (4.8-10.8) K/uL RBC (4.7-6.1) M/uL Hgb (14.0-18.0) g/dL Hct (42-52) % MCV (80-100) fL MCH (25-34) pg MCHC (32-36) g/dL RDW Std Deviation (36.4-46.3) fL RDW Coeff of Artur (11.5-14.5) % Plt Count (130-400) K/uL MPV (7.4-10.4) fL Immature Gran % (Auto) % Neut % (Auto) % Lymph % (Auto) % Island % (Auto) % Eos % (Auto) % Baso % (Auto) % Neut # (Auto) (1.4-6.5) K/uL Lymph # (Auto) (1.2-3.4) K/uL Island # (Auto) (0.11-0.59) K/uL Eos # (Auto) (0-0.5) K/uL Baso # (Auto) (0-0.2) K/uL Immature Gran # (Auto) (0.00-0.02) K/uL Sodium (136-145) mmol/L Potassium (3.5-5.1) mmol/L Chloride (98-107) mmol/L Carbon Dioxide (21-32) mmol/L Anion Gap (3-11) BUN (7-18) mg/dl Creatinine (0.6-1.4) mg/dl Est Cr Clr Drug Dosing ml/min Est GFR ( Amer) Est GFR (Non-Af Amer) BUN/Creatinine Ratio (10-20) Glucose (70-99) mg/dl POC Glucose 128 H 74 94 (70-99) mg/dl Calcium (8.5-10.1) mg/dl 08/19/20 08/19/20 Range/Units 16:25 11:37 WBC (4.8-10.8) K/uL RBC (4.7-6.1) M/uL Hgb (14.0-18.0) g/dL Hct (42-52) % MCV (80-100) fL MCH (25-34) pg MCHC (32-36) g/dL RDW Std Deviation (36.4-46.3) fL RDW Coeff of Artur (11.5-14.5) % Plt Count (130-400) K/uL MPV (7.4-10.4) fL Immature Gran % (Auto) % Neut % (Auto) % Lymph % (Auto) % Island % (Auto) % Eos % (Auto) % Baso % (Auto) % Neut # (Auto) (1.4-6.5) K/uL Lymph # (Auto) (1.2-3.4) K/uL Island # (Auto) (0.11-0.59) K/uL Eos # (Auto) (0-0.5) K/uL Baso # (Auto) (0-0.2) K/uL Immature Gran # (Auto) (0.00-0.02) K/uL Sodium (136-145) mmol/L Potassium (3.5-5.1) mmol/L Chloride (98-107) mmol/L Carbon Dioxide (21-32) mmol/L Anion Gap (3-11) BUN (7-18) mg/dl Creatinine (0.6-1.4) mg/dl Est Cr Clr Drug Dosing ml/min Est GFR ( Amer) Est GFR (Non-Af Amer) BUN/Creatinine Ratio (10-20) Glucose (70-99) mg/dl POC Glucose 185 H 273 H (70-99) mg/dl Calcium (8.5-10.1) mg/dl (1) Femur fracture, right Encounter type: initial encounter Femur location: unspecified portion of femur Fracture type: closed
[2020-08-20] MEDS ORDERED: bisacodyL 10 MG SUPP PR STA (12:10)
--- NOTE | 2020-08-20 13:54 | Cardiology Progress Note ---
Date of Service August 20, 2020 Assessment & Plan (1) PAF (paroxysmal atrial fibrillation): -converted to sinus rhythm with intravenous medications -continue oral amiodarone at 200 mg p.o. b.i.d.. -continue renally adjusted Xarelto. (2) Hypertension: -adequate control metoprolol tartrate 25 mg b.i.d.. (3) Hypercholesterolemia: -continue atorvastatin. Admission and Anticipated Discharge Date Admission Date: August 17, 2020 Subjective Mr. Haskins is resting comfortably in a bedside chair without complaints of chest pain, dyspnea, or palpitations. He is tolerating amiodarone without difficulty. Physical Exam 2 Physical Exam: In general this is a well-developed well-nourished white male in no acute distress. HEENT exam is negative. Neck is supple with full carotid upstrokes. No carotid bruits. Jugular is pressure is flat at 90. No thyromegaly. Cardiovascular exam reveals a regular rhythm with normal S1-S2. Heart sounds are distant. No obvious murmurs. Lungs are clear without rales, rhonchi or wheeze. Abdomen is soft without bruits. Extremities reveal intact radial artery pulses bilaterally. There is no peripheral edema. Right thigh is dressed. Results & Data ([facility]) Vital Signs (Past 12 Hours) Vital Signs Temp Pulse Pulse Resp BP Pulse Ox 08/20/20 10:47 36.5 C 86 18 124/66 97 08/20/20 08:00 89 08/20/20 07:00 37.0 C 87 16 136/67 97 08/20/20 03:00 36.9 C 82 16 133/69 97 Diagnostic Findings monitoring and evaluation advisor notes sinus rhythm. PG Care Time/CCT Total # of Minutes Spent Total Time Spent with Patient: Total time spent is greater than 50% in coordination of care (as documented) at patient's floor/unit and/or counseling patient: Coding Level of Care Code 35245 Subseq Hosp Care Lvl 3 Diagnoses PAF (paroxysmal atrial fibrillation) I48.0 Hypertension I10 Hypercholesterolemia E78.00
[2020-08-20] MEDS: POLYETHYLENE (MIRALAX) 17 GM PACK PO SCH (14:09)
--- NOTE | 2020-08-20 14:56 | Hospitalist Progress Note ---
Date of Service August 20, 2020 Assessment & Plan (1) Femur fracture, right: POD #2 s/p ORIF with nail by Dr Mayes. Post-op course complicated by PAF - now resolved. DVT proph - xarelto. Pain controlled. d/c simmons. PT, OT. to rehab tomorrow. (2) PAF (paroxysmal atrial fibrillation): Perioperative. s/p amiodarone x 24 hours post-op --> then oral amiodarone 200mg BID since. appreciate cardiology consultation. Cont toprol xl 75mg daily. Cont xarelto 15mg daily. No PAF episodes since that time. (3) Insulin dependent type 2 diabetes mellitus: HbA1c 7.4% on 07/17/2020. With severe hyperglycemia perioperatively and post-op. Now improved. Appreciate recs from pharmacy who is managing his DM. Cont basal-bolus SC insulin. 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 Cr today 1.5 and at baseline. BMP in am for stability. (5) Hypothyroidism: Continue levothyroxine 150 mcg daily. TSH normal at 0.586. (6) SHIRA (obstructive sleep apnea): noncompliant with home CPAP (7) Peripheral neuropathy: noted likely diabetic neuropathy (8) Vitamin B12 deficiency: Continue PO supplementation (9) Hyperkalemia: resolved (10) Hyperbilirubinemia: Bilirubin was elevated mildly at 2.2 earlier this stay. Gilbert's disease? If present no Rx needed. (11) Acute blood loss anemia: Hb now 9, about 3 gm drop from admission. Recheck cbc in am. Likely to need Fe supplementation. No evidence of ongoing bleeding clinically in right hip. (12) Hypomagnesemia: Replaced and resolved (13) Hypercholesterolemia: Continue atorvastatin 10 mg daily (14) Benign prostate hyperplasia: Stop simmons Continue alfuzosin (15) Sore throat: magic mouthwash scheduled swish/spit likely 2nd to recent intubation (16) Constipation: dulcolax suppos x 1 now add miralax to his senna for bowel maintenance (17) DVT prophylaxis: xarelto likely d/c to rehab at [facility] tomorrow family updated by phone Admission and Anticipated Discharge Date Admission Date: August 17, 2020 Subjective patient c/o right hip pain and lack of bowel movement. no bowel movement since prior to admission. passing flatus and tolerating diet, however. no nausea/emesis. still w/ simmons in place. denies dyspnea, cough or chest pain. tele overnight without any PAF. Review of Systems Constitutional: no fever, no chills, no fatigue and no anorexia Respiratory: no cough and no dyspnea on exertion Cardiovascular: no chest pain, no orthopnea and no paroxysmal nocturnal dyspnea Gastrointestinal: no abdominal pain, no nausea and no vomiting Physical Exam Constitutional: well developed and well nourished; no acute distress and no altered mental status ENMT: Mouth: + oropharynx abnormality (over posterior pharynx 1 isolated papule vs ulcer) Respiratory: normal respiratory effort, lungs clear to auscultation Cardiovascular: Rate/Rhythm: regular rate and regular rhythm Heart Sounds: normal S1 and normal S2; no murmur Vessels: posterior tibial pulses present and dorsalis pedis pulses present; no JVD Extremities: + edema (right thigh only ) Gastrointestinal (Abdomen): normal bowel sounds, soft, nontender, no hepatosplenomegaly Musculoskeletal: dressings intact to right lateral hip Psychiatric: A+Ox3, euthymic affect Results & Data Results & Data ([facility]) Vital Signs (Past 12 Hours) Vital Signs Temp Pulse Pulse Resp BP Pulse Ox 08/20/20 10:47 36.5 C 86 18 124/66 97 08/20/20 08:00 89 08/20/20 07:00 37.0 C 87 16 136/67 97 08/20/20 03:00 36.9 C 82 16 133/69 97 Laboratory Results Laboratory Results - last 24 hr 08/19/20 08/19/20 08/19/20 16:25 20:03 23:44 WBC RBC Hgb Hct MCV MCH MCHC RDW Std Deviation RDW Coeff of Artur Plt Count MPV Immature Gran % (Auto) Neut % (Auto) Lymph % (Auto) [place] % (Auto) Eos % (Auto) Baso % (Auto) Neut # (Auto) Lymph # (Auto) [place] # (Auto) Eos # (Auto) Baso # (Auto) Immature Gran # (Auto) Sodium Potassium Chloride Carbon Dioxide Anion Gap BUN Creatinine Est Cr Clr Drug Dosing Est GFR ( Amer) Est GFR (Non-Af Amer) BUN/Creatinine Ratio Glucose POC Glucose 185 H 94 74 Calcium 08/20/20 08/20/20 08/20/20 03:55 07:26 07:51 WBC 9.03 RBC 2.81 L Hgb 9.0 L Hct 26.2 L MCV 93.2 MCH 32.0 MCHC 34.4 RDW Std Deviation 41.6 RDW Coeff of Artur 12.2 Plt Count 133 MPV 9.5 Immature Gran % (Auto) 0.2 Neut % (Auto) 69.5 Lymph % (Auto) 16.9 [place] % (Auto) 12.7 Eos % (Auto) 0.6 Baso % (Auto) 0.1 Neut # (Auto) 6.27 Lymph # (Auto) 1.53 [place] # (Auto) 1.15 H Eos # (Auto) 0.05 Baso # (Auto) 0.01 Immature Gran # (Auto) 0.02 Sodium Potassium Chloride Carbon Dioxide Anion Gap BUN Creatinine Est Cr Clr Drug Dosing Est GFR ( Amer) Est GFR (Non-Af Amer) BUN/Creatinine Ratio Glucose POC Glucose 128 H 190 H Calcium 08/20/20 08/20/20 07:51 11:10 WBC RBC Hgb Hct MCV MCH MCHC RDW Std Deviation RDW Coeff of Artur Plt Count MPV Immature Gran % (Auto) Neut % (Auto) Lymph % (Auto) [place] % (Auto) Eos % (Auto) Baso % (Auto) Neut # (Auto) Lymph # (Auto) [place] # (Auto) Eos # (Auto) Baso # (Auto) Immature Gran # (Auto) Sodium 140 Potassium 3.8 Chloride 108 H Carbon Dioxide 23 Anion Gap 8.0 BUN 24 H Creatinine 1.54 H Est Cr Clr Drug Dosing 46.5 Est GFR ( Amer) 49.0 Est GFR (Non-Af Amer) 42.3 BUN/Creatinine Ratio 15.7 Glucose 168 H POC Glucose 220 H Calcium 8.0 L PG Care Time/CCT Total # of Minutes Spent Total Time Spent with Patient: Total time spent is greater than 50% in coordination of care (as documented) at patient's floor/unit and/or counseling patient: Coding Level of Care Code 84500 Subseq Hosp Care Lvl 2 Diagnoses Femur fracture, right S72.91XD Encounter type: subsequent encounter Femur location: unspecified portion of femur Fracture type: closed Fracture morphology: unspecified fracture morphology Fracture healing: with routine healing PAF (paroxysmal atrial fibrillation) I48.0 Insulin dependent type 2 diabetes mellitus E11.9; Z79.4 Chronic kidney disease, stage 3a N18.31 Hypothyroidism E03.9 SHIRA (obstructive sleep apnea) G47.33 Peripheral neuropathy G62.9 Vitamin B12 deficiency E53.8 Hyperkalemia E87.5 Hyperbilirubinemia E80.6 Acute blood loss anemia D62 Hypomagnesemia E83.42 Hypercholesterolemia E78.00 Benign prostate hyperplasia N40.0 Sore throat J02.9 Constipation K59.00 DVT prophylaxis Z29.9 (1) Femur fracture, right Encounter type: subsequent encounter Femur location: unspecified portion of femur Fracture type: closed Fracture morphology: unspecified fracture morphology Fracture healing: with routine healing Qualified Code(s): S72.91XD - Unspecified fracture of right femur, subsequent encounter for closed fracture with routine healing
[2020-08-20] MEDS ORDERED: INSULIN GLARGINE SOLOSTAR 100 UNITS/ML 3 ML PEN SC SCH (17:00)
[2020-08-20] MEDS: ATORVASTATIN 10 MG TAB PO SCH (21:02)
[2020-08-20] MEDS: ALFUZOSIN HCL 10 MG TAB PO SCH (21:02)
[2020-08-20] MEDS: DOCUSATE SODIUM/SENNA 50/8.6MG TAB PO SCH (21:07)
[2020-08-21] MEDS: LEVOTHYROXINE SODIUM 150 MCG TABLET PO SCH (06:37)
[2020-08-21 07:53] LABS: Basophils # (auto) 0.01 K/uL (0-0.2); Basophils % (auto) 0.1 %; Eosinophils % (auto) 1.2 %; Hematocrit (blood only) 26.5 % (42-52); Hemoglobin 9.1 g/dL (14.0-18.0); Immature Granulocytes # (auto) 0.02 K/uL (0.00-0.02); Immature Granulocytes % (auto) 0.2 %; Lymphocytes # (auto) 1.66 K/uL (1.2-3.4); Lymphocytes % (auto) 19.9 %; Mean Corpuscular Hemoglobin 31.8 pg (25-34); Mean Corpuscular Hgb Conc 34.3 g/dL (32-36); Mean Corpuscular Volume 92.7 fL (80-100); Mean Platelet Volume 9.3 fL (7.4-10.4); Monocytes # (auto) 1.01 K/uL (0.11-0.59); Monocytes % (auto) 12.1 %; Neutrophils # (auto) 5.56 K/uL (1.4-6.5); Neutrophils % (auto) 66.5 %; Platelet Count 159 K/uL (130-400); RDW Standard Deviation 40.8 fL (36.4-46.3); Red Blood Count 2.86 M/uL (4.7-6.1); White Blood Count 8.36 K/uL (4.8-10.8)
[2020-08-21 08:28] LABS: BUN Creatinine Ratio 15.6 (10-20); Calcium 8.6 mg/dl (8.5-10.1); Creatinine Clr Calc Pharmacy 45.3 ml/min; Est GFR (African American) 47.5; Potassium 3.6 mmol/L (3.5-5.1)
[2020-08-21] MEDS: METOPROLOL SUCC 25MG EXT REL TAB PO SCH (08:53)
[2020-08-21] MEDS: VITAMIN B COMPLEX TAB PO SCH (08:53)
[2020-08-21] MEDS: CYANOCOBALAMIN 500 MCG TABLET (VITAMIN B-12) PO SCH (08:53)
[2020-08-21] MEDS: AMIODARONE 200 MG TAB PO SCH (08:54)
[2020-08-21] MEDS: MAGNESIUM OXIDE 400 MG TAB PO SCH (08:54)
[2020-08-21] MEDS: RIVAROXABAN 15 MG TAB PO SCH (08:54)
[2020-08-21] MEDS: INSULIN ASPART 100 UNITS/ML 3 ML PEN SC SCH ×4 (08:55→21:34)
[2020-08-21] MEDS: POLYETHYLENE (MIRALAX) 17 GM PACK PO SCH (08:55)
[2020-08-21] MEDS: metroNIDAZOLE 0.75% TOPICAL GEL 45 GM TUBE TOP SCH (08:55)
[2020-08-21] MEDS: CHOLECALCIFEROL 1,000 UNITS 25 MCG TAB PO SCH (08:56)
[2020-08-21] MEDS ORDERED: 0.2 MICRON FILTER SET 1 EA IV ONE (09:01)
[2020-08-21] MEDS ORDERED: AMIODARONE / D5W 360 MG/200 ML BAG IV ONE (09:03)
--- NOTE | 2020-08-21 11:18 | Cardiology Progress Note ---
Date of Service August 21, 2020 Assessment & Plan (1) PAF (paroxysmal atrial fibrillation): -reverted back to his atrial dysrhythmia with rapid ventricular response. -suggest 24 hours of intravenous amiodarone. -continue renally adjusted Xarelto. (2) Hypertension: -adequate control metoprolol tartrate 25 mg b.i.d.. (3) Hypercholesterolemia: -continue atorvastatin. Admission and Anticipated Discharge Date Admission Date: August 17, 2020 Subjective The patient is resting comfortably in bed without complaints of chest pain, dyspnea, or palpitations. We have discussed his recurrence of atrial flutter and a rapid ventricular response. Physical Exam Physical Exam: In general this is a well-developed well-nourished white male in no acute distress. HEENT exam is negative. Neck is supple with full carotid upstrokes. No carotid bruits. No JVD. No thyromegaly. Cardiovascular exam reveals a regular rhythm with normal S1-S2. Heart sounds are distant. No obvious murmurs. Lungs are clear without rales, rhonchi or wheeze. Abdomen is soft without bruits. Extremities reveal intact radial artery pulses bilaterally. There is no peripheral edema. Right thigh is dressed. Results & Data ([facility]) Vital Signs (Past 12 Hours) Vital Signs Temp Pulse Pulse Resp BP BP Pulse Ox 08/21/20 08:30 36.7 C 120 H 18 154/89 H 97 08/21/20 04:15 36.5 C 116 H 19 128/73 97 08/21/20 03:04 126 H 115/76 08/21/20 00:00 37.1 C 123 H 20 127/81 97 Diagnostic Findings monitoring manager notes atrial flutter with a rapid ventricular response. PG Care Time/CCT Total # of Minutes Spent Total Time Spent with Patient: Total time spent is greater than 50% in coordination of care (as documented) at patient's floor/unit and/or counseling patient: Coding Level of Care Code 59481 Subseq Hosp Care Lvl 3 Diagnoses PAF (paroxysmal atrial fibrillation) I48.0 Hypertension I10 Hypercholesterolemia E78.00
--- NOTE | 2020-08-21 12:19 | Orthopedic Progress Note ---
Date of Service August 21, 2020 Assessment & Plan (1) Femur fracture, right: s/p right hip long cephalo-medullary nail POD#3 -Ancef x24 -DVT prophylaxis: SCDs, teds, Xarelto daily -Toe-touch nonweightbearing right lower extremity -PT/OT -am labs, as above, hgb 9.1 -post op X-ray demonstrates internal fixation right femur with long troch nail, fracture alignment improved. Admission and Anticipated Discharge Date Admission Date: August 17, 2020 Subjective Post Operative Progress Note Patient seen sitting in chair at bedside, comfortable, denies complaints, pain well controlled, no acute issues. Denies F/C/N/V/SOB/CP. Review of Systems Review of Systems: All systems reviewed & are unremarkable except as noted in HPI & below Constitutional: as per Subjective / HPI Physical Exam Physical Exam: RLE NVSI +EHL/FHL/TA/GS SILT grossly, +2 DP pulse, compartments soft NT, dressing cdi. Constitutional: WD/WN, vitals as above Results & Data ([facility]) Vital Signs (Past 12 Hours) Vital Signs Temp Pulse Pulse Resp BP BP Pulse Ox 08/21/20 12:04 36.7 C 130 H 20 103/72 99 08/21/20 10:28 139 H 139/86 08/21/20 09:55 140 H 145/78 H 08/21/20 08:30 36.7 C 120 H 18 154/89 H 97 08/21/20 04:15 36.5 C 116 H 19 128/73 97 08/21/20 03:04 126 H 115/76 Laboratory Results 08/21/20 08/21/20 08/21/20 Range/Units 11:18 07:32 07:26 WBC (4.8-10.8) K/uL RBC (4.7-6.1) M/uL Hgb (14.0-18.0) g/dL Hct (42-52) % MCV (80-100) fL MCH (25-34) pg MCHC (32-36) g/dL RDW Std Deviation (36.4-46.3) fL RDW Coeff of Artur (11.5-14.5) % Plt Count (130-400) K/uL MPV (7.4-10.4) fL Immature Gran % (Auto) % Neut % (Auto) % Lymph % (Auto) % [place] % (Auto) % Eos % (Auto) % Baso % (Auto) % Neut # (Auto) (1.4-6.5) K/uL Lymph # (Auto) (1.2-3.4) K/uL [place] # (Auto) (0.11-0.59) K/uL Eos # (Auto) (0-0.5) K/uL Baso # (Auto) (0-0.2) K/uL Immature Gran # (Auto) (0.00-0.02) K/uL Sodium 139 (136-145) mmol/L Potassium 3.6 (3.5-5.1) mmol/L Chloride 108 H (98-107) mmol/L Carbon Dioxide 25 (21-32) mmol/L Anion Gap 6.0 (3-11) BUN 25 H (7-18) mg/dl Creatinine 1.58 H (0.6-1.4) mg/dl Est Cr Clr Drug Dosing 45.3 ml/min Est GFR ( Amer) 47.5 Est GFR (Non-Af Amer) 41.0 BUN/Creatinine Ratio 15.6 (10-20) Glucose 198 H (70-99) mg/dl POC Glucose 235 H 234 H (70-99) mg/dl Calcium 8.6 (8.5-10.1) mg/dl COVID-19 Eval Order SARS-CoV-2, RNA, NAAT (NEGATIVE) 08/21/20 08/20/20 08/20/20 Range/Units 07:26 22:19 22:19 WBC 8.36 (4.8-10.8) K/uL RBC 2.86 L (4.7-6.1) M/uL Hgb 9.1 L (14.0-18.0) g/dL Hct 26.5 L (42-52) % MCV 92.7 (80-100) fL MCH 31.8 (25-34) pg MCHC 34.3 (32-36) g/dL RDW Std Deviation 40.8 (36.4-46.3) fL RDW Coeff of Artur 12.0 (11.5-14.5) % Plt Count 159 (130-400) K/uL MPV 9.3 (7.4-10.4) fL Immature Gran % (Auto) 0.2 % Neut % (Auto) 66.5 % Lymph % (Auto) 19.9 % [place] % (Auto) 12.1 % Eos % (Auto) 1.2 % Baso % (Auto) 0.1 % Neut # (Auto) 5.56 (1.4-6.5) K/uL Lymph # (Auto) 1.66 (1.2-3.4) K/uL [place] # (Auto) 1.01 H (0.11-0.59) K/uL Eos # (Auto) 0.10 (0-0.5) K/uL Baso # (Auto) 0.01 (0-0.2) K/uL Immature Gran # (Auto) 0.02 (0.00-0.02) K/uL Sodium (136-145) mmol/L Potassium (3.5-5.1) mmol/L Chloride (98-107) mmol/L Carbon Dioxide (21-32) mmol/L Anion Gap (3-11) BUN (7-18) mg/dl Creatinine (0.6-1.4) mg/dl Est Cr Clr Drug Dosing ml/min Est GFR ( Amer) Est GFR (Non-Af Amer) BUN/Creatinine Ratio (10-20) Glucose (70-99) mg/dl POC Glucose (70-99) mg/dl Calcium (8.5-10.1) mg/dl COVID-19 Eval Order Covid19 [facility] SARS-CoV-2, RNA, NAAT NEGATIVE (NEGATIVE) 08/20/20 08/20/20 Range/Units 20:24 16:24 WBC (4.8-10.8) K/uL RBC (4.7-6.1) M/uL Hgb (14.0-18.0) g/dL Hct (42-52) % MCV (80-100) fL MCH (25-34) pg MCHC (32-36) g/dL RDW Std Deviation (36.4-46.3) fL RDW Coeff of Artur (11.5-14.5) % Plt Count (130-400) K/uL MPV (7.4-10.4) fL Immature Gran % (Auto) % Neut % (Auto) % Lymph % (Auto) % [place] % (Auto) % Eos % (Auto) % Baso % (Auto) % Neut # (Auto) (1.4-6.5) K/uL Lymph # (Auto) (1.2-3.4) K/uL [place] # (Auto) (0.11-0.59) K/uL Eos # (Auto) (0-0.5) K/uL Baso # (Auto) (0-0.2) K/uL Immature Gran # (Auto) (0.00-0.02) K/uL Sodium (136-145) mmol/L Potassium (3.5-5.1) mmol/L Chloride (98-107) mmol/L Carbon Dioxide (21-32) mmol/L Anion Gap (3-11) BUN (7-18) mg/dl Creatinine (0.6-1.4) mg/dl Est Cr Clr Drug Dosing ml/min Est GFR ( Amer) Est GFR (Non-Af Amer) BUN/Creatinine Ratio (10-20) Glucose (70-99) mg/dl POC Glucose 134 H 191 H (70-99) mg/dl Calcium (8.5-10.1) mg/dl COVID-19 Eval Order SARS-CoV-2, RNA, NAAT (NEGATIVE) (1) Femur fracture, right Encounter type: subsequent encounter Femur location: unspecified portion of femur Fracture healing: with routine healing Fracture morphology: unspecified fracture morphology Fracture type: closed Qualified Code(s): S72.91XD - Unspecified fracture of right femur, subsequent encounter for closed fracture with routine healing
--- NOTE | 2020-08-21 14:04 | Electrocardiogram Report ---
Test Reason : Blood Pressure : / mmHG Vent. Rate : 122 BPM Atrial Rate : 286 BPM P-R Int : 000 ms QRS Dur : 086 ms QT Int : 338 ms P-R-T Axes : 083 025 046 degrees QTc Int : 481 ms Atrial flutter with variable A-V block Cannot rule out Inferior infarct , age undetermined Abnormal ECG When compared with ECG of 18-AUG-2020 17:56, Atrial flutter has replaced Sinus rhythm Confirmed by Dimitri Fontaine [id number]) on 08/21/2020 2:04:29 PM Referred By: REFERRED SELF Confirmed By:Dimitri Fontaine
--- NOTE | 2020-08-21 14:20 | Pharmacy Report ---
Pharmacy Glycemic Short Note 2 - Date of Service August 21, 2020 - Glycemic Short BSG Results (Last 24 hours): 08/20/20 08/20/20 08/21/20 16:24 20:24 07:26 Glucose 198 H POC Glucose 191 H 134 H 08/21/20 08/21/20 07:32 11:18 Glucose POC Glucose 234 H 235 H OUTPATIENT ANTIDIABETIC REGIMEN: * HbA1c = 7.4% * Lantus 24 units HS ASSESSMENT: * Patient received total of 71 units of insulin yesterday: 30 units of basal + 41 units of bolus * Fasting BSG today was elevated at 234. Post prandial BSG today was also high. * Lantus dose at dinner will be increased today. * Novolog CF and CR were also tightened for better post-prandial coverage. PLAN FOR INPATIENT GLYCEMIC CONTROL: * Basal insulin * Lantus 35 units SQ daily at dinner * Bolus insulin: tightened CF and CR * NovoLog per scale ACHS or Q6hrs while NPO * Goal Range: Low 110 mg/dL - High 140 mg/dL * Correction Factor: 12 mg/dL/unit * Nutritional / Prandial insulin per carb ratio of 1 unit per 4 grams CHO consumed PLAN FOR DISCHARGE: * HbA1c = 7.4% on 07/17/20 * Above A1c indicates good glycemic control in this patient. * Continue with Lantus 24 units daily at HS if patient is not reporting hypoglycemia.
[2020-08-21] MEDS: AMIODARONE / D5W 360 MG/200 ML BAG IV SCH (15:16)
[2020-08-21] MEDS ORDERED: INSULIN GLARGINE SOLOSTAR 100 UNITS/ML 3 ML PEN SC SCH (17:00)
[2020-08-21] MEDS: ALFUZOSIN HCL 10 MG TAB PO SCH (20:34)
[2020-08-21] MEDS: ATORVASTATIN 10 MG TAB PO SCH (20:34)
[2020-08-21] MEDS: DOCUSATE SODIUM/SENNA 50/8.6MG TAB PO SCH (21:00)
--- NOTE | 2020-08-21 21:14 | Hospitalist Progress Note ---
Date of Service August 21, 2020 Assessment & Plan (1) Femur fracture, right: POD #3 s/p ORIF with nail by Dr Mayes. Post-op course complicated by PAF immediately post-op -- was resolved. But developed rapid PAF again last night and remains in such this am -- see below. DVT proph - xarelto. Pain controlled. Cont PT, OT. Discharge to rehab on hold due to rapid PAF. (2) PAF (paroxysmal atrial fibrillation): Perioperative. s/p amiodarone x 24 hours post-op --> then oral amiodarone 200mg BID since. Converted back to rapid PAF again overnight. Remains in such today. Spoke with Dr Fontaine from cardiology - will place patient back on amiodarone infusion. Hopefully he will convert back to NSR with such. Cont toprol xl 75mg daily. Cont xarelto 15mg daily. Recheck K and mag in am. Recent TSH wnl. (3) Insulin dependent type 2 diabetes mellitus: HbA1c 7.4% on 07/17/2020. With severe hyperglycemia perioperatively and post-op. Now improved. Appreciate recs from pharmacy who is managing his DM. Cont basal-bolus SC insulin. 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 Cr today 1.5 again -- this is baseline. BMP in am for stability. (5) Hypothyroidism: Continue levothyroxine 150 mcg daily. TSH normal at 0.586. (6) SHIRA (obstructive sleep apnea): noncompliant with home CPAP (7) Peripheral neuropathy: noted likely diabetic neuropathy (8) Vitamin B12 deficiency: Continue PO supplementation (9) Hyperkalemia: resolved (10) Hyperbilirubinemia: Bilirubin was elevated mildly at 2.2 earlier this stay. 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 No Rx. (11) Acute blood loss anemia: Hb now 9, about 3 gm drop from admission. Recheck cbc in am. Start Fe supplementation. No evidence of ongoing bleeding clinically in right hip. (12) Hypomagnesemia: Replaced and resolved recheck level am (13) Hypercholesterolemia: Continue atorvastatin 10 mg daily (14) Benign prostate hyperplasia: Voiding fine s/p removal of simmons Continue alfuzosin (15) Sore throat: magic mouthwash scheduled swish/spit likely 2nd to recent intubation (16) Constipation: cont miralax and senna for bowel maintenance (17) DVT prophylaxis: mark son in law updated at bedside today d/c on hold due to rapid a.fib Admission and Anticipated Discharge Date Admission Date: August 17, 2020 Subjective patient w/o complaints this am. feels good. sitting in chair during the visit. had BM this am. voiding fine; simmons catheter is out. unfortunately flipped into rapid a.fib last pm late. has been in it since. he denies palpitations, dyspnea, or chest pain. Review of Systems Respiratory: no cough Cardiovascular: no dyspnea at rest and no dyspnea on exertion Gastrointestinal: no nausea, no vomiting and no constipation Musculoskeletal: + joint pain (Right hip ) Physical Exam Constitutional: well developed and well nourished; no acute distress and no altered mental status ENMT: Mouth: oral mucous membranes not dry Respiratory: normal respiratory effort, lungs clear to auscultation Cardiovascular: Rate/Rhythm: + tachycardic and + irregularly irregular Heart Sounds: normal S1 and normal S2; no murmur Vessels: posterior tibial pulses present and dorsalis pedis pulses present; no JVD Extremities: + edema (right thigh only ) Gastrointestinal (Abdomen): normal bowel sounds, soft, nontender, no hepatosplenomegaly Psychiatric: A+Ox3, euthymic affect Results & Data Results & Data ([facility]) Vital Signs (Past 12 Hours) Vital Signs Temp Pulse Pulse Resp BP Pulse Ox 08/21/20 19:52 36.7 C 134 H 21 131/77 97 08/21/20 16:00 130 H 08/21/20 15:33 36.6 C 128 H 20 112/76 98 08/21/20 12:04 36.7 C 130 H 20 103/72 99 08/21/20 10:28 139 H 139/86 08/21/20 09:55 140 H 145/78 H Laboratory Results Laboratory Results - last 24 hr 08/20/20 08/20/20 08/21/20 22:19 22:19 07:26 WBC 8.36 RBC 2.86 L Hgb 9.1 L Hct 26.5 L MCV 92.7 MCH 31.8 MCHC 34.3 RDW Std Deviation 40.8 RDW Coeff of Artur 12.0 Plt Count 159 MPV 9.3 Immature Gran % (Auto) 0.2 Neut % (Auto) 66.5 Lymph % (Auto) 19.9 [place] % (Auto) 12.1 Eos % (Auto) 1.2 Baso % (Auto) 0.1 Neut # (Auto) 5.56 Lymph # (Auto) 1.66 [place] # (Auto) 1.01 H Eos # (Auto) 0.10 Baso # (Auto) 0.01 Immature Gran # (Auto) 0.02 Sodium Potassium Chloride Carbon Dioxide Anion Gap BUN Creatinine Est Cr Clr Drug Dosing Est GFR ( Amer) Est GFR (Non-Af Amer) BUN/Creatinine Ratio Glucose POC Glucose Calcium COVID-19 Eval Order Covid19 [facility] SARS-CoV-2, RNA, NAAT NEGATIVE 08/21/20 08/21/20 08/21/20 07:26 07:32 11:18 WBC RBC Hgb Hct MCV MCH MCHC RDW Std Deviation RDW Coeff of Artur Plt Count MPV Immature Gran % (Auto) Neut % (Auto) Lymph % (Auto) [place] % (Auto) Eos % (Auto) Baso % (Auto) Neut # (Auto) Lymph # (Auto) [place] # (Auto) Eos # (Auto) Baso # (Auto) Immature Gran # (Auto) Sodium 139 Potassium 3.6 Chloride 108 H Carbon Dioxide 25 Anion Gap 6.0 BUN 25 H Creatinine 1.58 H Est Cr Clr Drug Dosing 45.3 Est GFR ( Amer) 47.5 Est GFR (Non-Af Amer) 41.0 BUN/Creatinine Ratio 15.6 Glucose 198 H POC Glucose 234 H 235 H Calcium 8.6 COVID-19 Eval Order SARS-CoV-2, RNA, NAAT 08/21/20 08/21/20 16:24 21:02 WBC RBC Hgb Hct MCV MCH MCHC RDW Std Deviation RDW Coeff of Artur Plt Count MPV Immature Gran % (Auto) Neut % (Auto) Lymph % (Auto) [place] % (Auto) Eos % (Auto) Baso % (Auto) Neut # (Auto) Lymph # (Auto) [place] # (Auto) Eos # (Auto) Baso # (Auto) Immature Gran # (Auto) Sodium Potassium Chloride Carbon Dioxide Anion Gap BUN Creatinine Est Cr Clr Drug Dosing Est GFR ( Amer) Est GFR (Non-Af Amer) BUN/Creatinine Ratio Glucose POC Glucose 148 H 221 H Calcium COVID-19 Eval Order SARS-CoV-2, RNA, NAAT PG Care Time/CCT Total # of Minutes Spent Total Time Spent with Patient: Total time spent is greater than 50% in coordination of care (as documented) at patient's floor/unit and/or counseling patient: Coding Level of Care Code 73910 Subseq Hosp Care Lvl 2 Diagnoses Femur fracture, right S72.91XD Encounter type: subsequent encounter Femur location: unspecified portion of femur Fracture healing: with routine healing Fracture morphology: unspecified fracture morphology Fracture type: closed PAF (paroxysmal atrial fibrillation) I48.0 Insulin dependent type 2 diabetes mellitus E11.9; Z79.4 Chronic kidney disease, stage 3a N18.31 Hypothyroidism E03.9 SHIRA (obstructive sleep apnea) G47.33 Peripheral neuropathy G62.9 Vitamin B12 deficiency E53.8 Hyperkalemia E87.5 Hyperbilirubinemia E80.6 Acute blood loss anemia D62 Hypomagnesemia E83.42 Hypercholesterolemia E78.00 Benign prostate hyperplasia N40.0 Sore throat J02.9 Constipation K59.00 DVT prophylaxis Z29.9 (1) Femur fracture, right Encounter type: subsequent encounter Femur location: unspecified portion of femur Fracture healing: with routine healing Fracture morphology: unspecified fracture morphology Fracture type: closed Qualified Code(s): S72.91XD - Unspecified fracture of right femur, subsequent encounter for closed fracture with routine healing
[2020-08-21] MEDS: SENNA 8.6 MG TAB PO PRN (21:34)
[2020-08-22] MEDS: AMIODARONE / D5W 360 MG/200 ML BAG IV SCH (03:02)
[2020-08-22] MEDS: LEVOTHYROXINE SODIUM 150 MCG TABLET PO SCH (05:30)
[2020-08-22 06:30] LABS: Basophils # (auto) 0.01 K/uL (0-0.2); Basophils % (auto) 0.1 %; Eosinophils # (auto) 0.07 K/uL (0-0.5); Eosinophils % (auto) 0.8 %; Hemoglobin 9.1 g/dL (14.0-18.0); Immature Granulocytes # (auto) 0.03 K/uL (0.00-0.02); Immature Granulocytes % (auto) 0.4 %; Lymphocytes # (auto) 1.43 K/uL (1.2-3.4); Lymphocytes % (auto) 17.1 %; Mean Corpuscular Hemoglobin 32.5 pg (25-34); Mean Corpuscular Volume 92.9 fL (80-100); Mean Platelet Volume 9.2 fL (7.4-10.4); Monocytes # (auto) 0.88 K/uL (0.11-0.59); Monocytes % (auto) 10.5 %; Neutrophils # (auto) 5.94 K/uL (1.4-6.5); Neutrophils % (auto) 71.1 %; Platelet Count 190 K/uL (130-400); RDW Standard Deviation 41.1 fL (36.4-46.3); White Blood Count 8.36 K/uL (4.8-10.8)
[2020-08-22 07:19] LABS: BUN Creatinine Ratio 14.7 (10-20); Calcium 8.2 mg/dl (8.5-10.1); Creatinine Clr Calc Pharmacy 42.4 ml/min; Est GFR (African American) 43.8; Est GFR (Non-African American) 37.8; Magnesium 2.1 mg/dl (1.8-2.4); Potassium 3.9 mmol/L (3.5-5.1)
[2020-08-22] MEDS: RIVAROXABAN 15 MG TAB PO SCH (07:59)
[2020-08-22] MEDS: CYANOCOBALAMIN 500 MCG TABLET (VITAMIN B-12) PO SCH (07:59)
[2020-08-22] MEDS: MAGNESIUM OXIDE 400 MG TAB PO SCH (07:59)
[2020-08-22] MEDS: POLYETHYLENE (MIRALAX) 17 GM PACK PO SCH (07:59)
[2020-08-22] MEDS: FERROUS SULFATE 325 MG TAB PO SCH ×2 (07:59→17:07)
[2020-08-22] MEDS: CHOLECALCIFEROL 1,000 UNITS 25 MCG TAB PO SCH (07:59)
[2020-08-22] MEDS: metroNIDAZOLE 0.75% TOPICAL GEL 45 GM TUBE TOP SCH (08:00)
[2020-08-22] MEDS: METOPROLOL SUCC 25MG EXT REL TAB PO SCH (08:00)
[2020-08-22] MEDS: INSULIN ASPART 100 UNITS/ML 3 ML PEN SC SCH ×4 (08:00→20:24)
[2020-08-22] MEDS: oxyCODONE HCL IR 5 MG TAB (IMMEDIATE RELEASE) PO PRN ×2 (09:07→13:05)
[2020-08-22] MEDS ORDERED: AMIODARONE 200 MG TAB PO ONE (11:18)
--- NOTE | 2020-08-22 11:57 | Cardiology Progress Note ---
Date of Service August 22, 2020 Assessment & Plan (1) PAF (paroxysmal atrial fibrillation): -currently in sinus rhythm on intravenous amiodarone.. -continue amiodarone at 200 mg b.i.d. until seen in the office. -continue renally adjusted Xarelto. (2) Hypertension: -adequate control metoprolol tartrate 25 mg b.i.d.. (3) Hypercholesterolemia: -continue atorvastatin. Admission and Anticipated Discharge Date Admission Date: August 17, 2020 Subjective Mr. Haskins is resting comfortably in the bedside chair without complaints of chest pain, dyspnea, or palpitations. He is anxious for hospital discharge. Physical Exam Physical Exam: In general this is a well-developed well-nourished white male in no acute distress. HEENT exam is negative. Neck is supple with full carotid upstrokes. No carotid bruits. No JVD. No thyromegaly. Cardiovascular exam reveals a regular rhythm with normal S1-S2. Heart sounds are distant. No obvious murmurs. Lungs are clear without rales, rhonchi or wheeze. Abdomen is soft without bruits. Extremities reveal intact radial artery pulses bilaterally. There is no peripheral edema. Right thigh is dressed. Results & Data ([facility]) Vital Signs (Past 12 Hours) Vital Signs Temp Pulse Pulse Resp BP Pulse Ox 08/22/20 11:00 36.4 C L 80 18 142/69 H 97 08/22/20 07:00 36.5 C 75 18 136/69 98 08/22/20 03:31 36.5 C 78 18 129/63 94 08/22/20 00:09 36.4 C L 79 16 123/66 96 Diagnostic Findings burnisher and bumper reviewed. Converted to sinus rhythm at approximately 12:30 p.m. this morning. PG Care Time/CCT Total # of Minutes Spent Total Time Spent with Patient: Total time spent is greater than 50% in coordination of care (as documented) at patient's floor/unit and/or counseling patient: Coding Level of Care Code 15726 Subseq Hosp Care Lvl 3 Diagnoses PAF (paroxysmal atrial fibrillation) I48.0 Hypertension I10 Hypercholesterolemia E78.00
[2020-08-22] MEDS ORDERED: COUGH DROP (SUGAR FREE) LOZ 24 LOZ/1 BOX BUCCAL ONE (13:24)
[2020-08-22] MEDS ORDERED: COUGH DROP (SUGAR FREE) LOZ 24 LOZ/1 BOX BUCCAL STA (14:04)
--- NOTE | 2020-08-22 15:00 | Pharmacy Report ---
Pharmacy Glycemic Short Note 2 - Date of Service August 22, 2020 - Glycemic Short BSG Results (Last 24 hours): 08/21/20 08/21/20 08/22/20 16:24 21:02 06:12 Glucose 227 H POC Glucose 148 H 221 H 08/22/20 11:34 Glucose POC Glucose 264 H OUTPATIENT ANTIDIABETIC REGIMEN: * HbA1c = 7.4% * Lantus 24 units HS ASSESSMENT: * Patient received total of 83 units of insulin yesterday: 35 units of basal + 48 units of bolus * Fasting BSG today was elevated at 280. Post prandial BSG today was also high. * Lantus dose at dinner further increased today. * Novolog parameters continued. PLAN FOR INPATIENT GLYCEMIC CONTROL: * Basal insulin: increased * Lantus 40 units SQ daily at dinner * Bolus insulin: continued * NovoLog per scale ACHS or Q6hrs while NPO * Goal Range: Low 110 mg/dL - High 140 mg/dL * Correction Factor: 12 mg/dL/unit * Nutritional / Prandial insulin per carb ratio of 1 unit per 4 grams CHO consumed PLAN FOR DISCHARGE: * HbA1c = 7.4% on 07/17/20 * Above A1c indicates good glycemic control in this patient. * Continue with Lantus 24 units daily at HS if patient is not reporting hypoglycemia.
[2020-08-22] MEDS ORDERED: INSULIN GLARGINE SOLOSTAR 100 UNITS/ML 3 ML PEN SC SCH (17:00)
[2020-08-22] MEDS: AMIODARONE 200 MG TAB PO SCH (17:08)
[2020-08-22] MEDS: ALFUZOSIN HCL 10 MG TAB PO SCH (20:12)
[2020-08-22] MEDS: ATORVASTATIN 10 MG TAB PO SCH (20:12)
[2020-08-22] MEDS: DOCUSATE SODIUM/SENNA 50/8.6MG TAB PO SCH (20:15)
--- NOTE | 2020-08-22 20:50 | Hospitalist Progress Note ---
Date of Service August 22, 2020 Assessment & Plan (1) Femur fracture, right: POD #4 s/p ORIF with nail by Dr Mayes. Post-op course complicated by PAF immediately post-op and PAF again on 08/20 and 08/21. Now resolved and back in NSR. DVT proph - xarelto. Pain controlled. Cont PT, OT. Will need f/u with ortho ~10 days post-d/c. (2) PAF (paroxysmal atrial fibrillation): Perioperative. s/p amiodarone x 24 hours post-op --> then oral amiodarone 200mg BID since. Converted back to rapid PAF again on 08/20. Placed back on amiodarone infusion AM of 08/21. Converted back to NSR at 2200 on 08/21 and in NSR since. Spoke with Dr Fontaine - scott stop amio drip and resume oral amio 200mg BID. Cont toprol xl 75mg daily. Cont xarelto 15mg daily. K, mag, TSH all wnl. Cont tele status. (3) Insulin dependent type 2 diabetes mellitus: HbA1c 7.4% on 07/17/2020. With severe hyperglycemia perioperatively and post-op. Pharmacy managing. Cont basal-bolus SC insulin. 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 Cr today 1.6 -- this is near baseline. BMP in am for stability. (5) Hypothyroidism: Continue levothyroxine 150 mcg daily. TSH normal at 0.586. (6) SHIRA (obstructive sleep apnea): noncompliant with home CPAP (7) Peripheral neuropathy: noted likely diabetic neuropathy (8) Vitamin B12 deficiency: Continue PO supplementation (9) Hyperkalemia: resolved (10) Hyperbilirubinemia: Bilirubin was elevated mildly at 2.2 earlier this stay. 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 No Rx. (11) Acute blood loss anemia: Hb again 9 today; about 3 gm drop from admission. Cont Fe supplementation. No evidence of ongoing bleeding clinically in right hip. (12) Hypomagnesemia: Replaced and resolved level today wnl (13) Hypercholesterolemia: Continue atorvastatin 10 mg daily (14) Benign prostate hyperplasia: no issues Continue alfuzosin (15) Sore throat: magic mouthwash scheduled swish/spit likely 2nd to recent intubation -- improving (16) Constipation: cont miralax and senna for bowel maintenance resolved (17) DVT prophylaxis: xarelto updated by phone today [facility] unable to take patient today - uncertain reason plan for d/c in am and patient aware of d/c on hold until tomorrow Admission and Anticipated Discharge Date Admission Date: August 17, 2020 Subjective patient without any complaints. feels good -- better than yesterday (on 08/21 he felt mildly weak). that weakness is resolved. good appetite today. moved bowels again. voiding fine. no dyspnea, cough, chest pain. no abd pain. converted back to NSR last night, 08/21, at 2200. in NSR since then. Review of Systems Constitutional: no fever and no fatigue Respiratory: no cough and no dyspnea Cardiovascular: no chest pain Gastrointestinal: no abdominal pain, no nausea and no vomiting Physical Exam Constitutional: well developed and well nourished; no acute distress and no altered mental status ENMT: Mouth: oral mucous membranes not dry Respiratory: normal respiratory effort, lungs clear to auscultation Cardiovascular: Rate/Rhythm: regular rate and regular rhythm Heart Sounds: normal S1 and normal S2; no murmur Vessels: posterior tibial pulses present and dorsalis pedis pulses present; no JVD Extremities: + edema (right thigh - no change; no ankle edema b/l ) Gastrointestinal (Abdomen): normal bowel sounds, soft, nontender, no hepatosplenomegaly Skin: dressings intact right lateral thigh/hip and near the knee Psychiatric: A+Ox3, euthymic affect Results & Data Results & Data ([facility]) Vital Signs (Past 12 Hours) Vital Signs Temp Pulse Pulse Resp BP Pulse Ox 08/22/20 19:32 36.7 C 79 16 140/64 96 08/22/20 15:35 36.4 C L 69 18 116/54 L 97 08/22/20 11:00 36.4 C L 80 18 142/69 H 97 Laboratory Results Laboratory Results - last 24 hr 08/21/20 08/22/20 08/22/20 21:02 06:12 06:12 WBC 8.36 RBC 2.80 L Hgb 9.1 L Hct 26.0 L MCV 92.9 MCH 32.5 MCHC 35.0 RDW Std Deviation 41.1 RDW Coeff of Artur 12.0 Plt Count 190 MPV 9.2 Immature Gran % (Auto) 0.4 Neut % (Auto) 71.1 Lymph % (Auto) 17.1 [place] % (Auto) 10.5 Eos % (Auto) 0.8 Baso % (Auto) 0.1 Neut # (Auto) 5.94 Lymph # (Auto) 1.43 [place] # (Auto) 0.88 H Eos # (Auto) 0.07 Baso # (Auto) 0.01 Immature Gran # (Auto) 0.03 H Sodium 139 Potassium 3.9 Chloride 107 Carbon Dioxide 26 Anion Gap 6.0 BUN 25 H Creatinine 1.69 H Est Cr Clr Drug Dosing 42.4 Est GFR ( Amer) 43.8 Est GFR (Non-Af Amer) 37.8 BUN/Creatinine Ratio 14.7 Glucose 227 H POC Glucose 221 H Calcium 8.2 L Magnesium 2.1 08/22/20 08/22/20 08/22/20 07:35 11:34 16:17 WBC RBC Hgb Hct MCV MCH MCHC RDW Std Deviation RDW Coeff of Artur Plt Count MPV Immature Gran % (Auto) Neut % (Auto) Lymph % (Auto) [place] % (Auto) Eos % (Auto) Baso % (Auto) Neut # (Auto) Lymph # (Auto) [place] # (Auto) Eos # (Auto) Baso # (Auto) Immature Gran # (Auto) Sodium Potassium Chloride Carbon Dioxide Anion Gap BUN Creatinine Est Cr Clr Drug Dosing Est GFR ( Amer) Est GFR (Non-Af Amer) BUN/Creatinine Ratio Glucose POC Glucose 280 H 264 H 224 H Calcium Magnesium 08/22/20 20:22 WBC RBC Hgb Hct MCV MCH MCHC RDW Std Deviation RDW Coeff of Artur Plt Count MPV Immature Gran % (Auto) Neut % (Auto) Lymph % (Auto) [place] % (Auto) Eos % (Auto) Baso % (Auto) Neut # (Auto) Lymph # (Auto) [place] # (Auto) Eos # (Auto) Baso # (Auto) Immature Gran # (Auto) Sodium Potassium Chloride Carbon Dioxide Anion Gap BUN Creatinine Est Cr Clr Drug Dosing Est GFR ( Amer) Est GFR (Non-Af Amer) BUN/Creatinine Ratio Glucose POC Glucose 181 H Calcium Magnesium PG Care Time/CCT Total # of Minutes Spent Total Time Spent with Patient: Total time spent is greater than 50% in coordination of care (as documented) at patient's floor/unit and/or counseling patient: Coding Level of Care Code 43758 Subseq Hosp Care Lvl 2 Diagnoses Femur fracture, right S72.91XD Encounter type: subsequent encounter Femur location: unspecified portion of femur Fracture healing: with routine healing Fracture morphology: unspecified fracture morphology Fracture type: closed PAF (paroxysmal atrial fibrillation) I48.0 Insulin dependent type 2 diabetes mellitus E11.9; Z79.4 Chronic kidney disease, stage 3a N18.31 Hypothyroidism E03.9 SHIRA (obstructive sleep apnea) G47.33 Peripheral neuropathy G62.9 Vitamin B12 deficiency E53.8 Hyperkalemia E87.5 Hyperbilirubinemia E80.6 Acute blood loss anemia D62 Hypomagnesemia E83.42 Hypercholesterolemia E78.00 Benign prostate hyperplasia N40.0 Sore throat J02.9 Constipation K59.00 DVT prophylaxis Z29.9 (1) Femur fracture, right Encounter type: subsequent encounter Femur location: unspecified portion of femur Fracture healing: with routine healing Fracture morphology: unspecified fracture morphology Fracture type: closed Qualified Code(s): S72.91XD - Unspecified fracture of right femur, subsequent encounter for closed fracture with routine healing
[2020-08-23] MEDS: LEVOTHYROXINE SODIUM 150 MCG TABLET PO SCH (05:49)
[2020-08-23 07:48] LABS: Calcium 8.7 mg/dl (8.5-10.1); Creatinine Clr Calc Pharmacy 41.6 ml/min; Est GFR (African American) 42.9; Potassium 3.8 mmol/L (3.5-5.1)
--- NOTE | 2020-08-23 08:17 | Orthopedic Progress Note ---
Date of Service August 23, 2020 Assessment & Plan (1) Femur fracture, right: s/p right hip long cephalo-medullary nail POD#5 -Ancef x24 -DVT prophylaxis: SCDs, teds, Xarelto daily -Toe-touch nonweightbearing right lower extremity -PT/OT -am labs, as above -post op X-ray demonstrates internal fixation right femur with long troch nail, fracture alignment improved. -Orthopedics will sign off, patient will need follow up in office with Dr. Mayes in 10 days, , provider instructions in chart. Admission and Anticipated Discharge Date Admission Date: August 17, 2020 Subjective Post Operative Progress Note Patient seen sitting up in bed, comfortable, denies complaints, pain well controlled, no acute issues. Denies F/C/N/V/SOB/CP. Review of Systems Review of Systems: All systems reviewed & are unremarkable except as noted in HPI & below Constitutional: as per Subjective / HPI Physical Exam Physical Exam: RLE NVSI +EHL/FHL/TA/GS SILT grossly, +2 DP pulse, compartments soft NT, dressing cdi. Constitutional: WD/WN, vitals as above Results & Data ([facility]) Vital Signs (Past 12 Hours) Vital Signs Temp Pulse Pulse Pulse Resp BP BP 08/23/20 04:39 36.9 C 75 19 131/70 08/22/20 23:45 36.8 C 72 16 130/67 08/22/20 22:50 74 Pulse Ox 08/23/20 04:39 97 08/22/20 23:45 98 08/22/20 22:50 Laboratory Results 08/23/20 08/23/20 08/22/20 Range/Units 07:52 06:28 20:22 Sodium 140 (136-145) mmol/L Potassium 3.8 (3.5-5.1) mmol/L Chloride 106 (98-107) mmol/L Carbon Dioxide 25 (21-32) mmol/L Anion Gap 8.0 (3-11) BUN 28 H (7-18) mg/dl Creatinine 1.72 H (0.6-1.4) mg/dl Est Cr Clr Drug Dosing 41.6 ml/min Est GFR ( Amer) 42.9 Est GFR (Non-Af Amer) 37.0 BUN/Creatinine Ratio 16.0 (10-20) Glucose 198 H (70-99) mg/dl POC Glucose 224 H 181 H (70-99) mg/dl Calcium 8.7 (8.5-10.1) mg/dl 08/22/20 08/22/20 08/22/20 Range/Units 16:17 11:34 07:35 Sodium (136-145) mmol/L Potassium (3.5-5.1) mmol/L Chloride (98-107) mmol/L Carbon Dioxide (21-32) mmol/L Anion Gap (3-11) BUN (7-18) mg/dl Creatinine (0.6-1.4) mg/dl Est Cr Clr Drug Dosing ml/min Est GFR ( Amer) Est GFR (Non-Af Amer) BUN/Creatinine Ratio (-20) Glucose (70-99) mg/dl POC Glucose 224 H 264 H 280 H (70-99) mg/dl Calcium (8.5-10.1) mg/dl (1) Femur fracture, right Encounter type: subsequent encounter Femur location: unspecified portion of femur Fracture healing: with routine healing Fracture morphology: unspecified fracture morphology Fracture type: closed Qualified Code(s): S72.91XD - Unspecified fracture of right femur, subsequent encounter for closed fracture with routine healing
[2020-08-23] MEDS: POLYETHYLENE (MIRALAX) 17 GM PACK PO SCH (08:42)
[2020-08-23] MEDS: METOPROLOL SUCC 25MG EXT REL TAB PO SCH (08:43)
[2020-08-23] MEDS: AMIODARONE 200 MG TAB PO SCH (08:43)
[2020-08-23] MEDS: RIVAROXABAN 15 MG TAB PO SCH (08:44)
[2020-08-23] MEDS: CYANOCOBALAMIN 500 MCG TABLET (VITAMIN B-12) PO SCH (08:44)
[2020-08-23] MEDS: FERROUS SULFATE 325 MG TAB PO SCH (08:45)
[2020-08-23] MEDS: MAGNESIUM OXIDE 400 MG TAB PO SCH (08:45)
[2020-08-23] MEDS: CHOLECALCIFEROL 1,000 UNITS 25 MCG TAB PO SCH (08:45)
[2020-08-23] MEDS: VITAMIN B COMPLEX TAB PO SCH (08:46)
[2020-08-23] MEDS: metroNIDAZOLE 0.75% TOPICAL GEL 45 GM TUBE TOP SCH (08:46)
[2020-08-23] MEDS: INSULIN ASPART 100 UNITS/ML 3 ML PEN SC SCH ×2 (08:48→12:08)
--- NOTE | 2020-08-23 10:14 | Discharge Summary ---
Date of Service date of admission - August 17, 2020 date of discharge - August 23, 2020 Admission HPI Per Admitting Provider This is a 80-year-old male with PMHx of HTN, HLD, DM type II, paroxysmal a- flutter, SHIRA, does not wear CPAP, B12 deficiency, peripheral neuropathy, hypothyroidism, osteoarthritis, and CKD stage III who presents after an acute fall sustained this morning resulting in right femur fracture. The patient was attempting to go fishing carrying his equipment when he tripped over a flower pot in the driveway. He denies any lightheadedness, dizziness or LOC. It was unwitnessed however his was in the house, he called her on his cell phone to call for EMS. Patient rates his pain as an 8/10, localized to the right femur and is slightly improved with getting pain medication in the ER. He takes Xarelto for paroxysmal a flutter, last dose was last evening. He took his other medications this morning as regularly scheduled. Last time patient ate was breakfast. He has not used insulin sliding scale due to the fall, and glucose is elevated at >300 on admission. Patient reports prior to this he was in his normal state of health, very active, without any other acute complaints or concerns. His last bowel movement was yesterday and typically urinates without any issues. Patient lives at home with his . Plan for surgical fixation by Dr. Mayes tomorrow morning. Principal Diagnosis right hip fracture - presumed pathological osteoporotic fracture - s/p ORIF with troch nail Discharge Exam Constitutional well developed and well nourished; no acute distress and no altered mental status ENMT Mouth: + oropharynx abnormality (mild erythema with evidence of irritation from prior ETT intubation ); oral mucous membranes not dry Respiratory normal respiratory effort, lungs clear to auscultation Cardiovascular Rate/Rhythm: regular rate and regular rhythm Heart Sounds: normal S1, normal S2 and + murmur (1/6 systolic LLSB) Vessels: posterior tibial pulses present and dorsalis pedis pulses present; no JVD Extremities: + edema (right thigh only; no ankle edema b/l ) Gastrointestinal (Abdomen) normal bowel sounds, soft, nontender, no hepatosplenomegaly Percussion/Palpation: + hernia (umbilical - small - reducible ) Skin multiple incisions, right thigh, with dressings intact; no areas of drainage or cellulitis Psychiatric A+Ox3, euthymic affect Discharge Data Allergies Allergy/AdvReac Type Severity Reaction Status Date / Time minocycline Allergy Unknown Unknown Verified 08/18/20 07:49 Consultations Orthopedic Surgery - Dr Kevin Mayes [facility] Cardiology - Dr Iggy Fontaine Pharmacy glycemic team for diabetes management PT, OT Procedures Performed Operation Date: 08/18/20 07:30 Actual Procedures p Right Long Trochanteric Nail - Kevin Mayes, Ordered Studies 08/17/20 09:08 CT cervical spine wo con Stat IMPRESSION: 1. There is no evidence of fracture or subluxation involving the cervical spine. 2. Osteopenia and spondylotic change as above. 3. A metallic foreign body is present within the subcutaneous soft tissues of the left neck. CT head/brain wo con Stat IMPRESSION: There is no hemorrhage, mass effect, or evidence of acute territorial ischemia by CT criteria. Chronic lacunar infarct left thalamus. 08/17/20 09:53 CT abd pelvis wo con Stat IMPRESSION: 1. Partially visualized displaced proximal right femoral fracture with extension to the greater trochanter 2. No evidence of acute intra-abdominal or pelvic injury 08/18/20 07:30 FL fluoroscopy <1hr Routine FL hip RT 2-3V Routine Hospital Course (1) Femur fracture, right: Presumed pathological osteoporotic fracture. s/p ORIF with troch nail by Dr Kevin Mayes on 08/18/20. Post-op course complicated by PAF immediately post-op and PAF again on 08/20 and 08/21. Both episodes resolved with use of IV amiodarone. DVT prophylaxis - xarelto 15mg daily. Pain control - tylenol 1gm TID x 10 days. Oxycodone 5mg q6h prn. Continue PT, OT at [place]. Weight bearing status, right leg -- TOE TOUCH only. 25-OH vitamin D level = 29.4. Recommend vitamin D 2000 IU daily. Will need f/u with orthopedics, Dr Mayes, 10 days after discharge for incision check. Outpatient DEXA scan recommended once out of [place]. (2) PAF (paroxysmal atrial fibrillation): Perioperative and several days post-op. s/p amiodarone on 2 occasions. Fortunately converted back to NSR with the amiodarone during those 2 episodes. Seen in consult by Dr Iggy Fontaine, [facility] cardiology, who advised ongoing use of amiodarone 200mg BID for rhythm control. Continue toprol xl 75mg daily. Continue xarelto 15mg daily. K, mag, TSH all wnl at discharge. No a.fib or a.flutter in 36+ hours prior to discharge. (3) Paroxysmal atrial flutter: see above in "PAF" will need f/u with Dr Fontaine 2-3 weeks post-discharge to ensure stability of the a.fib / a.flutter. of note - most recent echo 2018 with EF 55-60%, normal wall motion, and mild MR only. (4) Insulin dependent type 2 diabetes mellitus: HbA1c 7.4% on 07/17/2020. Patient with severe hyperglycemia perioperatively and post-op. Pharmacy consulted for glycemic management. At discharge recommend the following -- 1. lantus 40 units at HS. 2. novolog 15 units with breakfast, 15 units with lunch, and 15 units with dinn er. 3. novolog sliding/supplemental scale for high blood sugars at meal-time -- see sliding scale instructions on medication reconciliation. This is in addition to the 15 units standing with each meal. 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 Cr 1.7 at discharge which is his baseline. BMP in 5 days post-discharge for stability. (6) Hypothyroidism: Continue levothyroxine 150 mcg daily. TSH normal at 0.586 this admission. (7) SHIRA (obstructive sleep apnea): noncompliant with home CPAP (8) Peripheral neuropathy: likely due to diabetic neuropathy (9) Vitamin B12 deficiency: Continue PO supplementation (10) Hyperkalemia: resolved. K was 5.5 at admission, was treated, and K remained normal for the remainder of his stay. (11) Hyperbilirubinemia: Bilirubin was elevated mildly at 2.2 early in the stay. 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 No Rx needed. (12) Acute blood loss anemia: Hb 9.1 at discharge. This was about 3 gm drop from admission. Cont Fe supplementation for 3 months. No evidence of ongoing bleeding clinically in right hip. Recommend repeat CBC in 5 days post-discharge for stability. (13) Hypomagnesemia: Replaced and resolved. 2.1 on 08/22/20. Recommend repeat level 5 days post-discharge to ensure stability. (14) Hypercholesterolemia: Continue atorvastatin 10 mg daily (15) Benign prostate hyperplasia: Continue alfuzosin (16) Sore throat: magic mouthwash scheduled for 1 week post-discharge. swish/spit. likely 2nd to recent intubation for surgery. pain is improving. no evidence of any infectious pharyngitis while here. COVID negative multiple checks. (17) Constipation: cont miralax and senna for bowel maintenance. (18) DVT prophylaxis: xarelto 15mg daily. (19) Encounter for screening laboratory testing for COVID-19 virus in asymptomatic patient: All COVID-19 PCRs were negative at [facility] including rapid COVID test on 08/23/2020. Total Time Total Time Spent Total Time Spent (In Minutes): 45 Total Time Includes: Examination of the Patient, Discharge Planning and Medication Reconciliation Discharge Plan Discharge Items Patient Disposition: Transfer [facility] Fac Reason For Visit: RIGHT HIP FRACTURE Discharge Diagnosis: 1. right hip fracture s/p ORIF -- 08/18/20; Dr Kevin Mayes 2. multiple episodes of rapid a.fib/flutter - resolved with IV/PO amiodarone Activity: Per Instructions section Exercise Comment: see discharge instructions from orthopedics Weightbearing: Right toe touch Non-emergency contact: Primary Care Provider, Surgeon and Milliner Helper Call non-emergency contact if: you have any medication questions, your pain is not controlled, your pain is worsening, you have a fever, your wound has increased redness, your wound has increased drainage and your wound pain has increased Follow-up/Referrals: Dimitri Fontaine MD [Physician] - 09/07/20 11:30 am (3-4 weeks - dx: paroxysmal a.fib/flutter) Kevin Mayes DO [Physician] - (see Dr Mayes in 10 days for incision check ) Alexandra Shay MD [Primary Care Provider] - Diet: Carb Consistent or DM2 and Heart Healthy Addtl Attending Provider Instructions: Patient was treated for right hip fracture. Underwent surgery for this on 08/18/[address] Mayes. Post-op course complicated by rapid a.fib on 2 occasions requiring cardiology consultation and use of IV amiodarone. No a.fib or a.flutter in 36+ hours prior to hospital discharge. Marie should be left intact until patient sees Dr Mayes at [facility] Orthopedics. Dressing changes to right hip/thigh per [facility] discharge instructions. Recommendations -- 1. check fingerstick blood sugars before meals and bedtime. 2. check cbc, bmp, and mag in 5 days for stability. Results to certified medical coding specialist. 3. f/u with [facility] Orthopedics in 10 days for incision check. 4. f/u with [facility] Cardiology, Dr Iggy Fontaine, as scheduled. 5. RIGHT LEG toe touch weight-bearing status x 6 weeks. Addtl Belt Cutter Provider Instructions: [facility] DISCHARGE INSTRUCTIONS: HIP FRACTURE SELF CARE INSTRUCTIONS: A. You are to ambulate with a walker or crutches for approximately 6 weeks. B. You are TOE TOUCH WEIGHT BEARING on your operative lower extremity for at least 6 weeks. C. Wear low heeled shoes with non-slip soles D. Be sure that your floors are free of things that could trip you throw rugs, electrical cords, and small objects. Avoid wet and waxed floors, especially with crutches/walker/cane. E. Try to walk several times a day with rest periods between. F. You may shower 48 hours after surgery and get the incision area wet, but DO NOT soak or submerge incision area in water. (No baths, swimming pools, hot tubs) G. You may have a large, band-aid like dressing over your incision (Aquacel). This will remain on your incision for 7 days, and then can be removed. You CAN shower with this on. If incision is leaking through the dressing, please call the office . H. Do NOT apply soap or any ointment/lotions directly over incision. I. You may use ice as needed to operative site. SPECIAL CARE INSTRUCTIONS: VERY IMPORTANT TO READ AND REVIEW A. You may be at risk for phlebitis or blood clots. a. Wear surgical stockings (GENARO hose) for 2 weeks after surgery to improve circulation and reduce swelling. b. Take your home blood thinner, Xarelto daily or as directed. This is your blood thinner. c. If you are on Coumadin- you will have daily/weekly blood work to monitor your levels. This will be done by either your family physician/irish moss operator (if you are on Coumadin chronically) versus your orthopedic surgeon. Expect a phone call the day of or the day after your blood work is drawn to adjust your dose accordingly. B. There are a few signs you need to watch for after you are home. Call [facility] at [phone] if you experience any of the following: a. If you have a temperature of 101 degrees or higher. b. Sudden increase in pain in your hip not relieved by rest or pain medication. c. Any fluid or drainage from the incision; redness of the incision. d. Shortness of breath or chest pain. B. Please call [facility] at [phone] if you have any questions or concerns about your operation or recovery. C. Call your physician if: a. Temperature is greater than 101 degrees (F). b. Pain is not relieved by prescribed pain medications. c. Increase drainage or redness from incision. d. Unanswered questions or concerns. D. Pain Medication: a. You will be prescribed pain medication upon discharge that should last till your first post-operative appointment. b. If you experience nausea and/or skin rash, discontinue this medication and contact our office for an alternative medication. c. Caution- narcotic pain medication can cause constipation. FOLLOW UP VISIT: Please call [facility] at [phone] to schedule a follow up appointment 10 days from the date of your surgery date. Pending Studies at Discharge: No Stand-Alone Forms: My [facility] Skilled Items Patient informed of condition?: Yes DNR: No Discharge Level of Care: Skilled Communicable Disease: No Discharge Prognosis: Improving Lines: None Urinary Catheter: No Medications and DC Order Prescriptions: New polyethylene glycol 3350 [Miralax] 17 gram Powder In Packet 17 g PO DAILY Qty: 1 RF: 0 amiodarone 200 mg Tablet 200 mg PO BIDM Qty: 60 RF: 5 sennosides-docusate sodium [Senokot-S] 8.6-50 mg Tablet 2 tab PO HS Qty: 60 RF: 0 ferrous sulfate 325 mg (65 mg iron) Tablet,Delayed Release (Dr/Ec) 325 mg PO BID Qty: 60 RF: 2 oxycodone 5 mg Tablet 5 mg PO Q6H PRN (Reason: pain) Qty: 30 RF: 0 acetaminophen [Tylenol Extra Strength] 500 mg tablet 1,000 mg PO TID 10 Days Qty: 60 RF: 0 insulin aspart U-100 [Novolog Flexpen U-100 Insulin] 100 unit/mL (3 mL) insulin pen See Rx Instructions .ROUTE .COMPLEX Qty: 15 RF: 0 insulin aspart U-100 [Novolog Flexpen U-100 Insulin] 100 unit/mL (3 mL) insulin pen 15 unit subcut AC Qty: 15 RF: 2 Magic Mouthwash 300 mL mouthwash 5 ml mucous membrane Q6H 7 Days Qty: 300 RF: 0 Continued (DME) OneTouch Ultra Blue Test Strip strip See Dose Instructions .ROUTE .MEDSUPPLY Qty: 10 RF: 0 (DME) FreeStyle Martin 14 Day [place] misc See Dose Instructions .ROUTE .MEDSUPPLY Qty: 1 RF: 0 (DME) FreeStyle Martin 14 Day Sensor kit See Dose Instructions .ROUTE .MEDSUPPLY Qty: 2 RF: 11 atorvastatin 10 mg tablet 10 mg PO PM Qty: 90 RF: 3 (DME) pen needle, diabetic [BD Ultra-Fine Reina Pen Needle] 32 gauge x 5/32" needle See Rx Instructions .ROUTE .MEDSUPPLY Qty: 300 RF: 3 levothyroxine 150 mcg tablet 150 mcg PO QAM Qty: 90 RF: 3 alfuzosin 10 mg tablet extended release 24 hr 10 mg PO HS Qty: 90 RF: 3 Xarelto 15 mg tablet 15 mg PO QPM RF: 0 metoprolol succinate 50 mg tablet extended release 24 hr 75 mg PO QAM Qty: 135 RF: 3 mecobalamin (vitamin B12) 1,000 mcg tablet,chewable 2,000 mcg PO DAILY Qty: 30 RF: 0 diclofenac sodium 1 % gel 4 g topical QID PRN (Reason: knee pain) Qty: 200 RF: 5 coQ10 (ubiquinol) 200 mg Capsule 200 mg PO BID RF: 0 magnesium oxide [MagOx] 400 mg (241.3 mg magnesium) tablet 400 mg PO QAM RF: 0 vitamin B complex [B-Complex] tablet 1 tab PO Q2D RF: 0 metronidazole 0.75 % cream 1 appln TOP QAM RF: 0 Changed cholecalciferol (vitamin D3) [Vitamin D3] 25 mcg (1,000 unit) capsule 2,000 unit PO DAILY Qty: 60 RF: 5 Lantus Solostar U-100 Insulin 100 unit/mL (3 mL) insulin pen 40 units SQ HS Qty: 1 RF: 3 Discontinued sennosides [Senokot] 8.6 mg tablet 17.2 mg PO BID PRN (Reason: constipation) RF: 0 insulin lispro 100 unit/mL insulin pen 0 units SQ TID RF: 0 Discharge Orders: Discharge Order (Routine); Ordered 08/23/20 Ordered By: Niraj Diaz Admission Data Admit Date/Time: 08/17/20 11:31 Attending Provider: Niraj Diaz Admit Provider: Sonal Curry Primary Care Provider: Alexandra Shay Other Providers: Trisha Soriano ; Sonal Curry ; Dimitri Fontaine ; Kevin Mayes Coding Level of Care Code D/C Day Management >30 mins Diagnoses Femur fracture, right S72.91XD Encounter type: subsequent encounter Femur location: unspecified portion of femur Fracture healing: with routine healing Fracture morphology: unspecified fracture morphology Fracture type: closed PAF (paroxysmal atrial fibrillation) I48.0 Paroxysmal atrial flutter I48.92 Insulin dependent type 2 diabetes mellitus E11.9; Z79.4 Chronic kidney disease, stage 3a N18.31 Hypothyroidism E03.9 SHIRA (obstructive sleep apnea) G47.33 Peripheral neuropathy G62.9 Vitamin B12 deficiency E53.8 Hyperkalemia E87.5 Hyperbilirubinemia E80.6 Acute blood loss anemia D62 Hypomagnesemia E83.42 Hypercholesterolemia E78.00 Benign prostate hyperplasia N40.0 Sore throat J02.9 Constipation K59.00 DVT prophylaxis Z29.9 Encounter for screening laboratory testing for COVID-19 virus in asymptomatic patient Z20.828
[2020-08-23] MEDS: oxyCODONE HCL IR 5 MG TAB (IMMEDIATE RELEASE) PO PRN (12:21)
[2020-08-23] MEDS ORDERED: INSULIN GLARGINE SOLOSTAR 100 UNITS/ML 3 ML PEN SC SCH (17:00)
== END 2020-08-23 13:51 | DRG 481 ==
LOC: ED 08:48 → 2N 11:31 → SUATTDRO 11:31 → 2N 15:35 → 2S 08-18 17:54

== ENCOUNTER 2023-04-01 13:47 | Observation (INO) ==
--- NOTE | 2023-04-01 14:03 | ED Triage Note ---
Date of Service April 01, 2023 History of Present Illness This patient was briefly evaluated while in triage. An abbreviated physical exam was performed. This patient is a 82-year-old Male who presents to the ED for evaluation of low blood pressure. Was at orthopedic office and was noted to have low blood pr essure. He was being seen for low back pain. On Thursday he was waling out of stream and his leg wound not "go". He notes it will move now. Pressure documented earlier today was 83/49 and 78/42. No speech trouble, weakness, fever or chills. Physical Exam GENERAL: 82 year old male. In no acute distress. SKIN: No lesions or rashes. HEART: Regular rate and rhythm. LUNGS: Clear to auscultation. NEURO: Alert and oriented. No deficits. MUSCULOSKELETAL: No deformities to inspection of the extremities. PSYCH: Patient is pleasant and answers all questions appropriately. Initial orders for labs and / or imaging were placed and patient was placed in the waiting area until a bed is available. Please see further documentation for the full ED course.
--- NOTE | 2023-04-01 14:40 | Emergency Department Note ---
Impression & Plan Right leg weakness, Parainfluenza infection, History of atrial fibrillation, CKD (chronic kidney disease) ED Provider Note NAME: MILAN ARROYO AGE: 82 SEX: M : 1940 ARRIVES VIA: Walk-In INFORMANT: Patient, ED PROVIDER(S): Jakob Xavier MD CHIEF COMPLAINT: Weakness MEDICAL DECISION MAKING: Patient presents due to concern for hypotension and dizziness in clinic but the patient relates that he had some right lower extremity weakness earlier this week which has gotten progressively worse over the last months. IV was established blood was obtained. Orders were initiated the patient did have CT of the head completed. Patient presented due to concern for right lower extremity weakness. After discussion with the patient the patient may have had some chronic associated weakness but it may seem worse compared to prior. Patient did have blood work completed and CT of the head was ordered. Patient was noted Shows a normal white count to have elevated kidney function so CT angiography's were deferred. The patient's blood work hemoglobin and platelet count. The patient's initial creatinine of 2. Bilirubin of 2.1. Urinalysis does not show evidence of obvious infection. Given the concern for possible worsening weakness that has been with the on-call hospitalist service Dr. Person and the patient was admitted to the medicine service also of note the patient was positive for parainfluenza. Chest x-ray without any evidence of obvious pneumonia. Patient is currently on Eliquis. Prior /Outside records reviewed: None Differential diagnosis: Infection, stroke, mini stroke dehydration, metabolic abnormality, hypo/hyperglycemia, electrolyte disturbance, anemia, hypoxia, cardiac sources, intracerebral event, toxicologic, neurologic, as well as other pathologies. Diagnostics, as interpreted by me: ECG: Sinus bradycardia with first-degree AV block, rate of 48, prolonged OK normal QRS normal axis no ST elevations Cardiac monitoring: An order was placed for continuous cardiac monitoring. The monitor shows a rate of 58 with regular rhythm. Patient was placed on pulse oximetry Medical decision rules: None Imaging studies: See below HPI: Patient presents due to concern for hypotension and dizziness that occurred while in clinic today as the patient was noting that his right leg would not work earlier in the week. The patient states that he had been fishing and tried to walk up 25 foot bank and states that his right leg would not move very well. The patient noted that it was weak. Patient does have a prior history of a femur fracture status postrepair that occurred at the beginning of the pandemic. The patient states that he has had progressive weakness but this seems to be acutely worse. No prior history of stroke or mini stroke. No recent falls or trauma. The patient does take Xarelto for known history of A-fib. Patient denies any falls or trauma. The patient reportedly was evaluated by EMS deputy juvenile officer at the time of the incident. Patient followed up in clinic due to concern for his right lower extremity not working appropriately so he had followed up with his orthopedist. While in clinic today he seemed to be "not quite right." At that point he was noted to be hypotensive and referred here for further evaluation and treatment. The patient denies any infectious symptoms no cough fevers or chills and denies any vomiting or diarrhea. PAST MEDICAL HISTORY: See Below PAST SURGICAL HISTORY: See Below SOCIAL HISTORY: See Below HOME MEDICATIONS: See Below ALLERGIES: See Below VITALS: See Below PHYSICAL EXAMINATION: GENERAL: NAD, wearing glasses, non-toxic. EYE EXAM: Normal conjunctiva. PERRL, no anisocoria and EOM's grossly intact w/o pain. NECK: Supple, no nuchal rigidity, no adenopathy, non-tender. No signs of meningismus. FROM of the neck with good chin to chest and neck extension. No stridor. LUNGS: Clear to auscultation. Normal chest wall mechanics. HEART: NSR, no MRG. ABDOMEN: Abdomen soft, non-tender, no masses, no rebound or guarding. BACK: No CVA TTP. SKIN: No rashes and no bruising. UPPER EXTREMITIES: Upper extremities are grossly normal. LOWER EXTREMITIES: Grossly normal, no edema. NEURO EXAM: A&O x3, cranial nerves II-XII grossly intact, normal speech, moves all 4 extremities with possible right weakness compared to the left although subtle in nature. Past Med/Surg History Medical History Acute blood loss anemia Atrial flutter on Xarelto Benign prostate hyperplasia BPH (benign prostatic hyperplasia) Broken leg Changing skin lesion Chronic back pain Chronic kidney disease, stage 3a CKD (chronic kidney disease) CKD (chronic kidney disease) stage 4, GFR 15-29 ml/min Close exposure to 2018- Constipation Constipation Diabetes mellitus, type 2 IDDM Dyslipidemia Femur fracture, right Hyperbilirubinemia Hypercholesterolemia Hyperlipidemia Hypertension Hypomagnesemia Hypothyroidism Hypothyroidism Hypothyroidism Inflamed seborrheic keratosis Insulin dependent type 2 diabetes mellitus Intermittent palpitations Leg weakness Leukocytosis Medicare annual wellness visit, subsequent Memory loss Mild obstructive sleep apnea Neuropathy BILAT FEET SHIRA (obstructive sleep apnea) Osteoarthritis PAF (paroxysmal atrial fibrillation) Parainfluenza infection Paroxysmal atrial flutter Peripheral neuropathy Recent surgical procedure on lower extremity Sleep apnea non-compliant CPAP Type 2 diabetes mellitus treated with insulin 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 Grubbs History of surgery on wrist right History of tonsillectomy AGE 6 History of total knee replacement RIGHT 2008 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 Terry Bryan Family History Father Family hx of colon cancer Colorectal cancer Other Cancer Denies family history of Ovarian cancer Prostate cancer Myocardial infarction Breast cancer Social History Smoking Status: Former smoker Tobacco Type: Cigarettes Age Started Using Tobacco: 18; Age Quit Using Tobacco: 41; packs per day: 1; Second Hand Exposure: No; Do You Dip or Chew Tobacco: No; Hx Alcohol Use: Yes Alcohol type: beer Alcohol Intake Frequency: 2-3 x/Week Hx Substance Use: No Preferred Language: Tajik Communication Ability: Effective Visual Impairment: Partially Limited Hearing Ability: Use of Hearing Aid [place] Breeder Required: No Beliefs That Will Affect Care: None marital status: Current Living Situation: Spouse Current Living Situation Comment: Lives with current occupational status: retired How many Children do You have: 2 Feels Safe at Home: Yes Childhood Exposure to Second-Hand Smoke: Yes Diet: low carbohydrate and regular caffeine: Yes (diet pepsi) during the past year weight has: decreased > 10 lbs Dental Care, Regularly: Yes Physical Activity Frequency: 3-4 Times per Week Physical Activity Frequency Comment: Water aerobics, swimming Seatbelt Use: always Sunscreen Use: Yes (occasionally) Do you think of yourself as: straight/heterosexual Gender Identity: Male Assistive Devices: Glasses Allergies Allergies Allergy/AdvReac Type Severity Reaction Status Date / Time minocycline Allergy Unknown Unknown Verified 04/08/23 11:15 Home Meds Home Medications Medication Instructions Recorded Confirmed magnesium oxide 400 mg (241.3 mg 400 mg PO QAM 07/20/19 04/08/23 magnesium) tablet (MagOx) acetaminophen 325 mg capsule 325 mg PO BID PRN Pain 09/07/20 04/08/23 (Tylenol) mecobalamin (vitamin B12) 1,000 2,000 mcg PO 3XWK 06/05/21 04/08/23 mcg chewable tablet metronidazole 1 % topical gel 1 applic topical DAILY PRN .rosacea 04/01/23 04/08/23 (Metrogel) Previous Rx's Medication Instructions Recorded blood sugar diagnostic (OneTouch #10 ea 05/10/19 Ultra Blue Test Strip) cholecalciferol (vitamin D3) 25 2,000 unit PO DAILY #60 caps 08/23/20 mcg (1,000 unit) capsule (Vitamin D3) polyethylene glycol 3350 17 gram 17 g PO DAILY #1 btl 08/23/20 oral powder packet (Miralax) levothyroxine 175 mcg tablet 175 mcg PO QAM #90 tabs 04/08/22 rivaroxaban 15 mg tablet 15 mg PO DAILY #30 tabs 05/26/22 atorvastatin 10 mg tablet 10 mg PO PM #90 tabs 06/10/22 blood-glucose sensor (Dexcom G6 #9 ea 09/09/22 Sensor device) insulin glargine 100 unit/mL (3 12 unit (0.12 mL) subcut HS #20 10/23/22 mL) subcutaneous pen (Lantus Pens Solostar U-100 Insulin) insulin lispro 100 unit/mL See Rx Instructions subcut 11/13/22 subcutaneous pen (Humalog KwikPen USEASDIRECTD #75 mL (U-100) Insulin) alfuzosin 10 mg tablet,extended 10 mg PO HS #90 tabs 11/17/22 release 24 hr glucagon HCl 1 mg solution for 1 mg subcut Q20M PRN hypoglycemia 01/12/23 injection (Glucagon (HCl) #1 ea Emergency Kit) ipratropium bromide 21 mcg (0.03 2 spray intranasal BID PRN allergy 01/12/23 %) nasal spray symptoms #30 mL glucagon 1 mg/0.2 mL subcutaneous 1 mg (0.2 mL) subcut ONCE #0.2 mL 01/16/23 auto-injector (Gvoke HypoPen 1-Pack) pen needle, diabetic 32 gauge x #400 ea 02/18/23 1/4" (BD Ultra-Fine Micro Pen Needle) metoprolol succinate 50 mg 50 mg PO QAM #90 tabs 02/24/23 tablet,extended release 24 hr tramadol 50 mg tablet See Rx Instructions PO QID PRN 02/25/23 pain #120 tabs amiodarone 200 mg tablet 200 mg PO DAILY #90 tabs 04/07/23 Results & Data (ED) Vital Signs Vital Signs - 24 hr 04/01/23 13:58 04/01/23 14:41 04/01/23 14:54 Temperature 36.5 C Temperature Source Temporal Artery Scan Pulse Rate 49 L 47 L Pulse Rate [Apical] 48 L Respiratory Rate 18 17 Respiratory Effort / Characteristics Non-Labored Spontaneous Respiratory Depth Normal Blood Pressure 111/66 Blood Pressure [Left Arm] 125/73 Blood Pressure Mean 81 Blood Pressure Mean [Left Arm] 90 Blood Pressure Position Sitting Pulse Oximetry 97 Oxygen Delivery Method Room Air Room Air Sepsis Recent Fever Within 48 Hours No Sepsis New/Unexplained Change in Mental Status No Sepsis Action Taken by Nursing No Action Required Home Medications Current Medication List: was personally reviewed by me Laboratory Data Attestation: I reviewed the patient's lab results. 04/01/23 14:49 04/01/23 14:49 Lab Results 04/01/23 04/01/23 04/01/23 Range/Units 14:20 14:49 14:49 WBC 8.23 (4.8-10.8) K/ul RBC 4.66 L (4.70-6.10) M/uL Hgb 15.5 (14.0-18.0) g/dl Hct 45.0 (42.0-52.0) % MCV 96.6 (80.0-100.0) fL MCH 33.3 (25.0-34.0) pg MCHC 34.4 (32.0-36.0) g/dL RDW Std Deviation 42.9 (36.4-46.3) fL RDW Coeff of Artur 12.2 (11.5-14.5) % Plt Count 169 (130-400) K/uL MPV 9.7 (9.4-12.4) fL Immature Gran % (Auto) 0.9 % Neut % (Auto) 70.7 % Lymph % (Auto) 16.3 % Woodson % (Auto) 9.8 % Eos % (Auto) 1.7 % Baso % (Auto) 0.6 % Neut # (Auto) 5.82 (1.40-6.50) K/uL Lymph # (Auto) 1.34 (1.2-3.4) K/uL Woodson # (Auto) 0.81 H (0.11-0.59) K/uL Eos # (Auto) 0.14 (0-0.50) K/uL Baso # (Auto) 0.05 (0-0.2) K/uL Immature Gran # (Auto) 0.07 (0.01-0.20) K/uL PT (9.0-12.0) Seconds INR (0.9-1.1) APTT (21.0-31.0) Seconds PTT Ratio Sodium 141 (136-145) mmol/L Potassium 4.1 (3.5-5.1) mmol/L Chloride 107 (98-107) mmol/L Carbon Dioxide 28 (21-32) mmol/L Anion Gap 6 (3-11) BUN 25 H (6-23) mg/dl Creatinine 2.08 H (0.6-1.4) mg/dl Est Cr Clr Drug Dosing 33.3 ml/min Est GFR ( Amer) 33.6 ml/min Est GFR (Non-Af Amer) 29.0 ml/min BUN/Creatinine Ratio 12.0 (10-20) Glucose 130 H (70-99(Fasting)) mg/dl Calcium 9.4 (8.6-10.3) mg/dl Magnesium 2.0 (1.7-2.4) mg/dl Total Bilirubin 2.1 H (0.2-1.0) mg/dl AST 30 (13-39) U/L ALT 28 (7-52) U/L Alkaline Phosphatase 99 (34-104) U/L Troponin I High Sens 5.3 (0-20) pg/ml Total Protein 6.4 (6.0-8.3) gm/dl Albumin 4.4 (3.4-5.0) gm/dl Globulin 2.0 L (2.5-4.0) gm/dl Albumin/Globulin Ratio 2.2 H (0.9-2) Procalcitonin (0-0.5) ng/ml TSH (0.300-4.500) uIu/ml Urine Color Yellow Urine Appearance Clear (Clear) Urine pH 6.5 (4.5-7.5) Ur Specific Wharton 1.018 (1.000-1.030) Urine Protein Trace H (Negative) Urine Glucose (UA) Trace H (Negative) Urine Ketones Trace H (Negative) Urine Blood Negative (Negative) Urine Nitrite Negative (Negative) Urine Bilirubin Negative (Negative) Urine Urobilinogen Negative (Negative) Ur Leukocyte Esterase Negative (Negative) Urine WBC (Auto) 1-5 (0-5) /hpf Urine RBC (Auto) 0-4 (0-4) /hpf U Hyaline Cast (Auto) 1-5 (0-5) /lpf U Epithel Cells (Auto) 10-20 H (0-5) /lpf Urine Bacteria (Auto) Negative (Negative) Adenovirus (PCR) (NotDetected) B. pertussis DNA (PCR) (NotDetected) B.parapertussis DNA PCR (NotDetected) C. pneumoniae DNA (PCR) (NotDetected) Coronavirus OC43 (PCR) (NotDetected) Coronavirus HKU1 (PCR) (NotDetected) Coronavirus 229E (PCR) (NotDetected) SARS-CoV-2 (PCR) (NotDetected) Coronavirus NL63 (PCR) (NotDetected) Human Metapneumovir PCR (NotDetected) Influenza Type A (PCR) (NotDetected) Influenza Type B (PCR) (NotDetected) M. pneumoniae (PCR) (NotDetected) Parainfluenza 1 (PCR) (NotDetected) Parainfluenza 2 (PCR) (NotDetected) Parainfluenza 3 (PCR) (NotDetected) Parainfluenza 4 (PCR) (NotDetected) RSV (PCR) (NotDetected) Entero/Rhino (PCR) (NotDetected) 04/01/23 04/01/23 04/01/23 Range/Units 14:49 14:49 14:49 WBC (4.8-10.8) K/ul RBC (4.70-6.10) M/uL Hgb (14.0-18.0) g/dl Hct (42.0-52.0) % MCV (80.0-100.0) fL MCH (25.0-34.0) pg MCHC (32.0-36.0) g/dL RDW Std Deviation (36.4-46.3) fL RDW Coeff of Artur (11.5-14.5) % Plt Count (130-400) K/uL MPV (9.4-12.4) fL Immature Gran % (Auto) % Neut % (Auto) % Lymph % (Auto) % Woodson % (Auto) % Eos % (Auto) % Baso % (Auto) % Neut # (Auto) (1.40-6.50) K/uL Lymph # (Auto) (1.2-3.4) K/uL Woodson # (Auto) (0.11-0.59) K/uL Eos # (Auto) (0-0.50) K/uL Baso # (Auto) (0-0.2) K/uL Immature Gran # (Auto) (0.01-0.20) K/uL PT 11.9 (9.0-12.0) Seconds INR 1.1 (0.9-1.1) APTT 26.3 (21.0-31.0) Seconds PTT Ratio 0.9 Sodium (136-145) mmol/L Potassium (3.5-5.1) mmol/L Chloride (98-107) mmol/L Carbon Dioxide (21-32) mmol/L Anion Gap (3-11) BUN (6-23) mg/dl Creatinine (0.6-1.4) mg/dl Est Cr Clr Drug Dosing ml/min Est GFR ( Amer) ml/min Est GFR (Non-Af Amer) ml/min BUN/Creatinine Ratio (10-20) Glucose (70-99(Fasting)) mg/dl Calcium (8.6-10.3) mg/dl Magnesium (1.7-2.4) mg/dl Total Bilirubin (0.2-1.0) mg/dl AST (13-39) U/L ALT (7-52) U/L Alkaline Phosphatase (34-104) U/L Troponin I High Sens (0-20) pg/ml Total Protein (6.0-8.3) gm/dl Albumin (3.4-5.0) gm/dl Globulin (2.5-4.0) gm/dl Albumin/Globulin Ratio (0.9-2) Procalcitonin < 0.05 (0-0.5) ng/ml TSH 2.997 (0.300-4.500) uIu/ml Urine Color Urine Appearance (Clear) Urine pH (4.5-7.5) Ur Specific Wharton (1.000-1.030) Urine Protein (Negative) Urine Glucose (UA) (Negative) Urine Ketones (Negative) Urine Blood (Negative) Urine Nitrite (Negative) Urine Bilirubin (Negative) Urine Urobilinogen (Negative) Ur Leukocyte Esterase (Negative) Urine WBC (Auto) (0-5) /hpf Urine RBC (Auto) (0-4) /hpf U Hyaline Cast (Auto) (0-5) /lpf U Epithel Cells (Auto) (0-5) /lpf Urine Bacteria (Auto) (Negative) Adenovirus (PCR) (NotDetected) B. pertussis DNA (PCR) (NotDetected) B.parapertussis DNA PCR (NotDetected) C. pneumoniae DNA (PCR) (NotDetected) Coronavirus OC43 (PCR) (NotDetected) Coronavirus HKU1 (PCR) (NotDetected) Coronavirus 229E (PCR) (NotDetected) SARS-CoV-2 (PCR) (NotDetected) Coronavirus NL63 (PCR) (NotDetected) Human Metapneumovir PCR (NotDetected) Influenza Type A (PCR) (NotDetected) Influenza Type B (PCR) (NotDetected) M. pneumoniae (PCR) (NotDetected) Parainfluenza 1 (PCR) (NotDetected) Parainfluenza 2 (PCR) (NotDetected) Parainfluenza 3 (PCR) (NotDetected) Parainfluenza 4 (PCR) (NotDetected) RSV (PCR) (NotDetected) Entero/Rhino (PCR) (NotDetected) 04/01/23 Range/Units 14:49 WBC (4.8-10.8) K/ul RBC (4.70-6.10) M/uL Hgb (14.0-18.0) g/dl Hct (42.0-52.0) % MCV (80.0-100.0) fL MCH (25.0-34.0) pg MCHC (32.0-36.0) g/dL RDW Std Deviation (36.4-46.3) fL RDW Coeff of Artur (11.5-14.5) % Plt Count (130-400) K/uL MPV (9.4-12.4) fL Immature Gran % (Auto) % Neut % (Auto) % Lymph % (Auto) % Woodson % (Auto) % Eos % (Auto) % Baso % (Auto) % Neut # (Auto) (1.40-6.50) K/uL Lymph # (Auto) (1.2-3.4) K/uL Woodson # (Auto) (0.11-0.59) K/uL Eos # (Auto) (0-0.50) K/uL Baso # (Auto) (0-0.2) K/uL Immature Gran # (Auto) (0.01-0.20) K/uL PT (9.0-12.0) Seconds INR (0.9-1.1) APTT (21.0-31.0) Seconds PTT Ratio Sodium (136-145) mmol/L Potassium (3.5-5.1) mmol/L Chloride (98-107) mmol/L Carbon Dioxide (21-32) mmol/L Anion Gap (3-11) BUN (6-23) mg/dl Creatinine (0.6-1.4) mg/dl Est Cr Clr Drug Dosing ml/min Est GFR ( Amer) ml/min Est GFR (Non-Af Amer) ml/min BUN/Creatinine Ratio (10-20) Glucose (70-99(Fasting)) mg/dl Calcium (8.6-10.3) mg/dl Magnesium (1.7-2.4) mg/dl Total Bilirubin (0.2-1.0) mg/dl AST (13-39) U/L ALT (7-52) U/L Alkaline Phosphatase (34-104) U/L Troponin I High Sens (0-20) pg/ml Total Protein (6.0-8.3) gm/dl Albumin (3.4-5.0) gm/dl Globulin (2.5-4.0) gm/dl Albumin/Globulin Ratio (0.9-2) Procalcitonin (0-0.5) ng/ml TSH (0.300-4.500) uIu/ml Urine Color Urine Appearance (Clear) Urine pH (4.5-7.5) Ur Specific Wharton (1.000-1.030) Urine Protein (Negative) Urine Glucose (UA) (Negative) Urine Ketones (Negative) Urine Blood (Negative) Urine Nitrite (Negative) Urine Bilirubin (Negative) Urine Urobilinogen (Negative) Ur Leukocyte Esterase (Negative) Urine WBC (Auto) (0-5) /hpf Urine RBC (Auto) (0-4) /hpf U Hyaline Cast (Auto) (0-5) /lpf U Epithel Cells (Auto) (0-5) /lpf Urine Bacteria (Auto) (Negative) Adenovirus (PCR) Not Detected (NotDetected) B. pertussis DNA (PCR) Not Detected (NotDetected) B.parapertussis DNA PCR Not Detected (NotDetected) C. pneumoniae DNA (PCR) Not Detected (NotDetected) Coronavirus OC43 (PCR) Not Detected (NotDetected) Coronavirus HKU1 (PCR) Not Detected (NotDetected) Coronavirus 229E (PCR) Not Detected (NotDetected) SARS-CoV-2 (PCR) Not Detected (NotDetected) Coronavirus NL63 (PCR) Not Detected (NotDetected) Human Metapneumovir PCR Not Detected (NotDetected) Influenza Type A (PCR) Not Detected (NotDetected) Influenza Type B (PCR) Not Detected (NotDetected) M. pneumoniae (PCR) Not Detected (NotDetected) Parainfluenza 1 (PCR) Not Detected (NotDetected) Parainfluenza 2 (PCR) Not Detected (NotDetected) Parainfluenza 3 (PCR) DETECTED A* (NotDetected) Parainfluenza 4 (PCR) Not Detected (NotDetected) RSV (PCR) Not Detected (NotDetected) Entero/Rhino (PCR) Not Detected (NotDetected) Administered Medications Discontinued Medications Amiodarone HCl (Amiodarone 200 Mg Tab) 200 mg PO DAILY JOSS Stop: 05/02/23 08:59 Last Admin: 04/02/23 09:30 Dose: 200 mg Documented By: KENDRICK Aspirin (Aspirin Chew 324 Mg) 324 mg PO NOW STA Stop: 04/01/23 17:11 Last Admin: 04/01/23 17:15 Dose: 324 mg Documented By: LEWIS Atorvastatin Calcium (Atorvastatin 10 Mg Tab) 10 mg PO PM JOSS Stop: 05/01/23 22:49 Last Admin: 04/01/23 23:43 Dose: 10 mg Documented By: DOLORES Sodium Chloride (Nss 1000ml) 500 mls @ 999 mls/hr IV .Q31M ONE Stop: 04/01/23 15:58 Last Infusion: 04/01/23 16:39 Dose: 0 mls/hr Documented By: Admin: 04/01/23 16:08 Dose: 999 mls/hr Documented By: LEWIS Insulin Aspart (Insulin Aspart Per Unit Charge) 0 units SC ACHS JOSS Stop: 05/01/23 22:49 Last Admin: 04/02/23 12:38 Dose: 4 units Documented By: KENDRICK Co-signed By: SAMEER Admin: 04/02/23 09:42 Dose: 3 units Documented By: KENDRICK Co-signed By: DOUGLAS Admin: 04/01/23 23:43 Dose: 8 units Documented By: DOLORES Co-signed By: DIANN Insulin Glargine (Lantus Per Unit Charge) 6 units SQ BID JOSS Stop: 05/01/23 22:49 Last Admin: 04/02/23 09:42 Dose: 6 units Documented By: KENDRICK Co-signed By: DOUGLAS Admin: 04/01/23 23:43 Dose: 6 units Documented By: DOLORES Co-signed By: DIANN Levothyroxine Sodium (Levothyroxine Sodium 175 Mcg Tablet) 175 mcg PO DAILYBB [facility] Stop: 05/02/23 06:29 Last Admin: 04/02/23 05:52 Dose: 175 mcg Documented By: DOLORES Lorazepam (Lorazepam 2 Mg/1 Ml Vial) 0.5 mg IV NOW STA Stop: 04/01/23 21:32 Last Admin: 04/01/23 21:37 Dose: 0.5 mg Documented By: LEWIS Magnesium Oxide (Magnesium Oxide 400 Mg Tab) 400 mg PO QAM [facility] Stop: 05/02/23 08:59 Last Admin: 04/02/23 09:30 Dose: 400 mg Documented By: KENDRICK Metoprolol Succinate (Metoprolol Succ 50mg Ext Rel Tab) 50 mg PO QAM [facility] Stop: 05/02/23 08:59 Last Admin: 04/02/23 09:27 Dose: Not Given Documented By: KENDRICK Polyethylene Glycol (Polyethylene (Miralax) 17 Gm Pack) 17 gm PO DAILY [facility] Stop: 05/02/23 08:59 Last Admin: 04/02/23 09:31 Dose: 17 gm Documented By: KENDRICK Tamsulosin HCl (Tamsulosin Hcl 0.4 Mg Cap) 0.4 mg PO HS [facility] Stop: 05/01/23 22:49 Last Admin: 04/01/23 23:43 Dose: 0.4 mg Documented By: DOLORES Imaging Data Radiologist's Impression: Head CT 04/01/23 14:03 CT OF THE HEAD WITHOUT CONTRAST CLINICAL HISTORY: Hypotension, anticoagulated. COMPARISON STUDY: Head CT August 17, 2020. CT DOSE: 625.80 mGy.cm TECHNIQUE: Helical axial images of the head were obtained without IV contrast. Automated exposure control was utilized for the study. A dose lowering technique was utilized adhering to the principles of ALARA. FINDINGS: No acute intracranial hemorrhage, midline shift or mass effect is present. The ventricular system is unremarkable. The basal cisterns are patent. No extra-axial collections are present. There are no findings to suggest acute dural sinus thrombosis or acute territorial infarct. White matter hypodensity suggests small vessel disease. A mucous retention cyst within the left maxillary sinus is incidentally noted. IMPRESSION: No acute intracranial findings. ACT 112: Negative or not required by law. Electronically signed by: Laureano Murdock M.D. 04/01/2023 2:59 PM Discharge Plan Visit Data Chief Complaint: Referred by Doctor Stated Complaint: DIZZY LOW BLOOD PRESSURE ED Provider: Jakob Xavier Discharge Problem: Right leg weakness, Parainfluenza infection, History of atrial fibrillation, CKD (chronic kidney disease) Patient Disposition: Admitted As Inpatient Discharge Instructions Interventions: ED Discharge Assessment Last Done: 04/01/23 21:44
--- NOTE | 2023-04-01 15:00 | CT Scan Report ---
CT OF THE HEAD WITHOUT CONTRAST CLINICAL HISTORY: Hypotension, anticoagulated. COMPARISON STUDY: Head CT August 17, 2020. CT DOSE: 625.80 mGy.cm TECHNIQUE: Helical axial images of the head were obtained without IV contrast. Automated exposure con trol was utilized for the study. A dose lowering technique was utilized adhering to the principles o f ALARA. FINDINGS: No acute intracranial hemorrhage, midline shift or mass effect is present. The ventricular system is unremarkable. The basal cisterns are patent. No extra-axial collections are present. There are no findings to suggest acute dural sinus thrombosis or acute territorial infarct. White matter hy podensity suggests small vessel disease. A mucous retention cyst within the left maxillary sinus is i ncidentally noted. IMPRESSION: No acute intracranial findings. ACT 112: Negative or not required by law. Electronically signed by: Laureano Murdock M.D. 04/01/2023 2:59 PM
[2023-04-01 15:12] LABS: Basophils # (auto) 0.05 K/uL (0-0.2); Basophils % (auto) 0.6 %; Eosinophils # (auto) 0.14 K/uL (0-0.50); Eosinophils % (auto) 1.7 %; Hemoglobin 15.5 g/dl (14.0-18.0); Immature Granulocytes # (auto) 0.07 K/uL (0.01-0.20); Immature Granulocytes % (auto) 0.9 %; Lymphocytes # (auto) 1.34 K/uL (1.2-3.4); Lymphocytes % (auto) 16.3 %; Mean Corpuscular Hemoglobin 33.3 pg (25.0-34.0); Mean Corpuscular Hgb Conc 34.4 g/dL (32.0-36.0); Mean Corpuscular Volume 96.6 fL (80.0-100.0); Mean Platelet Volume 9.7 fL (9.4-12.4); Monocytes # (auto) 0.81 K/uL (0.11-0.59); Monocytes % (auto) 9.8 %; Neutrophils # (auto) 5.82 K/uL (1.40-6.50); Neutrophils % (auto) 70.7 %; Platelet Count 169 K/uL (130-400); RDW Coefficient of Variation 12.2 % (11.5-14.5); RDW Standard Deviation 42.9 fL (36.4-46.3); Red Blood Count 4.66 M/uL (4.70-6.10); White Blood Count 8.23 K/ul (4.8-10.8)
[2023-04-01 15:14] LABS: Appearance Urine Clear (Clear); Bacteria Urine Automated Negative (Negative); Bilirubin Urine Negative (Negative); Blood Urine Negative (Negative); Color Urine Yellow; Glucose Urine UA Trace (Negative); Ketones Urine Trace (Negative); Leukocyte Esterase Urine Negative (Negative); Nitrite Urine Negative (Negative); Protein Urine Trace (Negative); RBC Urine Automated 0-4 /hpf (0-4); Specific Gravity Urine 1.018 (1.000-1.030); Urobilinogen Urine Negative (Negative); pH Urine 6.5 (4.5-7.5)
[2023-04-01 15:25] LABS: Albumin Globulin Ratio 2.2 (0.9-2); Albumin Level 4.4 gm/dl (3.4-5.0); Bilirubin,Total 2.1 mg/dl (0.2-1.0); Calcium 9.4 mg/dl (8.6-10.3); Creatinine Clr Calc Pharmacy 33.3 ml/min; Est GFR (African American) 33.6 ml/min; Potassium 4.1 mmol/L (3.5-5.1); Total Protein 6.4 gm/dl (6.0-8.3)
[2023-04-01] MEDS ORDERED: SODIUM CHLORIDE 0.9% 1000ML 500 ML IV ONE (15:28)
[2023-04-01 15:31] LABS: Troponin I High Sensitivity 5.3 pg/ml (0-20)
[2023-04-01 15:37] LABS: INR 1.1 (0.9-1.1); Partial Thromboplastin Ratio 0.9; Partial Thromboplastin Time 26.3 Seconds (21.0-31.0); Prothrombin Time 11.9 Seconds (9.0-12.0)
[2023-04-01 15:57] LABS: Adenovirus PCR Not Detected (NotDetected); Bordetella parapertussis PCR Not Detected (NotDetected); Bordetella pertussis PCR Not Detected (NotDetected); Chlamydia pneumoniae PCR Not Detected (NotDetected); Coronavirus 229E PCR Not Detected (NotDetected); Coronavirus CoV-2 (COVID19)PCR Not Detected (NotDetected); Coronavirus HKU1 PCR Not Detected (NotDetected); Coronavirus NL63 PCR Not Detected (NotDetected); Coronavirus OC43PCR Not Detected (NotDetected); Human Metapneumovirus PCR Not Detected (NotDetected); Influenza A PCR Not Detected (NotDetected); Influenza B PCR Not Detected (NotDetected); Mycoplasma pneumoniae PCR Not Detected (NotDetected); Parainfluenza Virus 1 PCR Not Detected (NotDetected); Parainfluenza Virus 2 PCR Not Detected (NotDetected); Parainfluenza Virus 4 PCR Not Detected (NotDetected); Respiratory Syncytial VirusPCR Not Detected (NotDetected); Rhinovirus/Enterovirus PCR Not Detected (NotDetected)
--- NOTE | 2023-04-01 16:01 | XRay Report ---
XR chest 1V portable CLINICAL HISTORY: Hypotension. COMPARISON STUDY: Chest radiograph August 17, 2020. FINDINGS: Lung volumes are normal. Lungs are clear. There is no pneumothorax or pleural effusion. Mil d cardiomegaly. Mediastinal contours are normal. There is no evidence for pulmonary edema. IMPRESSION: No acute cardiopulmonary findings. Mild cardiomegaly. ACT 112: Negative or not required by law. Electronically signed by: Laureano Murdock M.D. 04/01/2023 3:59 PM
[2023-04-01 16:02] LABS: Parainfluenza Virus 3 PCR DETECTED (NotDetected)
--- NOTE | 2023-04-01 16:16 | Electrocardiogram Report ---
Test Reason : Blood Pressure : / mmHG Vent. Rate : 048 BPM Atrial Rate : 048 BPM P-R Int : 202 ms QRS Dur : 094 ms QT Int : 498 ms P-R-T Axes : 044 000 037 degrees QTc Int : 444 ms Sinus bradycardia Otherwise normal ECG When compared with ECG of 29-DEC-2022 11:15, (unconfirmed) Criteria for Inferior infarct are no longer Present Confirmed by Dimitri Fontaine ([id number]) on 04/01/2023 4:15:58 PM Referred By: REFERRED SELF Confirmed By:Dimitri Fontaine
[2023-04-01] MEDS ORDERED: ASPIRIN CHEW 324 MG PO STA (17:10)
--- NOTE | 2023-04-01 17:47 | History & Physical Report ---
Date of Service April 01, 2023 Assessment & Plan (1) Right leg weakness: Plan: Right lower extremity weakness, increased global weakness. Acute, unstable DDx includes generalized weakness from parainfluenza, patient did have much more focal symptoms to the right lower extremity. He has had injury/fracture to this extremity so it is not with symmetrical strength at baseline We will complete stroke work-up with carotid Dopplers and MRI, CT with no acute findings Treatment of parainfluenza as below Patient received aspirin in the ER. He is on Eliquis at baseline. If CVA eval is positive, can add antiplatelet to anticoagulation regimen. Continue atorvastatin, if evidence of CVA increase to moderate to high-dose statin. Lipid panel is pending. No ASD noted on prior echo We will follow on medical telemetry overnight Parainfluenza. Acute Parainfluenza positive in ER, no leukocytosis, CXR without evidence of abnormality or superimposed lobar pneumonia Supportive care No hypoxia, titrate oxygen to SPO2 greater than 94% if required Hypothyroidism. Chronic, stable Continue Synthroid TSH pending History of atrial fibrillation. Chronic paroxysmal, currently stable Continue amiodarone 200 mg daily Continue rivaroxaban 15 mg daily Continue metoprolol 50 mg daily Admitting EKG: Sinus bradycardia, rate 48, QTc 444. Patient is with chronotropic response while at the bedside If progressive bradycardia/lack of chronotropic response/pauses occur hold metoprolol Event monitor 10/2022 showed normal sinus rhythm with rare PACs/rare PVC/no A- fib/2 asymptomatic runs of atrial tachycardia. Overall low paroxysmal A-fib bur den. Type II DM. Chronic, adequately controlled on admission, stable Goal BSG [id number] Home glargine 12 units SSI based on basal requirements of 12 units. 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 On admission patient is noted to be positive for parainfluenza 3. Jose is seen at the bedside while waiting for carotid Dopplers. He reports that his symptoms began abruptly today and he reports he has less "pep "in the last 2 days, but no shortness of breath, chest pain, syncope, presyncope, cough, fever, chills, nausea, vomiting, diarrhea, constipation, or sputum production. He reports he was walking back from fishing when he suddenly became much more f atigued than usual and his right leg "just would not work ". He notes his right leg has a history of injury with a pin in it and is weaker at baseline, but he seems completely to unable to use it at a time. He had a little headache and was globally fatigued with this as well. Symptoms have improved by time of hospitalist assessment, but patient notes he has not been up and walking on his leg so he does not know if his symptoms are really gone. He took his medications this morning. No prior history of stroke. No GA. Medical History: Reviewed Medications: Reviewed. No known drug allergies. Took medications this morning Surgical History: Reviewed Family history: Reviewed Allergies: Reviewed Social History: No tobacco use. Rare social alcohol use, weekly at most per patient. Code Status: Full code Allergies Allergy/AdvReac Type Severity Reaction Status Date / Time minocycline Allergy Unknown Unknown Verified 04/01/23 17:19 Home Medications Medication Instructions Recorded Confirmed Type blood sugar diagnostic (OneTouch #10 ea 05/10/19 04/01/23 Rx Ultra Blue Test Strip) magnesium oxide 400 mg (241.3 mg 400 mg PO QAM 07/20/19 04/01/23 History magnesium) tablet (MagOx) cholecalciferol (vitamin D3) 25 2,000 unit PO DAILY #60 caps 08/23/20 04/01/23 Rx mcg (1,000 unit) capsule (Vitamin D3) polyethylene glycol 3350 17 gram 17 g PO DAILY #1 btl 08/23/20 04/01/23 Rx oral powder packet (Miralax) acetaminophen 325 mg capsule 325 mg PO BID PRN Pain 09/07/20 04/01/23 History (Tylenol) mecobalamin (vitamin B12) 1,000 2,000 mcg PO 3XWK 06/05/21 04/01/23 History mcg chewable tablet amiodarone 200 mg tablet 200 mg PO DAILY #90 tabs 03/10/22 04/01/23 Rx levothyroxine 175 mcg tablet 175 mcg PO QAM #90 tabs 04/08/22 04/01/23 Rx rivaroxaban 15 mg tablet 15 mg PO DAILY #30 tabs 05/26/22 04/01/23 Rx atorvastatin 10 mg tablet 10 mg PO PM #90 tabs 06/10/22 04/01/23 Rx blood-glucose sensor (Dexcom G6 #9 ea 09/09/22 04/01/23 Rx Sensor device) insulin glargine 100 unit/mL (3 12 unit (0.12 mL) subcut HS #20 10/23/22 04/01/23 Rx mL) subcutaneous pen (Lantus Pens Solostar U-100 Insulin) insulin lispro 100 unit/mL See Rx Instructions subcut 11/13/22 04/01/23 Rx subcutaneous pen (Humalog KwikPen USEASDIRECTD #75 mL (U-100) Insulin) alfuzosin 10 mg tablet,extended 10 mg PO HS #90 tabs 11/17/22 04/01/23 Rx release 24 hr glucagon HCl 1 mg solution for 1 mg subcut Q20M PRN hypoglycemia 01/12/23 04/01/23 Rx injection (Glucagon (HCl) #1 ea Emergency Kit) ipratropium bromide 21 mcg (0.03 2 spray intranasal BID PRN allergy 01/12/23 04/01/23 Rx %) nasal spray symptoms #30 mL glucagon 1 mg/0.2 mL subcutaneous 1 mg (0.2 mL) subcut ONCE #0.2 mL 01/16/23 04/01/23 Rx auto-injector (Gvoke HypoPen 1-Pack) pen needle, diabetic 32 gauge x #400 ea 02/18/23 04/01/23 Rx 1/4" (BD Ultra-Fine Micro Pen Needle) metoprolol succinate 50 mg 50 mg PO QAM #90 tabs 02/24/23 04/01/23 Rx tablet,extended release 24 hr tramadol 50 mg tablet See Rx Instructions PO QID PRN 02/25/23 04/01/23 Rx pain #120 tabs metronidazole 1 % topical gel 1 applic topical DAILY PRN .rosacea 04/01/23 04/01/23 History (Metrogel) Past Med/Surg History Medical History Acute blood loss anemia Atrial flutter on Xarelto Benign prostate hyperplasia BPH (benign prostatic hyperplasia) Broken leg Changing skin lesion Chronic back pain Chronic kidney disease, stage 3a CKD (chronic kidney disease) CKD (chronic kidney disease) stage 4, GFR 15-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 Close exposure to 2018- Constipation Constipation Diabetes mellitus, type 2 IDDM Dyslipidemia Femur fracture, right Hyperbilirubinemia Hypercholesterolemia Hyperlipidemia Hypertension Hypomagnesemia Hypothyroidism Hypothyroidism Hypothyroidism Inflamed seborrheic keratosis Insulin dependent type 2 diabetes mellitus Intermittent palpitations Leukocytosis Medicare annual wellness visit, subsequent Memory loss Mild obstructive sleep apnea Neuropathy BILAT FEET SHIRA (obstructive sleep apnea) Osteoarthritis PAF (paroxysmal atrial fibrillation) Paroxysmal atrial flutter Peripheral neuropathy Recent surgical procedure on lower extremity Sleep apnea non-compliant CPAP Type 2 diabetes mellitus treated with insulin 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 Grubbs History of surgery on wrist right History of tonsillectomy AGE 6 History of total knee replacement RIGHT 2008 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 Terry Bryan Family History Father Family hx of colon cancer Colorectal cancer Other Cancer Denies family history of Ovarian cancer Prostate cancer Myocardial infarction Breast cancer Social History Smoking Status: Former smoker Tobacco Type: Cigarettes Age Started Using Tobacco: 18; Age Quit Using Tobacco: 41; packs per day: 1; Second Hand Exposure: No; Do You Dip or Chew Tobacco: No; Hx Alcohol Use: Yes Alcohol type: beer Alcohol Intake Frequency: 2-3 x/Week Hx Substance Use: No Preferred Language: Turkmen Communication Ability: Effective Visual Impairment: Partially Limited Hearing Ability: Use of Hearing Aid Collector Of Internal Revenue Required: No Beliefs That Will Affect Care: None marital status: Current Living Situation: Spouse Current Living Situation Comment: Lives with current occupational status: retired How many Children do You have: 2 Feels Safe at Home: Yes Childhood Exposure to Second-Hand Smoke: Yes Diet: low carbohydrate and regular caffeine: Yes (diet pepsi) during the past year weight has: decreased > 10 lbs Dental Care, Regularly: Yes Physical Activity Frequency: 3-4 Times per Week Physical Activity Frequency Comment: Water aerobics, swimming Seatbelt Use: always Sunscreen Use: Yes (occasionally) Do you think of yourself as: straight/heterosexual Gender Identity: Male Assistive Devices: Glasses and Hearing Aid - Bilateral Review of Systems Review of Systems: All systems reviewed & are unremarkable except as noted in HPI & below Physical Exam Physical Exam: General: A&Ox3. NAD. Cooperative. HEENT: Atraumatic, normocephalic. Pupils equal and reactive to light. Vision and hearing grossly intact Pulm: CTAB A&P. -wheezes, -rales, -rhonchi. Symmetrical chest rise. No increased work of breathing. No respiratory distress. Cardiac: RRR, -mrg. Radial pulses intact and symmetrical. Abdominal: Nontender, nondistended, soft. BS present. Extremities: Right and left lower extremity with sensation intact and symmetrical to soft touch. Ankle dorsiflexion/plantarflexion 5/5 without asymmetry. Board Layer strength 5/5 bilaterally. Sensation of soft touch in hands and arms intact without asymmetry or deficit. Radial and PT pulse intact bilaterally. Hip flexion against antigravity intact bilaterally. Results & Data Results & Data Vital Signs (Past 12 Hours) Vital Signs Temp Pulse Pulse Resp BP BP Pulse Ox 04/01/23 17:00 54 L 15 124/69 99 04/01/23 16:30 50 L 13 139/87 99 04/01/23 16:00 46 L 16 135/79 98 04/01/23 15:00 48 L 14 113/57 L 97 04/01/23 14:54 47 L 04/01/23 14:41 48 L 17 125/73 04/01/23 13:58 36.5 C 49 L 18 111/66 97 O2 Del Method 04/01/23 17:00 Room Air 04/01/23 16:30 Room Air 04/01/23 16:00 Room Air 04/01/23 15:00 Room Air 04/01/23 14:54 04/01/23 14:41 Room Air 04/01/23 13:58 Room Air PG Care Time/CCT Total # of Minutes Spent Total Time Spent with Patient: Total time spent is greater than 50% in coordination of care (as documented) at patient's floor/unit and/or counseling patient: Coding Level of Care Code 76454 INT INP/OBS CARE 3/75MIN Diagnoses Right leg weakness R29.898 CKD (chronic kidney disease) stage 4, GFR 15-29 ml/min N18.4 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
--- NOTE | 2023-04-01 18:41 | Ultrasound Report ---
CAROTID ARTERY ULTRASOUND CLINICAL HISTORY: TIA COMPARISON STUDY: None. TECHNIQUE: Real-time, grayscale, and color Doppler sonography of the carotid and vertebral arteries w as performed. Images were viewed in the transverse and longitudinal planes. FINDINGS: There is mild atherosclerotic plaque. Velocity measurements are listed below. COMMON CAROTID PEAK SYSTOLIC VELOCITY (CM/S): RIGHT 76 LEFT 79 ICA PEAK SYSTOLIC VELOCITY (CM/S): RIGHT 95 LEFT 84 Systolic ratios between the internal to common carotid arteries were normal. Antegrade flow is seen in the vertebral arteries. The external carotid arteries are patent. IMPRESSION: Mild atherosclerotic plaque without evidence for a hemodynamically significant stenosis. ACT 112: Negative or not required by law. Electronically signed by: Laureano Murdock M.D. 04/01/2023 6:40 PM
[2023-04-01] MEDS ORDERED: LORazepam 2 MG/1 ML VIAL IV STA (21:31)
--- NOTE | 2023-04-01 22:40 | Magnetic Resonance Report ---
Exam(s): MRI HEAD Without Contrast EXAM: MR Head Without Intravenous Contrast CLINICAL HISTORY: Reason for exam: RLE weakness. TECHNIQUE: Magnetic resonance images of the head/brain without intravenous contrast in multiple planes. COMPARISON: No relevant prior studies available. FINDINGS: Brain: Mild ischemic microangiopathy. Age appropriate cerebral volume loss. No hemorrhage. Ventricles: Unremarkable. No ventriculomegaly. Bones/joints: Unremarkable. Sinuses: Left maxillary sinus inflammatory polyps. No acute sinusitis. Mastoid air cells: Unremarkable as visualized. No mastoid effusion. Orbits: Unremarkable as visualized. IMPRESSION: No acute findings in the head/brain. Electronically signed by: Spencer Trevino MD 04/01/23 22:39 PM
[2023-04-01] MEDS ORDERED: GLUCOSE 10 TAB/TUBE PO PRN (22:50)
[2023-04-01] MEDS ORDERED: GLUCAGON FOR INJ 1 MG VIAL SQ PRN (22:50)
[2023-04-01] MEDS ORDERED: TAMSULOSIN HCL 0.4 MG CAP PO SCH (22:50)
[2023-04-01] MEDS ORDERED: PHARMACIST DISCHARGE MED REC CONSULT PRN (22:50)
[2023-04-01] MEDS ORDERED: DEXTROSE 50% 50 ML SYRINGE IV PRN (22:50)
[2023-04-01] MEDS ORDERED: CARBOHYDRATES FOR HYPOGLYCEMIA PO PRN (22:50)
[2023-04-01] MEDS ORDERED: GLUCOSE 40% GEL 15 GM TUBE PO PRN (22:50)
[2023-04-01] MEDS ORDERED: ATORVASTATIN 10 MG TAB PO SCH (22:50)
[2023-04-01] MEDS: LANTUS PER UNIT CHARGE SQ SCH (23:43)
[2023-04-01] MEDS: INSULIN ASPART PER UNIT CHARGE SC SCH (23:43)
[2023-04-02] MEDS ORDERED: LEVOTHYROXINE SODIUM 175 MCG TABLET PO SCH (06:30)
[2023-04-02 07:37] LABS: Basophils # (auto) 0.05 K/uL (0-0.2); Basophils % (auto) 0.6 %; Eosinophils # (auto) 0.17 K/uL (0-0.50); Eosinophils % (auto) 2.1 %; Hematocrit (blood only) 42.2 % (42.0-52.0); Hemoglobin 14.5 g/dl (14.0-18.0); Immature Granulocytes # (auto) 0.04 K/uL (0.01-0.20); Immature Granulocytes % (auto) 0.5 %; Lymphocytes # (auto) 1.54 K/uL (1.2-3.4); Lymphocytes % (auto) 19.3 %; Mean Corpuscular Hemoglobin 32.5 pg (25.0-34.0); Mean Corpuscular Hgb Conc 34.4 g/dL (32.0-36.0); Mean Corpuscular Volume 94.6 fL (80.0-100.0); Mean Platelet Volume 9.9 fL (9.4-12.4); Monocytes # (auto) 0.89 K/uL (0.11-0.59); Monocytes % (auto) 11.1 %; Neutrophils # (auto) 5.31 K/uL (1.40-6.50); Neutrophils % (auto) 66.4 %; Platelet Count 164 K/uL (130-400); RDW Coefficient of Variation 12.1 % (11.5-14.5); RDW Standard Deviation 41.7 fL (36.4-46.3); Red Blood Count 4.46 M/uL (4.70-6.10)
[2023-04-02 08:02] LABS: Albumin Globulin Ratio 2.2 (0.9-2); Albumin Level 3.8 gm/dl (3.4-5.0); BUN Creatinine Ratio 11.8 (10-20); Bilirubin,Total 1.7 mg/dl (0.2-1.0); Calcium 8.5 mg/dl (8.6-10.3); Chol HDL Ratio 2.8 (0-5); Est GFR (African American) 38.2 ml/min; Globulin 1.7 gm/dl (2.5-4.0); Potassium 3.9 mmol/L (3.5-5.1); Total Protein 5.5 gm/dl (6.0-8.3)
[2023-04-02] MEDS ORDERED: METOPROLOL SUCC 50MG EXT REL TAB PO SCH (09:00)
[2023-04-02] MEDS ORDERED: AMIODARONE 200 MG TAB PO SCH (09:00)
[2023-04-02] MEDS ORDERED: MAGNESIUM OXIDE 400 MG TAB PO SCH (09:00)
[2023-04-02] MEDS ORDERED: POLYETHYLENE (MIRALAX) 17 GM PACK PO SCH (09:00)
[2023-04-02 09:06] LABS: Estimated Average Glucose 157 mg/dl; Hemoglobin A1C 7.1 % (4.5-5.6)
[2023-04-02] MEDS: LANTUS PER UNIT CHARGE SQ SCH (09:42)
[2023-04-02] MEDS: INSULIN ASPART PER UNIT CHARGE SC SCH ×2 (09:42→12:38)
--- NOTE | 2023-04-02 10:35 | Hospitalist Progress Note ---
Date of Service April 02, 2023 Assessment & Plan (1) Right leg weakness: Plan: Right lower extremity weakness, increased global weakness. Acute, unstable metabolic encephalopathy from metabolic encephalopathy from parainfluenza, patient did have much more focal symptoms to the right lower extremity. He has had injury/fracture to this extremity so it is not with symmetrical strength at baseline We will complete stroke work-up with carotid Dopplers and MRI, CT with no acute findings Supportive care for parainfluenza Patient received aspirin in the ER. He is on Eliquis at baseline. Parainfluenza. Acute Parainfluenza positive in ER, no leukocytosis, CXR fairly unrevealing no hypoxia Hypothyroidism. Chronic, stable Continue Synthroid TSH pending History of atrial fibrillation. Chronic paroxysmal, currently stable Continue amiodarone 200 mg daily Continue rivaroxaban 15 mg daily Continue metoprolol 50 mg daily Admitting EKG: Sinus bradycardia, Type II DM. Chronic, adequately controlled on admission, stable Goal BSG [id number] Home glargine 12 units SSI based on basal requirements of 12 units. Correction fraction 60, carb ratio 20 Glucose checks AC/at bedtime CKD 3 due to DM. 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: (4) Mild obstructive sleep apnea: (5) Type 2 diabetes mellitus: Admission and Anticipated Discharge Date Admission Date: April 01, 2023 Results & Data Results & Data Vital Signs (Past 12 Hours) Vital Signs Temp Pulse Resp BP BP Pulse Ox O2 Del Method 04/02/23 07:48 97.5 F L 50 L 18 126/71 97 Room Air 04/02/23 03:35 97.5 F L 52 L 18 125/65 95 Room Air 04/01/23 22:50 98.2 F 50 L 18 174/78 H 97 Room Air 04/01/23 22:50 Room Air 04/01/23 22:50 98.2 F 50 L 18 174/78 H 97 Room Air PG Care Time/CCT Total # of Minutes Spent Total Time Spent with Patient: Total time spent is greater than 50% in coordination of care (as documented) at patient's floor/unit and/or counseling patient: Coding Diagnoses Right leg weakness R29.898 CKD (chronic kidney disease) stage 4, GFR 15-29 ml/min N18.4 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
--- NOTE | 2023-04-02 15:11 | Discharge Summary ---
Date of Service April 02, 2023 Admission HPI Per Admitting Provider Jose Haskins is a 82-year-old male with a past medical history of type II DM, CKD, hyperlipidemia, osteoarthritis, colon adenoma, and hypertension who presents as a TIA evaluation after he felt weakness in his right leg in addition to global weakness this morning. On admission patient is noted to be positive for parainfluenza 3. Jose is seen at the bedside while waiting for carotid Dopplers. He reports that his symptoms began abruptly today and he reports he has less "pep "in the last 2 days, but no shortness of breath, chest pain, syncope, presyncope, cough, fever, chills, nausea, vomiting, diarrhea, constipation, or sputum production. He reports he was walking back from fishing when he suddenly became much more fatigued than usual and his right leg "just would not work ". He notes his right leg has a history of injury with a pin in it and is weaker at baseline, but he seems completely to unable to use it at a time. He had a little headache and was globally fatigued with this as well. Symptoms have improved by time of hospitalist assessment, but patient notes he has not been up and walking on his leg so he does not know if his symptoms are really gone. He took his medications this morning. No prior history of stroke. No [place]. Medical History: Reviewed Medications: Reviewed. No known drug allergies. Took medications this morning Surgical History: Reviewed Family history: Reviewed Allergies: Reviewed Social History: No tobacco use. Rare social alcohol use, weekly at most per patient. Code Status: Full code Principal Diagnosis weakness of leg possible from spinal stenosis Multilevel lumbosacral spondylosis as above with moderate to severe central canal stenosis at L4-L5 parainfluenza infection Discharge Exam pt is awake and alert LE weakness has resolved Discharge Data Allergies Allergy/AdvReac Type Severity Reaction Status Date / Time minocycline Allergy Unknown Unknown Verified 04/01/23 17:19 Consultations 04/01/23 16:51 ED Decision to Admit Stat Ordered Studies Chest X-Ray 04/01/23 14:03 XR chest 1V portable CLINICAL HISTORY: Hypotension. COMPARISON STUDY: Chest radiograph August 17, 2020. FINDINGS: Lung volumes are normal. Lungs are clear. There is no pneumothorax or pleural effusion. Mild cardiomegaly. Mediastinal contours are normal. There is no evidence for pulmonary edema. IMPRESSION: No acute cardiopulmonary findings. Mild cardiomegaly. ACT 112: Negative or not required by law. Electronically signed by: Laureano Murdock M.D. 04/01/2023 3:[address] 04/01/23 14:03 CT OF THE HEAD WITHOUT CONTRAST CLINICAL HISTORY: Hypotension, anticoagulated. COMPARISON STUDY: Head CT August 17, 2020. CT DOSE: 625.80 mGy.cm TECHNIQUE: Helical axial images of the head were obtained without IV contrast. Automated exposure control was utilized for the study. A dose lowering technique was utilized adhering to the principles of ALARA. FINDINGS: No acute intracranial hemorrhage, midline shift or mass effect is present. The ventricular system is unremarkable. The basal cisterns are patent. No extra-axial collections are present. There are no findings to suggest acute dural sinus thrombosis or acute territorial infarct. White matter hypodensity suggests small vessel disease. A mucous retention cyst within the left maxillary sinus is incidentally noted. IMPRESSION: No acute intracranial findings. Electronically signed by: Laureano Murdock M.D. 04/01/2023 2:59 PM Brain MRI 04/01/23 16:45 Exam(s): MRI HEAD Without Contrast EXAM: MR Head Without Intravenous Contrast CLINICAL HISTORY: Reason for exam: RLE weakness. TECHNIQUE: Magnetic resonance images of the head/brain without intravenous contrast in multiple planes. COMPARISON: No relevant prior studies available. FINDINGS: Brain: Mild ischemic microangiopathy. Age appropriate cerebral volume loss. No hemorrhage. Ventricles: Unremarkable. No ventriculomegaly. Bones/joints: Unremarkable. Sinuses: Left maxillary sinus inflammatory polyps. No acute sinusitis. Mastoid air cells: Unremarkable as visualized. No mastoid effusion. Orbits: Unremarkable as visualized. IMPRESSION: No acute findings in the head/brain. Carotid Doppler Study 04/01/23 17:10 CAROTID ARTERY ULTRASOUND CLINICAL HISTORY: TIA COMPARISON STUDY: None. TECHNIQUE: Real-time, grayscale, and color Doppler sonography of the carotid and vertebral arteries was performed. Images were viewed in the transverse and longitudinal planes. FINDINGS: There is mild atherosclerotic plaque. Velocity measurements are listed below. COMMON CAROTID PEAK SYSTOLIC VELOCITY (CM/S): RIGHT 76 LEFT 79 ICA PEAK SYSTOLIC VELOCITY (CM/S): RIGHT 95 LEFT 84 Systolic ratios between the internal to common carotid arteries were normal. Antegrade flow is seen in the vertebral arteries. The external carotid arteries are patent. IMPRESSION: Mild atherosclerotic plaque without evidence for a hemodynamically significant stenosis. Electronically signed by: Laureano Murdock M.D. 04/01/2023 6:40 PM Hospital Course (1) Right leg weakness: Right lower extremity weakness, increased global weakness. Acute, unstable metabolic encephalopathy from metabolic encephalopathy from parainfluenza, patient did have much more focal symptoms to the right lower extremity. He has had injury/fracture to this extremity so it is not with symmetrical strength at baseline did complete stroke work-up with carotid Dopplers and MRI, CT with no acute findings -feeling that this was parainfluenza and peripheral neuropathy rather than stroke or tia Supportive care for parainfluenza Patient received aspirin in the ER. He is on Eliquis at baseline. Parainfluenza. Acute Parainfluenza positive in ER, no leukocytosis, CXR fairly unrevealing no hypoxia Hypothyroidism. Chronic, stable Continue Synthroid TSH WNL History of atrial fibrillation. Chronic paroxysmal, currently stable Continue amiodarone 200 mg daily Continue rivaroxaban 15 mg daily Continue metoprolol 50 mg daily Admitting EKG: Sinus bradycardia, Type II DM. Chronic, adequately controlled on admission, stable Goal BSG [id number] Home glargine 12 units CKD 3 due to DM. 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: (4) Mild obstructive sleep apnea: (5) Type 2 diabetes mellitus: Total Time Total Time Spent Total Time Spent (In Minutes): It required greater than 30 minutes to prepare this patient for discharge Discharge Plan Discharge Items Patient Disposition: Home - Self-Care Reason For Visit: RLE + GLOBAL WEAKNESS, CVA R/O, SUSPECT PARAFLU Discharge Diagnosis: weakness of leg possible from spinal stenosis Multilevel lumbosacral spondylosis as above with moderate to severe central canal stenosis at L4-L5 parainfluenza infection Activity: Per Instructions section Activity Comment: please be careful in your exertion Non-emergency contact: Primary Care Provider and Surgeon Call non-emergency contact if: your symptoms worsen Follow-up/Referrals: Jalil Caceres MD [Primary Care Provider] - Diet: Regular and Carb Consistent or DM2 Addtl Attending Provider Instructions: you were diagnosed with parainfluenza virus, please rest and recover please follow up with Dr Sheikh and his pain managment team for you back and leg issues Please continue to hydrate and follow up with your family doctor this week Pending Studies at Discharge: No Stand-Alone Forms: [facility] [employer], Smoking Cessation Medications and DC Order Prescriptions: Continued (DME) OneTouch Ultra Blue Test Strip strip See Dose Instructions .ROUTE .MEDSUPPLY Qty: 10 0RF Dose Instruction: As directed Rx Instructions: As directed amiodarone 200 mg tablet 200 mg PO DAILY Qty: 90 3RF levothyroxine 175 mcg tablet 175 mcg PO QAM Qty: 90 3RF rivaroxaban 15 mg tablet 15 mg PO DAILY Qty: 30 11RF Rx Instructions: must administer with evening meal atorvastatin 10 mg tablet 10 mg PO PM Qty: 90 3RF insulin glargine [Lantus Solostar U-100 Insulin] 100 unit/mL (3 mL) insulin pen 12 unit SQ HS Qty: 20 3RF insulin lispro [Humalog KwikPen Insulin] 100 unit/mL insulin pen See Rx Instructions subcut USEASDIRECTD MDD 80 Qty: 75 3RF Rx Instructions: SLIDING SCALE PER PT. 20 in a.m., 20 at noon, 25 at supper plus sliding scale subcut use as directed; alfuzosin 10 mg tablet extended release 24 hr 10 mg PO HS Qty: 90 3RF Rx Instructions: administer after the same meal each day Gvoke HypoPen 1-Pack 1 mg/0.2 mL auto-injector 1 mg subcut ONCE Qty: 0.2 1RF (DME) pen needle, diabetic [BD Ultra-Fine Micro Pen Needle] 32 gauge x 1/4" needle See Rx Instructions .Route Qty: 400 3RF Rx Instructions: Change with a new pen needle 4x a day metoprolol succinate 50 mg tablet extended release 24 hr 50 mg PO QAM Qty: 90 3RF tramadol 50 mg tablet See Rx Instructions PO QID PRN (Reason: pain) Qty: 120 0RF Hold Instructions: not needing this Rx Instructions: 1-2 tabs PO four times daily PRN; acetaminophen [Tylenol] 325 mg capsule 325 mg PO BID PRN (Reason: Pain) (DME) Dexcom G6 Sensor Device See Rx Instructions .Route Qty: 9 3RF Rx Instructions: As directed mecobalamin (vitamin B12) 1,000 mcg tablet,chewable 2,000 mcg PO 3XWK Rx Instructions: TAKES MON, WED, & FRI. glucagon HCl [Glucagon (HCl) Emergency Kit] 1 mg recon soln 1 mg subcut Q20M PRN (Reason: hypoglycemia) Qty: 1 0RF Rx Instructions: until target blood sugar attained ipratropium bromide 21 mcg (0.03 %) spray,non-aerosol 2 spray intranasal BID PRN (Reason: allergy symptoms) Qty: 30 11RF Rx Instructions: administer into each nostril magnesium oxide [MagOx] 400 mg (241.3 mg magnesium) tablet 400 mg PO QAM polyethylene glycol 3350 [Miralax] 17 gram Powder In Packet 17 g PO DAILY Qty: 1 0RF cholecalciferol (vitamin D3) [Vitamin D3] 25 mcg (1,000 unit) capsule 2,000 unit PO DAILY Qty: 60 5RF metronidazole [Metrogel] 1 % Gel 1 applic TOPICAL DAILY PRN (Reason: .rosacea) Admission Data Admit Date/Time: 04/01/23 18:10 Attending Provider: Sae Rocha Admit Provider: Dony Person Primary Care Provider: Jalil Caceres Other Providers: Dony Person Coding Level of Care Code 41068 INP/OBS DISCH >30 MIN Diagnoses Right leg weakness R29.898 CKD (chronic kidney disease) stage 4, GFR 15-29 ml/min N18.4 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
[2023-04-03] MEDS ORDERED: CYANOCOBALAMIN (B-12) 500 MCG TABLET PO SCH (09:00)
== END 2023-04-02 16:15 | disposition home or self-care (01) ==
LOC: ED 13:47 → 2N 13:47 → SUATTDRO 18:10 → 2N 21:44

== ENCOUNTER 2024-11-03 12:15 | Inpatient (IN) ==
[2024-11-03 13:14] LABS: Basophils # (auto) 0.04 K/uL (0.00-0.20); Basophils % (auto) 0.4 %; Eosinophils # (auto) 0.06 K/uL (0.00-0.50); Eosinophils % (auto) 0.6 %; Hematocrit (blood only) 43.9 % (42.0-52.0); Hemoglobin 15.1 g/dl (14.0-18.0); Immature Granulocytes # (auto) 0.05 K/uL (0.01-0.20); Immature Granulocytes % (auto) 0.5 %; Lymphocytes # (auto) 1.25 K/uL (1.20-3.40); Lymphocytes % (auto) 11.7 %; Mean Corpuscular Hemoglobin 33.2 pg (25.0-34.0); Mean Corpuscular Hgb Conc 34.4 g/dL (32.0-36.0); Mean Corpuscular Volume 96.5 fL (80.0-100.0); Mean Platelet Volume 9.9 fL (9.4-12.4); Monocytes # (auto) 1.78 K/uL (0.11-0.59); Monocytes % (auto) 16.7 %; Neutrophils # (auto) 7.49 K/uL (1.40-6.50); Neutrophils % (auto) 70.1 %; Platelet Count 160 K/uL (130-400); RDW Coefficient of Variation 12.2 % (11.5-14.5); RDW Standard Deviation 43.6 fL (36.4-46.3); Red Blood Count 4.55 M/uL (4.70-6.10); White Blood Count 10.67 K/ul (4.8-10.8)
[2024-11-03 13:23] LABS: Albumin Globulin Ratio 1.6 (0.9-2); Albumin Level 4.1 gm/dl (3.4-5.0); BUN Creatinine Ratio 23.6 (10-20); Bilirubin,Total 1.5 mg/dl (0.2-1.0); Calcium 9.2 mg/dl (8.6-10.3); Globulin 2.6 gm/dl (2.5-4.0); Phosphorus 3.4 mg/dl (2.5-4.9); Potassium 4.1 mmol/L (3.5-5.1); Total Protein 6.7 gm/dl (6.0-8.3)
[2024-11-03 13:29] LABS: Troponin I High Sensitivity 12.2 pg/ml (0-20)
--- NOTE | 2024-11-03 13:33 | XRay Report ---
XR chest 1V portable CLINICAL HISTORY: weak, covid TECHNIQUE: Single frontal radiograph of the chest was obtained. Comparison: Comparison is made to chest radiograph 04/01/2023 FINDINGS: No lines and tubes are seen. The cardiomediastinal silhouette is normal. The lungs are clear. No evid ence of pleural effusion or pneumothorax. IMPRESSION: No acute chest disease. ACT 112: Negative or not required by law. Electronically signed by: Ezekiel Li M.D. 11/03/2024 1:32 PM
[2024-11-03 13:37] LABS: Thyroid Stimulating Hormone 3.031 uIu/ml (0.300-4.500)
[2024-11-03 13:49] LABS: Appearance Urine Clear (Clear); Bacteria Urine Automated None Seen (None Seen); Bilirubin Urine Negative (Negative); Blood Urine Trace (Negative); Color Urine Yellow; Epithelial Cell Urine Auto 0-2 /hpf (0-2); Glucose Urine UA 3+ (Negative); Ketones Urine 1+ (Negative); Leukocyte Esterase Urine Negative (Negative); Nitrite Urine Negative (Negative); Protein Urine 1+ (Negative); RBC Urine Automated 0-2 /hpf (0-2); Specific Gravity Urine 1.032 (1.000-1.030); Urobilinogen Urine Negative (Negative); WBC Urine Automated 0-5 /hpf (0-5)
--- NOTE | 2024-11-03 14:59 | Emergency Department Note ---
Impression & Plan COVID-19, Generalized weakness, Hyperglycemia due to type 2 diabetes mellitus ED Provider Note NAME: MILAN ARROYO AGE: 84 SEX: M : 1940 ARRIVES VIA: Walk-In INFORMANT: Patient ED PROVIDER(S): Blas Song MD CHIEF COMPLAINT: Weakness, COVID-19, referred. PLAN: Disposition: Admit MEDICAL DECISION MAKING: The patient is a pleasant 84-year-old gentleman with a past medical history of CKD, type 2 diabetes, hypertension, hyperlipidemia, hypothyroidism, BPH, paroxysmal atrial fibrillation on Xarelto and amiodarone who presents to the emergency department via walk-in accompanied by family, referred by his PCP office who saw the patient today for evaluation of generalized weakness, body aches with poor appetite, cough and congestion over the past week where he was diagnosed with COVID-19 in the office. The patient's weight today in the office was 90 kg, which is down from 96 kg in August. They attributed this guide changer the past week because this is when he started having a change in his diet. Here in the emergency department the patient was 94 kg. On evaluation the patient is fatigued appearing but no distress, afebrile with blood pressure 170s/90s and heart rate in the 90s and vital signs otherwise stable. O2 saturation is 95% on room air with normal respiratory effort. He appears clinically dry. He exhibits boggy nasal turbinates. He has a scant intermittent wheeze but lungs are otherwise clear with normal respiratory effort. Abdomen is nondistended, nontender. He exhibits generalized weakness without focal neurologic deficits. EKG without overt acute ischemia. CXR negative for acute cardiopulmonary process per my personal preliminary review/interpretation. WBC, H/H and platelets within normal limits. There is no left shift. Chemistry without metabolic acidosis. Creatinine is 2 similar to baseline range in setting of CKD. BUN is elevated baseline at 48 however and consistent with patient's clinically dry appearance. Glucose is 287. LFTs are unremarkable. High-sensitivity troponin 12.2, within normal limits. Lipase is normal. TSH within normal limits. UA is without evidence of infection. 3+ glucose is noted as well as 1+ ketones consistent with suspected dehydration from polyuria related to his hyperglycemia. Patient was treated with IV fluid hydration, IV APAP, nasal saline, guaifenesin and albuterol MDI. On reevaluation the patient did report some improvement. Heart rate and blood pressure were improved. However he acknowledges he still feels weak and family did have concerns about the degree of his weakness where he was unable to get up independently. Patient lives at home with his elderly . Thus, they did agree with and prefer admission to the hospital for further management. Case was discussed with Dr. Rocha, [facility] hospitalist, who will evaluate the patient for admission. Further management per admitting team. Triage Nursing notes reviewed and agree them. Prior/external medical records reviewed Vital Signs: reviewed Differential diagnosis: Infection, dehydration, metabolic abnormality, hypo/hyperglycemia, electrolyte disturbance, anemia, hypoxia, cardiac sources, intracerebral event, toxicologic, neurologic, as well as other pathologies. ER treatment provided: See below. Diagnostics interpreted by me: ECG: Normal sinus rhythm, 81 bpm, no ectopy, no overt ST elevation or depression, QTc 439, QRS 84. Cardiac Monitoring: An order for continuous cardiac monitoring was placed and demonstrated Normal sinus rhythm, 81 bpm, no ectopy. Laboratory studies: See below Imaging studies: See below Consultation(s): Case was discussed with Dr. Rocha, [facility] hospitalist, who will evaluate the patient for admission. HPI: The patient is a pleasant 84-year-old gentleman with a past medical history of CKD, type 2 diabetes, hypertension, hyperlipidemia, hypothyroidism, BPH, paroxysmal atrial fibrillation on Xarelto and amiodarone who presents to the emergency department via walk-in accompanied by family, referred by his PCP office who saw the patient today for evaluation of generalized weakness, body aches with poor appetite, cough and congestion over the past week where he was diagnosed with COVID-19 in the office. The patient's weight today in the office was 90 kg, which is down from 96 kg in August. They attributed this guide changer the past week because this is when he started having a change in his diet. Here in the emergency department the patient was 94 kg. ROS: See above HPI for pertinent positives & negatives. A total of 10 systems reviewed and were otherwise negative. VITALS:See Below PHYSICAL EXAMINATION: GENERAL: Awake, alert, fatigued-appearing, in no distress HENT: Normocephalic, atraumatic. Oropharynx with dry mucous membranes and otherwise unremarkable. EYES: Normal conjunctiva. Sclera non-icteric. EOMI. No nystamgus. PEARRL. NECK: Supple. No nuchal rigidity. FROM. No JVD. RESPIRATORY: Clear to auscultation. CARDIAC: Regular rate, normal rhythm. Extremities warm and well perfused. Pulses equal. ABDOMEN: Soft, non-distended. No tenderness to palpation. No rebound or guarding. No masses. MUSCULOSKELETAL: Chest examination reveals no tenderness. The back is symmetrical on inspection without obvious abnormality. There is no CVA tenderness to palpation. No joint edema. LOWER EXTREMITIES: Calves are equal size bilaterally and non-tender. No edema. No discoloration. NEURO: No focal sensory or motor deficits noted. CNII-XII grossly intact. 5/5 strength and SILT x 4 extremities. Intact finger-nose and alternating palms. SKIN: No rash or jaundice noted. Blas Song MD Past Med/Surg History Problem List Hyperglycemia due to type 2 diabetes mellitus (Acute) Generalized weakness (Acute) COVID-19 (Acute) Uncontrolled diabetes mellitus with hyperglycemia COVID-19 virus infection Dehydration Urinary frequency Left facial pain Tinea pedis Fatigue Benign prostate hyperplasia Status post lumbar spinal fusion Stage 3b chronic kidney disease (CKD) Encounter for pre-operative examination Generalized osteoarthritis of multiple sites (Acute) Controlled diabetes mellitus with diabetic neuropathy (Acute) Colon adenoma (Acute) S/P total knee arthroplasty Paroxysmal atrial flutter Hypertension Type 2 diabetes mellitus 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 Fontaine History of COVID-2021--mild symptoms, no symptoms now Leg weakness right leg chronically since femoral fracture, denies change or worsening CKD (chronic kidney disease) stage 4, GFR 15-29 ml/min follows with Dr. Ibarra Memory loss Intermittent palpitations Pt denies Inflamed seborrheic keratosis Constipation Hypercholesterolemia Hypomagnesemia Peripheral neuropathy feet Chronic back pain Hypertension controlled, stable per pt Surgical History History of back surgery L4-L5 08/2023 History of hip surgery right long trochanteric nail 08/18/20 @ [facility] History of bilateral cataract extraction History of esophagogastroduodenoscopy (EGD) History of colonoscopy History of selective injection of anesthetic agent around lumbar nerve root 02/04/21 Dr. Grubbs 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 Terry Bryan History of surgery on wrist right History of tonsillectomy AGE 6 History of total knee replacement RIGHT 2009 Family History Father Family hx of colon cancer Colorectal cancer Other Cancer No family history of adverse response to anesthesia Denies family history of Ovarian cancer Prostate cancer Myocardial infarction Breast cancer Social History Smoking Status: Former smoker Tobacco Type: Cigarettes Age Started Using Tobacco: 18; Age Quit Using Tobacco: 41; packs per day: 1; Second Hand Exposure: No; Do You Dip or Chew Tobacco: No; Hx Alcohol Use: Yes Alcohol type: beer Alcohol Intake Frequency: 2-3 x/Week Hx Substance Use: No Preferred Language: Trinidadian Communication Ability: Effective Visual Impairment: No Limitations Hearing Ability: Use of Hearing Aid [employer] Required: No Beliefs That Will Affect Care: None marital status: Current Living Situation: Spouse Current Living Situation Comment: Lives with current occupational status: retired How many Children do You have: 2 Feels Safe at Home: Yes Childhood Exposure to Second-Hand Smoke: Yes Diet: low carbohydrate and regular caffeine: Yes (diet pepsi) during the past year weight has: decreased > 10 lbs Dental Care, Regularly: Yes Physical Activity Frequency: 3-4 Times per Week Physical Activity Frequency Comment: Water aerobics, swimming Seatbelt Use: always Sunscreen Use: Yes (occasionally) Do you think of yourself as: straight/heterosexual Gender Identity: Male Assistive Devices: Glasses Allergies Allergies Allergy/AdvReac Type Severity Reaction Status Date / Time monocycline AdvReac Mild discoloration Uncoded 11/03/24 10:32 of skin Home Meds Home Medications Medication Instructions Recorded Confirmed magnesium oxide 400 mg (241.3 mg 400 mg PO QAM 07/20/19 11/03/24 magnesium) tablet (MagOx) acetaminophen 325 mg capsule 325 mg PO BID PRN Pain 09/07/20 11/03/24 (Tylenol) cholecalciferol (vitamin D3) 25 2,000 unit PO QAM 07/24/23 11/03/24 mcg (1,000 unit) capsule (Vitamin D3) cyanocobalamin (vitamin B-12) 1,000 mcg PO 3XWK 07/24/23 11/03/24 1,000 mcg tablet (Vitamin B-12) glucagon 1 mg/0.2 mL subcutaneous 1 mg subcut ONCE PRN Hypoglycemia 07/24/23 11/03/24 auto-injector (GvStepOne Health HypoPen 1-Pack) polyethylene glycol 3350 17 gram 17 g PO QPM 07/24/23 11/03/24 oral powder packet (Miralax) docusate sodium 100 mg tablet 100 mg PO DAILY 02/05/24 11/03/24 (Stool Softener) Previous Rx's Medication Instructions Recorded blood sugar diagnostic (OneTouch #10 ea 05/10/19 Ultra Blue Test Strip) blood-glucose sensor (Iizuu G6 #9 ea 09/09/22 Sensor device) ipratropium bromide 21 mcg (0.03 2 spray intranasal BID PRN allergy 01/12/23 %) nasal spray symptoms #30 mL metronidazole 1 % topical gel 1 applic topical DAILY PRN 05/18/23 (Metrogel) .rosacea #60 grams Hospital bed-semielectric #1 ea 08/20/23 w/mattress and side rails losartan 25 mg tablet 25 mg PO DAILY #90 tabs 01/07/24 alfuzosin 10 mg tablet,extended 10 mg PO HS #90 tabs 01/15/24 release 24 hr amiodarone 200 mg tablet 200 mg PO QAM #90 tabs 01/15/24 atorvastatin 10 mg tablet 10 mg PO PM #90 tabs 01/15/24 insulin glargine 100 unit/mL (3 8 unit (0.08 mL) subcut HS #4 Pens 05/19/24 mL) subcutaneous pen (Lantus Solostar U-100 Insulin) rivaroxaban 15 mg tablet (Xarelto) 15 mg PO DAILY #90 tabs 06/17/24 tramadol 50 mg tablet See Rx Instructions PO QID PRN 08/12/24 pain #120 tabs gabapentin 100 mg capsule 100 mg PO TID #90 caps 08/23/24 levothyroxine 175 mcg tablet 175 mcg PO QAM #90 tabs 08/31/24 metoprolol succinate 25 mg 25 mg PO QAM #90 tabs 09/01/24 tablet,extended release 24 hr insulin lispro 100 unit/mL See Rx Instructions subcut TID #90 09/13/24 subcutaneous pen (Humalog KwikPen mL (U-100) Insulin) pen needle, diabetic 32 gauge x #400 ea 10/11/2411/12" (BD Ultra-Fine Micro Pen Needle) Results & Data (ED) Vital Signs Vital Signs - 24 hr 11/03/24 12:21 11/03/24 12:36 11/03/24 13:07 Temperature 36.6 C Temperature Source Temporal Artery Scan Pulse Rate 91 H 82 79 Pulse Rate [Apical] Pulse Rhythm Regular Respiratory Rate 18 20 Respiratory Effort / Characteristics Respiratory Depth Respiratory Pattern Blood Pressure 173/92 H Blood Pressure [Right Arm] Blood Pressure Mean 119 Blood Pressure Mean [Right Arm] Pulse Oximetry 95 97 Oxygen Delivery Method Room Air Room Air Sepsis Recent Fever Within 48 Hours No Sepsis New/Unexplained Change in Mental Status N/A Sepsis Action Taken by Nursing No Action Required 11/03/24 14:00 11/03/24 15:00 11/03/24 17:00 Temperature 36.7 C Temperature Source Oral Pulse Rate 72 Pulse Rate [Apical] 74 75 Pulse Rhythm Respiratory Rate 14 18 18 Respiratory Effort / Characteristics Non-Labored Spontaneous Non-Labored Spontaneous Respiratory Depth Normal Normal Respiratory Pattern Regular Regular Blood Pressure 136/79 Blood Pressure [Right Arm] 133/81 143/71 H Blood Pressure Mean 85 Blood Pressure Mean [Right Arm] 98 95 Pulse Oximetry 97 96 95 Oxygen Delivery Method Room Air Room Air Sepsis Recent Fever Within 48 Hours Sepsis New/Unexplained Change in Mental Status Sepsis Action Taken by Nursing 11/03/24 17:09 Temperature Temperature Source Pulse Rate 74 Pulse Rate [Apical] Pulse Rhythm Respiratory Rate Respiratory Effort / Characteristics Respiratory Depth Respiratory Pattern Blood Pressure Blood Pressure [Right Arm] Blood Pressure Mean Blood Pressure Mean [Right Arm] Pulse Oximetry Oxygen Delivery Method Sepsis Recent Fever Within 48 Hours Sepsis New/Unexplained Change in Mental Status Sepsis Action Taken by Nursing Laboratory Data 11/03/24 12:50 11/03/24 12:50 Lab Results 11/03/24 11/03/24 11/03/24 Range/Units 12:50 13:11 17:00 WBC 10.67 (4.8-10.8) K/ul RBC 4.55 L (4.70-6.10) M/uL Hgb 15.1 (14.0-18.0) g/dl Hct 43.9 (42.0-52.0) % MCV 96.5 (80.0-100.0) fL MCH 33.2 (25.0-34.0) pg MCHC 34.4 (32.0-36.0) g/dL RDW Std Deviation 43.6 (36.4-46.3) fL RDW Coeff of Artur 12.2 (11.5-14.5) % Plt Count 160 (130-400) K/uL MPV 9.9 (9.4-12.4) fL Immature Gran % (Auto) 0.5 % Neut % (Auto) 70.1 % Lymph % (Auto) 11.7 % [place] % (Auto) 16.7 % Eos % (Auto) 0.6 % Baso % (Auto) 0.4 % Neut # (Auto) 7.49 H (1.40-6.50) K/uL Lymph # (Auto) 1.25 (1.20-3.40) K/uL [place] # (Auto) 1.78 H (0.11-0.59) K/uL Eos # (Auto) 0.06 (0.00-0.50) K/uL Baso # (Auto) 0.04 (0.00-0.20) K/uL Immature Gran # (Auto) 0.05 (0.01-0.20) K/uL Sodium 137 (136-145) mmol/L Potassium 4.1 (3.5-5.1) mmol/L Chloride 102 (98-107) mmol/L Carbon Dioxide 23 (21-32) mmol/L Anion Gap 12 H (3-11) BUN 48 H (6-23) mg/dl Creatinine 2.03 H (0.6-1.4) mg/dl Est Cr Clr Drug Dosing 33.0 ml/min eGFR 31.93 BUN/Creatinine Ratio 23.6 H (10-20) Glucose 287 H (70-99(Fasting)) mg/dl POC Glucose 184 H (70-99) mg/dl Estimat Average Glucose 171 mg/dl Hemoglobin A1c 7.6 H (4.5-5.6) % Calcium 9.2 (8.6-10.3) mg/dl Phosphorus 3.4 (2.5-4.9) mg/dl Magnesium 2.0 (1.7-2.4) mg/dl Total Bilirubin 1.5 H (0.2-1.0) mg/dl AST 18 (13-39) U/L ALT 14 (7-52) U/L Alkaline Phosphatase 88 (34-104) U/L Troponin I High Sens 12.2 (0-20) pg/ml Total Protein 6.7 (6.0-8.3) gm/dl Albumin 4.1 (3.4-5.0) gm/dl Globulin 2.6 (2.5-4.0) gm/dl Albumin/Globulin Ratio 1.6 (0.9-2) Lipase 22 (11-82) U/L TSH 3.031 (0.300-4.500) uIu/ml Urine Color Yellow Urine Appearance Clear (Clear) Urine pH 5.0 (4.5-7.5) Ur Specific [place] 1.032 H (1.000-1.030) Urine Protein 1+ H (Negative) Urine Glucose (UA) 3+ H (Negative) Urine Ketones 1+ H (Negative) Urine Blood Trace H (Negative) Urine Nitrite Negative (Negative) Urine Bilirubin Negative (Negative) Urine Urobilinogen Negative (Negative) Ur Leukocyte Esterase Negative (Negative) Urine WBC (Auto) 0-5 (0-5) /hpf Urine RBC (Auto) 0-2 (0-2) /hpf U Hyaline Cast (Auto) 3-5 H (0-2) /lpf U Epithel Cells (Auto) 0-2 (0-2) /hpf Urine Bacteria (Auto) None Seen (None Seen) Administered Medications Atorvastatin Calcium (Atorvastatin 10 Mg Tab) 10 mg PO PM JOSS Stop: 12/03/24 20:59 Last Admin: 11/03/24 22:16 Dose: 10 mg Documented By: PSYCH ARNP Gabapentin (Gabapentin 100 Mg Cap) 100 mg PO TID JOSS Stop: 12/03/24 20:59 Last Admin: 11/03/24 22:16 Dose: 100 mg Documented By: NEGRITO Sodium Chloride (Nss) 1,000 mls @ 80 mls/hr IV .[id number] JOSS Stop: 11/04/24 07:59 Last Admin: 11/03/24 20:27 Dose: 80 mls/hr Documented By: NEGRITO Insulin Aspart (Insulin Aspart Per Unit Charge) 0 units SC ACHS JOSS Stop: 12/03/24 20:59 Last Admin: 11/03/24 22:16 Dose: 1 units Documented By: NEGRITO Co-signed By: KWAN Insulin Glargine (Lantus Per Unit Charge) 8 units SC JOSS Stop: 12/03/24 20:59 Last Admin: 11/03/24 22:17 Dose: 8 units Documented By: NEGRITO Co-signed By: KWAN Polyethylene Glycol (Polyethylene (Miralax) 17 Gm Pack) 17 gm PO QPM JOSS Stop: 12/03/24 20:59 Last Admin: 11/03/24 22:16 Dose: Not Given Documented By: NEGRITO Tamsulosin HCl (Tamsulosin Hcl 0.4 Mg Cap) 0.4 [address] [facility] Stop: 12/03/24 20:59 Last Admin: 11/03/24 22:15 Dose: 0.4 mg Documented By: NEGRITO Discontinued Medications Albuterol (Albuterol Hfa 8 Gm Inhaler) 2 puffs INH NOW ONE Stop: 11/03/24 14:58 Last Admin: 11/03/24 15:20 Dose: 2 puffs Documented By: RADHA Guaifenesin (Guaifenesin 600 Mg Tabcr) 600 mg PO NOW STA Stop: 11/03/24 14:58 Last Admin: 11/03/24 15:18 Dose: 600 mg Documented By: RADHA Sodium Chloride (Nss) 500 mls @ 999 mls/hr IV .Q31M ONE Stop: 11/03/24 15:27 Last Infusion: 11/03/24 15:41 Dose: Infused Documented By: Admin: 11/03/24 15:10 Dose: 999 mls/hr Documented By: RADHA Acetaminophen (Ofirmev) 1,000 mg in 100 mls @ 400 mls/hr IV NOW STA Stop: 11/03/24 15:11 Last Infusion: 11/03/24 15:31 Dose: Infused Documented By: Admin: 11/03/24 15:16 Dose: 400 mls/hr Documented By: RADHA Sodium Chloride (Sodium Chloride 0.65% Na Soln 45 Ml ([place])) 2 sprays NA NOW ONE Stop: 11/03/24 14:59 Last Admin: 11/03/24 15:18 Dose: 2 sprays Documented By: RADHA Imaging Data Radiologist's Impression: Chest X-Ray 11/03/24 12:36 XR chest 1V portable CLINICAL HISTORY: weak, covid TECHNIQUE: Single frontal radiograph of the chest was obtained. Comparison: Comparison is made to chest radiograph 04/01/2023 FINDINGS: No lines and tubes are seen. The cardiomediastinal silhouette is normal. The lungs are clear. No evidence of pleural effusion or pneumothorax. IMPRESSION: No acute chest disease. ACT 112: Negative or not required by law. Electronically signed by: Ezekiel Li M.D. 11/03/2024 1:32 PM Discharge Plan Visit Data Chief Complaint: Flu Like Symptoms Stated Complaint: WEIGHT LOSS/14 LBS, HAS COVID, DEHYDRATION ED Provider: Blas Song Discharge Problem: COVID-19, Generalized weakness, Hyperglycemia due to type 2 diabetes mellitus Patient Disposition: Admitted As Inpatient Discharge Instructions Interventions: ED Discharge Assessment Last Done: 11/03/24 19:43 Discharge Problem: Hyperglycemia due to type 2 diabetes mellitus Qualifiers: Diabetes mellitus terminal operator insulin use: unspecified terminal operator insulin use status Qualified Code(s): E11.65 - Type 2 diabetes mellitus with hyperglycemia
[2024-11-03] MEDS: SODIUM CHLORIDE 0.9% 500 ML IV ONE (15:10)
[2024-11-03] MEDS: ACETAMINOPHEN 1,000 MG/100 ML VIAL IV STA (15:16)
[2024-11-03] MEDS: guaiFENesin 600 MG TABCR PO STA (15:18)
[2024-11-03] MEDS: SODIUM CHLORIDE 0.65% NA SOLN 45 ML (OCEAN) ONE (15:18)
[2024-11-03] MEDS: ALBUTEROL HFA 8 GM INHALER INH ONE (15:20)
--- NOTE | 2024-11-03 17:27 | Electrocardiogram Report ---
Test Reason : Blood Pressure : */* mmHG Vent. Rate : 81 BPM Atrial Rate : 81 BPM P-R Int : 202 ms QRS Dur : 84 ms QT Int : 378 ms P-R-T Axes : 57 -13 45 degrees QTcB Int : 439 ms Normal sinus rhythm Low voltage QRS possible Inferior infarct , age undetermined Cannot rule out Anteroseptal infarct , age undetermined Abnormal ECG When compared with ECG of 01-Apr-2023 14:36, Vent. rate has increased by 33 bpm Minimal criteria for Anteroseptal infarct are now Present Confirmed by Ronan Bernal ([id number]) on 11/03/2024 5:26:31 PM Referred By: REFERRED SELF Confirmed By: Ronan Bernal
[2024-11-03 18:58] LABS: Estimated Average Glucose 171 mg/dl; Hemoglobin A1C 7.6 % (4.5-5.6)
--- NOTE | 2024-11-03 19:15 | History & Physical Report ---
Date of Service November 03, 2024 Assessment & Plan (1) COVID-19: Plan: 84-year-old male with significant metabolic encephalopathy and weakness from COVID-19 diagnosis with likely COVID-19 pneumonia. Patient not hypoxic. Will employ dexamethasone therapy. Patient is out of the time window for remdesivir Will watch for hypoxemia (2) Hyperglycemia due to type 2 diabetes mellitus: Plan: Patient blood glucose is mildly elevated he will wish to continue his Dexcom meter. He typically takes standing dose short acting insulin with augmented sliding scale along with a correction factor of 30 starting at 150. Maintain on once a day Lantus also. If dexamethasone makes his glucose high we may employ NPH (3) PAF (paroxysmal atrial fibrillation): Plan: History of paroxysmal atrial fibrillation appears to be in sinus rhythm on admission continuing metoprolol Xarelto and amiodarone. Plan Chronic stable hypothyroidism on Synthroid BPH on alfuzosin Dyslipidemia on atorvastatin Patient is a full code DVT prevention is Xarelto which she takes for his A-fib History of Present Illness Primary Care Provider: Jalil Caceres MD 84 M with covid diagnosis, some cxr changes and significant weakness, unable to get oob and eat or drink, has history of DM,HTN, PAF, Dyslip. is chronically anticoagulated. Pt has has some weight loss but symptoms began 5 days ago or more, is not interested in paxlovid or remdesivir. Allergies Allergy/AdvReac Type Severity Reaction Status Date / Time monocycline AdvReac Mild discoloration Uncoded 11/03/24 10:32 of skin Home Medications Medication Instructions Recorded Confirmed Type blood sugar diagnostic (OneTouch #10 ea 05/10/19 11/03/24 Rx Ultra Blue Test Strip) magnesium oxide 400 mg (241.3 mg 400 mg PO QAM 07/20/19 11/03/24 History magnesium) tablet (MagOx) acetaminophen 325 mg capsule 325 mg PO BID PRN Pain 09/07/20 11/03/24 History (Tylenol) blood-glucose sensor (Dexcom G6 #9 ea 09/09/22 11/03/24 Rx Sensor device) ipratropium bromide 21 mcg (0.03 2 spray intranasal BID PRN allergy 01/12/23 11/03/24 Rx %) nasal spray symptoms #30 mL metronidazole 1 % topical gel 1 applic topical DAILY PRN 05/18/23 11/03/24 Rx (Metrogel) .rosacea #60 grams cholecalciferol (vitamin D3) 25 2,000 unit PO QAM 07/24/23 11/03/24 History mcg (1,000 unit) capsule (Vitamin D3) cyanocobalamin (vitamin B-12) 1,000 mcg PO 3XWK 07/24/23 11/03/24 History 1,000 mcg tablet (Vitamin B-12) glucagon 1 mg/0.2 mL subcutaneous 1 mg subcut ONCE PRN Hypoglycemia 07/24/23 11/03/24 History auto-injector (Gvoke HypoPen 1-Pack) polyethylene glycol 3350 17 gram 17 g PO QPM 07/24/23 11/03/24 History oral powder packet (Miralax) Hospital bed-semielectric #1 ea 08/20/23 11/03/24 Rx w/mattress and side rails losartan 25 mg tablet 25 mg PO DAILY #90 tabs 01/07/24 11/03/24 Rx alfuzosin 10 mg tablet,extended 10 mg PO HS #90 tabs 01/15/24 11/03/24 Rx release 24 hr amiodarone 200 mg tablet 200 mg PO QAM #90 tabs 01/15/24 11/03/24 Rx atorvastatin 10 mg tablet 10 mg PO PM #90 tabs 01/15/24 11/03/24 Rx docusate sodium 100 mg tablet 100 mg PO DAILY 02/05/24 11/03/24 History (Stool Softener) insulin glargine 100 unit/mL (3 8 unit (0.08 mL) subcut HS #4 Pens 05/19/24 11/03/24 Rx mL) subcutaneous pen (Lantus Solostar U-100 Insulin) rivaroxaban 15 mg tablet (Xarelto) 15 mg PO DAILY #90 tabs 06/17/24 11/03/24 Rx tramadol 50 mg tablet See Rx Instructions PO QID PRN 08/12/24 11/03/24 Rx pain #120 tabs gabapentin 100 mg capsule 100 mg PO TID #90 caps 08/23/24 11/03/24 Rx levothyroxine 175 mcg tablet 175 mcg PO QAM #90 tabs 08/31/24 11/03/24 Rx metoprolol succinate 25 mg 25 mg PO QAM #90 tabs 09/01/24 11/03/24 Rx tablet,extended release 24 hr insulin lispro 100 unit/mL See Rx Instructions subcut TID #90 09/13/24 11/03/24 Rx subcutaneous pen (Humalog KwikPen mL (U-100) Insulin) pen needle, diabetic 32 gauge x #400 ea 10/11/24 11/03/24 Rx 1/4" (BD Ultra-Fine Micro Pen Needle) Past Med/Surg History Problem List (Updated 11/03/24 @ 18:57 by Blas Song MD) Hyperglycemia due to type 2 diabetes mellitus (Acute) Generalized weakness (Acute) COVID-19 (Acute) Uncontrolled diabetes mellitus with hyperglycemia COVID-19 virus infection Dehydration Urinary frequency Left facial pain Tinea pedis Fatigue Benign prostate hyperplasia Status post lumbar spinal fusion Stage 3b chronic kidney disease (CKD) Encounter for pre-operative examination Generalized osteoarthritis of multiple sites (Acute) Controlled diabetes mellitus with diabetic neuropathy (Acute) Colon adenoma (Acute) S/P total knee arthroplasty Paroxysmal atrial flutter Hypertension Type 2 diabetes mellitus 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 PAF (paroxysmal atrial fibrillation) Lumbar spinal stenosis Chronic rhinitis Chronic cough CKD (chronic kidney disease) (Acute) Chronic anticoagulation xarelto daily Vitamin B 12 deficiency Mild obstructive sleep apnea non-compliant CPAP Hypothyroidism Vitamin D insufficiency Dyslipidemia Type 2 diabetes mellitus treated with insulin Medical History Atrial fibrillation and flutter History of COVID-19 Leg weakness CKD (chronic kidney disease) stage 4, GFR 15-29 ml/min Memory loss Intermittent palpitations Inflamed seborrheic keratosis Constipation Hypercholesterolemia Hypomagnesemia Peripheral neuropathy Chronic back pain Hypertension Surgical History History of back surgery History of hip surgery History of bilateral cataract extraction History of esophagogastroduodenoscopy (EGD) History of colonoscopy History of selective injection of anesthetic agent around lumbar nerve root S/P total knee arthroplasty History of surgery on wrist History of tonsillectomy History of total knee replacement Family History Father Family hx of colon cancer Colorectal cancer Other Cancer No family history of adverse response to anesthesia Denies family history of Ovarian cancer Prostate cancer Myocardial infarction Breast cancer Social History Smoking Status: Never smoker Tobacco Type: Cigarettes Age Started Using Tobacco: 18; Age Quit Using Tobacco: 41; packs per day: 1; Second Hand Exposure: No; Do You Dip or Chew Tobacco: No; Hx Alcohol Use: Yes ("3 beers a week") Alcohol type: beer Alcohol Intake Frequency: 2-3 x/Week Hx Substance Use: No Preferred Language: Nepali Communication Ability: Effective Visual Impairment: No Limitations Hearing Ability: Use of Hearing Aid Alkylation Operator Required: No Beliefs That Will Affect Care: None marital status: Current Living Situation: Spouse Current Living Situation Comment: Lives with current occupational status: retired How many Children do You have: 2 Feels Safe at Home: Yes Childhood Exposure to Second-Hand Smoke: Yes Diet: low carbohydrate and regular caffeine: Yes (diet pepsi) during the past year weight has: decreased > 10 lbs Dental Care, Regularly: Yes Physical Activity Frequency: 3-4 Times per Week Physical Activity Frequency Comment: Water aerobics, swimming Seatbelt Use: always Sunscreen Use: Yes (occasionally) Do you think of yourself as: straight/heterosexual Gender Identity: Male Assistive Devices: Glasses Physical Exam Physical Exam: The patient appeared well nourished and normally developed but moderately ill Vital signs as documented. Head exam is normocephalic atraumatic Neck is without JVD, thyromegaly, or carotid bruits. Lungs are coarse with bilateral breath sounds Cardiac exam, Rhythm is regular.. No murmurs, rubs or gallops. Abdominal exam reveals normal bowel sounds, soft non tender, no masses Extremities are nonedematous and both pedal pulses are present Neurologic exam is alert and oriented, no focal loss of strength or sensation Skin is without bruises or rashes Psychologically is without concerns for anxiety or depression.. Results & Data Results & Data Vital Signs (Past 12 Hours) Vital Signs Temp Pulse Pulse Resp BP BP Pulse Ox 11/03/24 19:00 70 18 142/75 H 97 11/03/24 17:09 74 11/03/24 17:00 75 18 143/71 H 95 11/03/24 15:00 98.1 F 74 18 133/81 96 11/03/24 14:00 72 14 136/79 97 11/03/24 13:07 79 12/26/24 12:36 82 20 97 11/03/24 12:21 97.9 F 91 H 18 173/92 H 95 O2 Del Method 11/03/24 19:00 Room Air 11/03/24 17:09 11/03/24 17:00 Room Air 11/03/24 15:00 Room Air 11/03/24 14:00 11/03/24 13:07 11/03/24 12:36 Room Air 11/03/24 12:21 Room Air Laboratory Results review cbc review chemistry Code Status & VTE Plan VTE Prophylaxis Plan VTE Prophylaxis will be ordered: Yes PG Care Time/CCT Total # of Minutes Spent Total Time Spent with Patient: Total time spent is greater than 50% in coordination of care (as documented) at patient's floor/unit and/or counseling patient: Coding Level of Care Code 47955 INT INP/OBS CARE 3/75MIN Diagnoses COVID-19 U07.1 Hyperglycemia due to type 2 diabetes mellitus E11.65 PAF (paroxysmal atrial fibrillation) I48.0
[2024-11-03] MEDS ORDERED: AUTO INJECTOR SQ PRN (20:24)
[2024-11-03] MEDS ORDERED: NON-FORMULARY MEDICATION (Blood-Glucose Sensor [Dexcom G6 Sensor] device) SCH (20:24)
[2024-11-03] MEDS ORDERED: GLUCOSE 10 TAB/TUBE PO PRN (20:24)
[2024-11-03] MEDS ORDERED: traMADol HCL 50 MG TABLET PO PRN (20:24)
[2024-11-03] MEDS ORDERED: GLUCAGON 1 MG/0.2 ML SQ PRN (20:24)
[2024-11-03] MEDS ORDERED: GLUCAGON FOR INJ 1 MG VIAL SQ PRN (20:24)
[2024-11-03] MEDS ORDERED: DEXTROSE 50% 50 ML SYRINGE IV PRN (20:24)
[2024-11-03] MEDS ORDERED: CARBOHYDRATES FOR HYPOGLYCEMIA PO PRN (20:24)
[2024-11-03] MEDS ORDERED: GLUCOSE 40% GEL 15 GM TUBE PO PRN (20:24)
[2024-11-03] MEDS: SODIUM CHLORIDE 0.9% 1,000 ML IV SCH (20:27)
[2024-11-03] MEDS ORDERED: NON-FORMULARY MEDICATION (Insulin Lispro [Humalog Kwikpen Insulin] 100 unit/mL insulin pen SQ SCH (21:00)
[2024-11-03] MEDS: TAMSULOSIN HCL 0.4 MG CAP PO SCH (22:15)
[2024-11-03] MEDS: ATORVASTATIN 10 MG TAB PO SCH (22:16)
[2024-11-03] MEDS: GABAPENTIN 100 MG CAP PO SCH (22:16)
[2024-11-03] MEDS: INSULIN ASPART PER UNIT CHARGE SC SCH (22:16)
[2024-11-03] MEDS: POLYETHYLENE (MIRALAX) 17 GM PACK PO SCH (22:16)
[2024-11-03] MEDS: LANTUS PER UNIT CHARGE SC SCH (22:17)
[2024-11-04] MEDS: LEVOTHYROXINE SODIUM 175 MCG TABLET PO SCH (06:26)
[2024-11-04 07:06] LABS: Hematocrit (blood only) 38.4 % (42.0-52.0); Hemoglobin 13.3 g/dl (14.0-18.0); Mean Corpuscular Hemoglobin 33.3 pg (25.0-34.0); Mean Corpuscular Hgb Conc 34.6 g/dL (32.0-36.0); Mean Platelet Volume 10.1 fL (9.4-12.4); Platelet Count 146 K/uL (130-400); RDW Coefficient of Variation 11.9 % (11.5-14.5); RDW Standard Deviation 41.7 fL (36.4-46.3); White Blood Count 7.93 K/ul (4.8-10.8)
[2024-11-04 07:29] LABS: BUN Creatinine Ratio 22.6 (10-20); Calcium 7.8 mg/dl (8.6-10.3); Creatinine Clr Calc Pharmacy 38.7 ml/min; Potassium 3.8 mmol/L (3.5-5.1)
[2024-11-04] MEDS: METOPROLOL SUCC 25MG EXT REL TAB PO SCH (08:10)
[2024-11-04] MEDS: LOSARTAN POTASSIUM 25 MG TAB PO SCH (08:11)
[2024-11-04] MEDS: RIVAROXABAN 15 MG TAB PO SCH (08:11)
[2024-11-04] MEDS: DOCUSATE SODIUM 100 MG CAP PO SCH (08:11)
[2024-11-04] MEDS: CYANOCOBALAMIN (B-12) 500 MCG TABLET PO SCH (08:11)
[2024-11-04] MEDS: CHOLECALCIFEROL 25 MCG (1000 UNITS) TAB PO SCH (08:11)
[2024-11-04] MEDS: AMIODARONE 200 MG TAB PO SCH (08:11)
[2024-11-04] MEDS: MAGNESIUM OXIDE 400 MG TAB PO SCH (08:12)
--- NOTE | 2024-11-04 16:29 | Hospitalist Progress Note ---
Date of Service November 04, 2024 Assessment & Plan (1) COVID-19: Plan: 84-year-old male with significant metabolic encephalopathy and weakness from COVID-19 diagnosis with likely COVID-19 pneumonia. Patient not hypoxic. Will employ dexamethasone therapy. Patient is out of the time window for remdesivir Patient is had significant respiratory symptoms without significant hypoxia (2) Hyperglycemia due to type 2 diabetes mellitus: Plan: Patient blood glucose is mildly elevated he will wish to continue his Dexcom meter. He typically takes standing dose short acting insulin with augmented sliding scale along with a correction factor of 30 starting at 150. Maintain on once a day Lantus also. Glucoses have been fairly well-controlled given dexamethasone (3) PAF (paroxysmal atrial fibrillation): Plan: History of paroxysmal atrial fibrillation appears to be in sinus rhythm on admission continuing metoprolol Xarelto and amiodarone. Plan Chronic stable hypothyroidism on Synthroid BPH on alfuzosin Dyslipidemia on atorvastatin Patient is a full code DVT prevention is Xarelto which she takes for his A-fib Admission and Anticipated Discharge Date Admission Date: November 03, 2024 Subjective Patient feels somewhat better he still weak and tired and dyspneic when walking He has an unremitting cough which is been bothersome for sleeping Physical Exam Physical Exam: Patient is able to speak in full sentences but gets winded easily Lungs are coarse breath sounds bilaterally in all lung field no overt wheezes or focal air loss Results & Data Results & Data Vital Signs (Past 12 Hours) Vital Signs Temp Pulse Resp BP Pulse Ox O2 Del Method 11/04/24 15:23 97.2 F L 61 15 116/68 97 Room Air 11/04/24 12:20 97.2 F L 71 16 122/70 97 Room Air 11/04/24 08:10 97.9 F 85 17 120/72 95 Room Air Laboratory Results Reviewed CBC reviewed chemistry PG Care Time/CCT Total # of Minutes Spent Total Time Spent with Patient: Total time spent is greater than 50% in coordination of care (as documented) at patient's floor/unit and/or counseling patient: Coding Level of Care Code 03084 SUB INP/OBS CARE 2/35MIN Diagnoses COVID-19 U07.1 Hyperglycemia due to type 2 diabetes mellitus E11.65 Diabetes mellitus correction insulin use: unspecified salvage determiner insulin use status PAF (paroxysmal atrial fibrillation) I48.0 (2) Hyperglycemia due to type 2 diabetes mellitus Diabetes mellitus salvage determiner insulin use: unspecified salvage determiner insulin use status Qualified Code(s): E11.65 - Type 2 diabetes mellitus with hyperglycemia
[2024-11-04 19:47] VITALS: RESP 18
[2024-11-05 07:42] VITALS: BP 122/70; PULSE 70; TEMP 97.5; O2SAT 98
[2024-11-05] MEDS: ACETAMINOPHEN 325 MG TAB PO PRN (08:54)
--- NOTE | 2024-11-05 11:28 | Discharge Summary ---
Discharge Summary Date of Service November 05, 2024 Principal Dx & Hospital Course #1 = Principal Diagnosis (1) COVID-19: Positivity by nasal swab. He has a viral illness but uncertain if it is from a coronavirus or not. Nevertheless, he is stable and can go home today, November 05, he was instructed to take a vitamin D supplement on a daily basis. All other medications remain the same. (2) Hyperglycemia due to type 2 diabetes mellitus: Mild glucose elevation on admission which was nonfasting. He will resume his usual diabetic management at discharge. ADA diet. (3) PAF (paroxysmal atrial fibrillation): Currently in normal sinus rhythm. Continue current medical management. Continue Xarelto. Telemetry Plan Home todayNovember 05 Admission HPI Per Admitting Provider 84 M with covid diagnosis, some cxr changes and significant weakness, unable to get oob and eat or drink, has history of DM,HTN, PAF, Dyslip. is chronically anticoagulated. Pt has has some weight loss but symptoms began 5 days ago or more, is not interested in paxlovid or remdesivir. Discharge Exam General-alert and oriented x3, no fever, no chills HEENT-head atraumatic and normocephalic, pupils equal and reactive to light, extraocular muscles intact Neck-no lymphadenopathy or thyromegaly, trachea midline Chest-clear to auscultation. No rales, wheezing or rhonchi Cardiac-regular rate and rhythm, normal S1 and S2 Abdomen-normal bowel sounds, no hepatosplenomegaly Extremities-no cyanosis, clubbing, or edema Neuro-cranial nerves II through XII intact, motor and sensory function within normal limits, strength symmetrical, no focal deficits Psych-normal affect, normal mood Discharge Plan Discharge Items Patient Disposition: Home - Self-Care Reason For Visit: COVID, METABOLIC ENCEPHALOPATHY Discharge Diagnosis: Viral illness, acute metabolic encephalopathy, COVID positivity by nasal swab Activity: Resume your previous activity Non-emergency contact: Primary Care Provider Call non-emergency contact if: your symptoms worsen Follow-up/Referrals: Jalil Caceres MD [Primary Care Provider] - 11/11/24 9:00 am Diet: Carb Consistent or DM2 and Heart Healthy Addtl Attending Provider Instructions: All medications remain the same. Avoid as much contact as possible with other people for 5 days. No need to quarantine. Take a vitamin D supplement daily Pending Studies at Discharge: No Stand-Alone Forms: My [facility] Little Borrowed Dress, Smoking Cessation Medications and DC Order Prescriptions: Continued (DME) OneTouch Ultra Blue Test Strip strip See Dose Instructions .ROUTE .MEDSUPPLY Qty: 10 0RF Dose Instruction: As directed Rx Instructions: As directed (DME) Hospital bed-semielectric w/mattress and side rails See Rx Instructions .Route .MEDSUPPLY Qty: 1 0RF Rx Instructions: As directed losartan 25 mg tablet 25 mg PO DAILY Qty: 90 3RF alfuzosin 10 mg tablet extended release 24 hr 10 mg PO HS Qty: 90 3RF Rx Instructions: administer after the same meal each day amiodarone 200 mg tablet 200 mg PO QAM Qty: 90 3RF atorvastatin 10 mg tablet 10 mg PO PM Qty: 90 3RF Xarelto 15 mg tablet 15 mg PO DAILY Qty: 90 3RF Rx Instructions: must administer with evening meal levothyroxine 175 mcg tablet 175 mcg PO QAM Qty: 90 3RF metoprolol succinate 25 mg tablet extended release 24 hr 25 mg PO QAM Qty: 90 3RF insulin lispro [Humalog KwikPen Insulin] 100 unit/mL insulin pen See Rx Instructions subcut TID MDD 100 Qty: 90 0RF Rx Instructions: 22 in a.m., 23 at noon, 34 at supper plus sliding scale subcutaneously three times a day; subcut use as directed; Max 100 units daily (DME) pen needle, diabetic [BD Ultra-Fine Micro Pen Needle] 32 gauge x 1/4" needle See Rx Instructions .Route Qty: 400 3RF Rx Instructions: Change with a new pen needle 4x a day metronidazole [Metrogel] 1 % gel 1 applic TOPICAL DAILY PRN (Reason: .rosacea) Qty: 60 11RF acetaminophen [Tylenol] 325 mg capsule 325 mg PO BID PRN (Reason: Pain) (DME) Dexcom G6 Sensor Device See Rx Instructions .Route Qty: 9 3RF Rx Instructions: As directed docusate sodium [Stool Softener] 100 mg tablet 100 mg PO DAILY ipratropium bromide 21 mcg (0.03 %) spray,non-aerosol 2 spray intranasal BID PRN (Reason: allergy symptoms) Qty: 30 11RF Rx Instructions: administer into each nostril tramadol 50 mg tablet See Rx Instructions PO QID MDD 4 PRN (Reason: pain) Qty: 120 0RF Rx Instructions: 1-2 tab orally four times daily PRN; insulin glargine [Lantus Solostar U-100 Insulin] 100 unit/mL (3 mL) insulin pen 8 unit SQ HS Qty: 4 3RF gabapentin 100 mg capsule 100 mg PO TID Qty: 90 5RF magnesium oxide [MagOx] 400 mg (241.3 mg magnesium) tablet 400 mg PO QAM cyanocobalamin (vitamin B-12) [Vitamin B-12] 1,000 mcg Tablet 1,000 mcg PO 3XWK Patient Comments: takes mon/wed/fri in am polyethylene glycol 3350 [Miralax] 17 gram powder in packet 17 g PO QPM cholecalciferol (vitamin D3) [Vitamin D3] 25 mcg (1,000 unit) capsule 2,000 unit PO QAM Gvoke HypoPen 1-Pack 1 mg/0.2 mL auto-injector 1 mg subcut ONCE PRN (Reason: Hypoglycemia) Discharge Orders: Discharge Order (Routine); Ordered 11/05/24 Ordered By: Sekou Ballesteros Admission Data Admit Date/Time: 11/03/24 18:46 Attending Provider: Sekou Ballesteros Admit Provider: Sae Rocha Primary Care Provider: Jalil Caceres Other Providers: Sae Rocha Hospital Stay Data Consultations 11/03/24 16:47 ED Decision to Admit Stat Pending Results Patient Have Any Pending Studies at Discharge: No Discharge Instructions Given to Patient (Per Discharging Provider) All medications remain the same. Avoid as much contact as possible with other people for 5 days. No need to quarantine. Take a vitamin D supplement daily Total Time Total Time Spent Total Time Spent (In Minutes): 45 minutes Coding Level of Care Code 05472 INP/OBS DISCH >30 MIN Diagnoses COVID-19 U07.1 Hyperglycemia due to type 2 diabetes mellitus E11.65 Diabetes mellitus equipment operator intermodal yard insulin use: unspecified equipment operator intermodal yard insulin use status PAF (paroxysmal atrial fibrillation) I48.0
== END 2024-11-05 13:24 | disposition home or self-care (01) | DRG 177 ==
LOC: ED 12:15 → 2W 18:46 → SUATTDRO 18:46 → 2W 19:43